=== PATIENT | female | born 1945 | race Caucasian/White ===

== ENCOUNTER 2016-10-02 23:28 | Observation (INO) ==
[2016-10-03] MEDS ORDERED: 0.9 % Sodium Chloride 1,000 ML IVC STA (00:13)
[2016-10-03] MEDS ORDERED: *HR* Morphine 2 MG/ML SYRINGE IVP ONE (00:15)
--- NOTE | 2016-10-03 00:18 | Emergency Department Note ---
Disposition Clinical Impression: SIRS (systemic inflammatory response syndrome), Lactic acidosis Disposition: Admitted As Inpatient Condition: Good Time of Disposition: 05:30 SOB HPI - General Chief Complaint: ED Shortness of Breath/Dyspnea Stated Complaint: "Left sided pain/currently being treated for pneu" Time Seen by Provider: 10/02/16 23:57 Source: patient, family Limitations: no limitations Nursing Notes Reviewed: Yes Vital Signs Reviewed: Yes - History of Present Illness 71-year-old female medical history of lung cancer with right lobectomy in 2014 presents to the ED with chest pain on her right after she coughs. This has been ongoing only the past 24 hours. She was recently diagnosed clinically for pneumonia by her primary care physician on Friday. She describes a nonproductive cough, with an initial temperature 101.8 on Friday. She has been afebrile since. She is currently taking a Zpak as well as duoneb treatments at home. She reports an increase work of breathing but does not feel short of breath. Also reports some dysuria. Denies any recent travel. Denies any chest pain, lightheadedness, or headache. History of DVT 2 years ago after a surgery. Was treated appropriately with anticoagulants. - Related Data Home Medications Medication Instructions Recorded Confirmed Calcium Carbonate 600 mg PO BID 03/17/15 10/03/16 Cholecalciferol (Vitamin D3) 2,000 unit PO DAILY 03/17/15 10/03/16 [Vitamin D3] Garlic [Garlic Oil] 1,000 mg PO DAILY 03/17/15 10/03/16 [place]-3/Dha/Epa/Fish Oil [Fish Oil 1,000 mg PO DAILY 03/17/15 10/03/16 Dr 500 mg Softgel] Oxycodone HCl/Acetaminophen 1 each PO Q8H PRN 03/17/15 10/03/16 [Percocet 5-325 mg Tablet] Calcium Polycarbophil [Fibercon] 625 mg PO DAILY 08/12/15 10/03/16 Albuterol Neb [Proventil Neb] 2.5 mg IH Q6H 10/03/16 10/03/16 Aspirin 81 mg PO DAILY 10/03/16 10/03/16 Fluticasone Propionate Nasal 2 spray NS DAILY 10/03/16 10/03/16 [Flonase] Levofloxacin [Levofloxacin] 500 mg PO DAILY 10/03/16 10/03/16 PredniSONE [Prednisone] 40 mg PO TAPER 10/03/16 10/03/16 Tizanidine HCl 4 mg PO DAILY PRN 10/03/16 10/03/16 Previous Rx's Medication Instructions Recorded Pantoprazole Sodium [Protonix] 40 mg PO DAILY #90 granpkt. 12/05/15 Allergies Allergy/AdvReac Type Severity Reaction Status Date / Time paclitaxel Allergy Severe Anaphylaxis Verified 02/19/16 11:27 Penicillins Allergy Severe Hives Verified 02/19/16 11:27 codeine AdvReac Mild Nausea Verified 02/19/16 11:27 All systems ED: reviewed and negative except as stated. Constitutional: Denies: fever, chills Cardiovascular: Reports: chest pain, dyspnea on exertion. Denies: palpitations , syncope Respiratory: Reports: cough, dyspnea. Denies: wheezes, hemoptysis Gastrointestinal: Denies: abdominal pain, nausea, vomiting Genitourinary: Reports: dysuria. Denies: urgency Integumentary: Denies: rash Past Medical History - Past Medical History Attestation: Yes The following information was validated with the patient. Source: patient Medical history: Reports: arthritis, cancer, GERD Surgical history: Reports: cholecystectomy Psychiatric history: Reports: no psych history - Social History Smoking Status: Current every day smoker Alcohol use: Reports: none Drug use: Reports: none Physical Exam - General Limitations: no limitations General appearance: alert, in no apparent distress - Head Head exam: atraumatic, normocephalic, normal inspection - Eye Eye exam: Present: normal appearance, PERRL, EOMI - ENT ENT exam: normal exam, normal oropharynx, mucous membranes moist - Neck Neck exam: Present: normal inspection, full ROM, trachea midline - Chest Chest inspection: Present: normal inspection, symmetric chest wall rise, tenderness (right chest) - Respiratory Respiratory exam: Present: normal lung sounds bilaterally, respiratory distress (increased work of breathing) - Expanded Respiratory Exam Location: rales: Right - Cardiovascular Cardiovascular exam: Present: regular rate, normal rhythm, normal heart sounds - Abdominal Exam Abdominal exam: Present: soft, Non-Tender, normal bowel sounds. Absent: tenderness, distention, guarding, rebound, rigidity - Extremities Exam Extremities exam: Present: normal inspection, full ROM, normal capillary refill. Absent: tenderness, pedal edema, calf tenderness - Neurological Exam Neurological exam: Present: alert, oriented X3 - Psychiatric Psychiatric exam: Present: normal affect, normal mood - Skin Skin exam: Present: warm, dry, intact, normal color Course Course Narrative: Patient evaluated during [facility], some results may be on paper chart. Patient clinically diagnosed with pneumonia on Friday. Since last night she has developed sharp right chest pain worse with coughing. This occurred after a coughing spell. Pain immediately followed. Not concerning for ACS in regard to chest discomfort. She is tachycardic 103 bpm and hypoxic 94% on 2L. She is not normally on oxygen suppliementation. She reports a history of a blood clot with treatment 2 years ago following the surgery. At this time will get a chest x-ray, EKG, septic workup. If the chest x-ray does not show a pneumonia in the right lobes will consider CTA as long as GFR is appropriate. Repeat Lactate 2.76. She has fluids running. History of diabetes but not currently on any medications. No Urine is not consistent with infection, negative for nitrites and leuk esterase. Labs reviewed and discussed with patient. Currently in DOWNTIME. Lactate elevated at 2.5. 2 L normal saline ordered for fluid resuscitation. CXR shows a stable right lung mass and lingular infiltrate. EKG is sinus tachycardia without signs of ischemic changes. Concern for possible PE with her history. With a unconvincing pneumonia on CXR suspicion is high for PE. Wells Criteria for PE is 4.5 which is moderate risk. Will proceed with CTA for R/O PE. Patient is in agreement with plan. Disposition pending CTA as it may reveal pneumonia vs. PE. CTA is negative for PE. Stable lumpectomy changes and postradiation fibrosis. No signs of pneumonia. Will recheck a lactate and troponin as she continues to have pain from the cough. Likely is due to musculoskeletal etiology due to onset from coughing episode and sharp pain only with coughs. Patient ambulated through the department without difficulty, remained 96% on RA. Patient in agreement with plan. - Reevaluation(s) Reevaluation #1: 3rd Lactate after total of 3L normal saline continues to rise, now up to 3.2. Her initial lactate was with 1st liter and repeat lactate was during 2nd liter. A 4th liter of normal saline ordered. Patient remains uncomfortable with each cough, however, when she is not coughing she is very comfortable. Up to 8 mg of morphine ordered for pain and cough. CTA does not reveal an infectious process or pulmonary embolism. Urine is negative for infection. Concern for other etiology. Lungs remain clear on the left and some coarse sounds on the right, likely from the lobectomy. Abdomen remains soft and nontender. Pain continues to be reproducible with cough and palpation to the right chest wall. O2 saturation 94-95% on room air. No obvious signs of infection such as cellulitis. Plan is for admission with lactic acidosis and SIRS. Time: 07:16 - Consultations Consultation #1: Spoke with michelle Skinner to admit for lactic acidosis and SIRS. No further orders at this time. Time: 07:39 Vital Signs Temperature 98.6 F 10/02/16 23:32 Pulse Rate 104 10/02/16 23:32 Respiratory Rate 18 10/02/16 23:32 Blood Pressure 117/72 10/02/16 23:32 O2 Sat by Pulse Oximetry 93 L 10/02/16 23:32 Temperature 98.2 F 10/03/16 15:26 Pulse Rate 89 10/03/16 15:26 Respiratory Rate 18 10/03/16 16:09 Blood Pressure 133/69 10/03/16 15:26 O2 Sat by Pulse Oximetry 96 10/03/16 16:09 Oxygen Delivery Oxygen Delivery Room Air Shortness of Breath/Dyspnea - Medical Records Medical records reviewed: Yes I reviewed the patient's medical records. - Lab Data Lab results reviewed: Yes I reviewed the patient's lab results. Result diagrams: 10/03/16 00:00 10/03/16 00:00 Lab Results 10/03/16 10/03/16 10/03/16 Range/Units 00:00 00:00 00:00 WBC 6.7 (4.3-11.1) K/mcL RBC 3.84 (3.82-4.97) M/mcL Hgb 12.7 (11.5-15.4) g/dL Hct 38.6 (35.3-44.9) % MCV 100.5 H (83.0-100.0) fL MCH 33.1 (28.0-33.3) pg MCHC 32.9 (31.6-35.5) g/dL RDW 14.6 H (11.5-14.5) % Plt Count 218 (140-400) K/mcL MPV 8.9 L (9.4-12.4) fL Immature Gran % 0.5 (0-4) % Seg Neutrophils % 91.9 % Lymphocytes % 2.9 % Monocytes % 4.4 % Eosinophils % 0.0 % Basophils % 0.3 % Neutrophils # 6.2 (1.6-8.9) K/mcL Lymphocytes # 0.2 L (0.6-4.6) K/mcL Monocytes # 0.3 (0.0-1.3) K/mcL Eosinophils # 0.0 (0.0-0.6) K/mcL Basophils # 0.0 (0.0-0.2) K/mcL Platelet Estimate Normal (Normal) PT 11.3 (9.4-12.1) Seconds INR 1.0 APTT 27.1 (26.0-36.0) Seconds Sodium 137 (136-145) mEq/L Potassium 3.8 (3.5-4.5) mEq/L Chloride 104 (98-109) mEq/L Carbon Dioxide 23 (19-29) mEq/L BUN 16 (7-20) mg/dL Creatinine 0.81 (0.57-1.11) mg/dL Est GFR ( Amer) > 60 (> 60) Est GFR (Non-Af Amer) > 60 (> 60) BUN/Creatinine Ratio 20 (6-26) Glucose 117 H (70-99) mg/dL Calculated Osmolality 286 (280-300) Lactic Acid (0.5-2.2) mmol/L Calcium 9.0 (8.6-10.8) mg/dL Phosphorus 2.0 L (2.3-4.7) mg/dL Magnesium 1.7 (1.6-2.6) mg/dL Total Bilirubin 0.2 (0.2-1.2) mg/dL Direct Bilirubin 0.1 (0.0-0.5) mg/dL Indirect Bilirubin 0.1 (0.0-1.2) mg/dL AST 15 (5-34) Units/L ALT 9 (0-55) Units/L Alkaline Phosphatase 77 (38-126) Units/L Troponin I (0-0.03) ng/mL Serum Total Protein 6.5 (6.0-8.3) g/dL Albumin 3.2 L (3.5-5.0) g/dL Globulin 3.3 (2.4-3.5) g/dL Albumin/Globulin Ratio 1.0 L (1.1-2.2) Urine Color (Yellow) Urine Clarity (Clear) Urine pH (5.0-8.0) pH Units Ur Specific [place] (1.010-1.025) Urine Protein (Neg-Trace) mg/dL Urine Glucose (UA) (Normal) mg/dL Urine Ketones (Negative) mg/dL Urine Blood (Negative) Urine Nitrite (Negative) Urine Bilirubin (Negative) Urine Urobilinogen (Normal) mg/dL Ur Leukocyte Esterase (Negative) Ur Culture Indicated? (NO) 10/03/16 10/03/16 10/03/16 Range/Units 00:00 01:30 01:45 WBC (4.3-11.1) K/mcL RBC (3.82-4.97) M/mcL Hgb (11.5-15.4) g/dL Hct (35.3-44.9) % MCV (83.0-100.0) fL MCH (28.0-33.3) pg MCHC (31.6-35.5) g/dL RDW (11.5-14.5) % Plt Count (140-400) K/mcL MPV (9.4-12.4) fL Immature Gran % (0-4) % Seg Neutrophils % % Lymphocytes % % Monocytes % % Eosinophils % % Basophils % % Neutrophils # (1.6-8.9) K/mcL Lymphocytes # (0.6-4.6) K/mcL Monocytes # (0.0-1.3) K/mcL Eosinophils # (0.0-0.6) K/mcL Basophils # (0.0-0.2) K/mcL Platelet Estimate (Normal) PT (9.4-12.1) Seconds INR APTT (26.0-36.0) Seconds Sodium (136-145) mEq/L Potassium (3.5-4.5) mEq/L Chloride (98-109) mEq/L Carbon Dioxide (19-29) mEq/L BUN (7-20) mg/dL Creatinine (0.57-1.11) mg/dL Est GFR ( Amer) (> 60) Est GFR (Non-Af Amer) (> 60) BUN/Creatinine Ratio (6-26) Glucose (70-99) mg/dL Calculated Osmolality (280-300) Lactic Acid 2.5 H 2.8 H (0.5-2.2) mmol/L Calcium (8.6-10.8) mg/dL Phosphorus (2.3-4.7) mg/dL Magnesium (1.6-2.6) mg/dL Total Bilirubin (0.2-1.2) mg/dL Direct Bilirubin (0.0-0.5) mg/dL Indirect Bilirubin (0.0-1.2) mg/dL AST (5-34) Units/L ALT (0-55) Units/L Alkaline Phosphatase (38-126) Units/L Troponin I (0-0.03) ng/mL Serum Total Protein (6.0-8.3) g/dL Albumin (3.5-5.0) g/dL Globulin (2.4-3.5) g/dL Albumin/Globulin Ratio (1.1-2.2) Urine Color Yellow (Yellow) Urine Clarity Clear (Clear) Urine pH 6.0 (5.0-8.0) pH Units Ur Specific [place] 1.006 L (1.010-1.025) Urine Protein Negative (Neg-Trace) mg/dL Urine Glucose (UA) Normal (Normal) mg/dL Urine Ketones Negative (Negative) mg/dL Urine Blood Negative (Negative) Urine Nitrite Negative (Negative) Urine Bilirubin Negative (Negative) Urine Urobilinogen Normal (Normal) mg/dL Ur Leukocyte Esterase Negative (Negative) Ur Culture Indicated? NO (NO) 10/03/16 10/03/16 Range/Units 04:36 04:36 WBC (4.3-11.1) K/mcL RBC (3.82-4.97) M/mcL Hgb (11.5-15.4) g/dL Hct (35.3-44.9) % MCV (83.0-100.0) fL MCH (28.0-33.3) pg MCHC (31.6-35.5) g/dL RDW (11.5-14.5) % Plt Count (140-400) K/mcL MPV (9.4-12.4) fL Immature Gran % (0-4) % Seg Neutrophils % % Lymphocytes % % Monocytes % % Eosinophils % % Basophils % % Neutrophils # (1.6-8.9) K/mcL Lymphocytes # (0.6-4.6) K/mcL Monocytes # (0.0-1.3) K/mcL Eosinophils # (0.0-0.6) K/mcL Basophils # (0.0-0.2) K/mcL Platelet Estimate (Normal) PT (9.4-12.1) Seconds INR APTT (26.0-36.0) Seconds Sodium (136-145) mEq/L Potassium (3.5-4.5) mEq/L Chloride (98-109) mEq/L Carbon Dioxide (19-29) mEq/L BUN (7-20) mg/dL Creatinine (0.57-1.11) mg/dL Est GFR ( Amer) (> 60) Est GFR (Non-Af Amer) (> 60) BUN/Creatinine Ratio (6-26) Glucose (70-99) mg/dL Calculated Osmolality (280-300) Lactic Acid 3.2 H (0.5-2.2) mmol/L Calcium (8.6-10.8) mg/dL Phosphorus (2.3-4.7) mg/dL Magnesium (1.6-2.6) mg/dL Total Bilirubin (0.2-1.2) mg/dL Direct Bilirubin (0.0-0.5) mg/dL Indirect Bilirubin (0.0-1.2) mg/dL AST (5-34) Units/L ALT (0-55) Units/L Alkaline Phosphatase (38-126) Units/L Troponin I 0.01 (0-0.03) ng/mL Serum Total Protein (6.0-8.3) g/dL Albumin (3.5-5.0) g/dL Globulin (2.4-3.5) g/dL Albumin/Globulin Ratio (1.1-2.2) Urine Color (Yellow) Urine Clarity (Clear) Urine pH (5.0-8.0) pH Units Ur Specific [place] (1.010-1.025) Urine Protein (Neg-Trace) mg/dL Urine Glucose (UA) (Normal) mg/dL Urine Ketones (Negative) mg/dL Urine Blood (Negative) Urine Nitrite (Negative) Urine Bilirubin (Negative) Urine Urobilinogen (Normal) mg/dL Ur Leukocyte Esterase (Negative) Ur Culture Indicated? (NO) - Radiology Data Radiology results reviewed: Yes I reviewed the patient's radiology results. Chest X-Ray 10/03/16 00:14 IMPRESSION: 1. Right lung post treatment changes appear stable with no acute consolidation. 2. Subtle progressive lingular and lower lobe findings which may represent bronchitis/bronchiolitis. D/ / 10/03/2016 07:11:17 Jagjit Pereira MD / ros Interpreting Provider: Jagjit Pereira MD - EKG Data EKG attestation: Yes I reviewed and interpreted this EKG. EKG results narrative: EKG performed 2348, sinus tachycardia 107 bpm, normal axis, no ST elevations or depression, no T wave inversions. Intervals are within normal limits. No acute ischemic changes. Attestation Statement - Attestation Attestation: I examined this patient and my medical decision-making was reviewed with the Resident Physician. I agree with the documented findings, disposition and treatment plan as described except to the extent set forth below. Very uncomfortable with coughing, comfortable at rest. Tachycardia improved with fluid administration but lactate did not. No obvious source of infection. Remainder of ED work up unremarkable. Admit for continued hydration and monitoring.
[2016-10-03 00:21] LABS: Basophils % 0.3 %; Hematocrit 38.6 % (35.3-44.9); Hemoglobin 12.7 g/dL (11.5-15.4); Immature Granulocytes % 0.5 % (0-4); Lymphocytes # 0.2 K/mcL (0.6-4.6); Lymphocytes % 2.9 %; Mean Corpuscular HGB Conc 32.9 g/dL (31.6-35.5); Mean Corpuscular Hemoglobin 33.1 pg (28.0-33.3); Mean Corpuscular Volume 100.5 fL (83.0-100.0); Mean Platelet Volume 8.9 fL (9.4-12.4); Monocytes # 0.3 K/mcL (0.0-1.3); Monocytes % 4.4 %; Neutrophils # 6.2 K/mcL (1.6-8.9); Platelet Count 218 K/mcL (140-400); Red Blood Count 3.84 M/mcL (3.82-4.97); Red Cell Distribution Width 14.6 % (11.5-14.5); Segmented Neutrophils % 91.9 %
[2016-10-03 00:26] LABS: Prothrombin Time 11.3 Seconds (9.4-12.1)
[2016-10-03 00:29] LABS: Activated Partial Thrombo Time 27.1 Seconds (26.0-36.0)
[2016-10-03 00:32] LABS: Alanine Aminotransferase 9 Units/L (0-55); Albumin 3.2 g/dL (3.5-5.0); Alkaline Phosphatase 77 Units/L (38-126); Aspartate Amino Transferase 15 Units/L (5-34); BUN/Creatinine Ratio 20 (6-26); Bilirubin,Direct 0.1 mg/dL (0.0-0.5); Bilirubin,Indirect 0.1 mg/dL (0.0-1.2); Bilirubin,Total 0.2 mg/dL (0.2-1.2); Blood Urea Nitrogen 16 mg/dL (7-20); Carbon Dioxide 23 mEq/L (19-29); Chloride 104 mEq/L (98-109); Globulin 3.3 g/dL (2.4-3.5); Glucose 117 mg/dL (70-99); Magnesium 1.7 mg/dL (1.6-2.6); Osmolality,Calculated 286 (280-300); Potassium 3.8 mEq/L (3.5-4.5); Sodium 137 mEq/L (136-145); Total Protein 6.5 g/dL (6.0-8.3); eGFR For African Americans > 60 (> 60); eGFR For Non-African Americans > 60 (> 60)
[2016-10-03 00:39] LABS: Platelet Estimate Normal (Normal)
[2016-10-03] MEDS ORDERED: 0.9 % Sodium Chloride 1,000 ML IVC ONE ×2 (00:56→07:15)
[2016-10-03] MEDS ORDERED: 0.9 % Sodium Chloride 1,000 ML ONE ×3 (01:31→06:59)
[2016-10-03] MEDS ORDERED: *HR* Morphine 2 MG/ML SYRINGE ONE (04:05)
[2016-10-03] MEDS ORDERED: *HR* Morphine 2 MG/ML SYRINGE IV ONE (07:14)
[2016-10-03 08:07] LABS: Bilirubin,Urine Negative (Negative); Blood,Urine Negative (Negative); Clarity,Urine Clear (Clear); Color,Urine Yellow (Yellow); Glucose,Urine (UA) Normal (Normal); Ketones,Urine Negative (Negative); Specific Gravity,Urine 1.006 (1.010-1.025)
[2016-10-03 08:08] LABS: Leukocyte Esterase,Urine Negative (Negative); Nitrite,Urine Negative (Negative); Protein,Urine Negative (Neg-Trace); Urobilinogen,Urine Normal (Normal)
[2016-10-03] MEDS ORDERED: *HR* Morphine 2 MG/ML SYRINGE IVP PRN (11:24)
[2016-10-03] MEDS ORDERED: Naloxone 0.4 MG/ML INJ IVP PRN (11:24)
[2016-10-03] MEDS ORDERED: Ibuprofen 400 MG TABLET PO PRN (11:24)
[2016-10-03] MEDS ORDERED: levoFLOXacin 500 MG TABLET PO SCH (11:30)
[2016-10-03] MEDS ORDERED: tiZANidine 4 MG TABLET PO PRN (11:30)
--- NOTE | 2016-10-03 12:16 | Internal Med History&Physical ---
Date of Encounter: 10/03/16 Time of Encounter: 12:07 Assessment and Plan (1) Sepsis Current visit: Yes Status: Acute Meets criteria for sepsis with suspected bronchitis, tachycardia with HR 90s-110 , tachypnea with RR up to 22. She also reports a fever to 102 on Friday. WBC normal at 6.7. Patient has been taking PO Levaquin since Friday. Blood cultures drawn Lactic acid drawn and increasing, 2.5 to 2.8 to 3.2 despite 3L of fluids given Continue IV fluids with 0.9NS at 100mL/hr IV antibiotics Levaquin and Ceftriaxone ordered Qualifiers: Sepsis type: sepsis due to unspecified organism Qualified Code(s): A41.9 - Sepsis, unspecified organism (2) Lactic acidosis Current visit: Yes Status: Acute Patient with increasing lactic acid despite administration of IV fluids. Patient presents with cough since this weekend, pain in right side associated with coughing and deep inspiration. Patient reports fever of 102 on Friday, but afebrile today. WBC normal at 6.7, She is tachycardic with HR 104-110, and tachypnic with RR of 22 at times, meeting SIRS criteria. CTA and CXR consistent with chronic bronchilitis/chronic bronchitis. Patient was satting 92 -95% on Room air or 2L NC Blood cultures drawn Antibiotics ordered with IV Levaquin and Ceftriaxone ABG ordered Additional Lactic acid ordered (3) Tobacco abuse Current visit: No Status: Acute Patient continues to smoke 1 pack per day despite lung cancer 2 years ago. Discussed smoking cessation, patient not interested at this time. Nicotine patch ordered. (4) Pain aggravated by coughing and deep breathing Current visit: Yes Status: Acute Patient with right sided pain with coughing and deep inspiration. CXR consistent with bronchitis, bronchiolitis, no osseous abnormality. CTA negative for PE and consistent with chroning bronchiolitis. Patient tender on palpation to right lateral chest wall. Pain likely pleuritic or musculoskeletal due to coughing. Dextromethorphan and guafenisin ordered PRN pain medication ordered for right sided pain. Narcan ordered PRN for respiratory depression. (5) DVT prophylaxis Current visit: No Status: Acute Ambulate with assistance anti-embolic stockings Lovenox 40mg SQ daily Internal Medicine - H&P: HPI Chief complaint: Shortness of breath, pain with cough Admitted From: Emergency Dept Plans for Post Hospital Care: Home History of present illness: Ms. Bautista is a 71 year old female with COPD,history of lung cancer status post right upper lobe lumpectomy 2 years ago and chemo/radiation now in remission, history of DVT, and acid reflux, who presented to the emergency department today with complaints of shortness of breath, and right-sided pain with coughing. She reports her cough started over the weekend and she saw her primary care provider on Friday who started her on Levaquin and a prednisone taper for suspected pneumonia. She reports she had a fever of 102 on Friday she also endorses poor appetite, chills and fatigue. Cough is not very productive, she feels short of breath when she has a coughing spell. Pain in her right side is severe, occurs primarily with coughing and subsides after a coughing fit is over. She denies any nausea, vomiting, abdominal pain, diarrhea. She denies any chest pain, palpitations, lightheadedness, dizziness. Evaluation in the emergency department included chest x-ray which showed subtle lingular and left lower lobe findings which may be consistent with bronchitis or bronchiolitis. She was tachycardic to 104-110. Troponin was negative at 0.01. CTA was obtained due to patient's pain with cough, tachycardia, and history of DVT. CTA was negative for pulmonary embolism, showed stable right lung post lumpectomy and postradiation fibrosis, stable basilar peribronchial opacities consistent with chronic bronchiolitis. Also showed a medial right lobe 6 mm subpleural nodular density which is slightly increased in prominence since the prior exam which could represent fibrosis however disease recurrence cannot be excluded and should be followed up. Lactic acid was elevated at 2.5, patient was given fluids and lactic acid redrawn on redraw it was increased to 2.8 additional fluids were given and redraw again was increased to 3.2. White count was normal at 6.7. UA was not concerning for infection. On exam, patient is alert and oriented, in no acute distress. Heart is regular rate and rhythm she is mildly tachypneic with respiratory rate of 22. Lungs were clear to auscultation bilaterally. Patient had tenderness to lateral right chest wall on palpation. Past Med Surg Social Fam HX - Past Medical History Medical history: arthritis, cancer, GERD Psychiatric history: no psych history - Past Surgical History Surgical History: cholecystectomy - Social History Smoking Status: Current every day smoker Alcohol use: none Drug use: none - Family History Daughter Living Status: Still Living Hx Family Cardiac Disorders: No Hx Family Respiratory Disorders: No Mother Hx Family Cardiac Disorders: Yes (not sure what type) Hx Family Respiratory Disorders: No Hx Family Cancer: No Hx Family GI Disorders: No Hx Family Genitourinary Disorders: No Hx Family Endocrine Disorder: Yes (DM) Hx Family Musculoskeletal Disorders: No Hx Family Neuromuscular Disorders: No Hx Family Neurologic Disorders: No Hx Family HEENT Disorders: No Hx Family Autoimmune Disorders: No Hx Family Reproductive Disorders: No Hx Family Psychosocial Disorders: No Hx Family Medical Disorders: No Father Living Status: Hx Family Cardiac Disorders: No Hx Family Respiratory Disorders: Yes (black lung) Hx Family Cancer: Yes (cancer) Hx Family GI Disorders: No Hx Family Genitourinary Disorders: No Hx Family Endocrine Disorder: No Hx Family Musculoskeletal Disorders: No Hx Family Neuromuscular Disorders: No Hx Family Neurologic Disorders: No Hx Family HEENT Disorders: No Hx Family Autoimmune Disorders: No Hx Family Reproductive Disorders: No Hx Family Psychosocial Disorders: No Hx Family Medical Disorders: No Internal Medicine - H&P: Meds Calcium Carbonate 600 mg PO BID 03/17/15 [History] Cholecalciferol (Vitamin D3) [Vitamin D3] 2,000 unit PO DAILY 03/17/15 [History] Garlic [Garlic Oil] 1,000 mg PO DAILY 03/17/15 [History] [place]-3/Dha/Epa/Fish Oil [Fish Oil Dr 500 mg Softgel] 1,000 mg PO DAILY [History] Oxycodone HCl/Acetaminophen [Percocet 5-325 mg Tablet] 1 each PO Q8H PRN [History] Calcium Polycarbophil [Fibercon] 625 mg PO DAILY 08/12/15 [History] Pantoprazole Sodium [Protonix] 40 mg PO DAILY #90 granpkt. 12/05/15 [Rx] Albuterol Neb [Proventil Neb] 2.5 mg IH Q6H 10/03/16 [History] Aspirin 81 mg PO DAILY 10/03/16 [History] Fluticasone Propionate Nasal [Flonase] 2 spray NS DAILY 10/03/16 [History] Levofloxacin [Levofloxacin] 500 mg PO DAILY 10/03/16 [History] PredniSONE [Prednisone] 40 mg PO TAPER 10/03/16 [History] Tizanidine HCl 4 mg PO DAILY PRN 10/03/16 [History] Allergies paclitaxel Allergy (Severe, Verified 02/19/16 11:27) Anaphylaxis 09/21/14 Penicillins Allergy (Severe, Verified 02/19/16 11:27) Hives codeine Adverse Reaction (Mild, Verified 02/19/16 11:27) Nausea Pt states she doesn't know if she got sick because she took codeine on an empy stomach, pt requesting codeine be left as an allergy All Systems PM: A 10-system review of systems was performed and is negative for pertinent findings except as documented above in the HPI. - Constitutional Constitutional: chills, fatigue, fever(s), no night sweats - EENT Eyes: no change in vision, no discharge, no pain, no photophobia Ears: no ear discharge, no ear pain, no tinnitus Nose, mouth and throat: no dysphagia, no nasal discharge, no neck pain, no sore throat - Cardiovascular Cardiovascular ROS IM: no chest pain, no diaphoresis, no dyspnea, no lightheadedness, no palpitations, no syncope - Respiratory Respiratory: cough, dyspnea, pain on inspiration, pain with cough - Gastrointestinal Gastrointestinal: no abdominal pain, no diarrhea, no hematemesis, no hematochezia, no melena, no nausea, no vomiting - Genitourinary Genitourinary: no change in urinary stream, no dysuria, no flank pain, no hematuria - Musculoskeletal Musculoskeletal ROS IM: no numbness, no tingling - Integumentary Integumentary IM: no rash, no unusual bruising - Neurological Neurological ROS: no confusion, no convulsions, no focal weakness, no numbness, no tingling, no tremor(s) - Hematologic/Lymphatic Hematologic/Lymphatic: no easy bruising - Constitutional Vitals: Temp Pulse Resp BP Pulse Ox 97.7 F 100 16 122/72 93 L 10/03/16 09:02 10/03/16 09:02 10/03/16 09:02 10/03/16 09:02 10/03/16 09:02 General appearance: Present: A&O X 3, pleasant, no acute distress - Head Head exam: Present: atraumatic, normocephalic - Eye Eye exam: Present: PERRL, conjuntiva pink, sclera anicteric Pupils: Present: PERRL - Neck Neck exam general surgery: Present: supple, trachea midline. Absent: lymphadenopathy - Respiratory Respiratory exam: Present: chest wall tenderness (right lateral), CTAB. Absent : accessory muscle use, rales, rhonchi, wheezes - Cardiovascular Cardiovascular exam: Present: RRR, +S1, +S2. Absent: diastolic murmur, gallop, rubs, systolic murmur - GI/Abdominal GI/Abdominal exam: Present: normal bowel sounds, soft, no peritoneal signs. Absent: distended, tenderness - Extremities Exam Extremities exam: Present: warm, radial pulses palpable and symetrical. Absent : calf tenderness, cyanotic, pedal edema - Neurological Exam Neurological exam: Present: CN II-XII intact, oriented X3, no focal deficits. Absent: facial droop, speech deficit - Skin Skin exam: Present: dry, intact Internal Med - H&P Results - Labs CBC & Chem 7: 10/03/16 00:00 10/03/16 00:00 Labs: Cardiac Enzymes 10/03/16 Range/Units Unknown Troponin I 0.00 (0-0.03) ng/mL All Lab Results (24 Hours) 10/03/16 10/03/16 10/03/16 Range/Units 00:00 00:00 00:00 WBC 6.7 (4.3-11.1) K/mcL RBC 3.84 (3.82-4.97) M/mcL Hgb 12.7 (11.5-15.4) g/dL Hct 38.6 (35.3-44.9) % MCV 100.5 H (83.0-100.0) fL MCH 33.1 (28.0-33.3) pg MCHC 32.9 (31.6-35.5) g/dL RDW 14.6 H (11.5-14.5) % Plt Count 218 (140-400) K/mcL MPV 8.9 L (9.4-12.4) fL Immature Gran % 0.5 (0-4) % Seg Neutrophils % 91.9 % Lymphocytes % 2.9 % Monocytes % 4.4 % Eosinophils % 0.0 % Basophils % 0.3 % Neutrophils # 6.2 (1.6-8.9) K/mcL Lymphocytes # 0.2 L (0.6-4.6) K/mcL Monocytes # 0.3 (0.0-1.3) K/mcL Eosinophils # 0.0 (0.0-0.6) K/mcL Basophils # 0.0 (0.0-0.2) K/mcL Platelet Estimate Normal (Normal) PT 11.3 (9.4-12.1) Seconds INR 1.0 APTT 27.1 (26.0-36.0) Seconds Sodium 137 (136-145) mEq/L Potassium 3.8 (3.5-4.5) mEq/L Chloride 104 (98-109) mEq/L Carbon Dioxide 23 (19-29) mEq/L BUN 16 (7-20) mg/dL Creatinine 0.81 (0.57-1.11) mg/dL Est GFR ( Amer) > 60 (> 60) Est GFR (Non-Af Amer) > 60 (> 60) BUN/Creatinine Ratio 20 (6-26) Glucose 117 H (70-99) mg/dL Calculated Osmolality 286 (280-300) Lactic Acid (0.5-2.2) mmol/L Calcium 9.0 (8.6-10.8) mg/dL Phosphorus 2.0 L (2.3-4.7) mg/dL Magnesium 1.7 (1.6-2.6) mg/dL Total Bilirubin 0.2 (0.2-1.2) mg/dL Direct Bilirubin 0.1 (0.0-0.5) mg/dL Indirect Bilirubin 0.1 (0.0-1.2) mg/dL AST 15 (5-34) Units/L ALT 9 (0-55) Units/L Alkaline Phosphatase 77 (38-126) Units/L Troponin I (0-0.03) ng/mL Serum Total Protein 6.5 (6.0-8.3) g/dL Albumin 3.2 L (3.5-5.0) g/dL Globulin 3.3 (2.4-3.5) g/dL Albumin/Globulin Ratio 1.0 L (1.1-2.2) Urine Color (Yellow) Urine Clarity (Clear) Urine pH (5.0-8.0) pH Units Ur Specific [place] (1.010-1.025) Urine Protein (Neg-Trace) mg/dL Urine Glucose (UA) (Normal) mg/dL Urine Ketones (Negative) mg/dL Urine Blood (Negative) Urine Nitrite (Negative) Urine Bilirubin (Negative) Urine Urobilinogen (Normal) mg/dL Ur Leukocyte Esterase (Negative) Ur Culture Indicated? (NO) 10/03/16 10/03/16 10/03/16 Range/Units 00:00 01:30 01:45 WBC (4.3-11.1) K/mcL RBC (3.82-4.97) M/mcL Hgb (11.5-15.4) g/dL Hct (35.3-44.9) % MCV (83.0-100.0) fL MCH (28.0-33.3) pg MCHC (31.6-35.5) g/dL RDW (11.5-14.5) % Plt Count (140-400) K/mcL MPV (9.4-12.4) fL Immature Gran % (0-4) % Seg Neutrophils % % Lymphocytes % % Monocytes % % Eosinophils % % Basophils % % Neutrophils # (1.6-8.9) K/mcL Lymphocytes # (0.6-4.6) K/mcL Monocytes # (0.0-1.3) K/mcL Eosinophils # (0.0-0.6) K/mcL Basophils # (0.0-0.2) K/mcL Platelet Estimate (Normal) PT (9.4-12.1) Seconds INR APTT (26.0-36.0) Seconds Sodium (136-145) mEq/L Potassium (3.5-4.5) mEq/L Chloride (98-109) mEq/L Carbon Dioxide (19-29) mEq/L BUN (7-20) mg/dL Creatinine (0.57-1.11) mg/dL Est GFR ( Amer) (> 60) Est GFR (Non-Af Amer) (> 60) BUN/Creatinine Ratio (6-26) Glucose (70-99) mg/dL Calculated Osmolality (280-300) Lactic Acid 2.5 H 2.8 H (0.5-2.2) mmol/L Calcium (8.6-10.8) mg/dL Phosphorus (2.3-4.7) mg/dL Magnesium (1.6-2.6) mg/dL Total Bilirubin (0.2-1.2) mg/dL Direct Bilirubin (0.0-0.5) mg/dL Indirect Bilirubin (0.0-1.2) mg/dL AST (5-34) Units/L ALT (0-55) Units/L Alkaline Phosphatase (38-126) Units/L Troponin I (0-0.03) ng/mL Serum Total Protein (6.0-8.3) g/dL Albumin (3.5-5.0) g/dL Globulin (2.4-3.5) g/dL Albumin/Globulin Ratio (1.1-2.2) Urine Color Yellow (Yellow) Urine Clarity Clear (Clear) Urine pH 6.0 (5.0-8.0) pH Units Ur Specific [place] 1.006 L (1.010-1.025) Urine Protein Negative (Neg-Trace) mg/dL Urine Glucose (UA) Normal (Normal) mg/dL Urine Ketones Negative (Negative) mg/dL Urine Blood Negative (Negative) Urine Nitrite Negative (Negative) Urine Bilirubin Negative (Negative) Urine Urobilinogen Normal (Normal) mg/dL Ur Leukocyte Esterase Negative (Negative) Ur Culture Indicated? NO (NO) 10/03/16 10/03/16 10/03/16 Range/Units 04:36 04:36 Unknown WBC (4.3-11.1) K/mcL RBC (3.82-4.97) M/mcL Hgb (11.5-15.4) g/dL Hct (35.3-44.9) % MCV (83.0-100.0) fL MCH (28.0-33.3) pg MCHC (31.6-35.5) g/dL RDW (11.5-14.5) % Plt Count (140-400) K/mcL MPV (9.4-12.4) fL Immature Gran % (0-4) % Seg Neutrophils % % Lymphocytes % % Monocytes % % Eosinophils % % Basophils % % Neutrophils # (1.6-8.9) K/mcL Lymphocytes # (0.6-4.6) K/mcL Monocytes # (0.0-1.3) K/mcL Eosinophils # (0.0-0.6) K/mcL Basophils # (0.0-0.2) K/mcL Platelet Estimate (Normal) PT (9.4-12.1) Seconds INR APTT (26.0-36.0) Seconds Sodium (136-145) mEq/L Potassium (3.5-4.5) mEq/L Chloride (98-109) mEq/L Carbon Dioxide (19-29) mEq/L BUN (7-20) mg/dL Creatinine (0.57-1.11) mg/dL Est GFR ( Amer) (> 60) Est GFR (Non-Af Amer) (> 60) BUN/Creatinine Ratio (6-26) Glucose (70-99) mg/dL Calculated Osmolality (280-300) Lactic Acid 3.2 H (0.5-2.2) mmol/L Calcium (8.6-10.8) mg/dL Phosphorus (2.3-4.7) mg/dL Magnesium (1.6-2.6) mg/dL Total Bilirubin (0.2-1.2) mg/dL Direct Bilirubin (0.0-0.5) mg/dL Indirect Bilirubin (0.0-1.2) mg/dL AST (5-34) Units/L ALT (0-55) Units/L Alkaline Phosphatase (38-126) Units/L Troponin I 0.01 0.00 (0-0.03) ng/mL Serum Total Protein (6.0-8.3) g/dL Albumin (3.5-5.0) g/dL Globulin (2.4-3.5) g/dL Albumin/Globulin Ratio (1.1-2.2) Urine Color (Yellow) Urine Clarity (Clear) Urine pH (5.0-8.0) pH Units Ur Specific [place] (1.010-1.025) Urine Protein (Neg-Trace) mg/dL Urine Glucose (UA) (Normal) mg/dL Urine Ketones (Negative) mg/dL Urine Blood (Negative) Urine Nitrite (Negative) Urine Bilirubin (Negative) Urine Urobilinogen (Normal) mg/dL Ur Leukocyte Esterase (Negative) Ur Culture Indicated? (NO)
[2016-10-03] MEDS: 0.9 % Sodium Chloride 1,000 ML IVC SCH (12:30)
[2016-10-03] MEDS: predniSONE 10 MG TABLET PO SCH (13:22)
[2016-10-03] MEDS: Nicotine 14 MG PATCH.TD24 TD SCH (13:23)
[2016-10-03] MEDS: Levofloxacin 750 MG/150 ML 750 MG/150 ML BAG IVPB SCH (13:23)
[2016-10-03] MEDS: Dextromethorphan Polistrx(12h) 30 MG/5 ML UDC PO PRN (13:23)
[2016-10-03] MEDS: *HR* HYDROcodone/Acet 5/325 mg TABLET PO PRN ×2 (14:50→21:06)
[2016-10-03 15:24] LABS: ABG Base Excess 1.7 mEq/L (-2.0 to 3.0); ABG HCO3 25.8 mEQ/L (21-27); ABG Oxygen Saturation 94 % (95-98); ABG PCO2 38 mmHg (35-45); ABG PH 7.44 pH Units (7.32-7.45); ABG PO2 68 mmHg (85-104)
[2016-10-03 15:25] LABS: Blood Gas FiO2 28 %; Blood Gas Liter Flow 2 L/MIN
[2016-10-03] MEDS: Ipratropium/Albuterol Neb 3 ML IH SCH (16:09)
[2016-10-04] MEDS: Ipratropium/Albuterol Neb 3 ML IH SCH ×5 (00:02→23:53)
[2016-10-04] MEDS: 0.9 % Sodium Chloride 1,000 ML IVC SCH (00:36)
[2016-10-04] MEDS: Dextromethorphan Polistrx(12h) 30 MG/5 ML UDC PO PRN ×2 (02:53→22:03)
[2016-10-04 04:54] LABS: Hematocrit 33.6 % (35.3-44.9); Immature Granulocytes % 0.4 % (0-4); Lymphocytes # 0.4 K/mcL (0.6-4.6); Lymphocytes % 13.7 %; Mean Corpuscular HGB Conc 31.8 g/dL (31.6-35.5); Mean Corpuscular Volume 103.7 fL (83.0-100.0); Mean Platelet Volume 9.3 fL (9.4-12.4); Monocytes # 0.3 K/mcL (0.0-1.3); Monocytes % 9.2 %; Neutrophils # 2.2 K/mcL (1.6-8.9); Platelet Count 171 K/mcL (140-400); Red Blood Count 3.24 M/mcL (3.82-4.97); Red Cell Distribution Width 14.5 % (11.5-14.5); Segmented Neutrophils % 76.7 %
[2016-10-04 04:55] LABS: Hemoglobin 10.7 g/dL (11.5-15.4)
[2016-10-04 05:06] LABS: BUN/Creatinine Ratio 13 (6-26); Blood Urea Nitrogen 8 mg/dL (7-20); Carbon Dioxide 22 mEq/L (19-29); Chloride 111 mEq/L (98-109); Glucose 121 mg/dL (70-99); Osmolality,Calculated 288 (280-300); Potassium 3.7 mEq/L (3.5-4.5); Sodium 139 mEq/L (136-145); eGFR For African Americans > 60 (> 60); eGFR For Non-African Americans > 60 (> 60)
[2016-10-04 05:08] LABS: Calcium 7.5 mg/dL (8.6-10.8)
[2016-10-04] MEDS: *HR* HYDROcodone/Acet 5/325 mg TABLET PO PRN (05:50)
[2016-10-04] MEDS: Cholecalciferol (D-3) 1,000 UNIT TABLET PO SCH (08:28)
[2016-10-04] MEDS: Aspirin 81 MG TAB.CHEW PO SCH (08:29)
[2016-10-04] MEDS: Levofloxacin 750 MG/150 ML 750 MG/150 ML BAG IVPB SCH (08:29)
[2016-10-04] MEDS: predniSONE 10 MG TABLET PO SCH (08:29)
[2016-10-04] MEDS: Fluticasone Propionate Nasal 50 MCG/SPRAY BOTTLE NS SCH (08:31)
[2016-10-04] MEDS: OMEGA FISH OIL PO SCH (08:32)
[2016-10-04] MEDS: Nicotine 14 MG PATCH.TD24 TD SCH (08:32)
--- NOTE | 2016-10-04 13:52 | Internal Med Progress Note ---
Date of Encounter: 10/04/16 Time of Encounter: 10:50 - Assessment and plan (1) Pancytopenia Current Visit: Yes Status: Acute Assessment and plan: Possibly dilutional from IVF Patient is tolerating orally and lactic acidosis has resolved D/C IVF Rpt CBC a.m (2) Chest pain Current Visit: Yes Status: Acute Assessment and plan: Pleuritic Possibly musculoskeletal cause as chest pain is reproducible Continue current pain management Qualifiers: Chest pain type: chest pain on breathing Qualified Code(s): R07.1 - Chest pain on breathing (3) Lactic acidosis Current Visit: Yes Status: Resolved Assessment and plan: Resolved with IVF hydration (4) Sepsis Current Visit: Yes Status: Acute Assessment and plan: Preliminary blood and urine cultures negative No leukocytosis but leukopenia this a.m, possibly dilutional Continue current antibiotics Follow cultures Qualifiers: Sepsis type: sepsis due to unspecified organism Qualified Code(s): A41.9 - Sepsis, unspecified organism (5) COPD exacerbation Current Visit: No Status: Acute Assessment and plan: Possibly from acute on chronic bronchiolitis Continue prednisone po , continue duonebs (6) Tobacco abuse Current Visit: Yes Status: Chronic Assessment and plan: Smoking cessation counselling done NRT (7) Lung cancer Current Visit: Yes Status: Chronic Assessment and plan: In remission per patient Educated with family n CT scan findings Follow up wit PCP and Oncologist for repeat imaging as out-patient Smoking cessation encouraged Qualifiers: Laterality: right Lung location: upper lobe of lung Qualified Code(s): C34.11 - Malignant neoplasm of upper lobe, right bronchus or lung - Subjective Interval history: Initial encounter Patient seen at bedside with family She is a 71 Y/O F with PMH of Lung CA s/p RUL resection/Chemo/Radiotherapy 2 years ago on remission, Tobacco abuse, GERD She is admitted for management of suspected sepsis with pulmonary source based on patient's clinical symptoms of cough-unproductive, pleuritic chest pain She had been started on oral levaquin and prednisone by PCP with no improvement She was febrile at home and tachycardic on admission Work up on admission significant for lactic acidosis, Influenza Ag was negative , Blood and Urine culture preliminary negative. CTA was negative for pulmonary embolism, showed stable right lung post lumpectomy and postradiation fibrosis, stable basilar peribronchial opacities consistent with chronic bronchiolitis. Also showed a medial right lobe 6 mm subpleural nodular density which is slightly increased in prominence since the prior exam which could represent fibrosis however disease recurrence cannot be excluded and should be followed up. Lactic acid was elevated at 2.5 Patient is seen at bedside, continued to complain of pain, worse on coughing and movement - Constitutional Vitals: Temp Pulse Resp BP Pulse Ox 97.8 F 95 16 114/70 93 L 10/04/16 10:24 10/04/16 10:24 10/04/16 10:45 10/04/16 10:24 10/04/16 10:45 General appearance: Present: A&O X 3, pleasant, no acute distress - Head Head exam: Present: atraumatic, normocephalic - Eye Eye exam: Present: PERRL, conjuntiva pink, sclera anicteric Pupils: Present: PERRL - Neck Neck exam general surgery: Present: supple, trachea midline. Absent: lymphadenopathy - Respiratory Respiratory exam: Absent: wheezes Additional comments: Chest wall tenderness, worse on the right subcoastal region, no visible or palpable lesions Slightly diminished breath sounds on right, otherwise CTAB - Cardiovascular Cardiovascular exam: Present: RRR, +S1, +S2. Absent: diastolic murmur, gallop, rubs, systolic murmur - GI/Abdominal GI/Abdominal exam: Present: normal bowel sounds, soft, no peritoneal signs. Absent: distended, tenderness - Extremities Exam Extremities exam: Present: warm, radial pulses palpable and symetrical. Absent : calf tenderness, cyanotic, pedal edema - Neurological Exam Neurological exam: Present: CN II-XII intact, oriented X3, no focal deficits. Absent: pronater drift, facial droop, speech deficit - Skin Skin exam: Present: dry, intact Internal Medicine: Result - Labs CBC & Chem 7: 10/04/16 03:39 10/04/16 03:39 Labs: Short CBC 10/04/16 Range/Units 03:39 WBC 2.8 L D (4.3-11.1) K/mcL Hgb 10.7 L D (11.5-15.4) g/dL Hct 33.6 L (35.3-44.9) % Plt Count 171 (140-400) K/mcL Neutrophils # 2.2 (1.6-8.9) K/mcL BMP 10/04/16 03:39 Sodium 139 Potassium 3.7 Chloride 111 H Carbon Dioxide 22 BUN 8 Creatinine 0.64 Glucose 121 H Calcium 7.5 L D - ABG Interpretation ABG results: ABG ABG pH 7.44 pH Units (7.32-7.45) 10/03/16 15:00 ABG pCO2 38 mmHg (35-45) 10/03/16 15:00 ABG pO2 68 mmHg (85-104) L 10/03/16 15:00 ABG O2 Saturation 94 % (95-98) L 10/03/16 15:00 PT/INR, D-dimer PT 11.3 Seconds (9.4-12.1) 10/03/16 00:00 Consult Discharge Plan - Plan Referrals: Jemal Rodriguez DO [Primary Care Provider] - 10/10/16 10:30 am
--- NOTE | 2016-10-04 16:29 | Electrocardiograph Report ---
[facility] Test Date: 2016-10-02 Pat Name: Alex Bautista Department: 105 Room: 3B22 Gender: F [employer] Operator: : [id number] Requested By: Janes Glass Order Number: [id number] Reading MD: Saul Gray MD Measurements Intervals [place] Rate: 107 P: 65 AL: 165 QRS: 0 QRSD: 79 T: 79 QT: 311 QTc: 374 Interpretive Statements SINUS TACHYCARDIA NONSPECIFIC T-WAVE ABNORMALITY ABNORMAL RHYTHM ECG INTERPRETATION BASED ON A DEFAULT AGE OF 40 YEARS Electronically Signed On 10-04-2016 16:28:09 EST by Saul Gray MD
[2016-10-05 04:30] LABS: Basophils % 0.3 %; Hematocrit 34.9 % (35.3-44.9); Hemoglobin 11.6 g/dL (11.5-15.4); Immature Granulocytes % 0.5 % (0-4); Lymphocytes # 0.7 K/mcL (0.6-4.6); Lymphocytes % 19.2 %; Mean Corpuscular HGB Conc 33.2 g/dL (31.6-35.5); Mean Corpuscular Hemoglobin 33.6 pg (28.0-33.3); Mean Corpuscular Volume 101.2 fL (83.0-100.0); Mean Platelet Volume 9.5 fL (9.4-12.4); Monocytes # 0.3 K/mcL (0.0-1.3); Neutrophils # 2.6 K/mcL (1.6-8.9); Platelet Count 183 K/mcL (140-400); Red Blood Count 3.45 M/mcL (3.82-4.97); Red Cell Distribution Width 14.5 % (11.5-14.5)
[2016-10-05] MEDS: Ipratropium/Albuterol Neb 3 ML IH SCH ×3 (05:26→15:52)
[2016-10-05] MEDS: Levofloxacin 750 MG/150 ML 750 MG/150 ML BAG IVPB SCH (08:15)
[2016-10-05] MEDS: Fluticasone Propionate Nasal 50 MCG/SPRAY BOTTLE NS SCH (08:17)
[2016-10-05] MEDS: Dextromethorphan Polistrx(12h) 30 MG/5 ML UDC PO PRN (08:17)
[2016-10-05] MEDS: Nicotine 14 MG PATCH.TD24 TD SCH (08:17)
[2016-10-05] MEDS: Aspirin 81 MG TAB.CHEW PO SCH (08:18)
[2016-10-05] MEDS: Cholecalciferol (D-3) 1,000 UNIT TABLET PO SCH (08:18)
[2016-10-05] MEDS: predniSONE 10 MG TABLET PO SCH (08:20)
[2016-10-05] MEDS: OMEGA FISH OIL PO SCH (08:20)
[2016-10-05 15:30] VITALS: BP 131/78
--- NOTE | 2016-10-05 16:38 | Discharge Summary ---
Date of Encounter: 10/05/16 Time of Encounter: 16:35 - Discharge Diagnosis (1) Pancytopenia Priority: Secondary Status: Chronic (2) Chest pain Priority: Primary Status: Acute Qualifiers: Chest pain type: chest pain on breathing Qualified Code(s): R07.1 - Chest pain on breathing (3) Lactic acidosis Priority: Primary Status: Resolved (4) Sepsis Priority: Primary Status: Acute Qualifiers: Sepsis type: sepsis due to unspecified organism Qualified Code(s): A41.9 - Sepsis, unspecified organism (5) COPD exacerbation Priority: Secondary Status: Acute (6) Tobacco abuse Priority: Secondary Status: Chronic (7) Lung cancer Priority: Secondary Status: Chronic Qualifiers: Laterality: right Lung location: upper lobe of lung Qualified Code(s): C34.11 - Malignant neoplasm of upper lobe, right bronchus or lung - Discharge Medications Home Medications: Calcium Carbonate 600 mg PO BID 03/17/15 [History] Cholecalciferol (Vitamin D3) [Vitamin D3] 2,000 unit PO DAILY 03/17/15 [History] Garlic [Garlic Oil] 1,000 mg PO DAILY 03/17/15 [History] [place]-3/Dha/Epa/Fish Oil [Fish Oil Dr 500 mg Softgel] 1,000 mg PO DAILY [History] Oxycodone HCl/Acetaminophen [Percocet 5-325 mg Tablet] 1 each PO Q8H PRN [History] Calcium Polycarbophil [Fibercon] 625 mg PO DAILY 08/12/15 [History] Pantoprazole Sodium [Protonix] 40 mg PO DAILY #90 granpkt. 12/05/15 [Rx] Albuterol Neb [Proventil Neb] 2.5 mg IH Q6H 10/03/16 [History] Aspirin 81 mg PO DAILY 10/03/16 [History] Fluticasone Propionate Nasal [Flonase] 2 spray NS DAILY 10/03/16 [History] Levofloxacin [Levofloxacin] 500 mg PO DAILY 10/03/16 [History] PredniSONE [Prednisone] 40 mg PO TAPER 10/03/16 [History] Tizanidine HCl 4 mg PO DAILY PRN 10/03/16 [History] GuaiFENesin ER [Mucinex] 600 mg PO BID #12 tbbp.12hr 10/05/16 [Rx] Allergies/Adverse Reactions: Allergies paclitaxel Allergy (Severe, Verified 02/19/16 11:27) Anaphylaxis 09/21/14 Penicillins Allergy (Severe, Verified 02/19/16 11:27) Hives codeine Adverse Reaction (Mild, Verified 02/19/16 11:27) Nausea Pt states she doesn't know if she got sick because she took codeine on an empy stomach, pt requesting codeine be left as an allergy Date of admission: 10/03/16 08:00 Primary care physician: Tish Delong Consults: 10/03/16 12:38 Consult to Sanitation Tank Washer [CONS] Routine Reason for SW Consult: may need HH 10/05/16 12:03 Consult to Occupational Therapy [CONS] Routine Comment: Evaluate, develop and implement POC Consult to Physical Therapy [CONS] Routine Comment: Evaluate, develop and implement POC Discharging clinician: Obi Duarte Anticipated date of discharge: 10/05/16 - Patient Status Disposition: Home Health Service Condition: Good Functional capacity at discharge: independent ambulation Overall status at discharge: patient is progressing back to baseline - Discharge Instructions Follow Up With: Jemal Rodriguez DO [Primary Care Provider] - 10/10/16 10:30 am - Diet and Activity Activity: resume usual activities as tolerated Diet: regular diet Interval History: See below Hospital course: 71 Y/O F with PMH of Lung CA s/p RUL resection/Chemo/Radiotherapy 2 years ago on remission, Tobacco abuse, GERD She was admitted for management of suspected sepsis with pulmonary source based on patient's clinical symptoms of cough-unproductive, pleuritic chest pain She had been started on oral levaquin and prednisone by PCP with no improvement She was febrile at home and tachycardic on admission Work up on admission significant for lactic acidosis, Influenza Ag was negative , Blood and Urine culture preliminary negative. CTA was negative for pulmonary embolism, showed stable right lung post lumpectomy and postradiation fibrosis, stable basilar peribronchial opacities consistent with chronic bronchiolitis. Also showed a medial right lobe 6 mm subpleural nodular density which is slightly increased in prominence since the prior exam which could represent fibrosis however disease recurrence cannot be excluded and should be followed up. Lactic acid was elevated at 2.5 She was started on IVF hydration and IV Ceftriaxone and Levofloxacin, as well as Solumedrol and nebs She is seen at bedside today , denies new complains, feels better, chest pain has improved significantly Lactic acidosis improved with IVF hydration Blood, Urine cultures were negative, no growth Influenza test was negative Patient's spouse and daughter had informed SW that they believe she may benefit from physical therapy at home, patient refuses to wait for PT/OT evaluation in- house She is discharged to continue prior home doses of levofloxacin 500mg po daily for 4 more days She is encouraged to continue prednisone taper and resume other home meds patient continues to smoke, despite history of lung CA 3 minutes spent on counselling for smoking cessation Patient declined NRT and wishes to self quit She has a a medial right lobe 6 mm subpleural nodular density which is slightly increased in prominence since prior radiology exam and is advised to follow up with Oncology for repeat imaging Plan of care discussed, verbalized understanding Time spent discussing smoking cessation with patient: 3 to 10 minutes - Time Spent with Patient Total time spent providing and/or coordinating discharge services: Less than 30 minutes - Constitutional Vitals: Temp Pulse Resp BP Pulse Ox 98.1 F 71 18 131/78 97 10/05/16 15:27 10/05/16 15:27 10/05/16 15:55 10/05/16 15:27 10/05/16 15:55 General appearance: Present: A&O X 3, pleasant, no acute distress - Head Head exam: Present: atraumatic, normocephalic - Eye Eye exam: Present: PERRL, conjuntiva pink, sclera anicteric Pupils: Present: PERRL - Neck Neck exam general surgery: Present: supple, trachea midline. Absent: lymphadenopathy - Respiratory Respiratory exam: Present: CTAB Additional comments: Mild chest wall tenderness - Cardiovascular Cardiovascular exam: Present: RRR, +S1, +S2. Absent: diastolic murmur, gallop, rubs, systolic murmur - GI/Abdominal GI/Abdominal exam: Present: normal bowel sounds, soft, no peritoneal signs. Absent: distended, tenderness - Extremities Exam Extremities exam: Present: warm, radial pulses palpable and symetrical. Absent : calf tenderness, cyanotic, pedal edema - Neurological Exam Neurological exam: Present: CN II-XII intact, oriented X3, no focal deficits. Absent: pronater drift, facial droop, speech deficit - Skin Skin exam: Present: dry, intact
--- NOTE | 2016-10-05 16:55 | Physician Discharge Referral ---
Home Health/Hosp Referral Info Transfer to: Home Health Provider in Charge Post Discharge: PCP - Diagnosis (1) Pancytopenia Priority: Secondary Status: Chronic (2) Chest pain Priority: Primary Status: Acute (3) Lactic acidosis Priority: Primary Status: Resolved (4) Sepsis Priority: Primary Status: Acute (5) COPD exacerbation Priority: Secondary Status: Acute (6) Tobacco abuse Priority: Secondary Status: Chronic (7) Lung cancer Priority: Secondary Status: Chronic - Respiratory Orders Smoking Cessation: Smoking cessation has been advised. For more information, call the [place] Tobacco Quit Line at 3-373-XKDO-NOW. - Diet/Nutrition Diet/Nutrition Orders: Regular - Activity Activity Orders: Up ad kavita - Services Needed Following services are medically necessary services: Home Health Aide, Physical Therapy, Occupational Therapy - Transfer Medications Prescriptions: GuaiFENesin ER [Mucinex] 600 mg PO BID #12 tbbp.12hr Home Medications: Calcium Carbonate 600 mg PO BID 03/17/15 [History] Cholecalciferol (Vitamin D3) [Vitamin D3] 2,000 unit PO DAILY 03/17/15 [History] Garlic [Garlic Oil] 1,000 mg PO DAILY 03/17/15 [History] [place]-3/Dha/Epa/Fish Oil [Fish Oil Dr 500 mg Softgel] 1,000 mg PO DAILY [History] Oxycodone HCl/Acetaminophen [Percocet 5-325 mg Tablet] 1 each PO Q8H PRN [History] Calcium Polycarbophil [Fibercon] 625 mg PO DAILY 08/12/15 [History] Pantoprazole Sodium [Protonix] 40 mg PO DAILY #90 eyadpkt 12/05/15 [Rx] Albuterol Neb [Proventil Neb] 2.5 mg IH Q6H 10/03/16 [History] Aspirin 81 mg PO DAILY 10/03/16 [History] Fluticasone Propionate Nasal [Flonase] 2 spray NS DAILY 10/03/16 [History] Levofloxacin [Levofloxacin] 500 mg PO DAILY 10/03/16 [History] PredniSONE [Prednisone] 40 mg PO TAPER 10/03/16 [History] Tizanidine HCl 4 mg PO DAILY PRN 10/03/16 [History] GuaiFENesin ER [Mucinex] 600 mg PO BID #12 tbbp.12hr 10/05/16 [Rx] Allergies/Adverse Reactions: Allergies paclitaxel Allergy (Severe, Verified 02/19/16 11:27) Anaphylaxis 09/21/14 Penicillins Allergy (Severe, Verified 02/19/16 11:27) Hives codeine Adverse Reaction (Mild, Verified 02/19/16 11:27) Nausea Pt states she doesn't know if she got sick because she took codeine on an empy stomach, pt requesting codeine be left as an allergy Certification: Further, I certify that my clinical findings support that this patient is homebound (i.e. absences from home require considerable and taxing effort and are for medical reasons or congregation services or infrequently or short duration when for other reasons) because: Homebound Reason: Leaving home requires considerable and taxing effort due to condition Attestation: My signature below is to certify that this patient is under my care and that I, or nurse practitioner, or a physician's certified surgical assistant working with me, has a face-to -face encounter with this patient.
== END 2016-10-05 18:00 | disposition home health service (06) ==
LOC: EMEROO 23:28 → 3BNU 23:28 → SUATTDRO 10-03 08:00 → 3BNU 10-03 08:41
PROVIDERS: ADMIT Family Medicine; ATTEND Internal Medicine

== ENCOUNTER 2017-03-28 15:15 | Inpatient (IN) ==
[2017-03-28] MEDS ORDERED: *HR* Morphine 2 MG/ML SYRINGE IVP PRN (16:42)
[2017-03-28] MEDS ORDERED: Clindamycin 600 MG/50 ML 600 MG/50 ML IV.SOLN IVPB STA ×2 (16:42→17:46)
[2017-03-28] MEDS ORDERED: Ondansetron 4 MG/2 ML VIAL IVP PRN (16:42)
[2017-03-28] MEDS ORDERED: *HR* HYDROcodone/Acet 5/325 mg TABLET PO PRN (16:42)
[2017-03-28] MEDS ORDERED: Naloxone 0.4 MG/ML INJ IVP PRN (16:42)
[2017-03-28] MEDS ORDERED: Ringers Solution, Lactated 1,000 ML IVC SCH (16:45)
[2017-03-28] MEDS ORDERED: Albuterol 2.5 MG/3 ML NEBULIZER IH PRN ×2 (16:51→19:25)
--- NOTE | 2017-03-28 16:56 | ENT - History & Physical ---
Date of Encounter: 03/28/17 Time of Encounter: 13:00 Assessment and Plan (1) Neck abscess Current Visit: Yes Status: Acute Patient will go to the OR for I&D of L neck abscess. Admitted from clinic today. The assessment and plan as outlined above was discussed with the patient and/or family members who expressed understanding and agreement. All questions were answered. History of Present Illness Chief complaint: L neck swelling HPI: Ms. Bautista is a 72 year old female who presented to the ENT clinic as a walk- in on 03/28/17, 2 days after L neck suture removal after having had a L neck LN biopsy about 1 week ago. She developed increasing L neck swelling and pain since 2 days ago and had some swelling that day. She was given post-op abx which she took and finished. Sig L neck pain and pain on swallowing. No fevers. CT scan was done from the clinic which showed L neck abscess. She was admitted w/ plan to go to the OR for I&D. Past Med Surg Social Fam HX - Past Medical History Medical history: arthritis, cancer, COPD, diabetes, GERD, osteoporosis, other ( lung cancer) Psychiatric history: no psych history - Past Surgical History Surgical History: cataract, cholecystectomy, other (R lobectomy for cancer) - Social History Smoking Status: Current every day smoker Packs per day: 1 pack per day Smokeless Tobacco Status: No Alcohol use: none Drug use: none - Family History Mother Hx Family Cardiac Disorders: Yes (not sure what type) Hx Family Respiratory Disorders: No Hx Family Cancer: No Hx Family GI Disorders: No Hx Family Endocrine Disorder: Yes (DM) Hx Family Neuromuscular Disorders: No Hx Family Neurologic Disorders: No Hx Family HEENT Disorders: No Hx Family Autoimmune Disorders: No Father Living Status: Hx Family Cardiac Disorders: No Hx Family Respiratory Disorders: Yes (black lung) Hx Family Cancer: Yes (cancer) Hx Family GI Disorders: No Hx Family Endocrine Disorder: No Hx Family Neuromuscular Disorders: No Hx Family Neurologic Disorders: No Hx Family HEENT Disorders: No Hx Family Autoimmune Disorders: No Daughter Living Status: Still Living Hx Family Cardiac Disorders: No Hx Family Respiratory Disorders: No Medications and Allergies Cholecalciferol (Vitamin D3) [Vitamin D3] 2,000 unit PO DAILY 03/17/15 [History] Garlic [Garlic Oil] 1,000 mg PO DAILY 03/17/15 [History] [place]-3/Dha/Epa/Fish Oil [Fish Oil Dr 500 mg Softgel] 1,000 mg PO DAILY [History] Oxycodone HCl/Acetaminophen [Percocet 5-325 mg Tablet] 1 each PO Q8H PRN [History] Calcium Polycarbophil [Fibercon] 625 mg PO DAILY 08/12/15 [History] Albuterol Neb [Proventil Neb] 2.5 mg IH Q6H PRN 10/03/16 [History] Aspirin 81 mg PO DAILY 10/03/16 [History] Fluticasone Propionate Nasal [Flonase] 2 spray NS DAILY PRN 10/03/16 [History] Pantoprazole Sodium [Protonix] 40 mg PO DAILY #90 granpkt. 10/23/16 [Rx] Azithromycin [Azithromycin 6-Tab Pack] 250 mg PO PER PKG DI #6 tab 03/19/17 [Rx] Budesonide/Formoterol 160/4.5 [Symbicort 160/4.5] 2 puff IH BIDR 03/19/17 [ History] traZODone [TraZODone] 50 mg PO HS 03/19/17 [History] 3 Allergy/AdvReac Type Severity Reaction Status Date / Time paclitaxel Allergy Severe Anaphylaxis Verified 02/19/16 11:27 Penicillins Allergy Severe Hives Verified 03/19/17 14:00 codeine AdvReac Mild Nausea Verified 02/19/16 11:27 ENT - ROS - Constitutional Constitutional ROS: as per HPI, no fever(s) - EENT Nose, mouth and throat: neck pain, sore throat - Cardiovascular Cardiovascular ROS IM: no chest pain - Respiratory dyspnea on exertion (with going up and down stairs) ENT Exam Initial Vital Signs Temp Pulse Resp BP Pulse Ox 98.0 F 101 15 147/82 95 03/28/17 15:53 03/28/17 15:53 03/28/17 15:53 03/28/17 15:53 03/28/17 15:53 - General physical appearance moderate distress, moderate pain - Eyes PERRL, normal ocular movement - ENT normal pinna, normal nares, normal mucosa, CN 2-12 grossly intact. negative: deviated nasal septum, dry mucosa - Neck trachea midline, other (L neck swelling and marked tenderness, mild erythema; scope exam normal). negative: no lymphadectomy, deviated trachea - Respiratory normal expansion Results - Labs All other labs normal. - Imaging Additional studies: CT neck w/ L neck abscess - VTE Documentation of Mechanical Device: Intermittent pneumatic compression device
--- NOTE | 2017-03-28 17:04 | Anesthesia Evaluation PreOp ---
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: Other (fibromyalgia) Other Medical History: GERD Anesthesia History: No Prior Anesthetic Complications, Past Anesthesia (RUL resection, bilateral breast biopsy, cholecystectomy, R CTR, R finger amputation , left deep cervical lymph node resection (03-19-17)) Alcohol Use: none Drug use: none Medications and Allergies Cholecalciferol (Vitamin D3) [Vitamin D3] 2,000 unit PO DAILY 03/17/15 [History] Garlic [Garlic Oil] 1,000 mg PO DAILY 03/17/15 [History] [place]-3/Dha/Epa/Fish Oil [Fish Oil Dr 500 mg Softgel] 1,000 mg PO DAILY [History] Oxycodone HCl/Acetaminophen [Percocet 5-325 mg Tablet] 1 each PO Q8H PRN [History] Calcium Polycarbophil [Fibercon] 625 mg PO DAILY 08/12/15 [History] Albuterol Neb [Proventil Neb] 2.5 mg IH Q6H PRN 10/03/16 [History] Aspirin 81 mg PO DAILY 10/03/16 [History] Fluticasone Propionate Nasal [Flonase] 2 spray NS DAILY PRN 10/03/16 [History] Pantoprazole Sodium [Protonix] 40 mg PO DAILY #90 granpkt. 10/23/16 [Rx] Azithromycin [Azithromycin 6-Tab Pack] 250 mg PO PER PKG DI #6 tab 03/19/17 [Rx] Budesonide/Formoterol 160/4.5 [Symbicort 160/4.5] 2 puff IH BIDR 03/19/17 [ History] traZODone [TraZODone] 50 mg PO HS 03/19/17 [History] 3 Allergy/AdvReac Type Severity Reaction Status Date / Time paclitaxel Allergy Severe Anaphylaxis Verified 02/19/16 11:27 Penicillins Allergy Severe Hives Verified 03/19/17 14:00 codeine AdvReac Mild Nausea Verified 02/19/16 11:27 - Meds/Allergy Pre-op Review Medications Reviewed: Yes Allergies Reviewed: Yes Beta Blockers on Current Med List: No Anesthesia Results - Labs 03/28/17 17:16 03/28/17 17:16 Laboratory Tests 10/03/16 03/18/17 03/18/17 15:00 10:10 10:10 WBC 4.1 L Hgb 14.5 Hct 47.3 H Plt Count 270 ABG pH 7.44 ABG pCO2 38 ABG pO2 68 L ABG HCO3 25.8 ABG Total CO2 27.0 H Sodium 140 Potassium 3.9 Chloride 105 Carbon Dioxide 29 BUN 9 Creatinine 0.85 Est GFR ( Amer) > 60 Est GFR (Non-Af Amer) > 60 BUN/Creatinine Ratio 11 - Imaging EKG: report reviewed, image reviewed (SINUS TACHYCARDIA NONSPECIFIC T-WAVE ABNORMALITY ABNORMAL RHYTHM ECG INTERPRETATION BASED ON A DEFAULT AGE OF 40 YEARS) Anesthesia Exam Last Vital Signs Temp 98.0 F 03/28/17 15:53 Pulse 101 03/28/17 15:53 Resp 15 03/28/17 15:53 BP 147/82 03/28/17 15:53 Pulse Ox 95 03/28/17 15:53 Weight: 52 kg - HEENT Pupil (Motor): Pupils equal, EOMI Mallampati: II Teeth: Edentulous Denture Type: Upper: Complete, Lower: Complete Oral Opening: Greater than 3 - EPIC BEACON ANALYST LOC: Oriented EPIC BEACON ANALYST Motor: Normal RUE, Normal LUE, Normal RLE, Normal LLE, Normal Face - Cardiac Rhythm: Regular Murmur: None - Pulmonary Breath Sounds: bilateral Clear Respiratory Effort: Symmetrical Anesthesia Assess/Plan ASA Score: 3 Modified [place] Scale for Level of Consciousness: Cooperative, oriented, and tranquil Anesthetic Plan: General Monitoring Plan: Standard Monitors Recovery Plan: PACU
[2017-03-28] MEDS ORDERED: *HR* FentaNYL (PF) 100 MCG/2 ML VIAL ONE (17:13)
[2017-03-28] MEDS ORDERED: *HR* Propofol 200 MG/20 ML VIAL IVP ONE (17:13)
[2017-03-28] MEDS ORDERED: Lidocaine -MPF 2% 2 ML VIAL ONE (17:13)
[2017-03-28] MEDS ORDERED: Clindamycin 600 MG/50 ML 600 MG/50 ML IV.SOLN IVPB ONE (17:17)
[2017-03-28 17:23] LABS: Basophils # 0.1 K/mcL (0.0-0.2); Basophils % 0.7 %; Eosinophils % 0.3 %; Hematocrit 41.5 % (35.3-44.9); Hemoglobin 13.3 g/dL (11.5-15.4); Immature Granulocytes % 0.3 % (0-4); Lymphocytes # 0.8 K/mcL (0.6-4.6); Lymphocytes % 10.4 %; Monocytes # 0.6 K/mcL (0.0-1.3); Monocytes % 8.3 %; Neutrophils # 5.9 K/mcL (1.6-8.9); Platelet Count 239 K/mcL (140-400); Red Blood Count 4.15 M/mcL (3.82-4.97); Red Cell Distribution Width 13.8 % (11.5-14.5)
[2017-03-28] MEDS ORDERED: Ondansetron 4 MG/2 ML VIAL ONE (17:29)
[2017-03-28] MEDS ORDERED: Dexamethasone 4 MG/ML VIAL ONE (17:29)
[2017-03-28 17:39] LABS: BUN/Creatinine Ratio 12 (6-26); Blood Urea Nitrogen 9 mg/dL (7-20); Calcium 9.4 mg/dL (8.6-10.8); Carbon Dioxide 26 mEq/L (19-29); Chloride 104 mEq/L (98-109); Glucose 95 mg/dL (70-99); Osmolality,Calculated 280 (280-300); Potassium 3.8 mEq/L (3.5-4.5); Sodium 136 mEq/L (136-145); eGFR For African Americans > 60 (> 60); eGFR For Non-African Americans > 60 (> 60)
[2017-03-28] MEDS ORDERED: Lidocaine/EPI 1:200k 1% PF 10 ML VIAL ONE (17:53)
[2017-03-28] MEDS ORDERED: *HR* HYDROmorphone (PF) 1 MG/ML SYRINGE IVP PRN (18:12)
[2017-03-28] MEDS ORDERED: Ondansetron 4 MG/2 ML VIAL IVP ONE (18:12)
[2017-03-28] MEDS ORDERED: *HR* Labetalol 20 MG/4 ML SYRINGE IVP PRN (18:12)
[2017-03-28] MEDS ORDERED: *HR* Promethazine 25 MG/ML VIAL IVP PRN (18:12)
--- NOTE | 2017-03-28 18:39 | ENT - Procedure Note ---
Date of procedure: 03/28/17 Pre-op diagnosis: Left neck abscess Post-op diagnosis: same Procedure: Incision and Drainage of Left Neck Abscess On 03/28/17 patient Alex Bautista was taken to the operating room and placed on the operating table in supine position. She was sedated and intubated. Her head was turned to the right exposing the left neck and the site marking. The prior incision was cleaned and injected with 1% lidocaine with 1:200,000 epinephrine. She was then sterilely prepped and draped. A timeout was performed to confirm the correct patient, site and procedure. In incised through the planned incision and noted immediate pus 1cm deep to the skin. Cultures were obtained. I widened the opening to the abscess with blunt dissection and evacuated purulent discharge. I broke up the loculations with blunt dissection. I then irrigated the wound with copious sterile saline. I then placed a 1/4 inch tory drain and secured this to the skin with a 3-0 black nylon suture. I placed 3 other interrupted black nylon sutures to approximate the incision which had widened. I placed a 3-0 nylon stay suture and secured this superior to the incision. A fluffed gauze dressing with circumferential wrap was placed around her neck. She was then de-draped. This concluded the procedure. I performed the entire case myself. Implants: [place] drain Anesthesia: local Surgeon: Janes Wade Estimated blood loss (cc): 2 Condition: stable
--- NOTE | 2017-03-28 18:56 | Anesthesia Evaluation Post Op ---
Date of Encounter: 03/28/17 Time of Encounter: 18:56 - Vital Signs Vital Signs: Last Vital Signs Temp 97.8 F 03/28/17 18:30 Pulse 93 03/28/17 18:49 Resp 17 03/28/17 18:49 BP 142/76 03/28/17 18:49 Pulse Ox 93 03/28/17 18:49 - Lungs Lungs: Clear Ascult./Percussion - Airway Airway: Non-obstructed - Cardiovascular Regular Rate - Mental Status Mental Status: Alert & Oriented, Answers Appropriately - Pain Pain Scale: 4 - Nausea Vomiting Nausea Vomiting: Not Present - Hydration Hydration: Ice chips - Discharge PostOp Status: Transfer Patient to floor
[2017-03-28] MEDS: Budesonide/Formoterol 160/4.5 MDI IH SCH (20:12)
[2017-03-28] MEDS: *HR* HYDROcodone/Acet 5/325 mg TABLET PO PRN (20:20)
[2017-03-28] MEDS ORDERED: Budesonide/Formoterol 160/4.5 MDI IH SCH (22:00)
[2017-03-29] MEDS ORDERED: Clindamycin 600 MG/50 ML 600 MG/50 ML IV.SOLN IVPB SCH
[2017-03-29] MEDS: Clindamycin 600 MG/50 ML 600 MG/50 ML IV.SOLN IVPB SCH ×3 (00:26→16:20)
[2017-03-29] MEDS: Ringers Solution, Lactated 1,000 ML IVC SCH ×2 (03:51→20:49)
[2017-03-29] MEDS: *HR* Enoxaparin 40 MG/0.4 ML SYRINGE SQ SCH (05:12)
[2017-03-29] MEDS ORDERED: *HR* Enoxaparin 40 MG/0.4 ML SYRINGE SQ SCH (06:00)
[2017-03-29] MEDS: Budesonide/Formoterol 160/4.5 MDI IH SCH ×2 (07:39→19:42)
--- NOTE | 2017-03-29 08:21 | ENT - Progress Note ---
Date of Encounter: 03/29/17 Time of Encounter: 08:18 - Assessment and Plan (1) Neck abscess Current Visit: Yes Status: Acute POD#1 s/p I&D of L neck abscess. Healing and swelling going as expected. IV Clinda going. C/S pending. 1. Increase ambulation 2. IS at bedside, 6x/hr 3. PO for pain control 4. Advance diet 5. Will see tomorrow and change out dressing, assess for possible tory D/C Subjective Patient reports: still having pain (L neck pain 01/18, advancing diet and ambulating minimally) Objective Initial Vital Signs Temp Pulse Resp BP Pulse Ox 98.0 F 101 15 147/82 95 03/28/17 15:53 03/28/17 15:53 03/28/17 15:53 03/28/17 15:53 03/28/17 15:53 - General physical appearance moderate distress - Neck other (dressing removed, partially soaked with serosanguinous drainage, neck swelling has decreased mildly compared to yesterday; stay sutures in place above incision, tory in place; dressing replaced) - Labs 03/28/17 17:16 03/28/17 17:16 Diabetes panel 03/28/17 Range/Units 17:16 Sodium 136 (136-145) mEq/L Potassium 3.8 (3.5-4.5) mEq/L Chloride 104 (98-109) mEq/L Carbon Dioxide 26 (19-29) mEq/L BUN 9 (7-20) mg/dL Creatinine 0.77 (0.57-1.11) mg/dL Glucose 95 (70-99) mg/dL Calcium 9.4 (8.6-10.8) mg/dL Calcium panel 03/28/17 Range/Units 17:16 Calcium 9.4 (8.6-10.8) mg/dL Pituitary panel 03/28/17 Range/Units 17:16 Sodium 136 (136-145) mEq/L Potassium 3.8 (3.5-4.5) mEq/L Chloride 104 (98-109) mEq/L Carbon Dioxide 26 (19-29) mEq/L BUN 9 (7-20) mg/dL Creatinine 0.77 (0.57-1.11) mg/dL Glucose 95 (70-99) mg/dL Calcium 9.4 (8.6-10.8) mg/dL Adrenal panel 03/28/17 Range/Units 17:16 Sodium 136 (136-145) mEq/L Potassium 3.8 (3.5-4.5) mEq/L Chloride 104 (98-109) mEq/L Carbon Dioxide 26 (19-29) mEq/L BUN 9 (7-20) mg/dL Creatinine 0.77 (0.57-1.11) mg/dL Glucose 95 (70-99) mg/dL Calcium 9.4 (8.6-10.8) mg/dL - VTE Documentation of Mechanical Device: Intermittent pneumatic compression device Consult Discharge Plan - Plan Referrals: Janes Wade MD [Partnered Physician] -
[2017-03-29] MEDS: *HR* HYDROcodone/Acet 5/325 mg TABLET PO PRN ×2 (08:22→13:05)
[2017-03-29] MEDS: Ondansetron 4 MG/2 ML VIAL IVP PRN ×2 (08:23→17:39)
[2017-03-29] MEDS ORDERED: Cholecalciferol (D-3) 1,000 UNIT TABLET PO SCH (09:00)
[2017-03-29] MEDS: Cholecalciferol (D-3) 1,000 UNIT TABLET PO SCH (10:02)
[2017-03-30] MEDS: Clindamycin 600 MG/50 ML 600 MG/50 ML IV.SOLN IVPB SCH ×4 (00:12→23:44)
[2017-03-30] MEDS: *HR* Enoxaparin 40 MG/0.4 ML SYRINGE SQ SCH (06:23)
[2017-03-30] MEDS: *HR* HYDROcodone/Acet 5/325 mg TABLET PO PRN ×2 (08:01→23:44)
[2017-03-30] MEDS: Cholecalciferol (D-3) 1,000 UNIT TABLET PO SCH (09:33)
--- NOTE | 2017-03-30 09:57 | ENT - Progress Note ---
Date of Encounter: 03/30/17 Time of Encounter: 09:55 - Assessment and Plan (1) Neck abscess Current Visit: Yes Status: Acute POD#2 s/p I&D of L neck abscess. Healing and swelling going as expected. IV Clinda going. C/S showing likely Strep species thus far. 1. Increase ambulation 2. IS at bedside, 6x/hr 3. PO for pain control 4. Advance diet 5. Will see tomorrow and change out dressing, assess for possible tory D/C Subjective Patient reports: other (Some ambulation but minimal yesterday. Minimal PO intake due to nausea. Pain controlled on orals.) Objective Initial Vital Signs Temp Pulse Resp BP Pulse Ox 98.0 F 101 15 147/82 95 03/28/17 15:53 03/28/17 15:53 03/28/17 15:53 03/28/17 15:53 03/28/17 15:53 - General physical appearance moderate distress - Neck other (tenderness along the SCM up to the mastoid, skin edema/swelling decreased around the incision, especially on the superior aspect, tory in place, mild purulent drainage on the pressure dressing) - Labs 03/28/17 17:16 03/28/17 17:16 - VTE Documentation of Mechanical Device: Intermittent pneumatic compression device Consult Discharge Plan - Plan Referrals: Janes Wade MD [Partnered Physician] -
[2017-03-30] MEDS: Budesonide/Formoterol 160/4.5 MDI IH SCH ×2 (10:52→22:05)
[2017-03-30] MEDS: Ringers Solution, Lactated 1,000 ML IVC SCH (14:41)
[2017-03-31] MEDS: *HR* Enoxaparin 40 MG/0.4 ML SYRINGE SQ SCH (05:34)
--- NOTE | 2017-03-31 07:55 | ENT - Progress Note ---
Date of Encounter: 03/31/17 Time of Encounter: 07:51 - Assessment and Plan (1) Neck abscess Current Visit: Yes Status: Acute POD#3 s/p I&D of L neck abscess. Her speciation came back as resistant to Clinda. She was switched to Levaquin this AM and the risks/benefits of this medication were discussed in detail with the patient and her family. Specific mention was made to tendon rupture. The lack of sensitivity to the Clinda would explain the persistent edema and tenderness and discharge from the drain. 1. Stop Clinda, Zofran 2. Levaquin 500mg PO daily 3. Continue ambulation, PO intake, PO pain control Will check later today to see about progress Subjective Patient reports: other (Increased ambulation yesterday, increased PO, pain controlled on PO meds; thinks the L neck is more swollen and tender though) Objective Initial Vital Signs Temp Pulse Resp BP Pulse Ox 98.0 F 101 15 147/82 95 03/28/17 15:53 03/28/17 15:53 03/28/17 15:53 03/28/17 15:53 03/28/17 15:53 - ENT Other (L superior SCM more tender/edematous; purulent discharge from the incision, mild soaking of the gauze pressure wrap, stable edema/erythema/ tenderness) - Labs 03/28/17 17:16 03/28/17 17:16 - VTE Documentation of Mechanical Device: Intermittent pneumatic compression device Consult Discharge Plan - Plan Referrals: Janes Wade MD [Partnered Physician] -
[2017-03-31] MEDS: Budesonide/Formoterol 160/4.5 MDI IH SCH ×2 (08:06→22:26)
[2017-03-31] MEDS: Cholecalciferol (D-3) 1,000 UNIT TABLET PO SCH (08:12)
[2017-03-31] MEDS: levoFLOXacin 500 MG TABLET PO SCH ×2 (08:12→16:35)
[2017-03-31] MEDS: Ringers Solution, Lactated 1,000 ML IVC SCH ×2 (08:15→20:33)
[2017-03-31] MEDS: *HR* HYDROcodone/Acet 5/325 mg TABLET PO PRN (22:22)
[2017-04-01] MEDS: *HR* Enoxaparin 40 MG/0.4 ML SYRINGE SQ SCH (05:54)
[2017-04-01] MEDS: Budesonide/Formoterol 160/4.5 MDI IH SCH ×2 (07:26→20:36)
--- NOTE | 2017-04-01 07:34 | ENT - Progress Note ---
Date of Encounter: 04/01/17 Time of Encounter: 07:31 - Assessment and Plan (1) Neck abscess Current Visit: Yes Status: Acute POD#3 s/p I&D of L neck abscess. She has only had one dose of the Levaquin and appears to be worsening clinically - increasing signs of cellulitis along the superior L SCM. 1. Hospitalist consult for abx coverage - may need to broaden 2. Will continue Levaquin for now, keep tory Subjective Patient reports: other (Patient reports increased trouble laying on the left neck, trouble with pain) Objective Initial Vital Signs Temp Pulse Resp BP Pulse Ox 98.0 F 101 15 147/82 95 03/28/17 15:53 03/28/17 15:53 03/28/17 15:53 03/28/17 15:53 03/28/17 15:53 - Neck other (increased edema, tenderness and erythema of the L superior neck along the SCM extending to the mastoid; surgical site stable) - Labs 03/28/17 17:16 03/28/17 17:16 - VTE Documentation of Mechanical Device: Intermittent pneumatic compression device Consult Discharge Plan - Plan Referrals: Janes Wade MD [Partnered Physician] -
[2017-04-01] MEDS: Cholecalciferol (D-3) 1,000 UNIT TABLET PO SCH (08:37)
[2017-04-01] MEDS: levoFLOXacin 500 MG TABLET PO SCH (08:37)
--- NOTE | 2017-04-01 10:04 | Event Note ---
Date of Encounter: 04/01/17 Time of Encounter: 09:30 Patient seen and examined at bedside. Patient complains of rash along her back since Friday. Minimal itching. Back examined, diffuse erythematous maculopapular rash visualized along trunk. Talked with family at bedside. Will start diphenhydramine when necessary and Decadron 3 doses to help with swelling.
[2017-04-01] MEDS: Dexamethasone 4 MG/ML VIAL IVP SCH ×2 (10:35→17:30)
--- NOTE | 2017-04-01 13:31 | Infectious Disease Consult ---
Date of Encounter: 04/01/17 Time of Encounter: 13:29 Assessment and Plan (1) Neck abscess Status: Acute Assessment and plan: Likely secondary to recent surgical procedure. Location: Left lateral neck. Causative organism Strep intermedius. CT scan of the neck showed 2.5cm abscess within the left neck. Status post left neck I & D 03/28/[address] Cox. Operative note reviewed. Originally treated post-op with IV Clindamycin and transitioned to oral Levaquin Friday. The patient reports worsening of her symptoms. Repeat CT scan of the neck to rule out re-organization of the abscess. Check CBC, BMP. Discontinue Levaquin. Start Rocephin 2 grams IV daily. Start Clindamycin 600mg IBV Q8H. Start probiotic. Duration of treatment depends on the clinical picture. Monitor renal function and for drug toxicity and dose-adjust antibiotics. (2) Status post dissection of cervical lymph nodes Status: Acute Assessment and plan: Status post lymph node biopsy 03/19/[address] Wooten. Pathology report reviewed. 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 Follows with [facility]. (4) History of lung cancer Status: Acute Assessment and plan: Diagnosed in 2014. Status post right upper lobectomy with chemo and radiation. Infectious Disease HPI - Data of Consult Patient: new to practice Consult date: 04/01/17 Requesting Physician: Janes Wade MD Primary Care Provider: Tish Delong - Consult Narrative Reason for consult: Left neck abscess History of present illness: Ms. Bautista is a 72 year old female with a past medical history of lung cancer diagnosed in 2014 status post right upper lobectomy with chemoradiation, COPD, diabetes, and osteoporosis. The patient was admitted to the hospital March 28 for left neck abscess. We are consulted April 01 for antibiotic recommendations regarding a left neck abscess. The patient is a 72-year-old female with past medical history as stated above. The patient underwent a lymph node biopsy about a week prior to arrival. She had the sutures removed last Friday and states that the next morning she woke up and noticed some left neck pain and swelling. She states the pain and swelling progressed into Friday and she was seen by Dr. Cox with ENT. She had a CT of the neck completed that showed a 2.5 cm abscess within the left neck surgical wound bed. She subsequently was readmitted to the hospital for further evaluation and treatment. On March 28, she was taken to the operating room and underwent an I&D of the left neck abscess. Intraoperative cultures were obtained and grew out strep intermedius. The patient has remained afebrile and hemodynamically stable. Her laboratory studies revealed a normal white blood cell count on admission. No additional last been checked since then. Postoperatively, the patient was started on IV clindamycin. Once sensitivities were back on the culture, she was transitioned to oral Levaquin. She's had increasing pain and swelling and induration around the left neck surgical site. We've been asked to evaluate and make further recommendations. During my exam today, the patient states that overall she feels okay. She denies any fevers or chills or rigors. Her lipid complaint is pain and swelling and induration from the left neck surgical site. She denies any chest pain or shortness of breath. She reports a chronic productive cough. She denies any nausea, vomiting, diarrhea, constipation. She denies any appetite changes. She denies any abdominal pain. She denies pain anywhere back or extremities. She denies the oral thrush or any skin lesions. CC: Janes Wade MD Past Med Surg Social Fam HX - Past Medical History Attestation: Yes The following information was validated with the patient. Source: patient, old records reviewed, nursing notes reviewed Medical history: arthritis, cancer (lung cancer status post left upper lobectomy ), COPD, diabetes, GERD, osteoporosis, other Psychiatric history: no psych history - Past Surgical History Surgical History: cataract, cholecystectomy, other (R lobectomy for cancer) - Social History Smoking Status: Current every day smoker Packs per day: 1 pack per day Smokeless Tobacco Status: No Alcohol use: none Drug use: none Occupational status: retired Current living situation: Home - Independent Activity Level: Independent ambulation Recent Out of Country Travel Within the Last 8 Weeks: No Exposure or Possible Exposure to Illness During Travel: No - Family History Mother Hx Family Cardiac Disorders: Yes (not sure what type) Hx Family Respiratory Disorders: No Hx Family Cancer: No Hx Family GI Disorders: No Hx Family Endocrine Disorder: Yes (DM) Hx Family Neuromuscular Disorders: No Hx Family Neurologic Disorders: No Hx Family HEENT Disorders: No Hx Family Autoimmune Disorders: No Father Living Status: Hx Family Cardiac Disorders: No Hx Family Respiratory Disorders: Yes (black lung) Hx Family Cancer: Yes (cancer) Hx Family GI Disorders: No Hx Family Endocrine Disorder: No Hx Family Neuromuscular Disorders: No Hx Family Neurologic Disorders: No Hx Family HEENT Disorders: No Hx Family Autoimmune Disorders: No Daughter Living Status: Still Living Hx Family Cardiac Disorders: No Hx Family Respiratory Disorders: No Infectious Disease-CN:Meds Cholecalciferol (Vitamin D3) [Vitamin D3] 2,000 unit PO DAILY 03/17/15 [History] Garlic [Garlic Oil] 1,000 mg PO DAILY 03/17/15 [History] [place]-3/Dha/Epa/Fish Oil [Fish Oil Dr 500 mg Softgel] 1,000 mg PO DAILY [History] Oxycodone HCl/Acetaminophen [Percocet 5-325 mg Tablet] 1 tab PO Q8H PRN [History] Calcium Polycarbophil [Fibercon] 625 mg PO DAILY 08/12/15 [History] Albuterol Neb [Proventil Neb] 2.5 mg IH Q6H PRN 10/03/16 [History] Aspirin 81 mg PO DAILY 10/03/16 [History] Fluticasone Propionate Nasal [Flonase] 100 mcg NS DAILY PRN 10/03/16 [History] Pantoprazole Sodium [Protonix] 40 mg PO DAILY #90 granpkt. 10/23/16 [Rx] Budesonide/Formoterol 160/4.5 [Symbicort 160/4.5] 2 puff IH BIDR 03/19/17 [ History] traZODone [TraZODone] 50 mg PO HS 03/19/17 [History] 3 Allergy/AdvReac Type Severity Reaction Status Date / Time paclitaxel Allergy Severe Anaphylaxis Verified 02/19/16 11:27 Penicillins Allergy Severe Hives Verified 03/19/17 14:00 codeine AdvReac Mild Nausea Verified 02/19/16 11:27 All systems: reviewed and no additional remarkable complaints except as stated Exam - Constitutional Vitals: Temp Pulse Resp BP Pulse Ox 98.1 F 89 16 160/86 100 04/01/17 10:45 04/01/17 10:45 04/01/17 10:45 04/01/17 10:45 04/01/17 10:45 General appearance: average body habitus, cooperative, no acute distress - Head Head exam: Present: atraumatic, normal inspection, normocephalic - Eye Eye exam: Present: EOMI, normal appearance, PERRL Pupils: Present: normal accommodation - ENT ENT exam: Present: mucous membranes moist - Neck Neck exam: Present: tenderness (Left posterolateral neck) Additional comments: Surgical incision noted to the left lateral neck. Induration and tenderness noted to the posterolateral aspect. Drain intact with small amount of serous drainage noted on the dressing. No warmth or erythema noted. ROM of the neck limited. - Respiratory Respiratory exam: Present: CTAB. Absent: rales, respiratory distress, rhonchi, wheezes - Cardiovascular Cardiovascular exam: Present: RRR, +S1, +S2 - GI/Abdominal GI/Abdominal exam: Present: normal bowel sounds, soft. Absent: distended, tenderness - Extremities Exam Extremities exam: Present: normal inspection. Absent: joint swelling, pedal edema, tenderness - Neurological Exam Neurological exam: Present: alert, oriented X3, no focal deficits - Psychiatric Psychiatric exam: Present: normal affect, normal mood - Skin Skin exam: Present: dry, intact, normal color, warm Infectious Disease CN: Results - Labs CBC & Chem 7: 03/28/17 17:16 03/28/17 17:16 Cultures: Cultures 03/28/17 18:12 Anaerobic Culture - Preliminary Neck At this time, no anaerobic growth is present. The culture will be finalized after 5 days of incubation. 03/28/17 18:12 Wound Culture - Final Neck Streptococcus intermedius - VTE Documentation of Mechanical Device: Intermittent pneumatic compression device Consult Discharge Plan - Plan Referrals: Janes Wade MD [Partnered Physician] - - Attending Attestation I examined this patient and my medical decision-making was reviewed with the Resident Physician. I agree with the documented findings, disposition and treatment plan as described except to the extent set forth below. This is an addendum to original report dictated by Steff Robles CNP.. Please refer to Felipe garcia for full detail. Patient is a 72-year-old woman who has extensive past medical history who had a history of cancer that was treated appropriately with right upper lobe lobectomy. Patient was admitted recently with pneumonia and incidentally they found a mass in the treatment plan another mass in the left neck lymph node. Patient had a biopsy done of the lymph nodes and it revealed no active malignancy. Postop patient was having a lot of pain and induration and swelling. Patient came in was evaluated and was noted to have an abscess of the left neck. Patient had a drain placed and patient was started initially on clindamycin. Cultures grew Streptococcus intermedius that was resistant to clindamycin. Patient was switched to Levaquin we were consulted to evaluate the patient and make further recommendations. Patient continues to have pain and swelling. At this point Im concerned that the abscess has reorganized or it has extended. I recommend repeating imaging. We will get a CT scan of the neck with contrast. In the meantime we will switch antibiotics to Rocephin and clindamycin combination. Patient supposedly has penicillin allergies but thats which was 5 years old. We will monitor patient closely while she is on Rocephin. Repeat blood cultures 2 for any signs of sepsis. Based on CT results well make further recommendations. Monitor labs and for drug toxicity.
[2017-04-01] MEDS: Clindamycin 600 MG/50 ML 600 MG/50 ML IV.SOLN IVPB SCH ×2 (15:27→23:45)
[2017-04-01 15:46] LABS: Basophils % 0.7 %; Eosinophils % 0.2 %; Hematocrit 39.5 % (35.3-44.9); Hemoglobin 12.7 g/dL (11.5-15.4); Immature Granulocytes % 0.4 % (0-4); Lymphocytes # 0.3 K/mcL (0.6-4.6); Lymphocytes % 6.1 %; Mean Corpuscular HGB Conc 32.2 g/dL (31.6-35.5); Mean Corpuscular Hemoglobin 32.4 pg (28.0-33.3); Mean Corpuscular Volume 100.8 fL (83.0-100.0); Mean Platelet Volume 9.3 fL (9.4-12.4); Monocytes # 0.1 K/mcL (0.0-1.3); Monocytes % 1.6 %; Neutrophils # 4.1 K/mcL (1.6-8.9); Platelet Count 258 K/mcL (140-400); Red Blood Count 3.92 M/mcL (3.82-4.97); Red Cell Distribution Width 14.1 % (11.5-14.5)
[2017-04-01 15:48] LABS: BUN/Creatinine Ratio 10 (6-26); Blood Urea Nitrogen 8 mg/dL (7-20); Calcium 9.7 mg/dL (8.6-10.8); Carbon Dioxide 27 mEq/L (19-29); Chloride 102 mEq/L (98-109); Glucose 115 mg/dL (70-99); Osmolality,Calculated 279 (280-300); Potassium 4.1 mEq/L (3.5-4.5); Sodium 135 mEq/L (136-145); eGFR For African Americans > 60 (> 60); eGFR For Non-African Americans > 60 (> 60)
[2017-04-01] MEDS: Lactobacillus 1 EACH CAP.SPRINK PO SCH (20:21)
[2017-04-02] MEDS: *HR* HYDROcodone/Acet 5/325 mg TABLET PO PRN (00:48)
[2017-04-02] MEDS: Dexamethasone 4 MG/ML VIAL IVP SCH (00:55)
[2017-04-02] MEDS: *HR* Enoxaparin 40 MG/0.4 ML SYRINGE SQ SCH (06:05)
[2017-04-02] MEDS: Lactobacillus 1 EACH CAP.SPRINK PO SCH ×2 (07:43→21:31)
[2017-04-02] MEDS: Cholecalciferol (D-3) 1,000 UNIT TABLET PO SCH (07:43)
[2017-04-02] MEDS: Clindamycin 600 MG/50 ML 600 MG/50 ML IV.SOLN IVPB SCH ×3 (07:52→23:52)
[2017-04-02] MEDS: Budesonide/Formoterol 160/4.5 MDI IH SCH ×2 (09:49→20:19)
--- NOTE | 2017-04-02 09:49 | ENT - Progress Note ---
Date of Encounter: 04/02/17 Time of Encounter: 09:46 - Assessment and Plan (1) Neck abscess Current Visit: Yes Status: Acute POD#4 s/o L neck abscess I&D. She had what looked to be possible abscess in the L SCM on CT neck yesterday. We gave her the night to see if she'd get better on the broad spectrum abx and steroids. She is better but the SCM is still markedly tender and edematous. I think this is likely an abscess and advocated for going to the OR for I&D of the L SCM abscess. Prior site is drained well. Patient agreed after discussing the risks/benefits/alternatives. 1. NPO, restart IVF 2. OR today for I&D of L SCM (presumed) abscess - anticipate from [id number] or after 1600. Subjective Patient reports: other (Patient feels better but still has some L neck discomfort) Objective Initial Vital Signs Temp Pulse Resp BP Pulse Ox 98.0 F 101 15 147/82 95 03/28/17 15:53 03/28/17 15:53 03/28/17 15:53 03/28/17 15:53 03/28/17 15:53 - Neck other (L neck edema and erythema is down and there is less tenderness; superior SCM is dust box tender and edematous, mild erythema) - Labs 04/01/17 14:51 04/01/17 14:51 Diabetes panel 04/01/17 Range/Units 14:51 Sodium 135 L (136-145) mEq/L Potassium 4.1 (3.5-4.5) mEq/L Chloride 102 (98-109) mEq/L Carbon Dioxide 27 (19-29) mEq/L BUN 8 (7-20) mg/dL Creatinine 0.81 (0.57-1.11) mg/dL Glucose 115 H (70-99) mg/dL Calcium 9.7 (8.6-10.8) mg/dL Calcium panel 04/01/17 Range/Units 14:51 Calcium 9.7 (8.6-10.8) mg/dL Pituitary panel 04/01/17 Range/Units 14:51 Sodium 135 L (136-145) mEq/L Potassium 4.1 (3.5-4.5) mEq/L Chloride 102 (98-109) mEq/L Carbon Dioxide 27 (19-29) mEq/L BUN 8 (7-20) mg/dL Creatinine 0.81 (0.57-1.11) mg/dL Glucose 115 H (70-99) mg/dL Calcium 9.7 (8.6-10.8) mg/dL Adrenal panel 04/01/17 Range/Units 14:51 Sodium 135 L (136-145) mEq/L Potassium 4.1 (3.5-4.5) mEq/L Chloride 102 (98-109) mEq/L Carbon Dioxide 27 (19-29) mEq/L BUN 8 (7-20) mg/dL Creatinine 0.81 (0.57-1.11) mg/dL Glucose 115 H (70-99) mg/dL Calcium 9.7 (8.6-10.8) mg/dL - VTE Documentation of Mechanical Device: Intermittent pneumatic compression device Consult Discharge Plan - Plan Instructions: Chronic Obstructive Pulmonary Disease (DC) Referrals: Janes Wade MD [Partnered Physician] -
[2017-04-02] MEDS ORDERED: Scopolamine Patch 1.5 MG PATCH.TD72 ONE (11:37)
--- NOTE | 2017-04-02 11:37 | Infectious Disease Progress No ---
Date of Encounter: 04/02/17 Time of Encounter: 11:35 - Assessment and Plan (1) Neck abscess Current Visit: Yes Status: Acute Likely secondary to recent surgical procedure. Location: Left lateral neck. Causative organism Strep intermedius. CT scan of the neck showed 2.5cm abscess within the left neck. Status post left neck I & D 03/28/[address] Cox. Operative note reviewed. Originally treated post-op with IV Clindamycin and transitioned to oral Levaquin Friday. The patient reported worsening of her symptoms. Repeat CT scan of the neck is a possible small abscess in the left sternocleidomastoid muscle. She was scheduled to go back to the operating room later today. Continue Rocephin 2 grams IV daily. Continue Clindamycin 600mg IBV Q8H. Continue probiotic. Duration of treatment depends on the clinical picture. Monitor renal function and for drug toxicity and dose-adjust antibiotics. (2) Status post dissection of cervical lymph nodes Current Visit: Yes Status: Acute Status post lymph node biopsy 03/19/[address] Wooten. Pathology report reviewed. 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 Follows with [facility]. (4) History of lung cancer Current Visit: Yes Status: Acute Diagnosed in 2014. Status post right upper lobectomy with chemo and radiation. - Subjective Interval history: Seen and examined. No acute events noted overnight. Repeat CT scan results noted. Patient states that overall she feels okay. She reports that her neck is less swollen, but it remains very tender and indurated. She denies any increased drainage. She denies any fevers or chills or rigors. She denies any chest pain, shortness of breath, or cough. She denies any nausea, vomiting, diarrhea, or constipation. She denies any abdominal pain and states her appetite is okay. She denies any urinary complaints. She denies any oral thrush or new skin lesions. Infect Dis PN-Objective Data - Labs CBC & Chem 7: 04/01/17 14:51 04/01/17 14:51 Labs: Laboratory Results - last 24 hr 04/01/17 04/01/17 04/02/17 14:51 14:51 05:49 WBC 4.5 RBC 3.92 Hgb 12.7 Hct 39.5 MCV 100.8 H MCH 32.4 MCHC 32.2 RDW 14.1 Plt Count 258 MPV 9.3 L Immature Gran % 0.4 Seg Neutrophils % 91.0 Lymphocytes % 6.1 Monocytes % 1.6 Eosinophils % 0.2 Basophils % 0.7 Neutrophils # 4.1 Lymphocytes # 0.3 L Monocytes # 0.1 Eosinophils # 0.0 Basophils # 0.0 Sodium 135 L Potassium 4.1 Chloride 102 Carbon Dioxide 27 BUN 8 Creatinine 0.81 Est GFR ( Amer) > 60 Est GFR (Non-Af Amer) > 60 BUN/Creatinine Ratio 10 Glucose 115 H POC Glucose 104 H Calculated Osmolality 279 L Calcium 9.7 04/02/17 11:09 WBC RBC Hgb Hct MCV MCH MCHC RDW Plt Count MPV Immature Gran % Seg Neutrophils % Lymphocytes % Monocytes % Eosinophils % Basophils % Neutrophils # Lymphocytes # Monocytes # Eosinophils # Basophils # Sodium Potassium Chloride Carbon Dioxide BUN Creatinine Est GFR ( Amer) Est GFR (Non-Af Amer) BUN/Creatinine Ratio Glucose POC Glucose 113 H Calculated Osmolality Calcium Cultures: Cultures 03/28/17 18:12 Anaerobic Culture - Preliminary Neck At this time, no anaerobic growth is present. The culture will be finalized after 5 days of incubation. 03/28/17 18:12 Wound Culture - Final Neck Streptococcus intermedius - Impressions Impressions Soft Tissue Neck CT 04/01/17 14:15 IMPRESSION: Status post incision and drainage of left neck soft tissue abscess. Surgical drain is present. Residual low-attenuation collection seen in the sternocleidomastoid muscle measures 1 x 0.9 cm. D/ / 04/01/2017 15:08:05 Pantera Cash MD / [email or web address] Interpreting Provider: Pantera Cash MD Exam - Constitutional Vitals: Temp Pulse Resp BP Pulse Ox 97.8 F 86 15 125/75 95 04/02/17 11:13 04/02/17 11:13 04/02/17 11:13 04/02/17 11:13 04/02/17 11:13 General appearance: average body habitus, cooperative, no acute distress - Head Head exam: Present: atraumatic, normal inspection, normocephalic - Eye Eye exam: Present: EOMI, normal appearance, PERRL Pupils: Present: normal accommodation - ENT ENT exam: Present: mucous membranes moist - Neck Neck exam: Present: tenderness (left Lateral neck). Absent: full ROM Additional comments: Surgical site to the left lateral neck noted with sutures intact. Drain in place with small amounts of serous drainage on the dressing. Site remains markedly tender with induration noted to the posterior lateral aspect of the neck. Range of motion limited. - Respiratory Respiratory exam: Present: CTAB. Absent: rales, respiratory distress, rhonchi, wheezes - Cardiovascular Cardiovascular exam: Present: RRR, +S1, +S2 - GI/Abdominal GI/Abdominal exam: Present: normal bowel sounds, soft. Absent: distended, tenderness - Extremities Exam Extremities exam: Present: normal inspection. Absent: joint swelling, pedal edema, tenderness - Neurological Exam Neurological exam: Present: alert, oriented X3, no focal deficits - Psychiatric Psychiatric exam: Present: normal affect, normal mood - Skin Skin exam: Present: dry, intact, normal color, warm - VTE Documentation of Mechanical Device: Intermittent pneumatic compression device Consult Discharge Plan - Plan Instructions: Chronic Obstructive Pulmonary Disease (DC) Referrals: Janes Wade MD [Partnered Physician] -
--- NOTE | 2017-04-02 11:41 | Anesthesia Evaluation PreOp ---
Date of Encounter: 04/02/17 Time of Encounter: 11:38 - Past History Planned Operation: I&D Left neck Cardiac History: Hyperlipidemia, Other (DVT one year ago after her lung surgery) Pulmonary History: Smoker, COPD GIN CLERK History: Other (fibromyalgia) Other Medical History: GERD Anesthesia History: Past Anesthesia (RUL resection, sarah breast biopsy, cholecystectomy, R CTR, R finger amputation, left deep cervical LN resection, L neck I&D), Problems (nausea after her last surgery) Alcohol Use: none Drug use: none Medications and Allergies Cholecalciferol (Vitamin D3) [Vitamin D3] 2,000 unit PO DAILY 03/17/15 [History] Garlic [Garlic Oil] 1,000 mg PO DAILY 03/17/15 [History] [place]-3/Dha/Epa/Fish Oil [Fish Oil Dr 500 mg Softgel] 1,000 mg PO DAILY [History] Oxycodone HCl/Acetaminophen [Percocet 5-325 mg Tablet] 1 tab PO Q8H PRN [History] Calcium Polycarbophil [Fibercon] 625 mg PO DAILY 08/12/15 [History] Albuterol Neb [Proventil Neb] 2.5 mg IH Q6H PRN 10/03/16 [History] Aspirin 81 mg PO DAILY 10/03/16 [History] Fluticasone Propionate Nasal [Flonase] 100 mcg NS DAILY PRN 10/03/16 [History] Pantoprazole Sodium [Protonix] 40 mg PO DAILY #90 granpkt. 10/23/16 [Rx] Budesonide/Formoterol 160/4.5 [Symbicort 160/4.5] 2 puff IH BIDR 03/19/17 [ History] traZODone [TraZODone] 50 mg PO HS 03/19/17 [History] 3 Allergy/AdvReac Type Severity Reaction Status Date / Time paclitaxel Allergy Severe Anaphylaxis Verified 02/19/16 11:27 Penicillins Allergy Severe Hives Verified 03/19/17 14:00 codeine AdvReac Mild Nausea Verified 02/19/16 11:27 - Meds/Allergy Pre-op Review Medications Reviewed: Yes Allergies Reviewed: Yes Beta Blockers on Current Med List: No Anesthesia Results - Labs 04/01/17 14:51 04/01/17 14:51 - Imaging EKG: report reviewed, image reviewed (SINUS TACHYCARDIA NONSPECIFIC T-WAVE ABNORMALITY ABNORMAL RHYTHM ECG) Anesthesia Exam Last Vital Signs Temp 97.8 F 04/02/17 11:13 Pulse 86 04/02/17 11:13 Resp 15 04/02/17 11:13 BP 125/75 04/02/17 11:13 Pulse Ox 95 04/02/17 11:13 Weight: 53 kg NPO (# of Hours): >> 8 hrs - HEENT Pupil (Motor): Pupils equal, EOMI Mallampati: II Teeth: Edentulous Denture Type: Upper: Complete, Lower: Complete - GIN CLERK LOC: Oriented GIN CLERK Motor: Normal RUE, Normal LUE, Normal RLE, Normal LLE, Normal Face - Cardiac Rhythm: Regular Murmur: None - Pulmonary Breath Sounds: bilateral Clear Respiratory Effort: Symmetrical Anesthesia Assess/Plan ASA Score: 3 Modified Herman Scale for Level of Consciousness: Cooperative, oriented, and tranquil Anesthetic Plan: General Monitoring Plan: Standard Monitors Recovery Plan: PACU
[2017-04-02] MEDS ORDERED: Lidocaine/EPI 1:200k 1% PF 10 ML VIAL ONE (11:59)
[2017-04-02] MEDS ORDERED: Ondansetron 4 MG/2 ML VIAL IVP ONE (12:06)
[2017-04-02] MEDS ORDERED: *HR* Labetalol 20 MG/4 ML SYRINGE IVP PRN (12:06)
[2017-04-02] MEDS ORDERED: EPHEDrine 50 MG/ML VIAL ONE (12:47)
[2017-04-02] MEDS ORDERED: Lidocaine -MPF 4% 5 ML AMPUL ONE (13:11)
[2017-04-02] MEDS ORDERED: *HR* FentaNYL (PF) 100 MCG/2 ML VIAL ONE (13:11)
[2017-04-02] MEDS ORDERED: *HR* Propofol 200 MG/20 ML VIAL IVP ONE (13:11)
[2017-04-02] MEDS ORDERED: Lidocaine -MPF 2% 2 ML VIAL ONE (13:11)
[2017-04-02] MEDS ORDERED: *HR* Succinylcholine 200 MG/10 ML VIAL IVP ONE (13:11)
[2017-04-02] MEDS ORDERED: *HR* Rocuronium Bromide 50 MG/5 ML VIAL ONE (13:11)
[2017-04-02] MEDS: *HR* HYDROmorphone (PF) 1 MG/ML SYRINGE IVP PRN ×2 (13:15→13:20)
[2017-04-02] MEDS ORDERED: *HR* HYDROmorphone (PF) 1 MG/ML SYRINGE ONE (13:17)
--- NOTE | 2017-04-02 14:04 | Anesthesia Evaluation Post Op ---
Date of Encounter: 04/02/17 Time of Encounter: 13:59 - Vital Signs Vital Signs: vss - Lungs Lungs: Clear Ascult./Percussion - Airway Airway: Non-obstructed - Cardiovascular Baseline Rhythm - Mental Status Mental Status: Asleep with brisk response to light stimulation - Pain Pain Scale used: Dian (Faces) - Nausea Vomiting Nausea Vomiting: Not Present - Hydration Hydration: Ice chips - Discharge PostOp Status: Transfer Patient to floor
[2017-04-02] MEDS: *HR* Morphine 2 MG/ML SYRINGE IVP PRN (14:59)
--- NOTE | 2017-04-02 15:44 | ENT - Procedure Note ---
Date of procedure: 04/02/17 Pre-op diagnosis: Left neck (SCM) abscess Post-op diagnosis: same Procedure: Incision and Drainage of Left Neck Abscess On 03/28/17 patient Alex Bautista was taken to the operating room and placed on the operating table in supine position. She was sedated and intubated. Her head was turned to the right exposing the left neck and the site marking. The prior incision was cleaned and injected with 1% lidocaine with 1:200,000 epinephrine. She was then sterilely prepped and draped. A timeout was performed to confirm the correct patient, site and procedure. I opened the old incision posteriorly and widened the opening to expose the sternocleidomastoid muscle. The previous abscess cavity looked to be closing and healing well. I dissected bluntly into the sternocleidomastoid and found some necrotic tissue. I then dissected superiorly in the SCM and found a small pocket of pus. I placed a rubber catheter into the SCM pocket and irrigated this with copious amounts of sterile saline. I then placed a 1/4 inch tory drain and secured this to the skin with a 3-0 black nylon suture. I placed 3 other interrupted black nylon sutures to approximate the incision which had widened. I placed a 3-0 nylon stay suture and secured this superior to the incision. A fluffed gauze dressing with circumferential wrap was placed around her neck. She was then de-draped. This concluded the procedure. I performed the entire procedure myself. Implants: [place] Anesthesia: local Surgeon: Janes Wade Estimated blood loss (cc): 5 Condition: stable
[2017-04-02] MEDS ORDERED: Ondansetron 4 MG/2 ML VIAL IVP PRN (17:51)
[2017-04-02] MEDS: Ringers Solution, Lactated 1,000 ML IVC SCH ×2 (21:29→21:31)
[2017-04-03] MEDS: *HR* HYDROcodone/Acet 5/325 mg TABLET PO PRN (02:18)
[2017-04-03] MEDS: *HR* Enoxaparin 40 MG/0.4 ML SYRINGE SQ SCH (05:54)
--- NOTE | 2017-04-03 07:48 | ENT - Progress Note ---
Date of Encounter: 04/03/17 Time of Encounter: 07:44 - Assessment and Plan (1) Neck abscess Current Visit: Yes Status: Acute POD#1 and 5 s/p L SCM/neck abscess I&D. Her L SCM is more swollen and edematous than it was yesterday. I think this is due to the dissection I needed to do into the SCM. I discussed giving her steroids again but at a lower dose. I discussed the risks/benefits of this and the patient agreed to it. 1. Decadron 6mg Q6h 2. Continue IV Abx per ID recs 3. Advance PO and ambulation once again Subjective Patient reports: other (still w/ L neck pain, no sig change from yesterday before OR, advancing po) Objective Initial Vital Signs Temp Pulse Resp BP Pulse Ox 98.0 F 101 15 147/82 95 03/28/17 15:53 03/28/17 15:53 03/28/17 15:53 03/28/17 15:53 03/28/17 15:53 - Neck other (L SCM swelling and edema increased compared to yesterday, tory in place w/ serosanguinous drainage) - Labs 04/01/17 14:51 04/01/17 14:51 - VTE Documentation of Mechanical Device: Intermittent pneumatic compression device Consult Discharge Plan - Plan Instructions: Chronic Obstructive Pulmonary Disease (DC) Referrals: Janes Wade MD [Partnered Physician] -
[2017-04-03] MEDS: Budesonide/Formoterol 160/4.5 MDI IH SCH ×2 (08:02→20:25)
[2017-04-03] MEDS: Clindamycin 600 MG/50 ML 600 MG/50 ML IV.SOLN IVPB SCH ×2 (09:01→14:58)
[2017-04-03] MEDS: Cholecalciferol (D-3) 1,000 UNIT TABLET PO SCH (09:01)
[2017-04-03] MEDS: Lactobacillus 1 EACH CAP.SPRINK PO SCH ×2 (09:02→20:07)
[2017-04-03] MEDS: Dexamethasone 4 MG/ML VIAL IVP SCH ×3 (09:02→20:04)
--- NOTE | 2017-04-03 11:47 | Infectious Disease Progress No ---
Date of Encounter: 04/03/17 Time of Encounter: 11:45 - Assessment and Plan (1) Neck abscess Current Visit: Yes Status: Acute Likely secondary to recent surgical procedure. Location: Left lateral neck. Causative organism Strep intermedius. CT scan of the neck showed 2.5cm abscess within the left neck. Status post left neck I & D 03/28/[address] Cox. Operative note reviewed. Repeat CT scan of the neck is a possible small abscess in the left sternocleidomastoid muscle. Status post repeat I & D 04/02/[address] Wade. Operative note reviewed. Necrosis and another abscess noted. Continue Rocephin 2 grams IV daily. Continue Clindamycin 600mg IBV Q8H. Continue probiotic. Duration of treatment depends on the clinical picture. Monitor renal function and for drug toxicity and dose-adjust antibiotics. (2) Status post dissection of cervical lymph nodes Current Visit: Yes Status: Acute Status post lymph node biopsy 03/19/[address] Wooten. Pathology report reviewed. 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 Follows with [facility]. (4) History of lung cancer Current Visit: Yes Status: Acute Diagnosed in 2015. Status post right upper lobectomy with chemo and radiation. - Subjective Interval history: Patient seen and examined. No acute events noted overnight. Status post repeat I & D yesterday. Operative note reviewed. Patient states that overall she feels okay. She reports that her neck is less swollen, but it is still hard, but less painful. She denies any fevers or chills or rigors. She denies any chest pain, shortness of breath, or cough. She denies any nausea, vomiting, diarrhea, or constipation. She denies any abdominal pain and states her appetite is okay. She denies any urinary complaints. She denies any oral thrush or new skin lesions. Infect Dis PN-Objective Data - Labs CBC & Chem 7: 04/01/17 14:51 04/01/17 14:51 Cultures: Cultures 03/28/17 18:12 Anaerobic Culture - Final Neck No anaerobes were recovered. 03/28/17 18:12 Wound Culture - Final Neck Streptococcus intermedius Exam - Constitutional Vitals: Temp Pulse Resp BP Pulse Ox 98.2 F 78 18 135/71 95 04/03/17 07:15 04/03/17 07:15 04/03/17 08:02 04/03/17 07:15 04/03/17 08:02 General appearance: average body habitus, cooperative, no acute distress - Head Head exam: Present: atraumatic, normal inspection, normocephalic - Eye Eye exam: Present: EOMI, normal appearance, PERRL Pupils: Present: normal accommodation - ENT ENT exam: Present: mucous membranes moist - Neck Additional comments: Surgical site noted to the left neck with drain in place. Small amount of serosanguinous drainage noted on the dressing. Induration persists, but is improved. Site is less tender with palpation. No warmth or erythema noted. - Respiratory Respiratory exam: Present: CTAB. Absent: rales, respiratory distress, rhonchi, wheezes - Cardiovascular Cardiovascular exam: Present: RRR, +S1, +S2 - GI/Abdominal GI/Abdominal exam: Present: normal bowel sounds, soft. Absent: distended, tenderness - Extremities Exam Extremities exam: Present: normal inspection. Absent: joint swelling, pedal edema, tenderness - Neurological Exam Neurological exam: Present: alert, oriented X3, no focal deficits - Psychiatric Psychiatric exam: Present: normal affect, normal mood - Skin Skin exam: Present: dry, intact, normal color, warm - VTE Documentation of Mechanical Device: Intermittent pneumatic compression device Consult Discharge Plan - Plan Instructions: Chronic Obstructive Pulmonary Disease (DC) Referrals: Janes Wade MD [Partnered Physician] -
[2017-04-03] MEDS: Ringers Solution, Lactated 1,000 ML IVC SCH (14:59)
[2017-04-04] MEDS: Dexamethasone 4 MG/ML VIAL IVP SCH ×4 (00:49→20:08)
[2017-04-04] MEDS: Clindamycin 600 MG/50 ML 600 MG/50 ML IV.SOLN IVPB SCH ×2 (00:52→08:49)
[2017-04-04] MEDS: *HR* Enoxaparin 40 MG/0.4 ML SYRINGE SQ SCH (05:36)
[2017-04-04] MEDS: Budesonide/Formoterol 160/4.5 MDI IH SCH ×2 (08:28→20:16)
[2017-04-04] MEDS: Lactobacillus 1 EACH CAP.SPRINK PO SCH ×2 (08:50→20:07)
[2017-04-04] MEDS: Cholecalciferol (D-3) 1,000 UNIT TABLET PO SCH (08:50)
--- NOTE | 2017-04-04 10:28 | Infectious Disease Progress No ---
Date of Encounter: 04/04/17 Time of Encounter: 10:25 - Assessment and Plan (1) Neck abscess Current Visit: Yes Status: Acute Likely secondary to recent surgical procedure. Location: Left lateral neck. Causative organism Strep intermedius. CT scan of the neck showed 2.5cm abscess within the left neck. Status post left neck I & D 03/28/[address] Cox. Operative note reviewed. Repeat CT scan of the neck is a possible small abscess in the left sternocleidomastoid muscle. Status post repeat I & D 04/02/[address] Wade. Operative note reviewed. Necrosis and another abscess noted. The patient continues to have tenderness and induration of the surgical area. UTS ordered by the ENT team. Discussed with Dr. Nunez. Continue Rocephin 2 grams IV daily. Discontinue clindamycin Continue probiotic. Duration of treatment depends on the clinical picture, but likely 1-2 weeks of IV antibiotics followed by orals. Consult VAT for EPIV placement. Get weekly CBC, BUN/Cr, ESR, and CRP every Friday for the duration of treatment. Weekly EPIV care per protocol. Follow up with ID 04/17/17 at 0930. (2) Status post dissection of cervical lymph nodes Current Visit: Yes Status: Acute Status post lymph node biopsy 03/19/[address] Wooten. Pathology report reviewed. 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 Follows with [facility]. (4) History of lung cancer Current Visit: Yes Status: Acute Diagnosed in 2014. Status post right upper lobectomy with chemo and radiation. (5) Oral thrush Current Visit: Yes Status: Acute Start Nystatin Magic Mouthwash 5ml PO TID. - Subjective Interval history: Patient seen and examined. No acute events noted overnight. Status post repeat I & D 04/02/17. Patient states that overall she feels okay. She reports that her neck is still hard and painful. She states ENT is scheduling an UTS for later today to evaluate. She denies any fevers or chills or rigors. She denies any chest pain, shortness of breath, or cough. She denies any nausea, vomiting, diarrhea, or constipation. She denies any abdominal pain and states her appetite is okay. She denies any urinary complaints. She complains of mouth soreness. She denies any new skin lesions. Infect Dis PN-Objective Data - Labs CBC & Chem 7: 04/01/17 14:51 04/01/17 14:51 Cultures: Cultures 03/28/17 18:12 Anaerobic Culture - Final Neck No anaerobes were recovered. 03/28/17 18:12 Wound Culture - Final Neck Streptococcus intermedius Exam - Constitutional Vitals: Temp Pulse Resp BP Pulse Ox 97.6 F 85 15 128/68 97 04/04/17 10:16 04/04/17 10:16 04/04/17 10:16 04/04/17 10:16 04/04/17 10:16 General appearance: average body habitus, cooperative, no acute distress - Head Head exam: Present: atraumatic, normal inspection, normocephalic - Eye Eye exam: Present: EOMI, normal appearance, PERRL Pupils: Present: normal accommodation - ENT ENT exam: Present: mucous membranes moist - Neck Additional comments: Surgical site to the left lateral neck with sutures intact and drain noted. No drainage noted on the dressing. Site is not warm or erythematous. Induration noted to the left SCM muscle. ROM intact. Tenderness noted with palpation of the surgical area. - Respiratory Respiratory exam: Present: CTAB. Absent: rales, respiratory distress, rhonchi, wheezes - Cardiovascular Cardiovascular exam: Present: RRR, +S1, +S2 - GI/Abdominal GI/Abdominal exam: Present: normal bowel sounds, soft. Absent: distended, tenderness - Extremities Exam Extremities exam: Present: normal inspection. Absent: joint swelling, pedal edema, tenderness - Neurological Exam Neurological exam: Present: alert, oriented X3, no focal deficits - Psychiatric Psychiatric exam: Present: normal affect, normal mood - Skin Skin exam: Present: dry, intact, normal color, warm - VTE Documentation of Mechanical Device: Intermittent pneumatic compression device Consult Discharge Plan - Plan Instructions: Chronic Obstructive Pulmonary Disease (DC) Referrals: Janes Wade MD [Partnered Physician] - Steff Robles CNP [Advanced Practice Nurse] - 04/17/17 9:30 am Prescriptions: cefTRIAXone [Rocephin] 2,000 mg IVPB DAILY #14 vial
[2017-04-04] MEDS: Magic Mouthwash 10 ML UD Cup PO SCH ×2 (12:23→15:54)
--- NOTE | 2017-04-04 12:51 | ENT - Progress Note ---
Date of Encounter: 04/04/17 Time of Encounter: 12:49 - Assessment and Plan (1) Neck abscess Current Visit: Yes Status: Acute POD# 2 and 6 left neck abscess drainage. [place] in place Pt appears to be improving overall Rocephin and Clinda IV currently, appreciate ID recs Case discussed with ID Plan for PICC today and anticipate discharge with Rocephin IV Ultrasound of neck today ordered Will assess tomorrow and pull [place] if improvement noted with subsequent discharge Subjective Narrative: Pt is doing better overall. Still with left neck tenderness, no erythema. No airway complaints. Objective Initial Vital Signs Temp Pulse Resp BP Pulse Ox 98.0 F 101 15 147/82 95 03/28/17 15:53 03/28/17 15:53 03/28/17 15:53 03/28/17 15:53 03/28/17 15:53 - General physical appearance well developed, no distress - ENT normal pinna, normal nares, normal mucosa, Other - Neck other (Left neck tenderness and induration consistent with recent abscess and surgical procedures. No erythema or skin involvement. Kel[place] drain in place without obvious purulent drainage.) - Labs 04/01/17 14:51 04/01/17 14:51 - VTE Documentation of Mechanical Device: Intermittent pneumatic compression device Consult Discharge Plan - Plan Instructions: Chronic Obstructive Pulmonary Disease (DC) Referrals: Janes Wade MD [Partnered Physician] -
--- NOTE | 2017-04-04 15:54 | Discharge Summary ---
Date of Encounter: 04/05/17 Time of Encounter: 12:35 - Discharge Diagnosis (1) Neck abscess Priority: Primary Status: Acute - Discharge Medications Prescriptions: cefTRIAXone [Rocephin] 2,000 mg IVPB DAILY #14 vial Home Medications: Cholecalciferol (Vitamin D3) [Vitamin D3] 2,000 unit PO DAILY 03/17/15 [History] Garlic [Garlic Oil] 1,000 mg PO DAILY 03/17/15 [History] [place]-3/Dha/Epa/Fish Oil [Fish Oil Dr 500 mg Softgel] 1,000 mg PO DAILY [History] Oxycodone HCl/Acetaminophen [Percocet 5-325 mg Tablet] 1 tab PO Q8H PRN [History] Calcium Polycarbophil [Fibercon] 625 mg PO DAILY 08/12/15 [History] Albuterol Neb [Proventil Neb] 2.5 mg IH Q6H PRN 10/03/16 [History] Aspirin 81 mg PO DAILY 10/03/16 [History] Fluticasone Propionate Nasal [Flonase] 100 mcg NS DAILY PRN 10/03/16 [History] Pantoprazole Sodium [Protonix] 40 mg PO DAILY #90 granpkt. 10/23/16 [Rx] Budesonide/Formoterol 160/4.5 [Symbicort 160/4.5] 2 puff IH BIDR 03/19/17 [ History] traZODone [TraZODone] 50 mg PO HS 03/19/17 [History] cefTRIAXone [Rocephin] 2,000 mg IVPB DAILY #14 vial 04/04/17 [Rx] Nystatin Suspension 100,000 units PO QID 04/05/17 [History] Nystatin [Nystatin Suspension] 100,000 units PO QID #120 ml 04/05/17 [Rx] Allergies/Adverse Reactions: 3 Allergy/AdvReac Type Severity Reaction Status Date / Time paclitaxel Allergy Severe Anaphylaxis Verified 02/19/16 11:27 Penicillins Allergy Severe Hives Verified 03/19/17 14:00 codeine AdvReac Mild Nausea Verified 02/19/16 11:27 Procedures and tests throughout hospitalization: Ultrasound shows improvement of neck fluid collection. - Impressions ITS Impressions Soft Tissue Neck CT 04/01/17 14:15 IMPRESSION: Status post incision and drainage of left neck soft tissue abscess. Surgical drain is present. Residual low-attenuation collection seen in the sternocleidomastoid muscle measures 1 x 0.9 cm. D/ / 04/01/2017 15:08:05 Pantera Cash MD / [email or web address] Interpreting Provider: Pantera Cash MD Date of admission: 03/28/17 16:42 Primary care physician: Tish Delong Consults: 04/01/17 08:36 Consult to Infectious Diseases [CONS] Routine Consulting Provider: Infectious Disease [place] Reason for Consult: Consult requested by Dr. Cox for neck abscess Time Notified: 08:36 Call Completed: Yes 04/04/17 13:20 Consult to Invasive Line Access Team [CONS] Routine Reason for Consult: EPIV placement Line Type: EPIV PICC line indications: watermelon inspector Med/Antibiotic Time Notified: 13:20 Call Completed: Yes Anticipated date of discharge: 04/05/17 - Patient Status Disposition: Home Health Service Condition: Good Functional capacity at discharge: independent ambulation Overall status at discharge: patient is progressing back to baseline - Discharge Instructions Instructions: Chronic Obstructive Pulmonary Disease (DC) Follow Up With: Janes Wade MD [Partnered Physician] - Pati Wooten DO [Non-Partnered Physician] - (Please call ENT to schedule appt next week for wound check. ) Steff Robles CNP [Advanced Practice Nurse] - 04/17/17 9:30 am (Please call infectious disease clinic to confirm your follow up appointment.) - Diet and Activity Activity: ambulate only with your walker Diet: advance to your usual diet - Hospital Course Hospital course: Ms. Bautista is a 72 year old female admitted to the ENT service. She had a left neck lymph node excision with subsequent infection and abscess formation. She underwent 2 incision and drainage procedures and is POD#3 and 6 for those procedures. Her cultures grew strept intermedius resistant to Clindamycin and was switched to IV rocephin with the aid of infectious disease recommendations. She has since improved. Her left neck tory drain was removed without difficulty. She is being discharged to home with continued IV rocephin via PICC line 2 g daily. She will follow up with ID as planned for decision of duration of treatment. She will follow up with Dr Wooten ENT next week for wound check. Time spent discussing smoking cessation with patient: 3 to 10 minutes - Time Spent with Patient Total time spent providing and/or coordinating discharge services: Greater than 30 minutes ENT Exam Initial Vital Signs Temp Pulse Resp BP Pulse Ox 98.0 F 101 15 147/82 95 03/28/17 15:53 03/28/17 15:53 03/28/17 15:53 03/28/17 15:53 03/28/17 15:53 - General physical appearance well developed, well nourished, no distress - Eyes PERRL - ENT Other (Left neck tory removed, no purulence noted. Clinical improvement of left neck abscess with improved tenderness and induration. No fluctuance noted or skin erythema.) - Neck no bruits, trachea midline (see ENT exam for neck abscess details) - Respiratory normal expansion, normal respiratory effort - Abdomen Abdomen: soft, non tender - Integumentary no rash, no growths - Neurologic CN 2-12 grossly intact, normal coordination - Musculoskeletal normal gait - Psychiatric oriented to time, oriented to person, oriented to place - VTE Documentation of Mechanical Device: Intermittent pneumatic compression device
[2017-04-04] MEDS: *HR* Morphine 2 MG/ML SYRINGE IVP PRN (17:53)
[2017-04-05] MEDS: Dexamethasone 4 MG/ML VIAL IVP SCH ×3 (01:51→13:08)
[2017-04-05] MEDS: *HR* Enoxaparin 40 MG/0.4 ML SYRINGE SQ SCH (05:29)
[2017-04-05] MEDS: Budesonide/Formoterol 160/4.5 MDI IH SCH (08:07)
[2017-04-05] MEDS: Cholecalciferol (D-3) 1,000 UNIT TABLET PO SCH (08:46)
[2017-04-05] MEDS: Magic Mouthwash 10 ML UD Cup PO SCH ×2 (08:47→13:08)
[2017-04-05] MEDS: Lactobacillus 1 EACH CAP.SPRINK PO SCH (08:47)
[2017-04-05 11:15] VITALS: BP 146/75
--- NOTE | 2017-04-05 12:56 | Physician Discharge Referral ---
Home Health/Hosp Referral Info Attending Provider: Janes Nunez Provider in Charge Post Discharge: Other (Infectious disease clinic, Christine Robles) - Diagnosis (1) Neck abscess Priority: Primary Status: Acute - Respiratory Orders Smoking Cessation: Smoking cessation has been advised. For more information, call the [place] Tobacco Quit Line at 7-715-HWCV-NOW. - Transfer Medications Prescriptions: cefTRIAXone [Rocephin] 2,000 mg IVPB DAILY #14 vial Nystatin [Nystatin Suspension] 100,000 units PO QID #120 ml Home Medications: Cholecalciferol (Vitamin D3) [Vitamin D3] 2,000 unit PO DAILY 03/17/15 [History] Garlic [Garlic Oil] 1,000 mg PO DAILY 03/17/15 [History] [place]-3/Dha/Epa/Fish Oil [Fish Oil Dr 500 mg Softgel] 1,000 mg PO DAILY [History] Oxycodone HCl/Acetaminophen [Percocet 5-325 mg Tablet] 1 tab PO Q8H PRN [History] Calcium Polycarbophil [Fibercon] 625 mg PO DAILY 08/12/15 [History] Albuterol Neb [Proventil Neb] 2.5 mg IH Q6H PRN 10/03/16 [History] Aspirin 81 mg PO DAILY 10/03/16 [History] Fluticasone Propionate Nasal [Flonase] 100 mcg NS DAILY PRN 10/03/16 [History] Pantoprazole Sodium [Protonix] 40 mg PO DAILY #90 granpkt. 10/23/16 [Rx] Budesonide/Formoterol 160/4.5 [Symbicort 160/4.5] 2 puff IH BIDR 03/19/17 [ History] traZODone [TraZODone] 50 mg PO HS 03/19/17 [History] cefTRIAXone [Rocephin] 2,000 mg IVPB DAILY #14 vial 04/04/17 [Rx] Nystatin Suspension 100,000 units PO QID 04/05/17 [History] Nystatin [Nystatin Suspension] 100,000 units PO QID #120 ml 04/05/17 [Rx] Allergies/Adverse Reactions: 3 Allergy/AdvReac Type Severity Reaction Status Date / Time paclitaxel Allergy Severe Anaphylaxis Verified 02/19/16 11:27 Penicillins Allergy Severe Hives Verified 03/19/17 14:00 codeine AdvReac Mild Nausea Verified 02/19/16 11:27 Certification: Further, I certify that my clinical findings support that this patient is homebound (i.e. absences from home require considerable and taxing effort and are for medical reasons or mandaeism services or infrequently or short duration when for other reasons) because: of medical condition, left neck abscess requiring skilled nursing IV abx Homebound Reason: Post-surgery restriction and or conditions limit ability to leave home Attestation: My signature below is to certify that this patient is under my care and that I, or nurse practitioner, or a physician's gallery assistant working with me, has a face-to -face encounter with this patient.
--- NOTE | 2017-04-05 13:02 | ENT - Progress Note ---
Date of Encounter: 04/05/17 Time of Encounter: 12:59 - Assessment and Plan (1) Neck abscess Current Visit: Yes Status: Acute POD# 3 and 7 left neck abscess drainage. [place] drain removed today Clinically improving neck abscess with less pain or induration. No flutuance, skin erythema, or purulent drainage from drain site Discharge to home today Homehealth to help with IV rocephin 2g IV daily via PICC per ID recs Follow up with Dr Wooten next week for wound check Follow up with ID as planned for abx recs Nystatin swish and spit for oral shahzad Subjective Patient reports: no new complaints (improved neck pain and fullneess, no drainge ) Objective Initial Vital Signs Temp Pulse Resp BP Pulse Ox 98.0 F 101 15 147/82 95 03/28/17 15:53 03/28/17 15:53 03/28/17 15:53 03/28/17 15:53 03/28/17 15:53 - General physical appearance well developed, no distress - ENT normal pinna, normal nares - Neck other (left neck abscess with improved pain and induration. No fluctuance or skin erythema. [place] removed today, no purulent drainage noted.) - Labs 04/01/17 14:51 04/01/17 14:51 - VTE Documentation of Mechanical Device: Intermittent pneumatic compression device Consult Discharge Plan - Plan Instructions: Chronic Obstructive Pulmonary Disease (DC) Referrals: Janes Wade MD [Partnered Physician] - Steff Robles CNP [Advanced Practice Nurse] - 04/17/17 9:30 am (Please call infectious disease clinic to confirm your follow up appointment.) Pati Wooten DO [Non-Partnered Physician] - (Please call ENT to schedule appt next week for wound check. ) Prescriptions: cefTRIAXone [Rocephin] 2,000 mg IVPB DAILY #14 vial Nystatin [Nystatin Suspension] 100,000 units PO QID #120 ml
== END 2017-04-05 16:00 | disposition home health service (06) | DRG 603 ==
LOC: 3ANU
PROVIDERS: ADMIT Otolaryngology; ATTEND Otolaryngology

== ENCOUNTER 2019-02-26 11:00 | Inpatient (IN) ==
[2019-02-26] MEDS ORDERED: Isovue-370 500 ML BOTTLE IVP ONE (11:10)
--- NOTE | 2019-02-26 11:12 | Emergency Department Note ---
Disposition Clinical Impression: Blood clot of neck vein Leukocytosis Qualifiers: Leukocytosis type: other Qualified Code(s): D72.828 - Other elevated white blood cell count Disposition: Admitted As Inpatient Time of Disposition: 19:49 General Adult HPI - General Chief complaint: ED General Medical Stated complaint: "[facility]" Time Seen by Provider: 02/26/19 11:05 Source: patient Limitations: no limitations - History of Present Illness Pain Scale: 5 - Related Data Home Medications Medication Instructions Recorded Confirmed Cholecalciferol (Vitamin D3) 2,000 unit PO DAILY 03/17/15 02/26/19 [Vitamin D3] Allison-3/Dha/Epa/Fish Oil [Fish Oil 1,000 mg PO DAILY 03/17/15 02/26/19 500 mg Softgel] Calcium Polycarbophil [Fibercon] 625 mg PO DAILY 08/12/15 02/26/19 Albuterol Neb [Proventil Neb] 2.5 mg IH Q6H PRN 10/03/16 02/26/19 Fluticasone Propionate Nasal 2 puff NS DAILY PRN 10/03/16 02/26/19 [Flonase] Budesonide/Formoterol 160/4.5 2 puff IH BIDR 03/19/17 02/26/19 [Symbicort 160/4.5] Albuterol Sulfate [Proair Hfa] 2 puff IH Q4H 12/02/17 02/26/19 Ipratropium/Albuterol Neb [Duoneb] 3 ml IH Q6HR 12/02/17 02/26/19 Oxycodone HCl/Acetaminophen 1 - 2 tab PO Q4-6H PRN 12/28/18 02/26/19 [Percocet 5-325 mg Tablet] Tizanidine HCl [Zanaflex] 4 mg PO HS 12/28/18 02/26/19 Previous Rx's Medication Instructions Recorded Pantoprazole Sodium [Protonix] 40 mg PO DAILY #90 granpkt. 10/23/16 Benzonatate [Tessalon] 100 mg PO TID PRN #60 capsule 12/05/17 Dexamethasone [Decadron] 4 mg PO BID PRN #45 tab 02/16/19 Folic Acid 1 mg PO DAILY #30 tablet 02/16/19 Lidocaine/Prilocaine [Emla] 1 appl TP AD #30 gm 02/16/19 Ondansetron HCl 8 mg PO Q8H PRN #45 tablet 02/16/19 Prochlorperazine Maleate 10 mg PO Q6HR PRN #90 tablet 02/16/19 [Compazine] Allergies Allergy/AdvReac Type Severity Reaction Status Date / Time paclitaxel Allergy Severe Anaphylaxis Verified 01/20/19 10:15 Penicillins Allergy Severe Hives Verified 01/20/19 10:15 Past Medical History - Past Medical History Medical history: Reports: arthritis, cancer, COPD, diabetes, fibromyalgia, GERD, hyperlipidemia, osteoporosis Surgical history: Reports: breast surgery, cancer surgery, cataract, cholecystectomy, orthopedic, other, other Psychiatric history: Reports: no psych history NUT DEHYDRATOR 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: Reports: no NUT DEHYDRATOR 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 - Social History Smoking Status: Current every day smoker Smokeless Tobacco Status: No Alcohol use: Reports: none Drug use: Reports: none Physical Exam - General Limitations: no limitations General appearance: alert, in no apparent distress Course Vital Signs Temperature 97.7 F 02/26/19 11:02 Pulse Rate 93 02/26/19 11:02 Respiratory Rate 20 02/26/19 11:02 Blood Pressure 151/88 02/26/19 11:02 O2 Sat by Pulse Oximetry 97 02/26/19 11:02 Temperature 97.7 F 02/26/19 11:02 Pulse Rate 68 02/26/19 15:52 Respiratory Rate 14 02/26/19 15:52 Blood Pressure 153/75 02/26/19 15:52 O2 Sat by Pulse Oximetry 96 02/26/19 15:52 Oxygen Delivery Oxygen Delivery Room Air Medical Decision Making - Lab Data Result diagrams: 02/26/19 11:20 02/26/19 11:20 Lab Results 02/26/19 02/26/19 02/26/19 Range/Units 11:20 11:20 11:20 WBC 42.9 H* D (4.3-11.1) K/mcL RBC 4.46 (3.82-4.97) M/mcL Hgb 14.7 (11.5-15.4) g/dL Hct 45.1 H (35.3-44.9) % MCV 101.1 H (83.0-100.0) fL MCH 33.0 (28.0-33.3) pg MCHC 32.6 (31.6-35.5) g/dL RDW 14.0 (11.5-14.5) % Plt Count 182 (140-400) K/mcL MPV 9.4 (9.4-12.4) fL Seg Neutrophils % 88.0 % Band Neutrophils % 6.0 H (0-4) % Lymphocytes % 4.0 % Monocytes % 2.0 % Neutrophils # 40.3 H (1.6-8.9) K/mcL Lymphocytes # 1.7 (0.6-4.6) K/mcL Monocytes # 0.9 (0.0-1.3) K/mcL Platelet Estimate Normal (Normal) PT 11.1 (9.4-12.1) Seconds INR 1.0 Heparin Anti-Xa, Unfract (0.30-0.70) IU/mL Sodium 138 (136-145) mEq/L Potassium 4.3 (3.5-5.1) mEq/L Chloride 98 (98-107) mEq/L Carbon Dioxide 28 (23-29) mEq/L BUN 22 (8-23) mg/dL Creatinine 0.89 (0.60-1.20) mg/dL Est GFR ( Amer) > 60 (> 60) Est GFR (Non-Af Amer) > 60 (> 60) BUN/Creatinine Ratio 25 (6-26) Glucose 85 (70-105) mg/dL Calculated Osmolality 289 (280-300) Lactic Acid (0.5-2.2) mmol/L Calcium 9.3 (8.6-10.3) mg/dL Total Bilirubin 0.5 (0.3-1.0) mg/dL AST 12 L (13-39) Units/L ALT 13 (7-52) Units/L Alkaline Phosphatase 123 H (34-104) Units/L Serum Total Protein 6.6 (6.4-8.9) g/dL Albumin 3.6 (3.5-5.7) g/dL Globulin 3.0 (2.4-3.5) g/dL Albumin/Globulin Ratio 1.2 (1.1-2.2) Urine Color (Yellow) Urine Clarity (Clear) Urine pH (5.0-8.0) pH Units Ur Specific [place] (1.010-1.025) Urine Protein (Neg-Trace) mg/dL Urine Glucose (UA) (Normal) mg/dL Urine Ketones (Negative) mg/dL Urine Blood (Negative) Urine Nitrite (Negative) Urine Bilirubin (Negative) Urine Urobilinogen (Normal) mg/dL Ur Leukocyte Esterase (Negative) Urine Microscopic RBC (0-3) per hpf Urine Microscopic WBC (0-3) per hpf Ur Squamous Epith Cells (None-Few) per lpf Urine Bacteria (None-Few) per hpf Hyaline Casts (None-Few) per lpf Ur Culture Indicated? (NO) 02/26/19 02/26/19 02/26/19 Range/Units 13:14 13:20 14:35 WBC (4.3-11.1) K/mcL RBC (3.82-4.97) M/mcL Hgb (11.5-15.4) g/dL Hct (35.3-44.9) % MCV (83.0-100.0) fL MCH (28.0-33.3) pg MCHC (31.6-35.5) g/dL RDW (11.5-14.5) % Plt Count (140-400) K/mcL MPV (9.4-12.4) fL Seg Neutrophils % % Band Neutrophils % (0-4) % Lymphocytes % % Monocytes % % Neutrophils # (1.6-8.9) K/mcL Lymphocytes # (0.6-4.6) K/mcL Monocytes # (0.0-1.3) K/mcL Platelet Estimate (Normal) PT (9.4-12.1) Seconds INR Heparin Anti-Xa, Unfract 0.04 L (0.30-0.70) IU/mL Sodium (136-145) mEq/L Potassium (3.5-5.1) mEq/L Chloride (98-107) mEq/L Carbon Dioxide (23-29) mEq/L BUN (8-23) mg/dL Creatinine (0.60-1.20) mg/dL Est GFR ( Amer) (> 60) Est GFR (Non-Af Amer) (> 60) BUN/Creatinine Ratio (6-26) Glucose (70-105) mg/dL Calculated Osmolality (280-300) Lactic Acid 1.1 (0.5-2.2) mmol/L Calcium (8.6-10.3) mg/dL Total Bilirubin (0.3-1.0) mg/dL AST (13-39) Units/L ALT (7-52) Units/L Alkaline Phosphatase (34-104) Units/L Serum Total Protein (6.4-8.9) g/dL Albumin (3.5-5.7) g/dL Globulin (2.4-3.5) g/dL Albumin/Globulin Ratio (1.1-2.2) Urine Color Yellow (Yellow) Urine Clarity Clear (Clear) Urine pH 6.0 (5.0-8.0) pH Units Ur Specific [place] 1.024 (1.010-1.025) Urine Protein Negative (Neg-Trace) mg/dL Urine Glucose (UA) Normal (Normal) mg/dL Urine Ketones Negative (Negative) mg/dL Urine Blood Moderate H (Negative) Urine Nitrite Negative (Negative) Urine Bilirubin Negative (Negative) Urine Urobilinogen Normal (Normal) mg/dL Ur Leukocyte Esterase Negative (Negative) Urine Microscopic RBC 15-30 H (0-3) per hpf Urine Microscopic WBC 3-5 H (0-3) per hpf Ur Squamous Epith Cells Many H (None-Few) per lpf Urine Bacteria None Seen (None-Few) per hpf Hyaline Casts None Seen (None-Few) per lpf Ur Culture Indicated? NO (NO) Critical Care Time Critical Care Time: Yes Total Critical Care Time: 30 Attestation: The high probability of a clinically significant, sudden or life threatening det erioration of the [] system(s) required my full and direct attention, intervention and personal management. The aggregate critical care time was [] minutes. This time is in addition to time spent performing reported procedures but includes the following: [] Data Review and interpretation [] Patient assessment and monitoring of vital signs [] Documentation [] Medication orders and management Attestation Statement - Attestation Attestation: I reviewed the residents documentation and agree with the residents assessment and plan of care. I have personally had face to face time with the patient. (Brief History, Brief Exam, and MDM) I personally supervised and was present for the mosqueda/critical portions of the following procedures completed by the resident: (add procedures performed here). [id number] time provided Patient has oral thrush on exam. She has concerned her left upper extremity swelling after Mediport placement. Concern for SVC syndrome. CT chest ordered.
[2019-02-26] MEDS ORDERED: Nystatin SUSP 5 ML UD.LIQ PO ONE (11:16)
[2019-02-26] MEDS ORDERED: Morphine Sulfate 2 MG/ML SYRINGE IVP ONE (11:16)
--- NOTE | 2019-02-26 11:22 | Emergency Department Note ---
Disposition Clinical Impression: Blood clot of neck vein Leukocytosis Qualifiers: Leukocytosis type: other Qualified Code(s): D72.828 - Other elevated white blood cell count Disposition: Admitted As Inpatient Referrals: Jemal Rodriguez DO [Primary Care Provider] - Forms: ED Satisfaction Letter, Work/School Release Time of Disposition: 14:50 General Adult HPI - General Chief complaint: ED General Medical Stated complaint: "[facility]" Time Seen by Provider: 02/26/19 11:05 Source: patient Limitations: no limitations Nursing Notes Reviewed: Yes Vital Signs Reviewed: Yes - History of Present Illness HPI Narrative: 73-year-old female presents emergency department with concern for those sorenes s, left arm swelling, blurry vision, sore throat. Patient has history of stage IV lung cancer as well as stomach cancer. Reports that she is receiving chemotherapy and had a port placed recently. Patient states that she has had issues with oral thrush in the past. She called the [facility] center who told her to come to the emergency department. Patient reports that this soreness as the last couple days with difficulty eating due to the discomfort. States that this morning, she noticed that her left arm as well as facial swollen. Reports some blurred vision last night. Denies any fevers, chills, chest pain, numbness and tingling, slurred speech. Pain Scale: 5 - Related Data Home Medications Medication Instructions Recorded Confirmed Cholecalciferol (Vitamin D3) 2,000 unit PO DAILY 03/17/15 02/26/19 [Vitamin D3] [place]pin-3/Dha/Epa/Fish Oil [Fish Oil 1,000 mg PO DAILY 03/17/15 02/26/19 Dr 500 mg Softgel] Calcium Polycarbophil [Fibercon] 625 mg PO DAILY 08/12/15 02/26/19 Albuterol Neb [Proventil Neb] 2.5 mg IH Q6H PRN 10/03/16 02/26/19 Fluticasone Propionate Nasal 2 puff NS DAILY PRN 10/03/16 02/26/19 [Flonase] Budesonide/Formoterol 160/4.5 2 puff IH BIDR 03/19/17 02/26/19 [Symbicort 160/4.5] Albuterol Sulfate [Proair Hfa] 2 puff IH Q4H 12/02/17 02/26/19 Ipratropium/Albuterol Neb [Duoneb] 3 ml IH Q6HR 12/02/17 02/26/19 Oxycodone HCl/Acetaminophen 1 - 2 tab PO Q4-6H PRN 12/28/18 02/26/19 [Percocet 5-325 mg Tablet] Tizanidine HCl [Zanaflex] 4 mg PO HS 12/28/18 02/26/19 Previous Rx's Medication Instructions Recorded Pantoprazole Sodium [Protonix] 40 mg PO DAILY #90 granpkt. 10/23/16 Benzonatate [Tessalon] 100 mg PO TID PRN #60 capsule 12/05/17 Dexamethasone [Decadron] 4 mg PO BID PRN #45 tab 02/16/19 Doxycycline 100 mg PO BID #14 capsule 02/16/19 Folic Acid 1 mg PO DAILY #30 tablet 02/16/19 Lidocaine/Prilocaine [Emla] 1 appl TP AD #30 gm 02/16/19 Ondansetron HCl 8 mg PO Q8H PRN #45 tablet 02/16/19 Prochlorperazine Maleate 10 mg PO Q6HR PRN #90 tablet 02/16/19 [Compazine] Morphine Sulfate Immed Rel 15 mg PO Q4HR PRN 2 Days #8 tab 02/21/19 [Morphine Sulfate] Allergies Allergy/AdvReac Type Severity Reaction Status Date / Time paclitaxel Allergy Severe Anaphylaxis Verified 01/20/19 10:15 Penicillins Allergy Severe Hives Verified 01/20/19 10:15 All systems ED: reviewed and negative except as stated. Review of Systems: As Per HPI Constitutional: Denies: fever, chills Eyes: Reports: vision change ENT ED: Reports: throat pain. Denies: dental pain Cardiovascular: Denies: chest pain, dyspnea on exertion Respiratory: Denies: cough, dyspnea Gastrointestinal: Denies: abdominal pain, nausea, vomiting Genitourinary: Denies: dysuria Musculoskeletal: Reports: neck pain Integumentary: Denies: rash Neurological: Denies: weakness, numbness, paresthesias, abnormal gait Allergic/Immunologic: Reports: facial swelling Past Medical History - Past Medical History Attestation: Yes The following information was validated with the patient. Medical history: Reports: arthritis, cancer, COPD, diabetes, fibromyalgia, GERD, hyperlipidemia, osteoporosis Surgical history: Reports: breast surgery, cancer surgery, cataract, cholecystectomy, orthopedic, other, other Psychiatric history: Reports: no psych history PHYSICS PROFESSOR history: Reports: no PHYSICS PROFESSOR history - Social History Smoking Status: Current every day smoker Smokeless Tobacco Status: No Alcohol use: Reports: none Drug use: Reports: none Physical Exam - General Limitations: no limitations General appearance: alert, in no apparent distress - Head Head exam: normocephalic - Eye Eye exam: Present: EOMI - ENT ENT exam: mucous membranes moist, other (Oral thrush) - Neck Neck exam: Present: trachea midline - Chest Chest inspection: Present: symmetric chest wall rise - Respiratory Respiratory exam: Present: normal lung sounds bilaterally. Absent: respiratory distress, accessory muscle use - Cardiovascular Cardiovascular exam: Present: regular rate, normal rhythm, normal heart sounds - Abdominal Exam Abdominal exam: Present: soft, Non-Tender. Absent: distention, guarding, rebound, rigidity Course Vital Signs Temperature 97.7 F 02/26/19 11:02 Pulse Rate 93 02/26/19 11:02 Respiratory Rate 20 02/26/19 11:02 Blood Pressure 151/88 02/26/19 11:02 O2 Sat by Pulse Oximetry 97 02/26/19 11:02 Temperature 97.7 F 02/26/19 11:02 Pulse Rate 74 02/26/19 12:22 Respiratory Rate 16 02/26/19 12:22 Blood Pressure 138/82 02/26/19 12:22 O2 Sat by Pulse Oximetry 96 02/26/19 12:22 Oxygen Delivery Oxygen Delivery Room Air Medical Decision Making - [facility] Narrative Medical decision making narrative: 73-year-old female presents emergency department with concern for left arm swelling for shortness, blurred vision. NIH is currently 0. We will obtain CT scan of the head without contrast. Also, we will obtain chest CT to rule out superior vena cava syndrome. Patient elevated white blood cell count in the 40,000 range. We did obtain blood cultures from her port as well as peripheral site. Spoke with hematology and oncology will follow the patient on the floor, but did not recommend any antibiotics at this time. Patient did have evidence of new left internal jugular vein thrombosis on CT scan of the neck. Hematology and oncology stated to start heparin on patient. Patient given nystatin oral for oral thrush. Patient admitted to hospitalist. Stable at that time. Chest CT 02/26/19 11:10 IMPRESSION: No acute findings. No findings to explain the patient's left upper extremity swelling. Stable appearance to right lung with prior right upper lobectomy and consolidation with bronchiectasis medially to the residual right lung. There is also a persistent cavitary focus laterally to the right lung apex along with small loculated pleural effusion to the right lung apex. Of note, some of these findings demonstrated some hypermetabolic activity on prior PET-CT 01/06/2019 and reference to the prior PET-CT can be made for additional information. Atherosclerosis to include coronary artery disease. Paraseptal emphysema. D/ / 02/26/2019 14:15:55 Janes Mejia MD / melissa Interpreting Provider: Janes Mejia MD Head CT 02/26/19 11:13 IMPRESSION: No acute intracranial abnormality. Mild chronic small vessel white matter ischemic changes. D/ / Anthony Jauregui MD / Anthony Jauregui MD Interpreting Provider: Anthony Jauregui MD Soft Tissue Neck CT 02/26/19 11:13 IMPRESSION: 1. Asymmetrically decreased enhancement involving the left internal jugular vein compared to the right. Findings may be related to thrombus. Suggest confirmation with ultrasound. 2. Otherwise, no acute abnormality identified of the soft tissue structures of the neck. D/ / Jomar Rodriguez MD / Jomar Rodriguez MD Interpreting Provider: Jomar Rodriguez MD - Lab Data Result diagrams: 02/26/19 11:20 02/26/19 11:20 Lab Results 02/26/19 02/26/19 02/26/19 Range/Units 11:20 11:20 11:20 WBC 42.9 H* D (4.3-11.1) K/mcL RBC 4.46 (3.82-4.97) M/mcL Hgb 14.7 (11.5-15.4) g/dL Hct 45.1 H (35.3-44.9) % MCV 101.1 H (83.0-100.0) fL MCH 33.0 (28.0-33.3) pg MCHC 32.6 (31.6-35.5) g/dL RDW 14.0 (11.5-14.5) % Plt Count 182 (140-400) K/mcL MPV 9.4 (9.4-12.4) fL Seg Neutrophils % 88.0 % Band Neutrophils % 6.0 H (0-4) % Lymphocytes % 4.0 % Monocytes % 2.0 % Neutrophils # 40.3 H (1.6-8.9) K/mcL Lymphocytes # 1.7 (0.6-4.6) K/mcL Monocytes # 0.9 (0.0-1.3) K/mcL Platelet Estimate Normal (Normal) PT 11.1 (9.4-12.1) Seconds INR 1.0 Heparin Anti-Xa, Unfract (0.30-0.70) IU/mL Sodium 138 (136-145) mEq/L Potassium 4.3 (3.5-5.1) mEq/L Chloride 98 (98-107) mEq/L Carbon Dioxide 28 (23-29) mEq/L BUN 22 (8-23) mg/dL Creatinine 0.89 (0.60-1.20) mg/dL Est GFR ( Amer) > 60 (> 60) Est GFR (Non-Af Amer) > 60 (> 60) BUN/Creatinine Ratio 25 (6-26) Glucose 85 (70-105) mg/dL Calculated Osmolality 289 (280-300) Lactic Acid (0.5-2.2) mmol/L Calcium 9.3 (8.6-10.3) mg/dL Total Bilirubin 0.5 (0.3-1.0) mg/dL AST 12 L (13-39) Units/L ALT 13 (7-52) Units/L Alkaline Phosphatase 123 H (34-104) Units/L Serum Total Protein 6.6 (6.4-8.9) g/dL Albumin 3.6 (3.5-5.7) g/dL Globulin 3.0 (2.4-3.5) g/dL Albumin/Globulin Ratio 1.2 (1.1-2.2) Urine Color (Yellow) Urine Clarity (Clear) Urine pH (5.0-8.0) pH Units Ur Specific [place] (1.010-1.025) Urine Protein (Neg-Trace) mg/dL Urine Glucose (UA) (Normal) mg/dL Urine Ketones (Negative) mg/dL Urine Blood (Negative) Urine Nitrite (Negative) Urine Bilirubin (Negative) Urine Urobilinogen (Normal) mg/dL Ur Leukocyte Esterase (Negative) Urine Microscopic RBC (0-3) per hpf Urine Microscopic WBC (0-3) per hpf Ur Squamous Epith Cells (None-Few) per lpf Urine Bacteria (None-Few) per hpf Hyaline Casts (None-Few) per lpf Ur Culture Indicated? (NO) 02/26/19 02/26/19 02/26/19 Range/Units 13:14 13:20 14:35 WBC (4.3-11.1) K/mcL RBC (3.82-4.97) M/mcL Hgb (11.5-15.4) g/dL Hct (35.3-44.9) % MCV (83.0-100.0) fL MCH (28.0-33.3) pg MCHC (31.6-35.5) g/dL RDW (11.5-14.5) % Plt Count (140-400) K/mcL MPV (9.4-12.4) fL Seg Neutrophils % % Band Neutrophils % (0-4) % Lymphocytes % % Monocytes % % Neutrophils # (1.6-8.9) K/mcL Lymphocytes # (0.6-4.6) K/mcL Monocytes # (0.0-1.3) K/mcL Platelet Estimate (Normal) PT (9.4-12.1) Seconds INR Heparin Anti-Xa, Unfract 0.04 L (0.30-0.70) IU/mL Sodium (136-145) mEq/L Potassium (3.5-5.1) mEq/L Chloride (98-107) mEq/L Carbon Dioxide (23-29) mEq/L BUN (8-23) mg/dL Creatinine (0.60-1.20) mg/dL Est GFR ( Amer) (> 60) Est GFR (Non-Af Amer) (> 60) BUN/Creatinine Ratio (6-26) Glucose (70-105) mg/dL Calculated Osmolality (280-300) Lactic Acid 1.1 (0.5-2.2) mmol/L Calcium (8.6-10.3) mg/dL Total Bilirubin (0.3-1.0) mg/dL AST (13-39) Units/L ALT (7-52) Units/L Alkaline Phosphatase (34-104) Units/L Serum Total Protein (6.4-8.9) g/dL Albumin (3.5-5.7) g/dL Globulin (2.4-3.5) g/dL Albumin/Globulin Ratio (1.1-2.2) Urine Color Yellow (Yellow) Urine Clarity Clear (Clear) Urine pH 6.0 (5.0-8.0) pH Units Ur Specific [place] 1.024 (1.010-1.025) Urine Protein Negative (Neg-Trace) mg/dL Urine Glucose (UA) Normal (Normal) mg/dL Urine Ketones Negative (Negative) mg/dL Urine Blood Moderate H (Negative) Urine Nitrite Negative (Negative) Urine Bilirubin Negative (Negative) Urine Urobilinogen Normal (Normal) mg/dL Ur Leukocyte Esterase Negative (Negative) Urine Microscopic RBC 15-30 H (0-3) per hpf Urine Microscopic WBC 3-5 H (0-3) per hpf Ur Squamous Epith Cells Many H (None-Few) per lpf Urine Bacteria None Seen (None-Few) per hpf Hyaline Casts None Seen (None-Few) per lpf Ur Culture Indicated? NO (NO)
[2019-02-26] MEDS ORDERED: *HR* HYDROmorphone (PF) 1 MG/ML SYRINGE IVP ONE (11:29)
[2019-02-26 12:18] LABS: Hematocrit 45.1 % (35.3-44.9); Hemoglobin 14.7 g/dL (11.5-15.4); Mean Corpuscular HGB Conc 32.6 g/dL (31.6-35.5); Mean Corpuscular Volume 101.1 fL (83.0-100.0); Mean Platelet Volume 9.4 fL (9.4-12.4); Platelet Count 182 K/mcL (140-400); Red Blood Count 4.46 M/mcL (3.82-4.97)
[2019-02-26 12:20] LABS: Prothrombin Time 11.1 Seconds (9.4-12.1)
[2019-02-26 12:45] LABS: Alanine Aminotransferase 13 Units/L (7-52); Albumin 3.6 g/dL (3.5-5.7); Albumin/Globulin Ratio 1.2 (1.1-2.2); Alkaline Phosphatase 123 Units/L (34-104); Aspartate Amino Transferase 12 Units/L (13-39); BUN/Creatinine Ratio 25 (6-26); Bilirubin,Total 0.5 mg/dL (0.3-1.0); Blood Urea Nitrogen 22 mg/dL (8-23); Calcium 9.3 mg/dL (8.6-10.3); Carbon Dioxide 28 mEq/L (23-29); Chloride 98 mEq/L (98-107); Glucose 85 mg/dL (70-105); Osmolality,Calculated 289 (280-300); Potassium 4.3 mEq/L (3.5-5.1); Sodium 138 mEq/L (136-145); Total Protein 6.6 g/dL (6.4-8.9); eGFR For African Americans > 60 (> 60); eGFR For Non-African Americans > 60 (> 60)
[2019-02-26 12:52] LABS: White Blood Count 42.9 K/mcL (4.3-11.1)
[2019-02-26 13:16] LABS: Lymphocytes # 1.7 K/mcL (0.6-4.6); Monocytes # 0.9 K/mcL (0.0-1.3); Neutrophils # 40.3 K/mcL (1.6-8.9); Platelet Estimate Normal (Normal)
[2019-02-26 13:22] LABS: Bilirubin,Urine Negative (Negative); Blood,Urine Moderate (Negative); Clarity,Urine Clear (Clear); Color,Urine Yellow (Yellow); Glucose,Urine (UA) Normal (Normal); Ketones,Urine Negative (Negative); Leukocyte Esterase,Urine Negative (Negative); Nitrite,Urine Negative (Negative); Protein,Urine Negative (Neg-Trace); Specific Gravity,Urine 1.024 (1.010-1.025); Urobilinogen,Urine Normal (Normal)
[2019-02-26 13:25] LABS: Bacteria,Urine None Seen per hpf (None-Few); Hyaline Casts,Urine None Seen per lpf (None-Few); RBC,Urine 15-30 per hpf (0-3); Squamous Epithelial Cell,Urine Many per lpf (None-Few)
[2019-02-26] MEDS ORDERED: *HR* Heparin 5,000 UNIT/ML VIAL IVP PRN (14:27)
[2019-02-26] MEDS ORDERED: *HR* Heparin 5,000 UNIT/ML VIAL IVP ONE (14:27)
[2019-02-26] MEDS: Heparin 25,000 UNIT/250 ML D5W 25,000 UNIT/250 ML IV.SOLN IVC SCH (14:54)
[2019-02-26] MEDS ORDERED: Naloxone 0.4 MG/ML INJ IVP PRN (15:13)
--- NOTE | 2019-02-26 15:28 | Internal Med History&Physical ---
Date of Encounter: 02/26/19 Time of Encounter: 15:00 Internal Medicine - H&P: HPI Chief complaint: Left arm/facial swelling, odynophagia Admitted From: Home History of present illness: Ms. Bautista is a 73 year old female with history of stage IV lung cancer and stomach cancer s/p lobectomy and now on chemotherapy (last dose 02/23 followed by Neupogen), COPD, who presented to the ED with 1 week history of L UE swelling. Of note, she had Port-a-cath inserted on 02/17 after which she started noticing her symptoms. It is associated with facial swelling for the last 2-3 days as well. States that she has had previous DVT in LEs but it occurred after lobectomy hence AC was not continued indefinitely. Patient also endorses 2 day history of mouth pain and odynophagia. Otherwise, denies any chest pain, cough, sputum production, hemoptysis, without, PND, or leg swelling. No GI/ symptoms. Denies any focal weakness/numbness, slurring of speech, facial droop, or unsteady gait. In the ED, she was afebrile and hemodynamically stable. Labwork showed leukocytosis of 43, but otherwise unremarkable with normal lactic acid. Urinalysis was negative for leukocyte esterase or nitrite. CT chest did not show any acute pathology. CT neck however did demonstrate asymmetric finding IJVs with decreased enhancement involving L IJ compared to the right ?thrombus. CT head was negative for acute intracranial abnormality. Patient was started on nystatin, heparin drip, and admitted for further management. Past Med Surg Social Fam HX - Past Medical History Medical history: arthritis, cancer, COPD, fibromyalgia, GERD, hyperlipidemia, osteoporosis Additional medical history: peptic ulcer disease - fibromyalgia - pleurisy. lung, stomach cancer Psychiatric history: no psych history - Past Surgical History Surgical History: breast surgery, cancer surgery, cataract, cholecystectomy, orthopedic, other, other Additional surgical history: lung resection,colonoscopy - breast biopsy - left neck lymph node - right CTR - little finger amputation, removal of right adrenal gland - Social History Smoking Status: Current every day smoker Smokeless Tobacco Status: No Alcohol use: none Drug use: none - Family History Mother Hx Family Cardiac Disorders: Yes (not sure what type) Hx Family Respiratory Disorders: No Hx Family Cancer: No Hx Family GI Disorders: No Hx Family Endocrine Disorder: Yes (DM) Hx Family Neuromuscular Disorders: No Hx Family Neurologic Disorders: No Hx Family HEENT Disorders: No Hx Family Autoimmune Disorders: No Father Living Status: Hx Family Cardiac Disorders: No Hx Family Respiratory Disorders: Yes (black lung) Hx Family Cancer: Yes (cancer) Hx Family GI Disorders: No Hx Family Endocrine Disorder: No Hx Family Neuromuscular Disorders: No Hx Family Neurologic Disorders: No Hx Family HEENT Disorders: No Hx Family Autoimmune Disorders: No Daughter Living Status: Still Living Hx Family Cardiac Disorders: No Hx Family Respiratory Disorders: No Internal Medicine - H&P: Meds Cholecalciferol (Vitamin D3) [Vitamin D3] 2,000 unit PO DAILY 03/17/15 [History] [place]-3/Dha/Epa/Fish Oil [Fish Oil Dr 500 mg Softgel] 1,000 mg PO DAILY 03/17/15 [History] Calcium Polycarbophil [Fibercon] 625 mg PO DAILY 08/12/15 [History] Albuterol Neb [Proventil Neb] 2.5 mg IH Q6H PRN 10/03/16 [History] Fluticasone Propionate Nasal [Flonase] 2 puff NS DAILY PRN 10/03/16 [History] Pantoprazole Sodium [Protonix] 40 mg PO DAILY #90 eyadpkt. 10/23/16 [Rx] Budesonide/Formoterol 160/4.5 [Symbicort 160/4.5] 2 puff IH BIDR 03/19/17 [History] Albuterol Sulfate [Proair Hfa] 2 puff IH Q4H 12/02/17 [History] Ipratropium/Albuterol Neb [Duoneb] 3 ml IH Q6HR 12/02/17 [History] Benzonatate [Tessalon] 100 mg PO TID PRN #60 capsule 12/05/17 [Rx] Oxycodone HCl/Acetaminophen [Percocet 5-325 mg Tablet] 1 - 2 tab PO Q4-6H PRN 12/28/18 [History] Tizanidine HCl [Zanaflex] 4 mg PO HS 12/28/18 [History] Dexamethasone [Decadron] 4 mg PO BID PRN #45 tab 02/16/19 [Rx] Doxycycline 100 mg PO BID #14 capsule 02/16/19 [Rx] Folic Acid 1 mg PO DAILY #30 tablet 02/16/19 [Rx] Lidocaine/Prilocaine [Emla] 1 appl TP AD #30 gm 02/16/19 [Rx] Ondansetron HCl 8 mg PO Q8H PRN #45 tablet 02/16/19 [Rx] Prochlorperazine Maleate [Compazine] 10 mg PO Q6HR PRN #90 tablet 02/16/19 [Rx] Morphine Sulfate Immed Rel [Morphine Sulfate] 15 mg PO Q4HR PRN 2 Days #8 tab 02/21/19 [Rx] Allergy/AdvReac Type Severity Reaction Status Date / Time paclitaxel Allergy Severe Anaphylaxis Verified 01/20/19 10:15 Penicillins Allergy Severe Hives Verified 01/20/19 10:15 All Systems PM: A 10-system review of systems was performed and is negative for pertinent findings except as documented above in the HPI. - Constitutional Vitals: Temp Pulse Resp BP Pulse Ox 97.7 F 74 16 138/82 96 02/26/19 11:02 02/26/19 12:22 02/26/19 12:22 02/26/19 12:22 02/26/19 12:22 Exam: General: Alert and oriented, not in acute distress. HEENT:EOMI, pupils equal, round and reactive. Unable to appreciate any fullness in her left neck. No bruit. White plaques in oral mucosa noted Chest: L port site appears unremarkable. Cardiovascular:Normal S1 & S2, No JVD. Pulse regular. Lungs: clear to auscultation, no wheezes/rales Abdomen:Soft, non-tender, no rigidity. Extremities:L UE swelling upto mid-humerus. Neurological:Normal cognition and motor skills. Non-focal Skin:Normal color, no rash, no lesions. Pulses:Carotid and radial pulses normal +2. Rest of the physical exam is non contributory Internal Med - H&P Results - Labs CBC & Chem 7: 02/26/19 11:20 02/26/19 11:20 Labs: Short CBC 02/26/19 Range/Units 11:20 WBC 42.9 H* D (4.3-11.1) K/mcL Hgb 14.7 (11.5-15.4) g/dL Hct 45.1 H (35.3-44.9) % Plt Count 182 (140-400) K/mcL Neutrophils # 40.3 H (1.6-8.9) K/mcL BMP 02/26/19 11:20 Sodium 138 Potassium 4.3 Chloride 98 Carbon Dioxide 28 BUN 22 Creatinine 0.89 Glucose 85 Calcium 9.3 Liver Function 02/26/19 Range/Units 11:20 Total Bilirubin 0.5 (0.3-1.0) mg/dL AST 12 L (13-39) Units/L ALT 13 (7-52) Units/L Alkaline Phosphatase 123 H (34-104) Units/L Albumin 3.6 (3.5-5.7) g/dL Urine 02/26/19 Range/Units 13:14 Urine Color Yellow (Yellow) Urine Clarity Clear (Clear) Urine pH 6.0 (5.0-8.0) pH Units Ur Specific [place] 1.024 (1.010-1.025) Urine Protein Negative (Neg-Trace) mg/dL Urine Glucose (UA) Normal (Normal) mg/dL - Impressions ITS Impressions Chest CT 02/26/19 11:10 IMPRESSION: No acute findings. No findings to explain the patient's left upper extremity swelling. Stable appearance to right lung with prior right upper lobectomy and consolidation with bronchiectasis medially to the residual right lung. There is also a persistent cavitary focus laterally to the right lung apex along with small loculated pleural effusion to the right lung apex. Of note, some of these findings demonstrated some hypermetabolic activity on prior PET-CT 01/06/2019 and reference to the prior PET-CT can be made for additional information. Atherosclerosis to include coronary artery disease. Paraseptal emphysema. D/ / 02/26/2019 14:15:55 Janes Mejia MD / melissa Interpreting Provider: Janes Mejia MD Head CT 02/26/19 11:13 IMPRESSION: No acute intracranial abnormality. Mild chronic small vessel white matter ischemic changes. D/ / Anthony Jauregui MD / Anthony Jauregui MD Interpreting Provider: Anthony Jauregui MD Soft Tissue Neck CT 02/26/19 11:13 IMPRESSION: 1. Asymmetrically decreased enhancement involving the left internal jugular vein compared to the right. Findings may be related to thrombus. Suggest confirmation with ultrasound. 2. Otherwise, no acute abnormality identified of the soft tissue structures of the neck. D/ / Jomar Rodriguez MD / Jomar Rodriguez MD Interpreting Provider: Jomar Rodriguez MD - Assessment and Plan (1) Blood clot of neck vein Current Visit: Yes Status: Acute Assessment and plan: presented with progressive L UE and facial swelling since the placement of port on 02/17 CT showed suspected finding of L IJ thrombus. Will verify with US started on hep gtt, continue (2) Candidiasis Current Visit: Yes Status: Acute Assessment and plan: fndings of oral thrush on exam, following chemotherapy on 02/23 pt also complains of odynophagia ?esophageal candidiasis although leukocytosis is likely to represent the effect of Neupogen, unable to rule out severe infection and will add fluconazole 400mg QD in addition to nysta tin solution if no improvement is noted, will consult GI for direct visualization (3) Leukocytosis Current Visit: Yes Status: Acute Assessment and plan: likely reactive to neupogen and dexamethasone she received following chemotherapy but can potentially be contributed by esophageal candidiasis as well adding fluconazole as above Qualifiers: Leukocytosis type: other Qualified Code(s): D72.828 - Other elevated white blood cell count (4) COPD (chronic obstructive pulmonary disease) Current Visit: Yes Status: Chronic Assessment and plan: not in exacerbation, resume home inhalers once reconciled Qualifiers: COPD type: emphysema Emphysema type: unspecified Qualified Code(s): J43.9 - Emphysema, unspecified (5) History of lung cancer Current Visit: No Status: Chronic Assessment and plan: s/p lobectomy, on chemotherapy with last dose on 02/23 oncology consulted in the ED (6) DVT prophylaxis Current Visit: Yes Status: Acute Assessment and plan: on hep gtt - Time Spent With Patient Total time spent is greater than 50% in coordination of care (as documented) at patient's floor/unit and/or counseling patient: Greater than 35 minutes
[2019-02-26] MEDS ORDERED: Fluticasone Propionate Nasal 50 MCG/SPRAY BOTTLE NS PRN (16:05)
[2019-02-26] MEDS ORDERED: Albuterol 2.5 MG/3 ML NEBULIZER IH PRN (16:05)
[2019-02-26] MEDS ORDERED: Magic Mouthwash 10 ML UD Cup PO SCH (16:30)
--- NOTE | 2019-02-26 18:06 | Oncology Inp Consult Note ---
<John Sandoval - Last Filed: 02/26/19 18:08> Date of Encounter: 02/26/19 - Data of Consult Requesting Physician: Naeem Mcneil MD Primary Care Provider: Jemal Rodriguez DO Medications and Allergies Cholecalciferol (Vitamin D3) [Vitamin D3] 2,000 unit PO DAILY 03/17/15 [History] [place]-3/Dha/Epa/Fish Oil [Fish Oil Dr 500 mg Softgel] 1,000 mg PO DAILY 03/17/15 [History] Calcium Polycarbophil [Fibercon] 625 mg PO DAILY 08/12/15 [History] Albuterol Neb [Proventil Neb] 2.5 mg IH Q6H PRN 10/03/16 [History] Fluticasone Propionate Nasal [Flonase] 2 puff NS DAILY PRN 10/03/16 [History] Pantoprazole Sodium [Protonix] 40 mg PO DAILY #90 granpkt. 10/23/16 [Rx] Budesonide/Formoterol 160/4.5 [Symbicort 160/4.5] 2 puff IH BIDR 03/19/17 [History] Albuterol Sulfate [Proair Hfa] 2 puff IH Q4H 12/02/17 [History] Ipratropium/Albuterol Neb [Duoneb] 3 ml IH Q6HR 12/02/17 [History] Benzonatate [Tessalon] 100 mg PO TID PRN #60 capsule 12/05/17 [Rx] Oxycodone HCl/Acetaminophen [Percocet 5-325 mg Tablet] 1 - 2 tab PO Q4-6H PRN 12/28/18 [History] Tizanidine HCl [Zanaflex] 4 mg PO HS 12/28/18 [History] Dexamethasone [Decadron] 4 mg PO BID PRN #45 tab 02/16/19 [Rx] Folic Acid 1 mg PO DAILY #30 tablet 02/16/19 [Rx] Lidocaine/Prilocaine [Emla] 1 appl TP AD #30 gm 02/16/19 [Rx] Ondansetron HCl 8 mg PO Q8H PRN #45 tablet 02/16/19 [Rx] Prochlorperazine Maleate [Compazine] 10 mg PO Q6HR PRN #90 tablet 02/16/19 [Rx] Allergy/AdvReac Type Severity Reaction Status Date / Time paclitaxel Allergy Severe Anaphylaxis Verified 01/20/19 10:15 Penicillins Allergy Severe Hives Verified 01/20/19 10:15 Consult Discharge Plan - Plan Referrals: Jemal Rodriguez DO [Primary Care Provider] - Inpatient Charges Provider: Dr. Baudilio Sandoval Consult - Inpatient: [id number] - Attending Attestation I examined this patient and my medical decision-making was reviewed with the Advanced Practice Nurse. I agree with the documented findings, disposition and treatment plan as described except to the extent set forth below. Patient w/ metastatic adenocarcinoma of the lung now p/w left sided facial swelling and swelling above her PAC. CT Neck shows concern for a DVT in her LIJV, duplex US is pending. She has been started on a Heparin gtt, and Vascular surgery has been consulted. They may need to remove the PAC due to the location of her thrombus. Appreciate assistance. <Portia Boo - Last Filed: 02/27/19 19:16> Date of Encounter: 02/26/19 Time of Encounter: 17:40 Assessment and Plan (1) Lung cancer Status: Chronic Assessment and plan: Metastatic Non-small cell lung cancer; adenocarcinoma presented with left neck and facial swelling above port site, concerning for thrombus. Currently on Heparin drip. Vascular surgery consulted. Recommendations appreciated. Qualifiers: Laterality: right Lung location: upper lobe of lung Qualified Code(s): C34.11 - Malignant neoplasm of upper lobe, right bronchus or lung - Data of Consult Patient: known to practice within the last 3 years Consult date: 02/26/19 Requesting Physician: Naeem Mcniel MD Primary Care Provider: Jemal Rodriguez DO - Consult Narrative Reason for consult: lung cancer History of present illness: Ms. Bautista, a 73 yo female with known metastatic NSCLC, presented to the ED for facial/neck edema above port site. She is awake, resting in bed with family at bedside. They note that she received had a port placed for chemotherapy due to need for multiple IV and blood draws. She c/o pain, edema, and erythema to her left chest, neck, and face. She received chemotherapy on 02/23/19 at the [facility]. Diagnosis: Metastatic NSCLC (adenocarcinoma) Primary oncologist: Dr. Fong Treatment: Carboplatin Day 1 Alimta Day 1 Keytruda Day 1 Neulasta Day 2 C1 02/23/19 Past Med Surg Social Fam HX - Past Medical History Medical history: arthritis, cancer, COPD, fibromyalgia, GERD, hyperlipidemia, osteoporosis Additional medical history: peptic ulcer disease - fibromyalgia - pleurisy. lung, stomach cancer Psychiatric history: no psych history - Past Surgical History Surgical History: breast surgery, cancer surgery, cataract, cholecystectomy, orthopedic, other, other Additional surgical history: lung resection,colonoscopy - breast biopsy - left neck lymph node - right CTR - little finger amputation, removal of right adrenal gland - Social History Smoking Status: Current every day smoker Smokeless Tobacco Status: No Alcohol use: none Drug use: none - Family History Mother Hx Family Cardiac Disorders: Yes (not sure what type) Hx Family Respiratory Disorders: No Hx Family Cancer: No Hx Family GI Disorders: No Hx Family Endocrine Disorder: Yes (DM) Hx Family Neuromuscular Disorders: No Hx Family Neurologic Disorders: No Hx Family HEENT Disorders: No Hx Family Autoimmune Disorders: No Father Living Status: Hx Family Cardiac Disorders: No Hx Family Respiratory Disorders: Yes (black lung) Hx Family Cancer: Yes (cancer) Hx Family GI Disorders: No Hx Family Endocrine Disorder: No Hx Family Neuromuscular Disorders: No Hx Family Neurologic Disorders: No Hx Family HEENT Disorders: No Hx Family Autoimmune Disorders: No Daughter Living Status: Still Living Hx Family Cardiac Disorders: No Hx Family Respiratory Disorders: No Constitutional: Present: fatigue. Absent: chills, fever(s) Cardiovascular: Present: edema. Absent: chest pain Respiratory: Absent: dyspnea Oncology - Exam - Constitutional General appearance: cooperative, no acute distress - Neck Neck exam: Present: tenderness Additional comments: left neck/facial edema - Respiratory Respiratory exam: Present: decreased breath sounds - Cardiovascular Cardiovascular exam: Present: RRR - Neurological Exam Neurological exam: Present: alert, oriented X3 - Psychiatric Psychiatric exam: Present: normal affect, normal mood - Skin Skin exam: Present: erythema Additional comments: erythema to left chest and neck Oncology Inpatient Results Labs: Laboratory Results - last 24 hr 02/26/19 02/27/19 02/27/19 22:40 04:00 06:15 WBC 26.6 H RBC 4.01 Hgb 13.2 D Hct 41.0 MCV 102.2 H MCH 32.9 MCHC 32.2 RDW 13.9 Plt Count 145 MPV 9.3 L Seg Neutrophils % 90.0 Band Neutrophils % 4.0 Lymphocytes % 6.0 Neutrophils # 25.0 H Lymphocytes # 1.6 Reactive Lymphocytes Present A Platelet Estimate Normal Heparin Anti-Xa, Unfract 0.79 H Sodium 135 L Potassium 4.2 Chloride 98 Carbon Dioxide 28 BUN 19 Creatinine 0.86 Est GFR ( Amer) > 60 Est GFR (Non-Af Amer) > 60 BUN/Creatinine Ratio 22 Glucose 100 Calculated Osmolality 282 Calcium 8.8 Magnesium 2.2 02/27/19 02/27/19 06:15 14:15 WBC RBC Hgb Hct MCV MCH MCHC RDW Plt Count MPV Seg Neutrophils % Band Neutrophils % Lymphocytes % Neutrophils # Lymphocytes # Reactive Lymphocytes Platelet Estimate Heparin Anti-Xa, Unfract 0.21 L 0.69 Sodium Potassium Chloride Carbon Dioxide BUN Creatinine Est GFR ( Amer) Est GFR (Non-Af Amer) BUN/Creatinine Ratio Glucose Calculated Osmolality Calcium Magnesium
[2019-02-26] MEDS: Fluconazole 100 MG TABLET PO SCH (18:22)
[2019-02-26] MEDS: Nystatin SUSP 5 ML UD.LIQ PO SCH ×2 (18:23→22:31)
[2019-02-26] MEDS: *HR* OxyCODONE/APAP 5/325 TABLET PO PRN (18:49)
[2019-02-26] MEDS ORDERED: Magic Mouthwash 10 ML UD Cup PO PRN (18:51)
[2019-02-26] MEDS: Ipratropium/Albuterol Neb 3 ML IH SCH (22:05)
[2019-02-26] MEDS: Budesonide/Formoterol 160/4.5 1 PUFF INH IH SCH (22:06)
[2019-02-26] MEDS: tiZANidine 4 MG TABLET PO SCH (22:32)
[2019-02-27] MEDS: Ipratropium/Albuterol Neb 3 ML IH SCH ×4 (03:33→22:18)
[2019-02-27] MEDS: *HR* OxyCODONE/APAP 5/325 TABLET PO PRN ×2 (06:44→17:35)
[2019-02-27 06:46] LABS: Hemoglobin 13.2 g/dL (11.5-15.4)
[2019-02-27 06:48] LABS: Mean Corpuscular HGB Conc 32.2 g/dL (31.6-35.5); Mean Corpuscular Hemoglobin 32.9 pg (28.0-33.3); Mean Corpuscular Volume 102.2 fL (83.0-100.0); Mean Platelet Volume 9.3 fL (9.4-12.4); Platelet Count 145 K/mcL (140-400); Red Blood Count 4.01 M/mcL (3.82-4.97); Red Cell Distribution Width 13.9 % (11.5-14.5); White Blood Count 26.6 K/mcL (4.3-11.1)
[2019-02-27 07:09] LABS: Lymphocytes # 1.6 K/mcL (0.6-4.6); Platelet Estimate Normal (Normal); Reactive Lymphocytes Present (Not Present)
[2019-02-27 07:16] LABS: BUN/Creatinine Ratio 22 (6-26); Blood Urea Nitrogen 19 mg/dL (8-23); Calcium 8.8 mg/dL (8.6-10.3); Carbon Dioxide 28 mEq/L (23-29); Chloride 98 mEq/L (98-107); Glucose 100 mg/dL (70-105); Magnesium 2.2 mg/dL (1.6-2.6); Potassium 4.2 mEq/L (3.5-5.1); eGFR For African Americans > 60 (> 60); eGFR For Non-African Americans > 60 (> 60)
[2019-02-27] MEDS: *HR* Heparin 5,000 UNIT/ML VIAL IVP PRN (07:35)
[2019-02-27] MEDS: Ondansetron 4 MG/2 ML VIAL IVP PRN ×2 (07:39→17:27)
[2019-02-27 07:47] LABS: Osmolality,Calculated 282 (280-300); Sodium 135 mEq/L (136-145)
[2019-02-27] MEDS: Fluconazole 100 MG TABLET PO SCH (09:02)
[2019-02-27] MEDS: Nystatin SUSP 5 ML UD.LIQ PO SCH ×4 (09:02→19:57)
[2019-02-27] MEDS: Folic Acid 1 MG TABLET PO SCH (09:03)
[2019-02-27] MEDS: *HR* Promethazine 25 MG/ML VIAL IVP PRN (09:34)
[2019-02-27] MEDS: Budesonide/Formoterol 160/4.5 1 PUFF INH IH SCH ×2 (10:59→22:18)
--- NOTE | 2019-02-27 13:04 | Internal Med Progress Note ---
Hospitalist Progress Note - Encounter Date of Encounter: 02/27/19 Time of Encounter: 11:00 - Subjective Interval History: Reports significant improvement in her facial swelling although left upper limb continues to remain quite swollen. Odynophagia also improving. No chest pain, cough, fever/chills overnight - Exam Vitals: Temp Pulse Resp BP Pulse Ox 98.5 F 79 12 116/67 93 02/27/19 12:00 02/27/19 12:00 02/27/19 12:00 02/27/19 12:00 02/27/19 12:00 Exam: General: Alert and oriented, not in acute distress. HEENT:Unable to appreciate any fullness in her left neck. No bruit. White plaques in oral mucosa appear less prominent Chest: L port site appears unremarkable. Cardiovascular:Normal S1 & S2, No JVD. Pulse regular. Lungs: clear to auscultation, no wheezes/rales Abdomen:Soft, non-tender, no rigidity. Extremities: diffuse L UE swelling upto mid-humerus which is largely unchanged but less tense - Assessment and Plan (1) Blood clot of neck vein Current Visit: Yes Status: Acute Assessment and Plan: presented with progressive L UE and facial swelling since the placement of port on 02/17 CT showed suspected finding of L IJ thrombus. US pending will also obtain doppler study of L UE to rule out concurrent DVT continue hep gtt discussed with vascular surgery over the phone yesterday, will likely need port removed prior to d/c on Friday (2) Candidiasis Current Visit: Yes Status: Acute Assessment and Plan: findings of oral thrush on exam, following chemotherapy on 02/23 pt also complains of odynophagia ?esophageal candidiasis started on fluconazole and nystatin, continue if no improvement is noted, will consult GI for direct visualization (3) Leukocytosis Current Visit: Yes Status: Acute Assessment and Plan: likely reactive to neupogen and dexamethasone she received following chemotherapy improving while on tx for candidiasis continue to monitor (4) COPD (chronic obstructive pulmonary disease) Current Visit: Yes Status: Chronic Assessment and Plan: not in exacerbation, resume home inhalers (5) History of lung cancer Current Visit: No Status: Chronic Assessment and Plan: s/p lobectomy, on chemotherapy with last dose on 02/23 oncology following (6) DVT prophylaxis Current Visit: Yes Status: Acute Assessment and Plan: on hep gtt - Time Spent with Patient Total time spent is greater than 50% in coordination of care (as documented) at patient's floor/unit and/or counseling patient: 25 - 35 minutes Plan of Care Discussed with: patient (discussed with the family member at bedside) Internal Medicine: Result - Labs CBC & Chem 7: 02/27/19 04:00 02/27/19 06:15 Labs: Short CBC 02/26/19 02/27/19 Range/Units 11:20 04:00 WBC 26.6 H (4.3-11.1) K/mcL Hgb 13.2 D (11.5-15.4) g/dL Hct 41.0 (35.3-44.9) % Plt Count 145 (140-400) K/mcL Neutrophils # 40.3 H 25.0 H (1.6-8.9) K/mcL BMP 02/27/19 06:15 Sodium 135 L Potassium 4.2 Chloride 98 Carbon Dioxide 28 BUN 19 Creatinine 0.86 Glucose 100 Calcium 8.8 Urine 02/26/19 Range/Units 13:14 Urine Color Yellow (Yellow) Urine Clarity Clear (Clear) Urine pH 6.0 (5.0-8.0) pH Units Ur Specific [place] 1.024 (1.010-1.025) Urine Protein Negative (Neg-Trace) mg/dL Urine Glucose (UA) Normal (Normal) mg/dL - ABG Interpretation ABG results: PT/INR, D-dimer PT 11.1 Seconds (9.4-12.1) 02/26/19 11:20 - Impressions Impressions Chest CT 02/26/19 11:10 IMPRESSION: No acute findings. No findings to explain the patient's left upper extremity swelling. Stable appearance to right lung with prior right upper lobectomy and consolidation with bronchiectasis medially to the residual right lung. There is also a persistent cavitary focus laterally to the right lung apex along with small loculated pleural effusion to the right lung apex. Of note, some of these findings demonstrated some hypermetabolic activity on prior PET-CT 01/06/2019 and reference to the prior PET-CT can be made for additional information. Atherosclerosis to include coronary artery disease. Paraseptal emphysema. D/ / 02/26/2019 14:15:55 Janes Mejia MD / melissa Interpreting Provider: Janes Mejia MD Head CT 02/26/19 11:13 IMPRESSION: No acute intracranial abnormality. Mild chronic small vessel white matter ischemic changes. D/ / Anthony Jauregui MD / Anthony Jauregui MD Interpreting Provider: Anthony Jauregui MD Soft Tissue Neck CT 02/26/19 11:13 IMPRESSION: 1. Asymmetrically decreased enhancement involving the left internal jugular vein compared to the right. Findings may be related to thrombus. Suggest confirmation with ultrasound. 2. Otherwise, no acute abnormality identified of the soft tissue structures of the neck. D/ / Jomar Rodriguez MD / Jomar Rodriguez MD Interpreting Provider: Jomar Rodriguez MD Consult Discharge Plan - Plan Referrals: Jemal Rodriguez DO [Primary Care Provider] - (3) Leukocytosis Qualifiers: Leukocytosis type: other Qualified Code(s): D72.828 - Other elevated white blood cell count (4) COPD (chronic obstructive pulmonary disease) Qualifiers: COPD type: emphysema Emphysema type: unspecified Qualified Code(s): J43.9 - Emphysema, unspecified
[2019-02-27] MEDS: Heparin 25,000 UNIT/250 ML D5W 25,000 UNIT/250 ML IV.SOLN IVC SCH (16:03)
[2019-02-27] MEDS: tiZANidine 4 MG TABLET PO SCH (19:57)
[2019-02-27] MEDS ORDERED: Lactulose Oral Soln 20 GM/30 ML UDC PO ONE (23:50)
[2019-02-28] MEDS ORDERED: Sennosides/Docusate Sodium TABLET PO ONE (00:02)
[2019-02-28] MEDS: Heparin 25,000 UNIT/250 ML D5W 25,000 UNIT/250 ML IV.SOLN IVC SCH (03:55)
[2019-02-28] MEDS: Ipratropium/Albuterol Neb 3 ML IH SCH ×4 (04:39→21:51)
[2019-02-28] MEDS: Folic Acid 1 MG TABLET PO SCH (08:50)
[2019-02-28] MEDS: Nystatin SUSP 5 ML UD.LIQ PO SCH ×4 (08:51→19:49)
[2019-02-28] MEDS: Fluconazole 100 MG TABLET PO SCH (08:51)
[2019-02-28] MEDS: Ondansetron 4 MG/2 ML VIAL IVP PRN (08:54)
[2019-02-28] MEDS: Budesonide/Formoterol 160/4.5 1 PUFF INH IH SCH ×2 (10:47→21:51)
--- NOTE | 2019-02-28 11:05 | Internal Med Progress Note ---
Hospitalist Progress Note - Encounter Date of Encounter: 02/28/19 Time of Encounter: 08:00 - Subjective Interval History: No acute events overnight. Continues to report improvement in her facial as well as left upper extremity swelling. Denies any chest pain, shortness of breath, palpitation, or worsening leg swelling. No significant odontophagia but reports nausea - Exam Vitals: Temp Pulse Resp BP Pulse Ox 98.8 F 105 12 116/65 91 02/28/19 06:48 02/28/19 06:48 02/28/19 06:48 02/28/19 06:48 02/28/19 06:48 Exam: General: Alert and oriented, not in acute distress. HEENT:Unable to appreciate any fullness in her left neck. No bruit. White plaques in oral mucosa appear less prominent Chest: L port site appears unremarkable. Cardiovascular:Normal S1 & S2, No JVD. Pulse regular. Lungs: clear to auscultation, no wheezes/rales Abdomen:Soft, non-tender, no rigidity. Extremities: diffuse L UE swelling upto mid-humerus which is largely unchanged but less tense - Assessment and Plan (1) Blood clot of neck vein Current Visit: Yes Status: Acute Assessment and Plan: presented with progressive L UE and facial swelling since the placement of port on 02/17 CT showed suspected finding of L IJ thrombus. US confirmed the presence of L IJ DVT as well as acute thrombosis on left subclavian, axillary, and one of 2 brachial veins discussed with vascular surgery, would continue hep gtt and plan for port removal tomorrow. Placed consultation continue hep gtt (2) Candidiasis Current Visit: Yes Status: Acute Assessment and Plan: findings of oral thrush on exam, following chemotherapy on 02/23 pt also complains of odynophagia ?esophageal candidiasis started on fluconazole and nystatin, continue (D3) if no improvement is noted, will consult GI for direct visualization (3) Leukocytosis Current Visit: Yes Status: Acute Assessment and Plan: likely reactive to neupogen and dexamethasone she received following chemotherapy improving while on tx for candidiasis continue to monitor (4) COPD (chronic obstructive pulmonary disease) Current Visit: Yes Status: Chronic Assessment and Plan: not in exacerbation, resume home inhalers (5) History of lung cancer Current Visit: No Status: Chronic Assessment and Plan: s/p lobectomy, on chemotherapy with last dose on 02/23 oncology following - Time Spent with Patient Total time spent is greater than 50% in coordination of care (as documented) at patient's floor/unit and/or counseling patient: 25 - 35 minutes Plan of Care Discussed with: patient (Discussed with vascular surgery) Internal Medicine: Result - Labs CBC & Chem 7: 02/27/19 04:00 02/27/19 06:15 - ABG Interpretation ABG results: PT/INR, D-dimer PT 11.1 Seconds (9.4-12.1) 02/26/19 11:20 Consult Discharge Plan - Plan Referrals: Jemal Rodriguez DO [Primary Care Provider] - (3) Leukocytosis Qualifiers: Leukocytosis type: other Qualified Code(s): D72.828 - Other elevated white blood cell count (4) COPD (chronic obstructive pulmonary disease) Qualifiers: COPD type: emphysema Emphysema type: unspecified Qualified Code(s): J43.9 - Emphysema, unspecified
--- NOTE | 2019-02-28 11:28 | Vascular/Endovasc Consult Note ---
Date of Encounter: 02/28/19 Time of Encounter: 11:26 Assessment and Plan (1) Blood clot of neck vein Current Visit: Yes Status: Acute At this time I had a discussion with the patient and her family members concerning the status of this thrombosed. Standard therapy would be anticoagulation, first with heparin followed with oral anticoagulation, and removal of the Port-A-Cath. While this would be standard therapy, consideration for maintaining Port-A-Cath if it is felt that the need for the Port-A-Cath outweighs the risk of continued thrombus formation, could be considered. Discussion with the patient and family about the pros and cons of maintaining this was begun at this time, but will be continued through the individual that we will be potentially removing the Port-A-Cath. I am unclear whether this will be Vascular Surgery or Interventional Radiology. We will maintain nothing by mouth status after midnight, and I will inform Dr. Yousif concerning this status. He will make arrangements tomorrow morning for this patient's continued care from this perspective. - History of Present Illness Consult date: 02/28/19 History of present illness: Ms. Bautista is a 73 year old female who presented with swelling associated with the left neck region. She has a history of stage IV lung carcinoma. She recently, about 10 days ago, at the placement of a Port-A-Cath in the left internal jugular position. This is located on the left anterior chest wall. Patient had a CT done of the chest and of the head and neck, and there was implication of possible thrombus in the IJ. Subsequently, ultrasound was performed and confirmed thrombosis in the internal jugular and subclavian veins. This did not extend into the superior vena cava as best could be determined. Patient is being seen at this point in time for consideration concerning whether or not to maintain the Port-A-Cath. Past Med Surg Social Fam HX - Past Medical History Medical history: arthritis, cancer, COPD, fibromyalgia, GERD, hyperlipidemia, osteoporosis Additional medical history: peptic ulcer disease - fibromyalgia - pleurisy. lung, stomach cancer Psychiatric history: no psych history - Past Surgical History Surgical History: breast surgery, cancer surgery, cataract, cholecystectomy, orthopedic, other, other Additional surgical history: lung resection,colonoscopy - breast biopsy - left neck lymph node - right CTR - little finger amputation, removal of right adrenal gland - Social History Smoking Status: Current every day smoker Smokeless Tobacco Status: No Alcohol use: none Drug use: none - Family History Mother Hx Family Cardiac Disorders: Yes (not sure what type) Hx Family Respiratory Disorders: No Hx Family Cancer: No Hx Family GI Disorders: No Hx Family Endocrine Disorder: Yes (DM) Hx Family Neuromuscular Disorders: No Hx Family Neurologic Disorders: No Hx Family HEENT Disorders: No Hx Family Autoimmune Disorders: No Father Living Status: Hx Family Cardiac Disorders: No Hx Family Respiratory Disorders: Yes (black lung) Hx Family Cancer: Yes (cancer) Hx Family GI Disorders: No Hx Family Endocrine Disorder: No Hx Family Neuromuscular Disorders: No Hx Family Neurologic Disorders: No Hx Family HEENT Disorders: No Hx Family Autoimmune Disorders: No Daughter Living Status: Still Living Hx Family Cardiac Disorders: No Hx Family Respiratory Disorders: No Medications and Allergies Cholecalciferol (Vitamin D3) [Vitamin D3] 2,000 unit PO DAILY 03/17/15 [History] [place]-3/Dha/Epa/Fish Oil [Fish Oil Dr 500 mg Softgel] 1,000 mg PO DAILY 03/17/15 [History] Calcium Polycarbophil [Fibercon] 625 mg PO DAILY 08/12/15 [History] Albuterol Neb [Proventil Neb] 2.5 mg IH Q6H PRN 10/03/16 [History] Fluticasone Propionate Nasal [Flonase] 2 puff NS DAILY PRN 10/03/16 [History] Pantoprazole Sodium [Protonix] 40 mg PO DAILY #90 granpkt. 10/23/16 [Rx] Budesonide/Formoterol 160/4.5 [Symbicort 160/4.5] 2 puff IH BIDR 03/19/17 [History] Albuterol Sulfate [Proair Hfa] 2 puff IH Q4H 12/02/17 [History] Ipratropium/Albuterol Neb [Duoneb] 3 ml IH Q6HR 12/02/17 [History] Benzonatate [Tessalon] 100 mg PO TID PRN #60 capsule 12/05/17 [Rx] Oxycodone HCl/Acetaminophen [Percocet 5-325 mg Tablet] 1 - 2 tab PO Q4-6H PRN 12/28/18 [History] Tizanidine HCl [Zanaflex] 4 mg PO HS 12/28/18 [History] Dexamethasone [Decadron] 4 mg PO BID PRN #45 tab 02/16/19 [Rx] Folic Acid 1 mg PO DAILY #30 tablet 02/16/19 [Rx] Lidocaine/Prilocaine [Emla] 1 appl TP AD #30 gm 02/16/19 [Rx] Ondansetron HCl 8 mg PO Q8H PRN #45 tablet 02/16/19 [Rx] Prochlorperazine Maleate [Compazine] 10 mg PO Q6HR PRN #90 tablet 02/16/19 [Rx] Allergy/AdvReac Type Severity Reaction Status Date / Time paclitaxel Allergy Severe Anaphylaxis Verified 01/20/19 10:15 Penicillins Allergy Severe Hives Verified 01/20/19 10:15 All Systems Review: The review of systems is reviewed on the chart at this time. The patient does have nausea at present, was just given antinausea medication, and does feel improved. She has mild shortness of breath. She feels some fullness in her left neck, but states that it is improved over yesterday. Otherwise she has no new acute complaints. The remainder of the review of systems a 10 points is considered as noncontributory to the presenting complaint. Exam Vital Signs, Last 4 Hours Resp Pulse Ox 02/28/19 10:47 16 95 Exam: 73-year-old female and generalized chronic distress. She is awake, alert, coherent, and cooperative. At bedside or 2 family members also. HEENT examination is grossly unremarkable. Neck is supple, minimal edema on the left is noted. Carotids are palpable and no bruits are auscultated, trachea is midline. Heart is regular rate and rhythm Lungs are clear but diminished Chest wall shows the presence of the Port-A-Cath on the left. It is accessed at the present time and is flowing well. There is no erythema or induration noted. There is no evidence of infection. Abdomen is soft without obvious masses Breasts genitalia examinations are deferred to her primary caregiver Extremities are present and intact 4. In the upper extremities. Radial pulses are palpable and there is no significant edema noted bilaterally. Lower extremities are grossly unremarkable. Neurologic exam shows no gross motor dysfunction. Consult Discharge Plan - Plan Referrals: Jemal Rodriguez DO [Primary Care Provider] -
[2019-02-28] MEDS: *HR* OxyCODONE/APAP 5/325 TABLET PO PRN (15:57)
[2019-02-28 16:10] LABS: BUN/Creatinine Ratio 19 (6-26); Blood Urea Nitrogen 18 mg/dL (8-23); Calcium 8.7 mg/dL (8.6-10.3); Carbon Dioxide 28 mEq/L (23-29); Chloride 98 mEq/L (98-107); Glucose 124 mg/dL (70-105); Osmolality,Calculated 281 (280-300); Potassium 3.7 mEq/L (3.5-5.1); Sodium 134 mEq/L (136-145); eGFR For African Americans > 60 (> 60); eGFR For Non-African Americans 58 (> 60)
[2019-02-28 16:25] LABS: Basophils % 0.3 %; Immature Granulocytes % 0.3 % (0-4); Mean Corpuscular Hemoglobin 32.8 pg (28.0-33.3); Segmented Neutrophils % 85.9 %
[2019-02-28 16:27] LABS: Eosinophils # 0.1 K/mcL (0.0-0.6); Eosinophils % 1.2 %; Hematocrit 36.4 % (35.3-44.9); Hemoglobin 11.7 g/dL (11.5-15.4); Lymphocytes # 0.6 K/mcL (0.6-4.6); Lymphocytes % 10.6 %; Mean Corpuscular HGB Conc 32.1 g/dL (31.6-35.5); Mean Platelet Volume 9.5 fL (9.4-12.4); Monocytes # 0.1 K/mcL (0.0-1.3); Monocytes % 1.7 %; Platelet Count 104 K/mcL (140-400); Red Blood Count 3.57 M/mcL (3.82-4.97); Red Cell Distribution Width 14.1 % (11.5-14.5)
[2019-02-28 16:51] LABS: Neutrophils # 5.2 K/mcL (1.6-8.9)
[2019-02-28 16:53] LABS: Platelet Estimate Decreased (Normal)
[2019-02-28] MEDS: tiZANidine 4 MG TABLET PO SCH (19:49)
[2019-03-01] MEDS: *HR* Promethazine 25 MG/ML VIAL IVP PRN (00:14)
[2019-03-01] MEDS: Ipratropium/Albuterol Neb 3 ML IH SCH ×4 (04:17→21:54)
[2019-03-01 06:29] LABS: Basophils % 0.3 %; Hemoglobin 10.9 g/dL (11.5-15.4); Segmented Neutrophils % 78.5 %
[2019-03-01 06:30] LABS: Eosinophils # 0.1 K/mcL (0.0-0.6); Eosinophils % 2.5 %; Hematocrit 33.8 % (35.3-44.9); Immature Granulocytes % 0.6 % (0-4); Immature Platelets 1.8 % (1.1-6.1); Lymphocytes # 0.5 K/mcL (0.6-4.6); Mean Corpuscular HGB Conc 32.2 g/dL (31.6-35.5); Mean Corpuscular Hemoglobin 32.2 pg (28.0-33.3); Mean Corpuscular Volume 99.7 fL (83.0-100.0); Mean Platelet Volume 9.4 fL (9.4-12.4); Monocytes # 0.1 K/mcL (0.0-1.3); Monocytes % 3.1 %; Neutrophils # 2.5 K/mcL (1.6-8.9); Red Blood Count 3.39 M/mcL (3.82-4.97); Red Cell Distribution Width 13.8 % (11.5-14.5); White Blood Count 3.2 K/mcL (4.3-11.1)
[2019-03-01 06:34] LABS: Prothrombin Time 11.8 Seconds (9.4-12.1)
[2019-03-01 06:36] LABS: Platelet Count 76 K/mcL (140-400)
[2019-03-01 06:46] LABS: BUN/Creatinine Ratio 20 (6-26); Blood Urea Nitrogen 17 mg/dL (8-23); Calcium 8.5 mg/dL (8.6-10.3); Carbon Dioxide 27 mEq/L (23-29); Chloride 99 mEq/L (98-107); Glucose 102 mg/dL (70-105); Osmolality,Calculated 282 (280-300); Potassium 4.2 mEq/L (3.5-5.1); Sodium 135 mEq/L (136-145); eGFR For African Americans > 60 (> 60); eGFR For Non-African Americans > 60 (> 60)
--- NOTE | 2019-03-01 06:52 | Event Note ---
Date of Encounter: 02/28/19 Time of Encounter: 23:08 Alerted by patient's nurse RICKI Minor that patient was on heparin gtt. for thrombus in the jugular. UE venous duplex shows acute thrombus seen in left jugular. It demonstrates an incompressible vein. Flow was absent and did not augment. There is an acute thrombus seen in the left subclavian it demonstrates an incompressible vein. Flow is absent and did not augment. Xa therapeutic but her platelets are 104. Platelets are previously 145. Platelet recheck this morning is now 76. Concern for possible HIT from heparin gtt. Benefits versus risks must be determined this morning by day team in order to address falling platelets.
[2019-03-01 06:57] LABS: Platelet Estimate Decreased (Normal)
[2019-03-01] MEDS: Budesonide/Formoterol 160/4.5 1 PUFF INH IH SCH ×2 (09:57→21:54)
[2019-03-01] MEDS ORDERED: 0.9 % Sodium Chloride 500 ML ONE (11:11)
[2019-03-01] MEDS ORDERED: *HR* Midazolam HCl 2 MG/2 ML VIAL IVP ONE (11:20)
[2019-03-01] MEDS ORDERED: *HR* FentaNYL (PF) 100 MCG/2 ML VIAL IVP ONE (11:20)
[2019-03-01] MEDS ORDERED: *HR* Midazolam HCl 2 MG/2 ML VIAL ONE (11:24)
[2019-03-01] MEDS ORDERED: *HR* FentaNYL (PF) 100 MCG/2 ML VIAL ONE (11:24)
--- NOTE | 2019-03-01 11:41 | Pre-Sedation Evaluation ---
Pre-sedation evaluation - Pre-sedation checklist Date of procedure: 03/01/19 Procedure: port removal Recent Vitals: Last Vital Signs Temp 98.8 F 03/01/19 07:48 Pulse 100 03/01/19 11:34 Resp 19 03/01/19 11:34 BP 108/68 03/01/19 11:34 Pulse Ox 100 03/01/19 11:34 H&P (including ROS) documented in medical record: Yes Previous reaction to sedatives/anesthetics: No Dietary Status: NPO after Midnight Dentition: poor dentition ASA Classification *see protocol: CLASS II-Mild systemic disease Plan of Care: Pt appropriate candidate for procedure/moderate/conscious sedation, Risks/benefits of procedure/sedation discussed w/ patient/family, If not NPO; Risk of intake outweiged by necessity to perform procedure
--- NOTE | 2019-03-01 11:42 | IR Procedure Note ---
Date of procedure: 03/01/19 Consent Obtained: Verbal consent, Written consent Timeout: Correct patient and procedure verified, Correct site verified, Time out performed, Skin prep completed Local anesthetic: Lidocaine 1% Was there an insurance assistant present: No Estimated blood loss (cc): 1 Complications: None; Tolerated procedure well Procedure Performed: port removal Specimen: none
[2019-03-01] MEDS: Nystatin SUSP 5 ML UD.LIQ PO SCH ×4 (12:21→21:40)
[2019-03-01] MEDS: Fluconazole 100 MG TABLET PO SCH ×2 (12:22→13:28)
[2019-03-01] MEDS: Folic Acid 1 MG TABLET PO SCH ×2 (12:22→13:28)
--- NOTE | 2019-03-01 12:23 | Internal Med Progress Note ---
Hospitalist Progress Note - Encounter Date of Encounter: 03/01/19 Time of Encounter: 09:30 - Subjective Interval History: No acute events overnight, continues to tolerate hep gtt well despite ongoing thrombocytopenia. LUE swelling is also improving. No chest pain, hemoptysis, melena, hematochezia, or bright red blood per rectum. - Exam Vitals: Temp Pulse Resp BP Pulse Ox 98.5 F 102 18 107/64 94 03/01/19 12:08 03/01/19 12:08 03/01/19 12:08 03/01/19 12:08 03/01/19 12:08 Exam: General: Alert and oriented, not in acute distress. HEENT:Unable to appreciate any fullness in her left neck. No bruit. White plaques in oral mucosa appear less prominent Chest: L port site appears unremarkable. Cardiovascular:Normal S1 & S2, No JVD. Pulse regular. Lungs: clear to auscultation, no wheezes/rales Abdomen:Soft, non-tender, no rigidity. Extremities: diffuse L UE swelling upto mid-humerus which is largely unchanged but less tense - Assessment and Plan (1) Blood clot of neck vein Current Visit: Yes Status: Acute Assessment and Plan: presented with progressive L UE and facial swelling since the placement of port on 02/17 CT showed suspected finding of L IJ thrombus. US confirmed the presence of L IJ DVT as well as acute thrombosis on left subclavian, axillary, and one of 2 brachial veins discussed with vascular surgery and oncology today. Although pt is developing thrombocytopenia, her overall pattern of progressive pancytopenia is consistent with recent chemotherapy that she received would continue hep gtt unless there is an evidence of bleeding. will check FOBT to ensure. Will finney check Xarelto port removal today (2) Candidiasis Current Visit: Yes Status: Acute Assessment and Plan: findings of oral thrush on exam, following chemotherapy on 02/23 pt also complains of odynophagia ?esophageal candidiasis started on fluconazole and nystatin, continue (D4) if no improvement is noted, will consult GI for direct visualization (3) Pancytopenia Current Visit: Yes Status: Acute Assessment and Plan: discussed with heme/onc in detail, although pt was indeed on hep gtt for the last 4 days, we both agreed that the most likely explanation of pancytopenia is the recent administration of chemotherapy on 02/23 continue hep gtt as above (4) COPD (chronic obstructive pulmonary disease) Current Visit: Yes Status: Chronic Assessment and Plan: not in exacerbation, resume home inhalers (5) History of lung cancer Current Visit: No Status: Chronic Assessment and Plan: s/p lobectomy, on chemotherapy with last dose on 02/23 oncology following - Time Spent with Patient Total time spent is greater than 50% in coordination of care (as documented) at patient's floor/unit and/or counseling patient: Greater than 35 minutes (discussed with vascular surgery and oncology in great detail) Plan of Care Discussed with: case management Internal Medicine: Result - Labs CBC & Chem 7: 03/01/19 05:42 03/01/19 05:42 Labs: Short CBC 02/28/19 03/01/19 Range/Units 15:53 05:42 WBC 6.0 D 3.2 L (4.3-11.1) K/mcL Hgb 11.7 D 10.9 L (11.5-15.4) g/dL Hct 36.4 33.8 L (35.3-44.9) % Plt Count 104 L 76 L (140-400) K/mcL Neutrophils # 5.2 2.5 (1.6-8.9) K/mcL BMP 02/28/19 03/01/19 15:31 05:42 Sodium 134 L 135 L Potassium 3.7 4.2 Chloride 98 99 Carbon Dioxide 28 27 BUN 18 17 Creatinine 0.94 0.83 Glucose 124 H 102 Calcium 8.7 8.5 L - ABG Interpretation ABG results: PT/INR, D-dimer PT 11.8 Seconds (9.4-12.1) 03/01/19 05:42 Consult Discharge Plan - Plan Referrals: Jemal Rodriguez DO [Primary Care Provider] - Prescriptions: Rivaroxaban [Xarelto] 20 mg PO DAILY #30 tablet (4) COPD (chronic obstructive pulmonary disease) Qualifiers: COPD type: emphysema Emphysema type: unspecified Qualified Code(s): J43.9 - Emphysema, unspecified
[2019-03-01] MEDS: Heparin 25,000 UNIT/250 ML D5W 25,000 UNIT/250 ML IV.SOLN IVC SCH (13:25)
--- NOTE | 2019-03-01 16:11 | Oncology Inp Progress Note ---
Date of Encounter: 03/01/19 Time of Encounter: 16:09 Oncology: Subj Interval history: A: 1. LIJV DVT 2. Stage IV Adenocarcinoma of the lung, recently received chemotherapy on 02/23/19 3. Pancytopenia likely treatment related 4. Oral thrush P: -The patient is s/p PAC removal today -She is currently on heparin gtt and will likely be transitioned to Xarelto for therapeutic anticoagulation -WBC, H/H, and Plts continue to decline 2/2 treatment; she recently received chemotherapy on 02/23/19 -Would recommend monitoring cell counts closely -If platelets decline to < 50, would need to decide on whether to hold therapeutic anticoagulation or not. Her plts are adequate at this time at 76. -Her cell count ray should occur approximately 7-10 days following her first cycle of chemotherapy and then increase appropriately -Please increase fluconazole to 400 mg PO daily, schedule magic mouthwash 5-10 ml q4h. Nystatin 5 ml PO QID. -We will continue to follow along with you. Subjective: The patient is seen and examined this afternoon. Today, she endorses fatigue and some mild difficulty swallowing, but otherwise denies any fevers, chills, chest pain, or SOB. PE: Vitals T 98.4 F, HR 96, RR 14, SaO2 96% on RA, BP 109/70 Gen: AAO x 3, in NAD HEENT: NC/AT, PERRLA, EOMI, thrush present on posterior aspect of tongue/ oropharynx. CV: RRR, no MRGs LUNGS: CTAB, no w/r/r ABD: Soft, NT, ND, +BS Ext: No c/c/e Neuro: no focal deficits Imaging: B/l UE Duplex US 02/27/19 Impressions: Upper extremity abnormal deep exam: left Jugular, subclavian, axillary, and one of 2 brachial veins demonstrate acute thrombosis. Right upper extremity: normal contralateral exam. Oncology: Obj Data - Labs CBC & Chem 7: 03/01/19 05:42 03/01/19 05:42 Consult Discharge Plan - Plan Referrals: Jemal Rodriguez DO [Primary Care Provider] - Inpatient Charges Provider: Dr. Baudilio Sandoval Follow up - Inpatient: [id number]
[2019-03-01] MEDS: Magic Mouthwash 10 ML UD Cup PO SCH ×2 (19:23→21:41)
[2019-03-01] MEDS: tiZANidine 4 MG TABLET PO SCH (21:42)
[2019-03-01] MEDS: *HR* Heparin 5,000 UNIT/ML VIAL IVP PRN (21:59)
[2019-03-02] MEDS: Magic Mouthwash 10 ML UD Cup PO SCH ×5 (00:48→16:39)
[2019-03-02] MEDS: Ipratropium/Albuterol Neb 3 ML IH SCH ×3 (04:06→15:43)
[2019-03-02 06:01] LABS: Basophils % 0.3 %; Eosinophils % 5.2 %; Hemoglobin 10.1 g/dL (11.5-15.4)
[2019-03-02 06:02] LABS: Eosinophils # 0.2 K/mcL (0.0-0.6); Immature Granulocytes % 1.6 % (0-4); Immature Platelets 1.8 % (1.1-6.1); Lymphocytes # 0.4 K/mcL (0.6-4.6); Lymphocytes % 12.1 %; Mean Corpuscular HGB Conc 32.6 g/dL (31.6-35.5); Mean Corpuscular Hemoglobin 32.5 pg (28.0-33.3); Mean Corpuscular Volume 99.7 fL (83.0-100.0); Mean Platelet Volume 9.6 fL (9.4-12.4); Monocytes # 0.2 K/mcL (0.0-1.3); Monocytes % 5.2 %; Neutrophils # 2.3 K/mcL (1.6-8.9); Red Blood Count 3.11 M/mcL (3.82-4.97); Red Cell Distribution Width 13.7 % (11.5-14.5); Segmented Neutrophils % 75.6 %; White Blood Count 3.1 K/mcL (4.3-11.1)
[2019-03-02 06:06] LABS: Platelet Count 59 K/mcL (140-400)
[2019-03-02 06:16] LABS: BUN/Creatinine Ratio 16 (6-26); Blood Urea Nitrogen 12 mg/dL (8-23); Calcium 8.8 mg/dL (8.6-10.3); Carbon Dioxide 28 mEq/L (23-29); Chloride 100 mEq/L (98-107); Glucose 114 mg/dL (70-105); Osmolality,Calculated 281 (280-300); Potassium 4.1 mEq/L (3.5-5.1); Sodium 135 mEq/L (136-145); eGFR For African Americans > 60 (> 60); eGFR For Non-African Americans > 60 (> 60)
[2019-03-02 06:32] LABS: Platelet Estimate Marked Decrease (Normal)
[2019-03-02 07:49] VITALS: BP 101/66
[2019-03-02] MEDS ORDERED: Fluconazole 100 MG TABLET PO SCH (09:00)
--- NOTE | 2019-03-02 10:09 | Discharge Summary ---
- NOTES TO OUTPATIENT PROVIDER Notes to Outpatient Provider: Follow-up with oncology as outpatient. If hoarseness persists, consider ENT evaluation Orders not resulted at time of discharge: Pending orders 02/26/19 13:20 Culture,Blood [BC] Stat Culture,Blood [BC] Stat 03/01/19 12:26 Occult Blood,Stool [BF] Routine 03/02/19 12:30 Heparin anti-factor XA UFH [COAG] Timed Date of Encounter: 03/02/19 Time of Encounter: 07:45 - Discharge Diagnosis (1) Blood clot of neck vein Priority: Primary Status: Acute (2) Candidiasis Priority: Secondary Status: Acute (3) Pancytopenia Priority: Secondary Status: Acute (4) COPD (chronic obstructive pulmonary disease) Priority: Secondary Status: Chronic Qualifiers: COPD type: emphysema Emphysema type: unspecified Qualified Code(s): J43.9 - Emphysema, unspecified (5) History of lung cancer Priority: Secondary Status: Chronic (6) Hoarseness of voice Priority: Secondary Status: Acute Hospital course: Ms. Bautista is a 73 year old female with history of stage IV lung cancer and stomach cancer s/p lobectomy and now on chemotherapy (last dose 02/23 followed by Neupogen), COPD, who was admited for DVT of L IJV, subclavain, axillary, and brachial veins, as well as possible esophageal candidiasis. Clinically improved with 5 days of IV Hep gtt. Had port-a-cath removed on 03/01 uneventfully and she will be continued on Xarelto 20mg daily per hematology recommendation as her Plt remains above 50 and pancytopenia is likely due to the effect of chemotherapy. She was also treated with fluconazole and nystatin for oropharyngeal and possible esophageal candidiasis which she will continue as outpatient. FOllow up with Oncology as outpatient. Of note, she developed hoarseness during her stay which may have been due to persistent N/V initially. Would expect to subside eventually but if hoarseness persist, she was advised to follow up with ENT. Discharge discussed with: patient, family, social work, case management, c consultant - Time Spent with Patient Total time spent providing and/or coordinating discharge services:33 mins - Discharge Medications Prescriptions: New Rivaroxaban [Xarelto] 20 mg PO DAILY #30 tablet Fluconazole [Diflucan] 200 mg PO DAILY #11 tablet Nystatin [Nystatin Suspension] 500,000 units PO QID 3 Days #120 ml Continued [place]-3/Dha/Epa/Fish Oil [Fish Oil Dr 500 mg Softgel] 1,000 mg PO DAILY Cholecalciferol (Vitamin D3) [Vitamin D3] 2,000 unit PO DAILY Calcium Polycarbophil [Fibercon] 625 mg PO DAILY Albuterol Neb [Proventil Neb] 2.5 mg IH Q6H PRN PRN Reason: Shortness Of Breath Fluticasone Propionate Nasal [Flonase] 2 puff NS DAILY PRN PRN Reason: Nasal Congestion Pantoprazole Sodium [Protonix] 40 mg PO DAILY #90 granpkt.dr Budesonide/Formoterol 160/4.5 [Symbicort 160/4.5] 2 puff IH BIDR Albuterol Sulfate [Proair Hfa] 2 puff IH Q4H Ipratropium/Albuterol Neb [Duoneb] 3 ml IH Q6HR Benzonatate [Tessalon] 100 mg PO TID PRN #60 capsule PRN Reason: Cough Tizanidine HCl [Zanaflex] 4 mg PO HS Oxycodone HCl/Acetaminophen [Percocet 5-325 mg Tablet] 1 - 2 tab PO Q4-6H PRN PRN Reason: Pain Prochlorperazine Maleate [Compazine] 10 mg PO Q6HR PRN #90 tablet PRN Reason: Nausea Dexamethasone [Decadron] 4 mg PO BID PRN #45 tab PRN Reason: as directed Folic Acid 1 mg PO DAILY #30 tablet Ondansetron HCl 8 mg PO Q8H PRN #45 tablet PRN Reason: Nausea Lidocaine/Prilocaine [Emla] 1 appl TP AD #30 gm Home Medications: Cholecalciferol (Vitamin D3) [Vitamin D3] 2,000 unit PO DAILY 03/17/15 [History] [place]-3/Dha/Epa/Fish Oil [Fish Oil Dr 500 mg Softgel] 1,000 mg PO DAILY 03/17/15 [History] Calcium Polycarbophil [Fibercon] 625 mg PO DAILY 08/12/15 [History] Albuterol Neb [Proventil Neb] 2.5 mg IH Q6H PRN 10/03/16 [History] Fluticasone Propionate Nasal [Flonase] 2 puff NS DAILY PRN 10/03/16 [History] Pantoprazole Sodium [Protonix] 40 mg PO DAILY #90 10/23/16 [Rx] Budesonide/Formoterol 160/4.5 [Symbicort 160/4.5] 2 puff IH BIDR 03/19/17 [History] Albuterol Sulfate [Proair Hfa] 2 puff IH Q4H 12/02/17 [History] Ipratropium/Albuterol Neb [Duoneb] 3 ml IH Q6HR 12/02/17 [History] Benzonatate [Tessalon] 100 mg PO TID PRN #60 capsule 12/05/17 [Rx] Oxycodone HCl/Acetaminophen [Percocet 5-325 mg Tablet] 1 - 2 tab PO Q4-6H PRN 12/28/18 [History] Tizanidine HCl [Zanaflex] 4 mg PO HS 12/28/18 [History] Dexamethasone [Decadron] 4 mg PO BID PRN #45 tab 02/16/19 [Rx] Folic Acid 1 mg PO DAILY #30 tablet 02/16/19 [Rx] Lidocaine/Prilocaine [Emla] 1 appl TP AD #30 gm 02/16/19 [Rx] Ondansetron HCl 8 mg PO Q8H PRN #45 tablet 02/16/19 [Rx] Prochlorperazine Maleate [Compazine] 10 mg PO Q6HR PRN #90 tablet 02/16/19 [Rx] Rivaroxaban [Xarelto] 20 mg PO DAILY #30 tablet 03/01/19 [Rx] Fluconazole [Diflucan] 200 mg PO DAILY #11 tablet 03/02/19 [Rx] Nystatin [Nystatin Suspension] 500,000 units PO QID 3 Days #120 ml 03/02/19 [Rx] Allergies/Adverse Reactions: Allergy/AdvReac Type Severity Reaction Status Date / Time paclitaxel Allergy Severe Anaphylaxis Verified 01/20/19 10:15 Penicillins Allergy Severe Hives Verified 01/20/19 10:15 Date of admission: 03/01/19 12:25 Primary care physician: Jemal Rodriguez DO Consults: 02/26/19 14:20 Consult to Oncology Hematology [CONS] Stat Consulting Provider: Oncology [facility] So Reason for Consult: IJ thrombus Time Notified: 14:20 Call Completed: Yes 02/27/19 19:13 Consult to Vascular Surgery [CONS] Routine Consulting Provider: Vascular Surgery So Reason for Consult: DVT of L IJV, L subclavian, L axillary, and L brachial vein. Recent L port-a-cath insertion. On hep gtt. Call Completed: Yes - Constitutional Vitals: Temp Pulse Resp BP Pulse Ox 98.3 F 85 16 101/66 96 03/02/19 07:47 03/02/19 07:47 03/02/19 07:47 03/02/19 07:47 03/02/19 07:47 Exam: General: Alert and oriented, not in acute distress. HEENT:Unable to appreciate any fullness in her left neck. No bruit. Minimal wh ite plaques in oral mucosa Chest: L port site appears unremarkable. Cardiovascular:Normal S1 & S2, No JVD. Pulse regular. Lungs: clear to auscultation, no wheezes/rales Abdomen:Soft, non-tender, no rigidity. Extremities: diffuse L UE swelling upto mid-humerus which is largely unchanged but less tense - Patient Status Disposition: Home, Self-Care Condition: Fair Overall status at discharge: patient is progressing back to baseline - Discharge Instructions Instructions: Chronic Obstructive Pulmonary Disease (DC) Follow Up With: Jemal Rodriguez DO [Primary Care Provider] - Waldo Sutton MD [Partnered Physician] - - Diet and Activity Activity: resume usual activities as tolerated Diet: advance to your usual diet
[2019-03-02] MEDS: Fluconazole 100 MG TABLET PO SCH (10:21)
[2019-03-02] MEDS: Nystatin SUSP 5 ML UD.LIQ PO SCH ×3 (10:21→16:38)
[2019-03-02] MEDS: Folic Acid 1 MG TABLET PO SCH (10:21)
[2019-03-02] MEDS: Budesonide/Formoterol 160/4.5 1 PUFF INH IH SCH (11:01)
[2019-03-02] MEDS ORDERED: Heparin 25,000 UNIT/250 ML D5W 25,000 UNIT/250 ML IV.SOLN IVC SCH (12:15)
--- NOTE | 2019-03-02 16:36 | Oncology Inp Progress Note ---
<John Sandoval - Last Filed: 03/02/19 16:41> Date of Encounter: 03/02/19 Oncology: Obj Data - Labs CBC & Chem 7: 03/02/19 05:44 03/02/19 05:44 Consult Discharge Plan - Plan Instructions: Nystatin (By mouth), Fluconazole (By mouth), Lung Cancer (DC), Chronic Obstructive Pulmonary Disease (DC) Additional Instructions: Please Call the [facility] to make an appointment with Dr. FONG on March 05 for a follow up regarding CBC and platelet count. Please call primary care doctor to make a follow up appointment within 1 week. Referrals: Waldo Sutton MD [Partnered Physician] - Jemal Rodriguez DO [Primary Care Provider] - Prescriptions: Fluconazole [Diflucan] 200 mg PO DAILY #11 tablet Nystatin [Nystatin Suspension] 500,000 units PO QID 3 Days #120 ml Inpatient Charges Provider: Dr. Baudilio Sandoval Follow up - Inpatient: [id number] - Attending Attestation I examined this patient and my medical decision-making was reviewed with the Advanced Practice Nurse. I agree with the documented findings, disposition and treatment plan as described except to the extent set forth below. -Patient's platelets 59 today. -Her heparin gtt has been d/c'ed, and she has now been transitioned to Xarelto 20 mg PO daily for therapeutic anticoagulation -She is very close to her Ray following her first cycle of chemotherapy (02/23/19), and as such, we expect her cell counts to begin to increase soon. -As a result, due to her admission for an extensive, acute thrombosis in the LIJV, subclavian, and axillary veins we feel that her clotting risk is greater than her bleeding risk at this time -I have instructed her and her family to call us immediately if she were to experience any unusual bleeding or bruising events in the next two days following discharge. -We will arrange for close up with Dr. Fong as an outpatient on 03/05/19 for a lab check and monitoring <Migue Yin Jr - Last Filed: 03/02/19 17:40> Date of Encounter: 03/02/19 Time of Encounter: 16:35 (1) Pancytopenia Current Visit: No Status: Chronic Assessment and plan: The patient is doing very well clinically today. Several family members at her bedside. Today, patient is pancytopenic with a platelet count of 59,000. Patient has reached her ray as her chemotherapy with 7 days ago. We expect pancytopenia in this situation. She has extensive clot left part of her neck. The benefits outweigh the risks and continuing the patient on Xarelto 20 mg daily is a must due to clot burden. The plan is discharge later today. I spoke to the nurse on [address], and she will phone the cancer center to have an appointment in [address] Toño Sutton at [facility] with a repeat CBC to make sure her pancytopenia is improving, and her platelets are appropriate for her anticoagulation as an outpatient Dr Sandoval assessed patient with me today (2) Pancytopenia Current Visit: Yes Status: Acute (3) Blood clot of neck vein Current Visit: Yes Status: Acute Assessment and plan: as per above Oncology: Subj Interval history: The patient resting in bed with several family members at bedside. No current chest pain, shortness of breath, cough, no fever or chills. - Constitutional General appearance: cooperative, no acute distress - Head Head exam: Present: normal inspection, normocephalic - Eye Pupils: Present: PERRL - ENT ENT exam: Present: mucous membranes moist - Neck Neck exam: Present: full ROM - Respiratory Respiratory exam: Present: CTAB - Cardiovascular Cardiovascular exam: Present: RRR - GI/Abdominal GI/Abdominal exam: Present: normal bowel sounds, soft - Extremities Exam Extremities exam: Present: full ROM, normal inspection - Neurological Exam Neurological exam: Present: alert, oriented X3, no focal deficits - Psychiatric Psychiatric exam: Present: normal affect, normal mood - Skin Skin exam: Present: dry, intact, warm Oncology: Obj Data - Labs CBC & Chem 7: 03/02/19 05:44 03/02/19 05:44
[2019-03-02] MEDS ORDERED: *HR* Rivaroxaban 10 MG TABLET PO ONE (17:00)
== END 2019-03-02 18:39 | disposition home or self-care (01) | DRG 299 ==
LOC: 2NENU 11:00 → EMEROOARM 11:00 → SUATTDRO 15:41 → 2NENU 16:32
PROVIDERS: ADMIT Student in an Organized Health Care Education/Training Program; ATTEND Internal Medicine

== ENCOUNTER 2019-04-17 21:31 | Inpatient (IN) ==
[2019-04-17] MEDS ORDERED: 0.9 % Sodium Chloride 1,000 ML IVC ONE (21:50)
[2019-04-17] MEDS ORDERED: Isovue-370 500 ML BOTTLE IVP ONE (21:58)
[2019-04-17] MEDS ORDERED: Ibuprofen 600 MG TABLET PO ONE (22:00)
[2019-04-17] MEDS ORDERED: Cefepime HCl 1,000 MG in Water for inj. (sterile) 10 ML IVP STA (22:01)
[2019-04-17 22:32] LABS: Basophils % 0.2 %; Eosinophils % 0.1 %; Hematocrit 30.9 % (35.3-44.9); Hemoglobin 9.6 g/dL (11.5-15.4); Immature Granulocytes % 1.1 % (0-4); Lymphocytes # 0.6 K/mcL (0.6-4.6); Lymphocytes % 7.5 %; Mean Corpuscular HGB Conc 31.1 g/dL (31.6-35.5); Mean Corpuscular Hemoglobin 31.7 pg (28.0-33.3); Mean Platelet Volume 9.4 fL (9.4-12.4); Monocytes # 0.7 K/mcL (0.0-1.3); Monocytes % 8.5 %; Neutrophils # 6.9 K/mcL (1.6-8.9); Platelet Count 150 K/mcL (140-400); Red Blood Count 3.03 M/mcL (3.82-4.97); Red Cell Distribution Width 16.2 % (11.5-14.5); Segmented Neutrophils % 82.6 %; White Blood Count 8.4 K/mcL (4.3-11.1)
[2019-04-17 22:33] LABS: Bilirubin,Urine Negative (Negative); Blood,Urine Large (Negative); Clarity,Urine Cloudy (Clear); Color,Urine Yellow (Yellow); Glucose,Urine (UA) Normal (Normal); Ketones,Urine Negative (Negative); Leukocyte Esterase,Urine Small (Negative); Nitrite,Urine Negative (Negative); Protein,Urine 30 mg/dL (Neg-Trace); Specific Gravity,Urine 1.025 (1.010-1.025); Urobilinogen,Urine Normal (Normal)
[2019-04-17 22:35] LABS: Bacteria,Urine Moderate per hpf (None-Few); Hyaline Casts,Urine Few per lpf (None-Few); Squamous Epithelial Cell,Urine Many per lpf (None-Few); WBC,Urine 30-50 per hpf (0-3)
[2019-04-17 22:39] LABS: Alanine Aminotransferase 7 Units/L (7-52); Albumin 3.6 g/dL (3.5-5.7); Albumin/Globulin Ratio 1.1 (1.1-2.2); Alkaline Phosphatase 87 Units/L (34-104); Aspartate Amino Transferase 9 Units/L (13-39); BUN/Creatinine Ratio 13 (6-26); Bilirubin,Direct 0.1 mg/dL (0.0-0.2); Bilirubin,Indirect 0.3 mg/dL (0.0-1.2); Bilirubin,Total 0.4 mg/dL (0.3-1.0); Blood Urea Nitrogen 8 mg/dL (8-23); Calcium 8.5 mg/dL (8.6-10.3); Carbon Dioxide 20 mEq/L (23-29); Chloride 101 mEq/L (98-107); Globulin 3.2 g/dL (2.4-3.5); Glucose 104 mg/dL (70-105); Magnesium 1.7 mg/dL (1.6-2.6); Osmolality,Calculated 273 (280-300); Phosphorous 2.3 mg/dL (2.7-4.5); Potassium 3.5 mEq/L (3.5-5.1); Sodium 132 mEq/L (136-145); Total Protein 6.8 g/dL (6.4-8.9); Troponin I 0.03 ng/mL (< 0.04); eGFR For African Americans > 60 (> 60); eGFR For Non-African Americans > 60 (> 60)
--- NOTE | 2019-04-17 22:41 | Emergency Department Note ---
Disposition Clinical Impression: Right middle lobe pneumonia Qualifiers: Pneumonia type: due to unspecified organism Qualified Code(s): J18.1 - Lobar pneumonia, unspecified organism Fever Qualifiers: Fever type: unspecified Qualified Code(s): R50.9 - Fever, unspecified Disposition: Admitted As Inpatient Condition: Fair Time of Disposition: 01:27 General Adult HPI - General Chief complaint: ED Fever Stated complaint: 103.6 temp/IV lung cancer Time Seen by Provider: 04/17/19 21:50 Source: patient - History of Present Illness Pain Scale: 2 - Related Data Home Medications Medication Instructions Recorded Confirmed Cholecalciferol (Vitamin D3) 2,000 unit PO DAILY 03/17/15 04/17/19 [Vitamin D3] [place]-3/Dha/Epa/Fish Oil [Fish Oil 1,000 mg PO DAILY 03/17/15 04/17/19 500 mg Softgel] Calcium Polycarbophil [Fibercon] 625 mg PO DAILY 08/12/15 04/17/19 Albuterol Neb [Proventil Neb] 2.5 mg IH Q6H PRN 10/03/16 04/17/19 Fluticasone Propionate Nasal 2 puff NS DAILY PRN 10/03/16 04/17/19 [Flonase] Budesonide/Formoterol 160/4.5 2 puff IH BIDR 03/19/17 04/17/19 [Symbicort 160/4.5] Albuterol Sulfate [Proair Hfa] 2 puff IH Q4H 12/02/17 04/17/19 Ipratropium/Albuterol Neb [Duoneb] 3 ml IH Q6HR 12/02/17 04/17/19 Oxycodone HCl/Acetaminophen 1 - 2 tab PO Q4-6H PRN 12/28/18 04/17/19 [Percocet 5-325 mg Tablet] Tizanidine HCl [Zanaflex] 4 mg PO HS 12/28/18 04/17/19 Benzonatate [Tessalon] 100 mg PO TID PRN 04/18/19 04/18/19 Dronabinol [Marinol] 2.5 mg PO HS 04/18/19 04/18/19 Previous Rx's Medication Instructions Recorded Pantoprazole Sodium [Protonix] 40 mg PO DAILY #90 10/23/16 Folic Acid 1 mg PO DAILY #30 tablet 02/16/19 Ondansetron HCl 8 mg PO Q8H PRN #45 tablet 02/16/19 Prochlorperazine Maleate 10 mg PO Q6HR PRN #90 tablet 02/16/19 [Compazine] dexAMETHasone [Decadron] 4 mg PO BID PRN #45 tab 02/16/19 Rivaroxaban [Xarelto] 20 mg PO DAILY #30 tablet 03/01/19 GuaiFENesin/Codeine [Robitussin 5 ml PO Q8H PRN 30 Days #400 liquid 04/02/19 w/Codeine] Allergies Allergy/AdvReac Type Severity Reaction Status Date / Time paclitaxel Allergy Severe Anaphylaxis Verified 04/17/19 21:43 Penicillins Allergy Severe Hives Verified 04/17/19 21:43 Past Medical History - Past Medical History Medical history: Reports: arthritis, cancer, COPD, fibromyalgia, GERD, hyperlipidemia, osteoporosis Surgical history: Reports: breast surgery, cancer surgery, cataract, cholecystectomy, orthopedic, other, other Psychiatric history: Reports: no psych history SHED BOSS history: Reports: no SHED BOSS history - Social History Smoking Status: Current every day smoker Smokeless Tobacco Status: No Alcohol use: Reports: none Drug use: Reports: none Physical Exam - General General appearance: alert, in no apparent distress Course Vital Signs Temperature 100.2 F H 04/17/19 21:43 Pulse Rate 114 04/17/19 21:43 Respiratory Rate 20 04/17/19 21:43 Blood Pressure 113/73 04/17/19 21:43 O2 Sat by Pulse Oximetry 93 04/17/19 21:43 Temperature 98.0 F 04/18/19 14:42 Pulse Rate 102 04/18/19 14:42 Respiratory Rate 16 04/18/19 16:19 Blood Pressure 98/60 04/18/19 14:42 O2 Sat by Pulse Oximetry 96 04/18/19 16:19 Oxygen Delivery Oxygen Delivery Room Air Medical Decision Making - Lab Data Result diagrams: 04/18/19 04:02 04/18/19 04:02 Lab Results 04/17/19 04/17/19 04/17/19 Range/Units 22:05 22:05 22:05 WBC 8.4 (4.3-11.1) K/mcL RBC 3.03 L (3.82-4.97) M/mcL Hgb 9.6 L (11.5-15.4) g/dL Hct 30.9 L (35.3-44.9) % MCV 102.0 H (83.0-100.0) fL MCH 31.7 (28.0-33.3) pg MCHC 31.1 L (31.6-35.5) g/dL RDW 16.2 H (11.5-14.5) % Plt Count 150 (140-400) K/mcL MPV 9.4 (9.4-12.4) fL Immature Gran % 1.1 (0-4) % Seg Neutrophils % 82.6 % Lymphocytes % 7.5 % Monocytes % 8.5 % Eosinophils % 0.1 % Basophils % 0.2 % Neutrophils # 6.9 (1.6-8.9) K/mcL Lymphocytes # 0.6 (0.6-4.6) K/mcL Monocytes # 0.7 (0.0-1.3) K/mcL Eosinophils # 0.0 (0.0-0.6) K/mcL Basophils # 0.0 (0.0-0.2) K/mcL PT 16.8 H (9.4-12.1) Seconds INR 1.5 APTT 37.8 H (26.0-36.0) Seconds Sodium 132 L (136-145) mEq/L Potassium 3.5 (3.5-5.1) mEq/L Chloride 101 (98-107) mEq/L Carbon Dioxide 20 L (23-29) mEq/L BUN 8 (8-23) mg/dL Creatinine 0.61 (0.60-1.20) mg/dL Est GFR ( Amer) > 60 (> 60) Est GFR (Non-Af Amer) > 60 (> 60) BUN/Creatinine Ratio 13 (6-26) Glucose 104 (70-105) mg/dL Calculated Osmolality 273 L (280-300) Lactic Acid (0.5-2.2) mmol/L Calcium 8.5 L (8.6-10.3) mg/dL Phosphorus 2.3 L (2.7-4.5) mg/dL Magnesium 1.7 (1.6-2.6) mg/dL Total Bilirubin 0.4 (0.3-1.0) mg/dL Direct Bilirubin 0.1 (0.0-0.2) mg/dL Indirect Bilirubin 0.3 (0.0-1.2) mg/dL AST 9 L (13-39) Units/L ALT 7 (7-52) Units/L Alkaline Phosphatase 87 (34-104) Units/L Troponin I 0.03 (< 0.04) ng/mL Serum Total Protein 6.8 (6.4-8.9) g/dL Albumin 3.6 (3.5-5.7) g/dL Globulin 3.2 (2.4-3.5) g/dL Albumin/Globulin Ratio 1.1 (1.1-2.2) Urine Color (Yellow) Urine Clarity (Clear) Urine pH (5.0-8.0) pH Units Ur Specific [place] (1.010-1.025) Urine Protein (Neg-Trace) mg/dL Urine Glucose (UA) (Normal) mg/dL Urine Ketones (Negative) mg/dL Urine Blood (Negative) Urine Nitrite (Negative) Urine Bilirubin (Negative) Urine Urobilinogen (Normal) mg/dL Ur Leukocyte Esterase (Negative) Urine Microscopic RBC (0-3) per hpf Urine Microscopic WBC (0-3) per hpf Ur Squamous Epith Cells (None-Few) per lpf Urine Bacteria (None-Few) per hpf Hyaline Casts (None-Few) per lpf Ur Culture Indicated? (NO) 04/17/19 04/17/19 Range/Units 22:05 22:25 WBC (4.3-11.1) K/mcL RBC (3.82-4.97) M/mcL Hgb (11.5-15.4) g/dL Hct (35.3-44.9) % MCV (83.0-100.0) fL MCH (28.0-33.3) pg MCHC (31.6-35.5) g/dL RDW (11.5-14.5) % Plt Count (140-400) K/mcL MPV (9.4-12.4) fL Immature Gran % (0-4) % Seg Neutrophils % % Lymphocytes % % Monocytes % % Eosinophils % % Basophils % % Neutrophils # (1.6-8.9) K/mcL Lymphocytes # (0.6-4.6) K/mcL Monocytes # (0.0-1.3) K/mcL Eosinophils # (0.0-0.6) K/mcL Basophils # (0.0-0.2) K/mcL PT (9.4-12.1) Seconds INR APTT (26.0-36.0) Seconds Sodium (136-145) mEq/L Potassium (3.5-5.1) mEq/L Chloride (98-107) mEq/L Carbon Dioxide (23-29) mEq/L BUN (8-23) mg/dL Creatinine (0.60-1.20) mg/dL Est GFR ( Amer) (> 60) Est GFR (Non-Af Amer) (> 60) BUN/Creatinine Ratio (6-26) Glucose (70-105) mg/dL Calculated Osmolality (280-300) Lactic Acid 0.8 (0.5-2.2) mmol/L Calcium (8.6-10.3) mg/dL Phosphorus (2.7-4.5) mg/dL Magnesium (1.6-2.6) mg/dL Total Bilirubin (0.3-1.0) mg/dL Direct Bilirubin (0.0-0.2) mg/dL Indirect Bilirubin (0.0-1.2) mg/dL AST (13-39) Units/L ALT (7-52) Units/L Alkaline Phosphatase (34-104) Units/L Troponin I (< 0.04) ng/mL Serum Total Protein (6.4-8.9) g/dL Albumin (3.5-5.7) g/dL Globulin (2.4-3.5) g/dL Albumin/Globulin Ratio (1.1-2.2) Urine Color Yellow (Yellow) Urine Clarity Cloudy A (Clear) Urine pH 7.0 (5.0-8.0) pH Units Ur Specific [place] 1.025 (1.010-1.025) Urine Protein 30 H (Neg-Trace) mg/dL Urine Glucose (UA) Normal (Normal) mg/dL Urine Ketones Negative (Negative) mg/dL Urine Blood Large H (Negative) Urine Nitrite Negative (Negative) Urine Bilirubin Negative (Negative) Urine Urobilinogen Normal (Normal) mg/dL Ur Leukocyte Esterase Small H (Negative) Urine Microscopic RBC 5-15 H (0-3) per hpf Urine Microscopic WBC 30-50 H (0-3) per hpf Ur Squamous Epith Cells Many H (None-Few) per lpf Urine Bacteria Moderate H (None-Few) per hpf Hyaline Casts Few (None-Few) per lpf Ur Culture Indicated? YES A (NO) Attestation Statement - Attestation Attestation: I examined this patient and my medical decision-making was reviewed with the Resident Physician. I agree with the documented findings, disposition and treatment plan as described except to the extent set forth below. Patient is 74-year-old female that presents to emergency with chief complaint of fever and generalized malaise. The patient reports she has history of cancer and has been progressively weaker and noticed that she has a temperature up to 103 today. Physical exam patient is awake alert in no acute distress Medical decision management patient will be evaluated from an infectious standpoint and started on IV antibiotics as well as be cultured and evaluated from a sepsis standpoint the plan will be to admit the patient to the hospital
--- NOTE | 2019-04-17 22:43 | Emergency Department Note ---
Disposition Clinical Impression: Right middle lobe pneumonia Qualifiers: Pneumonia type: due to unspecified organism Qualified Code(s): J18.1 - Lobar pneumonia, unspecified organism Fever Qualifiers: Fever type: unspecified Qualified Code(s): R50.9 - Fever, unspecified Disposition: Admitted As Inpatient Condition: Fair Time of Disposition: 01:27 Fever HPI - General Chief Complaint: ED Fever Stated Complaint: 103.6 temp/IV lung cancer Time Seen by Provider: 04/17/19 21:50 Source: patient Mode of arrival: ambulatory Limitations: no limitations Nursing Notes Reviewed: Yes Vital Signs Reviewed: Yes - History of Present Illness HPI Narrative: 74-year-old female presents to the emergency department with fever. MAXIMUM TEMPERATURE was 103. She does have history of stage IV lung cancer underwent chemotherapy approximately 2 weeks ago is currently on that regimen. Is not due for another week. Follows. [facility]. 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 Said that she has had worsening epigastric pain or last 2 days they have noticed cough congestion the believe she possibly has pneumonia she has been coughing up green mucus-like material. Says very thick as well. She has no chest pain no other complaints at this time. They have been controlling fevers with Tylenol. There is no nausea no vomiting no headaches - Related Data Home Medications Medication Instructions Recorded Confirmed Cholecalciferol (Vitamin D3) 2,000 unit PO DAILY 03/17/15 04/17/19 [Vitamin D3] [place]-3/Dha/Epa/Fish Oil [Fish Oil 1,000 mg PO DAILY 03/17/15 04/17/19 Dr 500 mg Softgel] Calcium Polycarbophil [Fibercon] 625 mg PO DAILY 08/12/15 04/17/19 Albuterol Neb [Proventil Neb] 2.5 mg IH Q6H PRN 10/03/16 04/17/19 Fluticasone Propionate Nasal 2 puff NS DAILY PRN 10/03/16 04/17/19 [Flonase] Budesonide/Formoterol 160/4.5 2 puff IH BIDR 03/19/17 04/17/19 [Symbicort 160/4.5] Albuterol Sulfate [Proair Hfa] 2 puff IH Q4H 12/02/17 04/17/19 Ipratropium/Albuterol Neb [Duoneb] 3 ml IH Q6HR 12/02/17 04/17/19 Oxycodone HCl/Acetaminophen 1 - 2 tab PO Q4-6H PRN 12/28/18 04/17/19 [Percocet 5-325 mg Tablet] Tizanidine HCl [Zanaflex] 4 mg PO HS 12/28/18 04/17/19 Previous Rx's Medication Instructions Recorded Pantoprazole Sodium [Protonix] 40 mg PO DAILY #90 10/23/16 Folic Acid 1 mg PO DAILY #30 tablet 02/16/19 Ondansetron HCl 8 mg PO Q8H PRN #45 tablet 02/16/19 Prochlorperazine Maleate 10 mg PO Q6HR PRN #90 tablet 02/16/19 [Compazine] dexAMETHasone [Decadron] 4 mg PO BID PRN #45 tab 02/16/19 Rivaroxaban [Xarelto] 20 mg PO DAILY #30 tablet 03/01/19 GuaiFENesin/Codeine [Robitussin 5 ml PO Q8H PRN 30 Days #400 liquid 04/02/19 w/Codeine] Allergies Allergy/AdvReac Type Severity Reaction Status Date / Time paclitaxel Allergy Severe Anaphylaxis Verified 04/17/19 21:43 Penicillins Allergy Severe Hives Verified 04/17/19 21:43 All systems ED: reviewed and negative except as stated. 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 - Social History Smoking Status: Current every day smoker Alcohol use: Reports: none Drug use: Reports: none Physical Exam - General Limitations: no limitations General appearance: alert, in no apparent distress - Head Head exam: atraumatic, normocephalic, normal inspection - Eye Eye exam: Present: normal appearance, PERRL, EOMI - ENT ENT exam: normal exam, normal oropharynx, mucous membranes moist - Neck Neck exam: Present: normal inspection, full ROM, trachea midline - Chest Chest inspection: Present: normal inspection, symmetric chest wall rise - Respiratory Respiratory exam: Present: normal lung sounds bilaterally, other (Rhonchi bilaterally). Absent: respiratory distress, wheezes - Cardiovascular Cardiovascular exam: Present: normal rhythm, tachycardia, normal heart sounds - Abdominal Exam Abdominal exam: Present: soft, Non-Tender, normal bowel sounds. Absent: tenderness, distention, guarding, rebound, rigidity - Extremities Exam Extremities exam: Present: normal inspection, full ROM. Absent: tenderness, pedal edema - Back Exam Back exam: Present: normal inspection, full ROM. Absent: tenderness, CVA tenderness (R), CVA tenderness (L) - Neurological Exam Neurological exam: Present: alert, oriented X3 - Skin Skin exam: Present: warm, dry, intact, normal color Course Course Narrative: We will do sepsis workup. Including CBC, BMP and lactate chest x-rays will CT abdomen and pelvis with IV contrast. We will give patient 1 L of IV fluids I will not your the full 30 mL/kg bolus as patient is not in septic shock or severe sepsis at this time. Also get chest x-ray. We will give her Motrin for her fever as well as start bank and cefepime she is allergic to penicillin and Zosyn. Patient will be most likely admitted to the hospital for further evaluation Vital Signs Temperature 100.2 F H 04/17/19 21:43 Pulse Rate 114 04/17/19 21:43 Respiratory Rate 20 04/17/19 21:43 Blood Pressure 113/73 04/17/19 21:43 O2 Sat by Pulse Oximetry 93 04/17/19 21:43 Temperature 100.8 F H 04/18/19 01:00 Pulse Rate 105 04/18/19 01:00 Respiratory Rate 20 04/18/19 01:00 Blood Pressure 124/78 04/18/19 01:00 O2 Sat by Pulse Oximetry 98 04/18/19 01:00 Oxygen Delivery Oxygen Delivery Room Air Fever - MDM Narrative Medical decision making narrative: 74-year-old female presented to the emergency department complaining of fever . She does have history of metastatic lung cancer. She is currently undergoing chemotherapy. Last treatment was 2 weeks ago. Patient did have a fever while here she was treated with Motrin. Also gave her Zofran for nausea control. She get IV fluids she did meet Sirs criteria because nonseptic shock did not receive her 30 [place] per kilogram bolus he did not want to fluid overload the patient. Patient also is given Zosyn and vancomycin. She also received got blood cultures on. CT of the chest just showed a right middle lobe pneumonia. No other acute findings in the abdomen. Patient will be admitted to the hospitalist service for further evaluation. Spoke with Dr. Briseno who agreed to admit the patient to their service. Patient admitted in stable condition Chest X-Ray 04/17/19 21:50 IMPRESSION: Posttreatment changes with no acute abnormality identified. D/ / Tera Barksdale MD / Tera Barksdale MD Interpreting Provider: Tera Barksdale MD Abdomen/Pelvis CT 04/17/19 21:58 IMPRESSION: 1. Worsened airspace consolidation the right middle lobe consistent with a right middle lobe pneumonia. 2. Gastric wall thickening corresponding to the clinical history of gastric malignancy. 3. No acute findings within the abdomen or pelvis. D/ / Jasper Garrett MD / Jasper Garrett MD Interpreting Provider: Jasper Garrett MD - Medical Records Medical records reviewed: Yes I reviewed the patient's medical records. - Lab Data Lab results reviewed: Yes I reviewed the patient's lab results. Result diagrams: 04/17/19 22:05 04/17/19 22:05 Lab Results 04/17/19 04/17/19 04/17/19 Range/Units 22:05 22:05 22:05 WBC 8.4 (4.3-11.1) K/mcL RBC 3.03 L (3.82-4.97) M/mcL Hgb 9.6 L (11.5-15.4) g/dL Hct 30.9 L (35.3-44.9) % MCV 102.0 H (83.0-100.0) fL MCH 31.7 (28.0-33.3) pg MCHC 31.1 L (31.6-35.5) g/dL RDW 16.2 H (11.5-14.5) % Plt Count 150 (140-400) K/mcL MPV 9.4 (9.4-12.4) fL Immature Gran % 1.1 (0-4) % Seg Neutrophils % 82.6 % Lymphocytes % 7.5 % Monocytes % 8.5 % Eosinophils % 0.1 % Basophils % 0.2 % Neutrophils # 6.9 (1.6-8.9) K/mcL Lymphocytes # 0.6 (0.6-4.6) K/mcL Monocytes # 0.7 (0.0-1.3) K/mcL Eosinophils # 0.0 (0.0-0.6) K/mcL Basophils # 0.0 (0.0-0.2) K/mcL PT 16.8 H (9.4-12.1) Seconds INR 1.5 APTT 37.8 H (26.0-36.0) Seconds Sodium 132 L (136-145) mEq/L Potassium 3.5 (3.5-5.1) mEq/L Chloride 101 (98-107) mEq/L Carbon Dioxide 20 L (23-29) mEq/L BUN 8 (8-23) mg/dL Creatinine 0.61 (0.60-1.20) mg/dL Est GFR ( Amer) > 60 (> 60) Est GFR (Non-Af Amer) > 60 (> 60) BUN/Creatinine Ratio 13 (6-26) Glucose 104 (70-105) mg/dL Calculated Osmolality 273 L (280-300) Lactic Acid (0.5-2.2) mmol/L Calcium 8.5 L (8.6-10.3) mg/dL Phosphorus 2.3 L (2.7-4.5) mg/dL Magnesium 1.7 (1.6-2.6) mg/dL Total Bilirubin 0.4 (0.3-1.0) mg/dL Direct Bilirubin 0.1 (0.0-0.2) mg/dL Indirect Bilirubin 0.3 (0.0-1.2) mg/dL AST 9 L (13-39) Units/L ALT 7 (7-52) Units/L Alkaline Phosphatase 87 (34-104) Units/L Troponin I 0.03 (< 0.04) ng/mL Serum Total Protein 6.8 (6.4-8.9) g/dL Albumin 3.6 (3.5-5.7) g/dL Globulin 3.2 (2.4-3.5) g/dL Albumin/Globulin Ratio 1.1 (1.1-2.2) Urine Color (Yellow) Urine Clarity (Clear) Urine pH (5.0-8.0) pH Units Ur Specific [place] (1.010-1.025) Urine Protein (Neg-Trace) mg/dL Urine Glucose (UA) (Normal) mg/dL Urine Ketones (Negative) mg/dL Urine Blood (Negative) Urine Nitrite (Negative) Urine Bilirubin (Negative) Urine Urobilinogen (Normal) mg/dL Ur Leukocyte Esterase (Negative) Urine Microscopic RBC (0-3) per hpf Urine Microscopic WBC (0-3) per hpf Ur Squamous Epith Cells (None-Few) per lpf Urine Bacteria (None-Few) per hpf Hyaline Casts (None-Few) per lpf Ur Culture Indicated? (NO) 04/17/19 04/17/19 Range/Units 22:05 22:25 WBC (4.3-11.1) K/mcL RBC (3.82-4.97) M/mcL Hgb (11.5-15.4) g/dL Hct (35.3-44.9) % MCV (83.0-100.0) fL MCH (28.0-33.3) pg MCHC (31.6-35.5) g/dL RDW (11.5-14.5) % Plt Count (140-400) K/mcL MPV (9.4-12.4) fL Immature Gran % (0-4) % Seg Neutrophils % % Lymphocytes % % Monocytes % % Eosinophils % % Basophils % % Neutrophils # (1.6-8.9) K/mcL Lymphocytes # (0.6-4.6) K/mcL Monocytes # (0.0-1.3) K/mcL Eosinophils # (0.0-0.6) K/mcL Basophils # (0.0-0.2) K/mcL PT (9.4-12.1) Seconds INR APTT (26.0-36.0) Seconds Sodium (136-145) mEq/L Potassium (3.5-5.1) mEq/L Chloride (98-107) mEq/L Carbon Dioxide (23-29) mEq/L BUN (8-23) mg/dL Creatinine (0.60-1.20) mg/dL Est GFR ( Amer) (> 60) Est GFR (Non-Af Amer) (> 60) BUN/Creatinine Ratio (6-26) Glucose (70-105) mg/dL Calculated Osmolality (280-300) Lactic Acid 0.8 (0.5-2.2) mmol/L Calcium (8.6-10.3) mg/dL Phosphorus (2.7-4.5) mg/dL Magnesium (1.6-2.6) mg/dL Total Bilirubin (0.3-1.0) mg/dL Direct Bilirubin (0.0-0.2) mg/dL Indirect Bilirubin (0.0-1.2) mg/dL AST (13-39) Units/L ALT (7-52) Units/L Alkaline Phosphatase (34-104) Units/L Troponin I (< 0.04) ng/mL Serum Total Protein (6.4-8.9) g/dL Albumin (3.5-5.7) g/dL Globulin (2.4-3.5) g/dL Albumin/Globulin Ratio (1.1-2.2) Urine Color Yellow (Yellow) Urine Clarity Cloudy A (Clear) Urine pH 7.0 (5.0-8.0) pH Units Ur Specific [place] 1.025 (1.010-1.025) Urine Protein 30 H (Neg-Trace) mg/dL Urine Glucose (UA) Normal (Normal) mg/dL Urine Ketones Negative (Negative) mg/dL Urine Blood Large H (Negative) Urine Nitrite Negative (Negative) Urine Bilirubin Negative (Negative) Urine Urobilinogen Normal (Normal) mg/dL Ur Leukocyte Esterase Small H (Negative) Urine Microscopic RBC 5-15 H (0-3) per hpf Urine Microscopic WBC 30-50 H (0-3) per hpf Ur Squamous Epith Cells Many H (None-Few) per lpf Urine Bacteria Moderate H (None-Few) per hpf Hyaline Casts Few (None-Few) per lpf Ur Culture Indicated? YES A (NO) - Radiology Data Radiology results reviewed: Yes I reviewed the patient's radiology results. - EKG Data EKG attestation: Yes I reviewed and interpreted this EKG. EKG results narrative: EKG done at 2156 review myself and the attending shows sinus rhythm tachycardia at a rate of 107, ME interval 146, QRS 78, QTC 414. His no acute ST changes no acute T-wave changes no signs of ischemia. No signs of hypertrophy, heart strain, heart block. No WPW/Brugada/HOCM. EKG is unchanged based on old EKG done 02/21/19
[2019-04-17 22:52] LABS: INR 1.5; Prothrombin Time 16.8 Seconds (9.4-12.1)
[2019-04-17 22:54] LABS: Activated Partial Thrombo Time 37.8 Seconds (26.0-36.0)
[2019-04-18] MEDS ORDERED: Ondansetron ODT 4 MG TAB.RAPDIS SL PRN (01:28)
[2019-04-18] MEDS ORDERED: Naloxone 0.4 MG/ML INJ IVP PRN (01:28)
[2019-04-18] MEDS ORDERED: Ringers Solution, Lactated 1,000 ML IVC SCH (01:30)
[2019-04-18] MEDS ORDERED: Vancomycin (wt based) 1,000 MG VIAL IVPB SCH (02:00)
--- NOTE | 2019-04-18 02:18 | Internal Med History&Physical ---
Date of Encounter: 04/18/19 Time of Encounter: 02:16 Internal Medicine - H&P: HPI Chief complaint: cough, fever Admitted From: Home History of present illness: Ms. Bautista is a 74 year old female with past medical history of stage IV metastatic adenocarcinoma lung status post right upper lobectomy and chemotherapy presented to the ED for cough, shortness of breath and fever. The patient stated the productive cough, shortness of breath been occuring for a few months. Patent reported worsening this past week with being yellow and no alleviating or exacerbating factor not associated with nausea or vomiting chest pain, both daughters stated the patient been having abdominal pain this past few days but the patient refused to complain about it. Patient has been mostly staying in bed not much of any oral intake. Patient reported that her daughter came in today and checked her temperature was 103 thus was brought to the ED. Personally reviewed patient's past medical, surgical, family and social history. Patient continues to smoke 1 pack per day, no drinking or drugs. No family history of lung cancer. CODE STATUS was discussed in depth with family at bedside. Patient proceeded with a DNR/DNI. Patient recently started chemo thera py with next one scheduled next April 27. Patient understands that she has 1-2 years prognosis, and been having worsening appetite. Patient was started on chemo with 3 drugs with one being stopped due to concern of lunch involvement. Past Med Surg Social Fam HX - Past Medical History Medical history: arthritis, cancer, COPD, fibromyalgia, GERD, hyperlipidemia, osteoporosis Additional medical history: peptic ulcer disease - fibromyalgia - pleurisy. lung, stomach cancer Psychiatric history: no psych history - Past Surgical History Surgical History: breast surgery, cancer surgery, cataract, cholecystectomy, orthopedic, other, other Additional surgical history: lung resection,colonoscopy - breast biopsy - left neck lymph node - right CTR - little finger amputation, removal of right adrenal gland - Social History Smoking Status: Current every day smoker Smokeless Tobacco Status: No Alcohol use: none Drug use: none - Family History Mother Hx Family Cardiac Disorders: Yes (not sure what type) Hx Family Respiratory Disorders: No Hx Family Cancer: No Hx Family GI Disorders: No Hx Family Endocrine Disorder: Yes (DM) Hx Family Neuromuscular Disorders: No Hx Family Neurologic Disorders: No Hx Family HEENT Disorders: No Hx Family Autoimmune Disorders: No Father Living Status: Hx Family Cardiac Disorders: No Hx Family Respiratory Disorders: Yes (black lung) Hx Family Cancer: Yes (cancer) Hx Family GI Disorders: No Hx Family Endocrine Disorder: No Hx Family Neuromuscular Disorders: No Hx Family Neurologic Disorders: No Hx Family HEENT Disorders: No Hx Family Autoimmune Disorders: No Daughter Living Status: Still Living Hx Family Cardiac Disorders: No Hx Family Respiratory Disorders: No Internal Medicine - H&P: Meds Cholecalciferol (Vitamin D3) [Vitamin D3] 2,000 unit PO DAILY 03/17/15 [History] [place]-3/Dha/Epa/Fish Oil [Fish Oil Dr 500 mg Softgel] 1,000 mg PO DAILY 03/17/15 [History] Calcium Polycarbophil [Fibercon] 625 mg PO DAILY 08/12/15 [History] Albuterol Neb [Proventil Neb] 2.5 mg IH Q6H PRN 10/03/16 [History] Fluticasone Propionate Nasal [Flonase] 2 puff NS DAILY PRN 10/03/16 [History] Pantoprazole Sodium [Protonix] 40 mg PO DAILY #90 10/23/16 [Rx] Budesonide/Formoterol 160/4.5 [Symbicort 160/4.5] 2 puff IH BIDR 03/19/17 [History] Albuterol Sulfate [Proair Hfa] 2 puff IH Q4H 12/02/17 [History] Ipratropium/Albuterol Neb [Duoneb] 3 ml IH Q6HR 12/02/17 [History] Oxycodone HCl/Acetaminophen [Percocet 5-325 mg Tablet] 1 - 2 tab PO Q4-6H PRN 12/28/18 [History] Tizanidine HCl [Zanaflex] 4 mg PO HS 12/28/18 [History] Folic Acid 1 mg PO DAILY #30 tablet 02/16/19 [Rx] Ondansetron HCl 8 mg PO Q8H PRN #45 tablet 02/16/19 [Rx] Prochlorperazine Maleate [Compazine] 10 mg PO Q6HR PRN #90 tablet 02/16/19 [Rx] dexAMETHasone [Decadron] 4 mg PO BID PRN #45 tab 02/16/19 [Rx] Rivaroxaban [Xarelto] 20 mg PO DAILY #30 tablet 03/01/19 [Rx] GuaiFENesin/Codeine [Robitussin w/Codeine] 5 ml PO Q8H PRN 30 Days #400 liquid 04/02/19 [Rx] Benzonatate [Tessalon] 100 mg PO TID PRN 04/18/19 [History] Dronabinol [Marinol] 2.5 mg PO HS 04/18/19 [History] Allergy/AdvReac Type Severity Reaction Status Date / Time paclitaxel Allergy Severe Anaphylaxis Verified 04/17/19 21:43 Penicillins Allergy Severe Hives Verified 04/17/19 21:43 All Systems PM: A 10-system review of systems was performed and is negative for pertinent findings except as documented above in the HPI. Review of systems: General: + weightloss, + fever Head: No headahce, No injury. Ears: No discharge, No earache Eyes: No drainage, No eye pain Mouth and Throat: No new ulcers, No pain Nose and Sinus: No new congestion, No pain, Respiratory: + cough, + sputum production, + dyspnea Cardiovascular: No chest pain, No palpitations. Gastrointestinal: No nausea, No vomiting. no abdominal pain. Genital Tract: No discharge, No pain Urinary Tract: No dysuria, No discharge. MSK: No new/worsening joint pain, No new/worsening muscle ache. Endocrine: No cold intolerance, No polyuria Psychological: No suicidal, No homocidal ideation. - Constitutional Vitals: Temp Pulse Resp BP Pulse Ox 98.2 F 100 16 99/62 94 04/18/19 01:50 04/18/19 01:50 04/18/19 01:50 04/18/19 01:50 04/18/19 01:50 Exam: General Appearance: Appearing as age, frail malnourished in mild acute distress. Head: Atraumatic normocephalic Skin: Normal texture, normal turgor, warm, dry. Eyes: Conjunctivae not pale with no erythema, drainage, or ulcers. Anicteric. Neck: No Lymphadenopathy in the anterior/posterior cervical chain. No thyromegaly, masses or ulcers. Trachea midline. Heart: tachycardic, grade 2 systolic murmur. Capillary refill 3 seconds Lungs: mild accessory muscle usage, lungs clear to auscultation with right side crackles. Extremities: No pitting edema, No clubbing, No cyanosis. right 4th finger amputation. Abdomen: Non-distended, normoactive bowel sounds. non-tender to palpation, no hepatomegally. No guarding. Neuro: AOx3 with no new sensory loss or focal deficits. MSK: Strength 5/5 Upper extremity equal bilaterally. Strength 5/5 Lower extremity equal bilaterally Internal Med - H&P Results - Labs CBC & Chem 7: 04/18/19 04:02 04/18/19 04:02 Labs: Short CBC 04/17/19 Range/Units 22:05 WBC 8.4 (4.3-11.1) K/mcL Hgb 9.6 L (11.5-15.4) g/dL Hct 30.9 L (35.3-44.9) % Plt Count 150 (140-400) K/mcL Neutrophils # 6.9 (1.6-8.9) K/mcL BMP 04/17/19 22:05 Sodium 132 L Potassium 3.5 Chloride 101 Carbon Dioxide 20 L BUN 8 Creatinine 0.61 Glucose 104 Calcium 8.5 L Cardiac Enzymes 04/17/19 Range/Units 22:05 Troponin I 0.03 (< 0.04) ng/mL Liver Function 04/17/19 Range/Units 22:05 Total Bilirubin 0.4 (0.3-1.0) mg/dL Direct Bilirubin 0.1 (0.0-0.2) mg/dL AST 9 L (13-39) Units/L ALT 7 (7-52) Units/L Alkaline Phosphatase 87 (34-104) Units/L Albumin 3.6 (3.5-5.7) g/dL Urine 04/17/19 Range/Units 22:25 Urine Color Yellow (Yellow) Urine Clarity Cloudy A (Clear) Urine pH 7.0 (5.0-8.0) pH Units Ur Specific [place] 1.025 (1.010-1.025) Urine Protein 30 H (Neg-Trace) mg/dL Urine Glucose (UA) Normal (Normal) mg/dL - Impressions ITS Impressions Chest X-Ray 04/17/19 21:50 IMPRESSION: Posttreatment changes with no acute abnormality identified. D/ / Tera Barksdale MD / Tera Barksdale MD Interpreting Provider: Tera Barksdale MD Abdomen/Pelvis CT 04/17/19 21:58 IMPRESSION: 1. Worsened airspace consolidation the right middle lobe consistent with a right middle lobe pneumonia. 2. Gastric wall thickening corresponding to the clinical history of gastric malignancy. 3. No acute findings within the abdomen or pelvis. D/ / Jasper Garrett MD / Jasper Garrett MD Interpreting Provider: Jasper Garrett MD - Summary of Assessment and Plan Summary of Assessment and Plan: 1.Sepsis secondary to Community acquired pneumonia: Patient immunocompromised. Plan-Procal, MRSA PCR, sputum culture, strep Ag, legionella Vancomycin and cefepime. Considered escalation to cefepime if MRSA swab negative. 2. Abdominal Pain Likely malignancy related CT abdomen showed gastric wall thickening otherwise no acute findings. Palliative care consulted. 3.Macrocytic anemia: patient serially malnourished with low oral intake despite megace at home. Panel ordered. IV PPI orderred. Consult nutrition. 4.Hypovolemic hyponatremia: IVF and recheck. 5.Hematuria: No urinary symptoms. likely related to xeralto . Orderred CPK Outpatient f/u. DVT prophylaxis: on systemic anticoagulation Dispo: likely > 2days. - Time Spent With Patient Total time spent is greater than 40 minutes 50% in coordination of care (as documented) at patient's floor/unit and/or counseling patient: Greater than 35 minutes - VTE Reasons for not Prescribing Prophylaxis: Not indicated-Anticoagulated or INR therapeutic
[2019-04-18] MEDS ORDERED: *HR* Rivaroxaban 10 MG TABLET PO SCH (03:23)
[2019-04-18] MEDS ORDERED: dexAMETHasone 4 MG TABLET PO PRN (03:35)
[2019-04-18] MEDS ORDERED: Benzonatate 100 MG CAPSULE PO PRN (03:35)
[2019-04-18] MEDS ORDERED: Albuterol 2.5 MG/3 ML NEBULIZER IH PRN (03:35)
[2019-04-18] MEDS ORDERED: Ondansetron ODT 4 MG TAB.RAPDIS PO PRN (03:35)
[2019-04-18] MEDS ORDERED: Fluticasone Propionate Nasal 50 MCG/SPRAY BOTTLE NS PRN (03:35)
[2019-04-18] MEDS ORDERED: *HR* OxyCODONE/APAP 5/325 TABLET PO PRN ×2 (03:35→10:40)
[2019-04-18] MEDS: Benzonatate 100 MG CAPSULE PO PRN ×2 (03:39→14:40)
[2019-04-18] MEDS: Ipratropium/Albuterol Neb 3 ML IH SCH ×4 (04:08→23:16)
[2019-04-18 04:16] LABS: Basophils % 0.1 %; Eosinophils % 0.1 %; Hematocrit 26.3 % (35.3-44.9); Hemoglobin 8.3 g/dL (11.5-15.4); Immature Granulocytes % 0.8 % (0-4); Immature Reticulocyte % 24.6 % (11.0-38.0); Lymphocytes # 0.8 K/mcL (0.6-4.6); Lymphocytes % 10.3 %; Mean Corpuscular HGB Conc 31.6 g/dL (31.6-35.5); Mean Corpuscular Hemoglobin 33.3 pg (28.0-33.3); Mean Corpuscular Volume 105.6 fL (83.0-100.0); Mean Platelet Volume 9.1 fL (9.4-12.4); Monocytes # 0.6 K/mcL (0.0-1.3); Monocytes % 8.1 %; Neutrophils # 6.2 K/mcL (1.6-8.9); Platelet Count 121 K/mcL (140-400); Red Blood Count 2.49 M/mcL (3.82-4.97); Red Cell Distribution Width 16.4 % (11.5-14.5); Retculocyte # 0.07 M/mcL (0.05-0.10); Reticulocyte % 2.9 % (1.6-2.8); Segmented Neutrophils % 80.6 %; White Blood Count 7.7 K/mcL (4.3-11.1)
[2019-04-18 04:24] LABS: VBG HCO3 22 mEq/L (21-27); VBG PCO2 34 mmHg (41-51); VBG PH 7.42 pH Units (7.32-7.42); VBG PO2 227 mmHg (25-50)
[2019-04-18 04:35] LABS: BUN/Creatinine Ratio 12 (6-26); Blood Urea Nitrogen 7 mg/dL (8-23); Calcium 7.5 mg/dL (8.6-10.3); Carbon Dioxide 19 mEq/L (23-29); Chloride 107 mEq/L (98-107); Glucose 166 mg/dL (70-105); Magnesium 1.6 mg/dL (1.6-2.6); Osmolality,Calculated 284 (280-300); Phosphorous 2.1 mg/dL (2.7-4.5); Potassium 3.1 mEq/L (3.5-5.1); Sodium 136 mEq/L (136-145); eGFR For African Americans > 60 (> 60); eGFR For Non-African Americans > 60 (> 60)
[2019-04-18 04:37] LABS: % Iron Saturation 7 % (15-50); Iron 14 mcg/dL (50-170); Transferrin 152 mg/dL (203-362)
[2019-04-18 04:56] LABS: Ferritin 235 ng/mL (10-120)
[2019-04-18 04:59] LABS: Folate > 22.3 ng/mL (3.0-16.0); Vitamin B12 > 1500 pg/mL (250-1100)
[2019-04-18] MEDS ORDERED: NON-FORMULARY MEDICATION 1 EACH EACH (Rivaroxaban [Xarelto] 20 MG) PO SCH (09:00)
[2019-04-18] MEDS: GuaiFENesin/Codeine Oral Soln 5 ML UDC PO PRN ×2 (09:22→17:20)
[2019-04-18] MEDS: Cefepime HCl 2,000 MG in Water for inj. (sterile) 20 ML IVP SCH ×2 (09:22→17:06)
[2019-04-18] MEDS: Budesonide/Formoterol 160/4.5 1 PUFF INH IH SCH ×2 (10:42→23:16)
[2019-04-18] MEDS: *HR* Rivaroxaban 10 MG TABLET PO SCH (11:09)
--- NOTE | 2019-04-18 11:28 | Internal Med Progress Note ---
<Stefani Ball - Last Filed: 04/18/19 11:34> Hospitalist Progress Note - Encounter Date of Encounter: 04/18/19 - Exam Vitals: Temp Pulse Resp BP Pulse Ox 97.8 F 88 16 105/61 95 04/18/19 09:58 04/18/19 09:58 04/18/19 10:42 04/18/19 09:58 04/18/19 10:42 - Time Spent with Patient Total time spent is greater than 50% in coordination of care (as documented) at patient's floor/unit and/or counseling patient: Internal Medicine: Result - Labs CBC & Chem 7: 04/18/19 04:02 04/18/19 04:02 Labs: Short CBC 04/17/19 04/18/19 Range/Units 22:05 04:02 WBC 8.4 7.7 (4.3-11.1) K/mcL Hgb 9.6 L 8.3 L (11.5-15.4) g/dL Hct 30.9 L 26.3 L (35.3-44.9) % Plt Count 150 121 L (140-400) K/mcL Neutrophils # 6.9 6.2 (1.6-8.9) K/mcL BMP 04/17/19 04/18/19 22:05 04:02 Sodium 132 L 136 Potassium 3.5 3.1 L Chloride 101 107 Carbon Dioxide 20 L 19 L BUN 8 7 L Creatinine 0.61 0.58 L Glucose 104 166 H Calcium 8.5 L 7.5 L Cardiac Enzymes 04/17/19 04/18/19 Range/Units 22:05 04:02 Troponin I 0.03 < 0.03 (< 0.04) ng/mL Liver Function 04/17/19 Range/Units 22:05 Total Bilirubin 0.4 (0.3-1.0) mg/dL Direct Bilirubin 0.1 (0.0-0.2) mg/dL AST 9 L (13-39) Units/L ALT 7 (7-52) Units/L Alkaline Phosphatase 87 (34-104) Units/L Albumin 3.6 (3.5-5.7) g/dL Urine 04/17/19 Range/Units 22:25 Urine Color Yellow (Yellow) Urine Clarity Cloudy A (Clear) Urine pH 7.0 (5.0-8.0) pH Units Ur Specific [place] 1.025 (1.010-1.025) Urine Protein 30 H (Neg-Trace) mg/dL Urine Glucose (UA) Normal (Normal) mg/dL - ABG Interpretation ABG results: PT/INR, D-dimer PT 16.8 Seconds (9.4-12.1) H 04/17/19 22:05 - Impressions Impressions Chest X-Ray 04/17/19 21:50 IMPRESSION: Posttreatment changes with no acute abnormality identified. D/ / Tera Barksdale MD / Tera Barksdale MD Interpreting Provider: Tera Barksdale MD Abdomen/Pelvis CT 04/17/19 21:58 IMPRESSION: 1. Worsened airspace consolidation of the right middle lobe consistent with a right middle lobe pneumonia. 2. Gastric wall thickening corresponding to the clinical history of gastric malignancy. 3. No acute findings within the abdomen or pelvis. D/ / 04/18/2019 07:12:45 Jasper Garrett MD / belen Interpreting Provider: Jasper Garrett MD Consult Discharge Plan - Plan Referrals: Jemal Rodriguez DO [Primary Care Provider] - - Attending Attestation I examined this patient and my medical decision-making was reviewed with the Resident Physician Dr Fernando. I agree with the documented findings, dispositi on and treatment plan as described except to the extent set forth below. Ms Bautista is being observed for sepsis and pna awake, very tired, poor sleep at baseline and didn't sleep last night. most info is obtained from daughter at bedside. pt denies any sob right now, stating cough is better but daughter shakes head no and states she coughedd all night. Pt denies hemoptysis or bleeding elsewhere. AC is for LUE and left cherrie clot per daughter. Very lengthy discussion with pt, daughter and w senior resident present re code status. gen- alert, awake,appears stated age, tired appearing cv- reg rate and rhythm, normal s1,s2 lungs- diminished right bs, no rhonchi or crackles, no wheezing, normal resp effort on room air abd- soft, nt, nd, no appreciable mass neuro- AAOx3 sepsis, resolved- suspect 2/2 pna, given immunocompromised state on chemo, tho ugh not neutropenic- cont broad iv abx cefepime + vanc, follow pending cxs, cont ivfs RML pna, org uk- attempt to ID organism, iv abx, nebs metastatic aednocarcinoma lung on chemo- palliative consult as d/w family acute on chronic anemia- will monitor on her AC, no overt bleeding, microscopic rbc in urine, will get her heme/onc on board as needed further dx and plan as noted by resident <Domenico Fernando - Last Filed: 04/18/19 14:08> Hospitalist Progress Note - Encounter Date of Encounter: 04/18/19 Time of Encounter: 11:28 - Subjective Interval History: No acute events overnight. Based on records review patient appears to have im proved clinically this morning. We did have discussion regarding CODE STATUS. She apparently had been DNR/CCA/DNI prior to arrival had switched to full code on admission. We discussed pros and cons this morning and I let her discuss it with her daughter and she decided to go back to DNR/CCA/DNI. She has no other acute complaints this morning and agrees with our plan of care regarding IV antibiotics and other supportive care. - Exam Vitals: Temp Pulse Resp BP Pulse Ox 97.8 F 88 16 105/61 95 04/18/19 09:58 04/18/19 09:58 04/18/19 10:42 04/18/19 09:58 04/18/19 10:42 Exam: General Appearance: Appearing as age, frail malnourished in no acute distress. Head: Atraumatic normocephalic Skin: Normal texture, normal turgor, warm, dry. Eyes: Conjunctivae not pale with no erythema, drainage, or ulcers. Anicteric. Heart: Regular rate and rhythm, I did not appreciate a murmur. Lungs: Shallow tachypnea, lungs clear to auscultation Extremities: No pitting edema, No clubbing, No cyanosis. Abdomen: Non-distended, normoactive bowel sounds. non-tender to palpation Neuro: AOx3 with no new sensory loss or focal deficits. - Assessment and Plan (1) Sepsis Current Visit: Yes Status: Resolved Assessment and Plan: Patient presented to the emergency department with the chief complaints of cough, shortness of breath, fever Evaluation demonstrated that she met SIRS criteria and right middle lobe p neumonia was identified on CT She was diagnosed with sepsis secondary to community-acquired pneumonia, complicated by immunocompromised state She was admitted and started on vancomycin and cefepime for gram-negative/gram-positive/atypical coverage She did not have any risk factors including recent hospitalization that would require double Pseudomonas coverage Overnight and as of this morning her clinical disposition is significantly improved and she is no longer meeting sepsis criteria Urine and blood cultures are pending and we will continue to monitor and tailor antibiotics as they result (2) Immunocompromised state due to drug therapy Current Visit: Yes Status: Acute Assessment and Plan: Patient is receiving chemotherapy for metastatic lung cancer She is not currently neutropenic however we are treating with broad-spectrum empiric antibiotics We are also testing for Legionella, strep pneumo, pro-calcitonin, and MRSA (3) Lung cancer, primary, with metastasis from lung to other site Current Visit: Yes Status: Chronic Assessment and Plan: Patient has history of lung cancer status post right upper lobe lobectomy She does follow outpatient with the [facility] and is currently receiv ing a chemotherapy regimen (4) DVT (deep venous thrombosis) Current Visit: No Status: Chronic Assessment and Plan: 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 She is on Xarelto for this which we have continued here We will continue to monitor for other hypercoagulable sequela (5) Hematuria Current Visit: Yes Status: Acute Assessment and Plan: Microscopic hematuria was identified on urinalysis at admission Patient is not complaining of any urinary symptoms This is likely secondary to Xarelto use Urinary cultures are collected and pending We will continue to monitor and intervene as necessary (6) Anemia Current Visit: Yes Status: Chronic Assessment and Plan: Patient presented with macrocytic anemia hemoglobin 9.6, review of records indicates this has been slowly declining for several months She has no overt signs of bleeding, iron profile was found to be low, B12 and folate significantly elevated She has multiple comorbidities that may be causing this anemia We will continue to monitor and will consult hematology if her anemia continues to worsen (7) Right middle lobe pneumonia Current Visit: Yes Status: Acute DVT Prophylaxis: Continuing home Xarelto - Time Spent with Patient Total time spent is greater than 50% in coordination of care (as documented) at patient's floor/unit and/or counseling patient: Internal Medicine: Result - Labs CBC & Chem 7: 04/18/19 04:02 04/18/19 04:02 Labs: Short CBC 04/17/19 04/18/19 Range/Units 22:05 04:02 WBC 8.4 7.7 (4.3-11.1) K/mcL Hgb 9.6 L 8.3 L (11.5-15.4) g/dL Hct 30.9 L 26.3 L (35.3-44.9) % Plt Count 150 121 L (140-400) K/mcL Neutrophils # 6.9 6.2 (1.6-8.9) K/mcL BMP 04/17/19 04/18/19 22:05 04:02 Sodium 132 L 136 Potassium 3.5 3.1 L Chloride 101 107 Carbon Dioxide 20 L 19 L BUN 8 7 L Creatinine 0.61 0.58 L Glucose 104 166 H Calcium 8.5 L 7.5 L Cardiac Enzymes 04/17/19 04/18/19 Range/Units 22:05 04:02 Troponin I 0.03 < 0.03 (< 0.04) ng/mL Liver Function 04/17/19 Range/Units 22:05 Total Bilirubin 0.4 (0.3-1.0) mg/dL Direct Bilirubin 0.1 (0.0-0.2) mg/dL AST 9 L (13-39) Units/L ALT 7 (7-52) Units/L Alkaline Phosphatase 87 (34-104) Units/L Albumin 3.6 (3.5-5.7) g/dL Urine 04/17/19 Range/Units 22:25 Urine Color Yellow (Yellow) Urine Clarity Cloudy A (Clear) Urine pH 7.0 (5.0-8.0) pH Units Ur Specific [place] 1.025 (1.010-1.025) Urine Protein 30 H (Neg-Trace) mg/dL Urine Glucose (UA) Normal (Normal) mg/dL - ABG Interpretation ABG results: PT/INR, D-dimer PT 16.8 Seconds (9.4-12.1) H 04/17/19 22:05 - Impressions Impressions Chest X-Ray 04/17/19 21:50 IMPRESSION: Posttreatment changes with no acute abnormality identified. D/ / Tera Barksdale MD / Tera Barksdale MD Interpreting Provider: Tera Barksdale MD Abdomen/Pelvis CT 04/17/19 21:58 IMPRESSION: 1. Worsened airspace consolidation of the right middle lobe consistent with a right middle lobe pneumonia. 2. Gastric wall thickening corresponding to the clinical history of gastric malignancy. 3. No acute findings within the abdomen or pelvis. D/ / 04/18/2019 07:12:45 Jasper Garrett MD / belen Interpreting Provider: Jasper Garrett MD - VTE Reasons for not Prescribing Prophylaxis: Not indicated-Anticoagulated or INR therapeutic _ <Domenico Fernando - Last Filed: 04/18/19 14:08> (1) Sepsis Qualifiers: Sepsis type: sepsis due to unspecified organism Sepsis acute organ dysfunction status: without acute organ dysfunction Qualified Code(s): A41.9 - Sepsis, unspecified organism (3) Lung cancer, primary, with metastasis from lung to other site Qualifiers: Laterality: right Qualified Code(s): C34.91 - Malignant neoplasm of unspecified part of right bronchus or lung (4) DVT (deep venous thrombosis) Qualifiers: DVT location: upper extremity Affected thrombotic vein of extremity: unspecified vein of extremity Chronicity: unspecified Laterality: left Qualified Code(s): I82.622 - Acute embolism and thrombosis of deep veins of left upper extremity (5) Hematuria Qualifiers: Hematuria type: asymptomatic microscopic Qualified Code(s): R31.21 - Asymptomatic microscopic hematuria (6) Anemia Qualifiers: Anemia type: unspecified type Qualified Code(s): D64.9 - Anemia, unspecified (7) Right middle lobe pneumonia Qualifiers: Pneumonia type: due to unspecified organism Qualified Code(s): J18.1 - Lobar pneumonia, unspecified organism
[2019-04-18] MEDS: tiZANidine 4 MG TABLET PO SCH (22:26)
[2019-04-19] MEDS: Cefepime HCl 2,000 MG in Water for inj. (sterile) 20 ML IVP SCH ×3 (00:39→16:25)
[2019-04-19] MEDS: Ipratropium/Albuterol Neb 3 ML IH SCH ×4 (03:54→22:19)
[2019-04-19] MEDS: Benzonatate 100 MG CAPSULE PO PRN ×2 (04:18→20:36)
[2019-04-19 05:10] LABS: Basophils % 0.3 %; Eosinophils % 0.5 %; Hematocrit 25.1 % (35.3-44.9); Hemoglobin 7.9 g/dL (11.5-15.4); Immature Granulocytes % 0.9 % (0-4); Lymphocytes # 0.8 K/mcL (0.6-4.6); Lymphocytes % 12.7 %; Mean Corpuscular HGB Conc 31.5 g/dL (31.6-35.5); Mean Corpuscular Hemoglobin 32.8 pg (28.0-33.3); Mean Corpuscular Volume 104.1 fL (83.0-100.0); Mean Platelet Volume 9.2 fL (9.4-12.4); Monocytes # 0.4 K/mcL (0.0-1.3); Monocytes % 6.8 %; Platelet Count 127 K/mcL (140-400); Red Blood Count 2.41 M/mcL (3.82-4.97); Red Cell Distribution Width 16.3 % (11.5-14.5); Segmented Neutrophils % 78.8 %; White Blood Count 6.4 K/mcL (4.3-11.1)
[2019-04-19 05:16] LABS: Magnesium 1.6 mg/dL (1.6-2.6); Phosphorous 2.5 mg/dL (2.7-4.5)
[2019-04-19 05:18] LABS: BUN/Creatinine Ratio 13 (6-26); Blood Urea Nitrogen 7 mg/dL (8-23); Calcium 7.7 mg/dL (8.6-10.3); Carbon Dioxide 22 mEq/L (23-29); Chloride 107 mEq/L (98-107); Glucose 116 mg/dL (70-105); Osmolality,Calculated 283 (280-300); Potassium 3.3 mEq/L (3.5-5.1); Sodium 137 mEq/L (136-145); eGFR For African Americans > 60 (> 60); eGFR For Non-African Americans > 60 (> 60)
[2019-04-19] MEDS ORDERED: Ringers Solution, Lactated 1,000 ML IVC SCH (07:45)
--- NOTE | 2019-04-19 08:19 | Internal Med Progress Note ---
<Blue Salazar - Last Filed: 04/19/19 15:26> Hospitalist Progress Note - Encounter Date of Encounter: 04/19/19 Time of Encounter: 08:19 - Subjective Interval History: No acute events overnight. Patient is in bed, comfortable, alert, with daughter at bedside. Reports some generalized fatigue and weakness. Appetite reduced, taran amee was asking if she could continue her PO Dronabinol [facility]. Denies cp, sob, fever, chills, n/v. - Exam Vitals: Temp Pulse Resp BP Pulse Ox 98.1 F 101 15 112/73 96 04/19/19 07:39 04/19/19 07:39 04/19/19 07:39 04/19/19 07:39 04/19/19 07:39 Exam: GA: A&Ox3, frail, no acute distress. Head: Atraumatic normocephalic Skin: Normal texture, normal turgor, warm, dry. Eyes: Conjunctivae WNL. Anicteric. Heart: RRR, S1/S2 WNL. No murmurs, rubs, gallops. Lungs: CTA bilaterally, pt coughs with deep inspiration, no rales or rhonchi. Extremities: No cyanosis, clubbing, edema. Abdomen: Non-distended, normoactive bowel sounds, non-tender to palpation, no guarding. Neuro: No sensory loss or focal deficits. CN grossly intact. - Assessment and Plan (1) Right middle lobe pneumonia Current Visit: Yes Status: Acute Assessment and Plan: Pt with right middle lobe PNA demonstrated by CT. Receiving chemotherapy for stage IV adenocarcinoma of lung s/p right upper lobectomy. No neutropenia, currently afebrile. No leukocytosis. Improving on current antibiotic regimen. She continues to improve and no longer meets sepsis criteria. - Continue IV vancomycin and cefepime. - Urine culture revealed group B strep, likely colinization. Continue current abx regimen for coverage. - Negative MRSA and legionella screen. - Blood cultures pending, will tailor abx when results obtained. (2) Anemia Current Visit: Yes Status: Chronic Assessment and Plan: Pt with a recent Hbg of 7.9, down from 9.6 at admission. MCV elevated w/o evidence of B12 deficiency. She endorses generalized weakness and fatigue. No neurologic signs or evidence of microcytic anemia. - Heme/Onc consulted for further evaluation/management. Recommends 1 unit of PRBC at this time. Likely etiology is secondary to stomach mets. - Pt typed and crossed, order for 1 U PRBC given. - We will continue to monitor with H&H daily. (3) Immunocompromised state due to drug therapy Current Visit: Yes Status: Acute Assessment and Plan: Patient is receiving chemotherapy with [facility] for metastatic lung cancer . She is not currently neutropenic. - MRSA and legionella screening negative. - Awaiting final blood culture report. 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 Appreciate there assistance. (4) Lung cancer, primary, with metastasis from lung to other site Current Visit: Yes Status: Chronic Assessment and Plan: S/P right upper lobectomy with metastasis. Pt is currently stable with moderate sputum production. Dyspnea resolved and at baseline. - Continue treatment of right PNA with IV antibiotics. - Hematology consulted for Hbg of 7.9, recs 1 unit of blood at this time. - Continue home Marinol for appetite/pain. (5) Sepsis Current Visit: Yes Status: Resolved Assessment and Plan: Patient met SIRS criteria upon admission secondary to right middle lobe PNA. Not currently neutropenic, however she is receiving chemotherapy for metastatic lung CA. - Continue IV abx's for associated right middle lobe PNA. - Awaiting blood culture results. (6) Hematuria Current Visit: Yes Status: Acute Assessment and Plan: Microscopic hematuria was identified on U/A at admission. Likely secondary to Xarelto use. Pt is asymptomatic at this time. - Urine culture revealed group B strep. Asymptomatic. - Continue broad spectrum IV abx for right PNA. - Continue to monitor at this time. (7) DVT (deep venous thrombosis) Current Visit: No Status: Chronic Assessment and Plan: Continue home Xarelto DVT Prophylaxis: Continuing home Xarelto - Time Spent with Patient Total time spent is greater than 50% in coordination of care (as documented) at patient's floor/unit and/or counseling patient: Plan of Care Discussed with: patient Internal Medicine: Result - Labs CBC & Chem 7: 04/19/19 04:39 04/19/19 04:39 Labs: Short CBC 04/19/19 Range/Units 04:39 WBC 6.4 (4.3-11.1) K/mcL Hgb 7.9 L (11.5-15.4) g/dL Hct 25.1 L (35.3-44.9) % Plt Count 127 L (140-400) K/mcL Neutrophils # 5.0 (1.6-8.9) K/mcL BMP 04/19/19 04:39 Sodium 137 Potassium 3.3 L Chloride 107 Carbon Dioxide 22 L BUN 7 L Creatinine 0.55 L Glucose 116 H Calcium 7.7 L - ABG Interpretation ABG results: PT/INR, D-dimer PT 16.8 Seconds (9.4-12.1) H 04/17/19 22:05 - Impressions Impressions Abdomen/Pelvis CT 04/17/19 21:58 IMPRESSION: 1. Worsened airspace consolidation of the right middle lobe consistent with a right middle lobe pneumonia. 2. Gastric wall thickening corresponding to the clinical history of gastric malignancy. 3. No acute findings within the abdomen or pelvis. D/ / 04/18/2019 07:12:45 Jasper Garrett MD / belen Interpreting Provider: Jasper Garrett MD - VTE Reasons for not Prescribing Prophylaxis: Not indicated-Anticoagulated or INR therapeutic Consult Discharge Plan - Plan Referrals: Jemal Rodriguez DO [Primary Care Provider] - <Stefani Ball - Last Filed: 04/19/19 16:46> Hospitalist Progress Note - Encounter Date of Encounter: 04/19/19 - Exam Vitals: Temp Pulse Resp BP Pulse Ox 98.4 F 89 16 114/62 98 04/19/19 16:13 04/19/19 16:13 04/19/19 16:13 04/19/19 16:13 04/19/19 16:13 - Time Spent with Patient Total time spent is greater than 50% in coordination of care (as documented) at patient's floor/unit and/or counseling patient: Internal Medicine: Result - Labs CBC & Chem 7: 04/19/19 04:39 04/19/19 04:39 Labs: Short CBC 04/19/19 Range/Units 04:39 WBC 6.4 (4.3-11.1) K/mcL Hgb 7.9 L (11.5-15.4) g/dL Hct 25.1 L (35.3-44.9) % Plt Count 127 L (140-400) K/mcL Neutrophils # 5.0 (1.6-8.9) K/mcL BMP 04/19/19 04:39 Sodium 137 Potassium 3.3 L Chloride 107 Carbon Dioxide 22 L BUN 7 L Creatinine 0.55 L Glucose 116 H Calcium 7.7 L - ABG Interpretation ABG results: PT/INR, D-dimer PT 16.8 Seconds (9.4-12.1) H 04/17/19 22:05 - Impressions Impressions Abdomen/Pelvis CT 04/17/19 21:58 IMPRESSION: 1. Worsened airspace consolidation of the right middle lobe consistent with a right middle lobe pneumonia. 2. Gastric wall thickening corresponding to the clinical history of gastric malignancy. 3. No acute findings within the abdomen or pelvis. D/ / 04/18/2019 07:12:45 Jasper Garrett MD / belen Interpreting Provider: Jasper Garrett MD - Attending Attestation I examined this patient and my medical decision-making was reviewed with the Resident Physician Dr Salazar. I agree with the documented findings, disposition and treatment plan as described except to the extent set forth below. Ms Bautista is being observed for sepsis and pna awake, improved energy, cont couhg, no sputum, deneis fevers, chills gen- alert, awake,appears stated age cv- reg rate and rhythm, normal s1,s2 lungs- ctabl normal resp effort on room air neuro- AAOx3 sepsis, resolved- suspect 2/2 pna, - cont broad iv abx cefepime + vanc, follow pending cxs, cont ivfs RML pna, org uk- attempt to ID organism, iv abx metastatic aednocarcinoma lung on chemo- palliative consult as d/w family acute on chronic anemia- d/w Dr Fong and will give 1 unit prbc today, slow do wntrend 2/2 gastric malignancy + chemo further dx and plan as noted by resident <Blue Salazar - Last Filed: 04/19/19 15:26> (1) Right middle lobe pneumonia Qualifiers: Pneumonia type: due to unspecified organism Qualified Code(s): J18.1 - Lobar pneumonia, unspecified organism (2) Anemia Qualifiers: Anemia type: unspecified type Qualified Code(s): D64.9 - Anemia, unspecified (4) Lung cancer, primary, with metastasis from lung to other site Qualifiers: Laterality: right Qualified Code(s): C34.91 - Malignant neoplasm of unspecified part of right bronchus or lung (5) Sepsis Qualifiers: Sepsis type: sepsis due to unspecified organism Sepsis acute organ dysfunction status: without acute organ dysfunction Qualified Code(s): A41.9 - Sepsis, unspecified organism (6) Hematuria Qualifiers: Hematuria type: asymptomatic microscopic Qualified Code(s): R31.21 - Asymptomatic microscopic hematuria (7) DVT (deep venous thrombosis) Qualifiers: DVT location: upper extremity Affected thrombotic vein of extremity: unspecified vein of extremity Chronicity: unspecified Laterality: left Qualified Code(s): I82.622 - Acute embolism and thrombosis of deep veins of left upper extremity
--- NOTE | 2019-04-19 10:40 | Electrocardiograph Report ---
[place] [address] Test Date: 2019-04-17 Pat Name: Alex Bautista Department: EXAM19 Room: 3A51 Gender: F Board Member: : 1945 Requested By: Damon Schwab Order Number: [id number] Reading MD: Segundo Barrera Measurements Intervals [place] Rate: 107 P: 81 OK: 146 QRS: 17 QRSD: 78 T: 71 QT: 310 QTc: 414 Interpretive Statements Sinus tachycardia Electronically Signed On 04-19-2019 10:38:38 EDT by Segundo Barrera
[2019-04-19] MEDS: Budesonide/Formoterol 160/4.5 1 PUFF INH IH SCH ×2 (10:59→22:19)
[2019-04-19] MEDS: *HR* Rivaroxaban 10 MG TABLET PO SCH (11:29)
--- NOTE | 2019-04-19 11:39 | Palliative - Consult Note ---
<Fanta Egan B - Last Filed: 04/19/19 13:51> Date of Encounter: 04/19/19 Time of Encounter: 11:00 - Assessment and Plan (1) Advanced care planning/counseling discussion Current Visit: Yes Status: Acute Assessment and plan: Had discussion with patient and patient's daughter regarding goals of care. Patient is aware of her current diagnosis of Stage IV lung cancer. She is currently receiving chemotherapy treatment from [facility] with plans for immunotherapy after. Patient has completed a HPOA while while at an appointment with [facility]. She has decided during this hospitalization to be DNR-CCA/CCI. Discussed with patient potential treatment options includi g working with oncology or consideration for hospice care. At this time recommended that patient talk with her oncology team to discuss current treatment options risks and benefits and to explore all of her options. Also discussed hospice care. Explained how at home hospice works, that it covers hospice medications, that it involves the cessation of all disease modifying treatments, which in this case would be chemotherapy/immunotherapy for the patient. Explained that this decision is not necessary to be made at this time, and that as patient reports that she is not ready for hospcie at this time, informed them that if they decide that they want to consider hospice after discharge , that the patient can contact their outpatient physicians or [place] [facility] directly to get referrals. (2) Decreased appetite Current Visit: Yes Status: Acute Assessment and plan: Recommend continuation of outpatient Dranabinol as per family report this medication has been helping patient with her appetite since she has been on chemotherapy. (3) Right middle lobe pneumonia Current Visit: Yes Status: Acute Qualifiers: Pneumonia type: due to unspecified organism Qualified Code(s): J18.1 - Lobar pneumonia, unspecified organism (4) Lung cancer, primary, with metastasis from lung to other site Current Visit: Yes Status: Chronic Qualifiers: Laterality: right Qualified Code(s): C34.91 - Malignant neoplasm of unspecified part of right bronchus or lung (5) Sepsis Current Visit: Yes Status: Resolved Qualifiers: Sepsis type: sepsis due to unspecified organism Sepsis acute organ dysfunction status: without acute organ dysfunction Qualified Code(s): A41.9 - Sepsis, unspecified organism Palliative-CN HPI - Data of Consult Patient: new to practice Consult date: 04/19/19 Requesting Physician: Stefani Ball Primary Care Provider: Jemal Rodriguez, DO - Consult Narrative Palliative Care/Comfort Measures: Palliative care Reason for consult: Goals of Care conversation History of present illness: Ms. Bautista is a 74 year old female with a past medical history of stage IV lung cancer with mets to lymph nodes and stomach, previously treated in 2015 with a lobectomy as well as chemotherapy, currently receiving chemotherapy with plans for immunotherapy in the future through [facility]. She has received 3 chemotherapy treatments at this time, with a forth scheduled for later this month. Patient is currently being treated for a pneumonia. Daughter reports that the patient lives at home with her and the patients and the patient's grandson. She reports that the patient always has someone present in the home caring for her. They report that at home the patient is able to walk around the house, but does get out of breath easily. She has recently been able to cook a simple meal at home. She also has decreased energy and decreased appetite since being on chemotherapy. They report that they choose to do chemotherapy in hopes that it would extend her life. They also report concerns that the patient is not receiving her dranabinol as it was helpful for the patient's appetite which has been reduced since being on chemotherapy. CC: Stefani Ball - Time Spent with Patient Time: Total time spent is greater than 50% in coordination of care (as documented) at patient's floor/unit and/or counseling patient: Time with patient: 45 minutes Past Med Surg Social Fam HX - Past Medical History Medical history: arthritis, cancer, COPD, fibromyalgia, GERD, osteoporosis Additional medical history: peptic ulcer disease - fibromyalgia - pleurisy. lung, stomach cancer Psychiatric history: no psych history - Past Surgical History Surgical History: breast surgery, cancer surgery, cataract, cholecystectomy, orthopedic, other, other Additional surgical history: lung resection,colonoscopy - breast biopsy - left neck lymph node - right CTR - little finger amputation, removal of right adrenal gland - Social History Smoking Status: Current every day smoker Packs per day: 1 Smokeless Tobacco Status: No Alcohol use: none Drug use: none - Family History Mother Hx Family Cardiac Disorders: Yes (not sure what type) Hx Family Respiratory Disorders: No Hx Family Cancer: No Hx Family GI Disorders: No Hx Family Endocrine Disorder: Yes (DM) Hx Family Neuromuscular Disorders: No Hx Family Neurologic Disorders: No Hx Family HEENT Disorders: No Hx Family Autoimmune Disorders: No Father Living Status: Hx Family Cardiac Disorders: No Hx Family Respiratory Disorders: Yes (black lung) Hx Family Cancer: Yes (cancer) Hx Family GI Disorders: No Hx Family Endocrine Disorder: No Hx Family Neuromuscular Disorders: No Hx Family Neurologic Disorders: No Hx Family HEENT Disorders: No Hx Family Autoimmune Disorders: No Daughter Living Status: Still Living Hx Family Cardiac Disorders: No Hx Family Respiratory Disorders: No Medications and Allergies Calcium Polycarbophil [Fibercon] 625 mg PO DAILY 08/12/15 [History] Albuterol Neb [Proventil Neb] 2.5 mg IH Q6H PRN 10/03/16 [History] Fluticasone Propionate Nasal [Flonase] 2 puff NS DAILY PRN 10/03/16 [History] Pantoprazole Sodium [Protonix] 40 mg PO DAILY #90 10/23/16 [Rx] Budesonide/Formoterol 160/4.5 [Symbicort 160/4.5] 2 puff IH BIDR 03/19/17 [History] Albuterol Sulfate [Proair Hfa] 2 puff IH Q4H 12/02/17 [History] Oxycodone HCl/Acetaminophen [Percocet 5-325 mg Tablet] 1 - 2 tab PO Q4-6H PRN 12/28/18 [History] Tizanidine HCl [Zanaflex] 4 mg PO HS PRN 12/28/18 [History] Folic Acid 1 mg PO DAILY #30 tablet 02/16/19 [Rx] Ondansetron HCl 8 mg PO Q8H PRN #45 tablet 02/16/19 [Rx] Prochlorperazine Maleate [Compazine] 10 mg PO Q6HR PRN #90 tablet 02/16/19 [Rx] dexAMETHasone [Decadron] 4 mg PO BID PRN #45 tab 02/16/19 [Rx] Rivaroxaban [Xarelto] 20 mg PO DAILY #30 tablet 03/01/19 [Rx] GuaiFENesin/Codeine [Robitussin w/Codeine] 5 ml PO Q8H PRN 30 Days #400 liquid 04/02/19 [Rx] Benzonatate [Tessalon] 100 mg PO TID PRN 04/18/19 [History] Dronabinol [Marinol] 2.5 mg PO HS 04/18/19 [History] Cholecalciferol (Vitamin D3) [Vitamin D3] 1,000 units PO DAILY 04/19/19 [History] [place]-3/Dha/Epa/Fish Oil [Fish Oil 1,000 mg Softgel] 1,000 mg PO DAILY 04/19/19 [History] Allergy/AdvReac Type Severity Reaction Status Date / Time paclitaxel Allergy Severe Anaphylaxis Verified 04/19/19 11:08 Penicillins Allergy Severe Hives Verified 04/19/19 11:08 - Constitutional Constitutional ROS PAL: decreased appetite - EENT Eyes: no change in vision Ears: no decreased hearing - Cardiovascular Cardiovascular ROS: dyspnea on exertion, no chest pain - Respiratory Respiratory: cough, dyspnea, dyspnea on exertion - Gastrointestinal Gastrointestinal: no diarrhea - Genitourinary Palliative ROS female: no dysuria - Musculoskeletal Musculoskeletal ROS IM: no muscle weakness - Neurological Neurological ROS: weakness, no abnormal movements Palliative Care-Exam - Constitutional Vitals: Temp Pulse Resp BP Pulse Ox 97.6 F 98 14 109/63 96 04/19/19 11:12 04/19/19 11:12 04/19/19 11:12 04/19/19 11:12 04/19/19 11:12 General appearance: Present: average body habitus, no acute distress - Head Head Exam: Present: atraumatic, normocephalic - ENT ENT exam: Present: mucous membranes moist - Neck Neck exam: Present: full ROM - Respiratory Respiratory exam: Present: CTAB. Absent: accessory muscle use - Cardiovascular Cardiovascular exam: Present: RRR, +S1, +S2. Absent: systolic murmur - GI/Abdominal Exam GI/Abdominal exam: Present: normal bowel sounds, soft. Absent: tenderness - Extremities Exam Extremities exam: Present: normal inspection - Neurological Exam Neurological exam: Present: alert, oriented X3 Internal Medicine - CN: Reslt - Labs CBC & Chem 7: 04/19/19 04:39 04/19/19 04:39 Labs: Short CBC 04/19/19 Range/Units 04:39 WBC 6.4 (4.3-11.1) K/mcL Hgb 7.9 L (11.5-15.4) g/dL Hct 25.1 L (35.3-44.9) % Plt Count 127 L (140-400) K/mcL Neutrophils # 5.0 (1.6-8.9) K/mcL BMP 04/19/19 04:39 Sodium 137 Potassium 3.3 L Chloride 107 Carbon Dioxide 22 L BUN 7 L Creatinine 0.55 L Glucose 116 H Calcium 7.7 L - ABG Interpretation ABG results: PT/INR, D-dimer PT 16.8 Seconds (9.4-12.1) H 04/17/19 22:05 - Impressions Impressions Abdomen/Pelvis CT 04/17/19 21:58 IMPRESSION: 1. Worsened airspace consolidation of the right middle lobe consistent with a right middle lobe pneumonia. 2. Gastric wall thickening corresponding to the clinical history of gastric malignancy. 3. No acute findings within the abdomen or pelvis. D/ / 04/18/2019 07:12:45 Jasper Garrett MD / belen Interpreting Provider: Jasper Garrett MD Consult Discharge Plan - Plan Referrals: Jemal Rodriguez DO [Primary Care Provider] - Palliative Quality Palliative Quality: Screen for Code Status: Yes, Screen for Goals of Care: Yes, Screen for Pain: Yes, If Pain Regimen Started, Initiate Bowel Regimen: NA, Screen for Nausea/Vomitting: NA Code Status: 04/18/19 01:28 Resuscitation Status: Active [RES] Routine Comment: Resuscitation Status: Full Code 04/18/19 10:18 DNR [Resuscitation Status: Active] [RES] Routine Comment: Resuscitation Status: [id number]-[id number] Palliative Scale - Palliative Performance Scale How ambulatory is this patient?: Reduced What is patient's level of activity and evidence of disease?: Unable normal job/work, Significant disease How much self-care assistance does patient require?: Full How much oral intake does the patient have?: Normal or reduced What is this patient's level of consciousness?: Full Palliative Performance Score: 70 % <Maru Mascorro - Last Filed: 04/19/19 15:15> Date of Encounter: 04/19/19 Palliative-CN HPI - Data of Consult Requesting Physician: Stefani Ball Primary Care Provider: Jemal Rodriguez DO - Consult Narrative History of present illness: Ms. Bautista is a 74 year old female CC: Stefani Ball - Time Spent with Patient Time: Total time spent is greater than 50% in coordination of care (as documented) at patient's floor/unit and/or counseling patient: Time with patient: 75 minutes Palliative Care-Exam - Constitutional Vitals: Temp Pulse Resp BP Pulse Ox 98.2 F 92 18 104/63 99 04/19/19 14:55 04/19/19 14:55 04/19/19 14:55 04/19/19 14:55 04/19/19 14:55 Internal Medicine - CN: Reslt - Labs CBC & Chem 7: 04/19/19 04:39 04/19/19 04:39 Labs: Short CBC 04/19/19 Range/Units 04:39 WBC 6.4 (4.3-11.1) K/mcL Hgb 7.9 L (11.5-15.4) g/dL Hct 25.1 L (35.3-44.9) % Plt Count 127 L (140-400) K/mcL Neutrophils # 5.0 (1.6-8.9) K/mcL BMP 04/19/19 04:39 Sodium 137 Potassium 3.3 L Chloride 107 Carbon Dioxide 22 L BUN 7 L Creatinine 0.55 L Glucose 116 H Calcium 7.7 L - ABG Interpretation ABG results: PT/INR, D-dimer PT 16.8 Seconds (9.4-12.1) H 04/17/19 22:05 - Impressions Impressions Abdomen/Pelvis CT 04/17/19 21:58 IMPRESSION: 1. Worsened airspace consolidation of the right middle lobe consistent with a right middle lobe pneumonia. 2. Gastric wall thickening corresponding to the clinical history of gastric malignancy. 3. No acute findings within the abdomen or pelvis. D/ / 04/18/2019 07:12:45 Jasper Garrett MD / belen Interpreting Provider: Jasper Garrett MD - Attending Attestation I examined this patient and my medical decision-making was reviewed with the Resident Physician Dr. Egan. I agree with the documented findings, disposition and treatment plan as described except to the extent set forth below. Ms. Bautista is a 74 year old female with recurrent stage IV lung cancer with mets to lymph nodes and stomach, previously treated in 2015 with a lobectomy as well as chemotherapy, currently receiving chemotherapy with plans for possible immunotherapy in the future through [facility]. She has received 3 chemotherapy treatments at this time, with a forth scheduled for later this mo nt. However she has been increasingly week, with loss of appetite and numerous hospital readmissions. Patient is currently being treated for a pneumonia. 40 minutes meeting with patient and pt's daughter at the bedside. Patient was AAOx3, in no acute distress, however was visibly SOB with minimum exercise. Discussed current medical condition, trajectory of illness, treatment options and overall poor prognosis. Daughter stated pt's functional status has worsened significantly since her last chemotherapy and she would like her to not continue. Patient stated she never taught about that option, but she would like to discuss with oncology before a final decision. Encouraged pt to explore all options and consider continuing treatment if offered. Also informed patient and daughter about hospice philosophy and services. Informative brochures were given per daughter's request so she can share with the rest of the family. Patient's code status remains DNRCCA and DNI. All questing were answered to satisfaction. Palliative care will follow up. Palliative Quality Code Status: 04/18/19 01:28 Resuscitation Status: Active [RES] Routine Comment: Resuscitation Status: Full Code 04/18/19 10:18 DNR [Resuscitation Status: Active] [RES] Routine Comment: Resuscitation Status: [id number]
--- NOTE | 2019-04-19 15:20 | Oncology Inp Consult Note ---
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 Transfuse 1 unit of PRBC, discussed with patient's attending physician and patient bedside. We will monitor the trend, defer endoscopy she does not have any gross melena or hematochezia. Right lung pneumonia, findings from imaging reviewed, on antibiotics, monitor fever trend, culture data. UA Sterptococci. 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 Patient was noted in PET imaging in January 2019 to have recurrent right upper lobe lung tumor, metastatic lymphadenopathy and uptake in the stomach simvastatin with metastatic disease. She had biopsy of the gastric mass which was consistent with metastatic adenocarcinoma. She started treatment with carboplatin and Alimta on Keytruda in February 2019, hospitalized since then with pulmonary embolism currently on anticoagulation. She had cough fever of 102 and was hospitalized due to fever yesterday. Patient has coughed out quite a bit of phlegm, she is currently on a monitor due to tachycardia, she is able to breathe better today. She does not have any abdominal or epigastric pain. She has not noticed any melena or hematochezia. His CBC showed a hemoglobin of 7.9. She does not have a good appetite. She denies any headache, has frequency of urination. She denies any leg pain or cramps. Review of systems otherwise negative. She had a CT imaging since hospitalization that shows gastric thickening, right lung infiltrative changes suggestive of pneumonia. Past Med Surg Social Fam HX - Past Medical History Medical history: arthritis, cancer, COPD, fibromyalgia, GERD, osteoporosis Additional medical history: peptic ulcer disease - fibromyalgia - pleurisy. lung, stomach cancer Psychiatric history: no psych history - Past Surgical History Surgical History: breast surgery, cancer surgery, cataract, cholecystectomy, orthopedic, other, other Additional surgical history: lung resection,colonoscopy - breast biopsy - left neck lymph node - right CTR - little finger amputation, removal of right adrenal gland - Social History Smoking Status: Current every day smoker Packs per day: 1 Smokeless Tobacco Status: No Alcohol use: none Drug use: none - Family History Mother Hx Family Cardiac Disorders: Yes (not sure what type) Hx Family Respiratory Disorders: No Hx Family Cancer: No Hx Family GI Disorders: No Hx Family Endocrine Disorder: Yes (DM) Hx Family Neuromuscular Disorders: No Hx Family Neurologic Disorders: No Hx Family HEENT Disorders: No Hx Family Autoimmune Disorders: No Father Living Status: Hx Family Cardiac Disorders: No Hx Family Respiratory Disorders: Yes (black lung) Hx Family Cancer: Yes (cancer) Hx Family GI Disorders: No Hx Family Endocrine Disorder: No Hx Family Neuromuscular Disorders: No Hx Family Neurologic Disorders: No Hx Family HEENT Disorders: No Hx Family Autoimmune Disorders: No Daughter Living Status: Still Living Hx Family Cardiac Disorders: No Hx Family Respiratory Disorders: No Medications and Allergies Calcium Polycarbophil [Fibercon] 625 mg PO DAILY 08/12/15 [History] Albuterol Neb [Proventil Neb] 2.5 mg IH Q6H PRN 10/03/16 [History] Fluticasone Propionate Nasal [Flonase] 2 puff NS DAILY PRN 10/03/16 [History] Pantoprazole Sodium [Protonix] 40 mg PO DAILY #90 blakekt 10/23/16 [Rx] Budesonide/Formoterol 160/4.5 [Symbicort 160/4.5] 2 puff IH BIDR 03/19/17 [History] Albuterol Sulfate [Proair Hfa] 2 puff IH Q4H 12/02/17 [History] Oxycodone HCl/Acetaminophen [Percocet 5-325 mg Tablet] 1 - 2 tab PO Q4-6H PRN 12/28/18 [History] Tizanidine HCl [Zanaflex] 4 mg PO HS PRN 12/28/18 [History] Folic Acid 1 mg PO DAILY #30 tablet 02/16/19 [Rx] Ondansetron HCl 8 mg PO Q8H PRN #45 tablet 02/16/19 [Rx] Prochlorperazine Maleate [Compazine] 10 mg PO Q6HR PRN #90 tablet 02/16/19 [Rx] dexAMETHasone [Decadron] 4 mg PO BID PRN #45 tab 02/16/19 [Rx] Rivaroxaban [Xarelto] 20 mg PO DAILY #30 tablet 03/01/19 [Rx] GuaiFENesin/Codeine [Robitussin w/Codeine] 5 ml PO Q8H PRN 30 Days #400 liquid 04/02/19 [Rx] Benzonatate [Tessalon] 100 mg PO TID PRN 04/18/19 [History] Dronabinol [Marinol] 2.5 mg PO HS 04/18/19 [History] Cholecalciferol (Vitamin D3) [Vitamin D3] 1,000 units PO DAILY 04/19/19 [History] [place]-3/Dha/Epa/Fish Oil [Fish Oil 1,000 mg Softgel] 1,000 mg PO DAILY 04/19/19 [History] Allergy/AdvReac Type Severity Reaction Status Date / Time paclitaxel Allergy Severe Anaphylaxis Verified 04/19/19 11:08 Penicillins Allergy Severe Hives Verified 04/19/19 11:08 Constitutional: Present: fatigue, fever(s), lethargy Additional comments: no dysphagia, no vertigo, ear nose or throat discharge Additional comments: denies chest pain or plapitations Additional comments: occ wheezing, cough Additional comments: denies abd pain radha or hematochezia Additional comments: denies bony aches Additional comments: no focal wkness Psychiatric: Present: anxiety Oncology - Exam - Constitutional General appearance: no acute distress, thin - Head Head exam: Present: atraumatic, normal inspection - Eye Eye exam: Present: sclera anicteric - ENT ENT exam: Present: mucous membranes moist - Neck Neck exam: Present: full ROM, normal inspection - Respiratory Respiratory exam: Present: CTAB Additional comments: occ rhonchi - Cardiovascular Cardiovascular exam: Present: +S1, +S2 - GI/Abdominal GI/Abdominal exam: Present: normal bowel sounds, soft - Extremities Exam Extremities exam: Present: full ROM Additional comments: no pedal edema - Neurological Exam Neurological exam: Present: alert, CN II-XII intact, oriented X3, no focal deficits - Psychiatric Psychiatric exam: Present: normal mood - Skin Skin exam: Present: dry, warm Oncology Inpatient Results Labs: as in HPI CT imaging per HPI Consult Discharge Plan - Plan Referrals: Jemal Rodriguez DO [Primary Care Provider] - Inpatient Charges Provider: Dr. Toño Sutton Consult - Inpatient: [id number]
[2019-04-19] MEDS ORDERED: 0.9 % Sodium Chloride 250 ML IVC SCH (15:30)
[2019-04-19] MEDS ORDERED: 0.9 % Sodium Chloride 250 ML ONE (17:40)
[2019-04-19] MEDS: GuaiFENesin/Codeine Oral Soln 5 ML UDC PO PRN (20:36)
[2019-04-19] MEDS: tiZANidine 4 MG TABLET PO SCH (20:36)
[2019-04-20] MEDS: Cefepime HCl 2,000 MG in Water for inj. (sterile) 20 ML IVP SCH ×2 (00:17→09:23)
[2019-04-20] MEDS: Ipratropium/Albuterol Neb 3 ML IH SCH ×4 (04:47→23:09)
[2019-04-20 05:55] LABS: White Blood Count 6.4 K/mcL (4.3-11.1)
[2019-04-20 05:56] LABS: Basophils % 0.5 %; Eosinophils # 0.1 K/mcL (0.0-0.6); Eosinophils % 1.1 %; Hematocrit 29.5 % (35.3-44.9); Immature Granulocytes % 1.1 % (0-4); Lymphocytes # 0.9 K/mcL (0.6-4.6); Lymphocytes % 13.7 %; Mean Corpuscular HGB Conc 32.2 g/dL (31.6-35.5); Mean Corpuscular Hemoglobin 32.9 pg (28.0-33.3); Mean Corpuscular Volume 102.1 fL (83.0-100.0); Mean Platelet Volume 9.3 fL (9.4-12.4); Monocytes # 0.4 K/mcL (0.0-1.3); Neutrophils # 4.9 K/mcL (1.6-8.9); Platelet Count 149 K/mcL (140-400); Red Blood Count 2.89 M/mcL (3.82-4.97); Red Cell Distribution Width 18.4 % (11.5-14.5); Segmented Neutrophils % 77.6 %
[2019-04-20 05:57] LABS: Hemoglobin 9.5 g/dL (11.5-15.4)
[2019-04-20 06:17] LABS: BUN/Creatinine Ratio 10 (6-26); Blood Urea Nitrogen 6 mg/dL (8-23); Calcium 8.4 mg/dL (8.6-10.3); Carbon Dioxide 24 mEq/L (23-29); Chloride 108 mEq/L (98-107); Glucose 102 mg/dL (70-105); Osmolality,Calculated 282 (280-300); Potassium 3.8 mEq/L (3.5-5.1); Sodium 137 mEq/L (136-145); eGFR For African Americans > 60 (> 60); eGFR For Non-African Americans > 60 (> 60)
--- NOTE | 2019-04-20 08:02 | Internal Med Progress Note ---
<Stefani Ball - Last Filed: 04/20/19 10:24> Hospitalist Progress Note - Encounter Date of Encounter: 04/20/19 - Exam Vitals: Temp Pulse Resp BP Pulse Ox 98.4 F 89 16 98/55 96 04/20/19 06:56 04/20/19 06:56 04/20/19 09:57 04/20/19 06:56 04/20/19 09:57 - Time Spent with Patient Total time spent is greater than 50% in coordination of care (as documented) at patient's floor/unit and/or counseling patient: Internal Medicine: Result - Labs CBC & Chem 7: 04/20/19 05:24 04/20/19 05:24 Labs: Short CBC 04/20/19 Range/Units 05:24 WBC 6.4 (4.3-11.1) K/mcL Hgb 9.5 L D (11.5-15.4) g/dL Hct 29.5 L (35.3-44.9) % Plt Count 149 (140-400) K/mcL Neutrophils # 4.9 (1.6-8.9) K/mcL BMP 04/20/19 05:24 Sodium 137 Potassium 3.8 Chloride 108 H Carbon Dioxide 24 BUN 6 L Creatinine 0.58 L Glucose 102 Calcium 8.4 L - ABG Interpretation ABG results: PT/INR, D-dimer PT 16.8 Seconds (9.4-12.1) H 04/17/19 22:05 Consult Discharge Plan - Plan Referrals: Jemal Rodriguez DO [Primary Care Provider] - - Attending Attestation I examined this patient and my medical decision-making was reviewed with the Resident Physician Dr Salazar. I agree with the documented findings, disposition and treatment plan as described except to the extent set forth below. Ms Bautista is being observed for sepsis and pna awake, improved energy further, cough stable, no sob on room air, ambulated to bathroom today gen- awake,appears stated age cv- reg rate and rhythm, normal s1,s2, no le edema lungs- ctabl normal resp effort on room air, no wheezing or rhonchi neuro- AAOx3 sepsis, resolved- suspect 2/2 pna, - no longer requires IVFs, BPs low normotensive without sxs at baseline now RML pna, org uk-no identifiable org, de escalate abx iv abx metastatic aednocarcinoma lung on chemo-fu with onc outpt acute on chronic anemia- appreciate heme/onc input, s/p 1 unit prbc with good effect further dx and plan as noted by resident dispo will be to home, she denies any eeds, pt eval pending, anticipate dc in next 24-48h <Blue Salazar - Last Filed: 04/20/19 15:24> Hospitalist Progress Note - Encounter Date of Encounter: 04/20/19 Time of Encounter: 08:02 - Subjective Interval History: Pt is in bed, awake, comfortable with daughter present. She states that her weakness and fatigue have improved since her recent blood transfusion. Still endorses mild-moderate productive cough that has improved since last night. Has some mild abdominal pain secondary to frequent coughing. Overall she is very pleasant and appears to be improving. - Exam Vitals: Temp Pulse Resp BP Pulse Ox 98.4 F 89 16 98/55 97 04/20/19 06:56 04/20/19 06:56 04/20/19 06:56 04/20/19 06:56 04/20/19 06:56 Exam: GA: A&Ox3, frail, no acute distress. Head: Atraumatic normocephalic Skin: Normal texture, normal turgor, warm, dry. Eyes: Conjunctivae WNL. Anicteric. Heart: RRR, S1/S2 WNL. No murmurs, rubs, gallops. Lungs: CTA bilaterally, pt coughs with deep inspiration, no rales or rhonchi. Extremities: No cyanosis, clubbing, edema. Abdomen: Non-distended, normoactive bowel sounds, non-tender to palpation, no guarding. Neuro: No sensory loss or focal deficits. CN grossly intact. - Assessment and Plan (1) Right middle lobe pneumonia Current Visit: Yes Status: Acute Assessment and Plan: Pt with right middle lobe PNA demonstrated by CT. Receiving chemotherapy for stage IV adenocarcinoma of lung s/p right upper lobectomy. No neutropenia, currently afebrile. No leukocytosis. Improving on current antibiotic regimen. She continues to improve and no longer meets sepsis criteria. Plan to de- escalate abx to doxycycline for MRSA coverage. - D/C IV vancomycin and cefepime. - De-escalate antibiotics to IV doxycycline 100 mg Q12H with goal to discharge of PO doxycycline in the coming days. (2) Anemia Current Visit: Yes Status: Chronic Assessment and Plan: Hbg up to 9.5 from 7.9 s/p 1 unit PRBC transfusion. - We will continue to monitor with H&H daily. - Low normotensive blood pressure. Continue to monitor. (3) Immunocompromised state due to drug therapy Current Visit: Yes Status: Acute Assessment and Plan: Patient is receiving chemotherapy with [facility] for metastatic lung cancer. - Awaiting final blood culture report. - MRSA screen positive. Negative legionella screen. - Per oncology recs - delay immunotherapy and continue in 1 week. (4) Lung cancer, primary, with metastasis from lung to other site Current Visit: Yes Status: Chronic Assessment and Plan: S/P right upper lobectomy with metastasis. Pt is currently stable with moderate sputum production. Dyspnea resolved and at baseline. - Likely continue immunotherapy, delayed by 1 week per oncology. - Hypotension-mild, asymptomatic, monitor s/p PRBC per oncology. - Continue treatment of right PNA with IV antibiotics. - Continue home Marinol for appetite/pain. (5) Hematuria Current Visit: Yes Status: Acute Assessment and Plan: Microscopic hematuria was identified on U/A at admission. Likely secondary to Xarelto use. Pt is asymptomatic at this time. - Urine culture revealed group B strep. Asymptomatic. - Continue to monitor at this time. (6) DVT (deep venous thrombosis) Current Visit: No Status: Chronic DVT Prophylaxis: Continue home Xarelto - Time Spent with Patient Total time spent is greater than 50% in coordination of care (as documented) at patient's floor/unit and/or counseling patient: Plan of Care Discussed with: patient Internal Medicine: Result - Labs CBC & Chem 7: 04/20/19 05:24 04/20/19 05:24 Labs: Short CBC 04/20/19 Range/Units 05:24 WBC 6.4 (4.3-11.1) K/mcL Hgb 9.5 L D (11.5-15.4) g/dL Hct 29.5 L (35.3-44.9) % Plt Count 149 (140-400) K/mcL Neutrophils # 4.9 (1.6-8.9) K/mcL BMP 04/20/19 05:24 Sodium 137 Potassium 3.8 Chloride 108 H Carbon Dioxide 24 BUN 6 L Creatinine 0.58 L Glucose 102 Calcium 8.4 L - ABG Interpretation ABG results: PT/INR, D-dimer PT 16.8 Seconds (9.4-12.1) H 04/17/19 22:05 - VTE Reasons for not Prescribing Prophylaxis: Not indicated-Anticoagulated or INR therapeutic __ <Blue Salazar - Last Filed: 04/20/19 15:24> (1) Right middle lobe pneumonia Qualifiers: Pneumonia type: due to unspecified organism Qualified Code(s): J18.1 - Lobar pneumonia, unspecified organism (2) Anemia Qualifiers: Anemia type: unspecified type Qualified Code(s): D64.9 - Anemia, unspecified (4) Lung cancer, primary, with metastasis from lung to other site Qualifiers: Laterality: right Qualified Code(s): C34.91 - Malignant neoplasm of unspecified part of right bronchus or lung (5) Hematuria Qualifiers: Hematuria type: asymptomatic microscopic Qualified Code(s): R31.21 - Asymptomatic microscopic hematuria (6) DVT (deep venous thrombosis) Qualifiers: DVT location: upper extremity Affected thrombotic vein of extremity: unspecified vein of extremity Chronicity: unspecified Laterality: left Qualified Code(s): I82.622 - Acute embolism and thrombosis of deep veins of left upper extremity
[2019-04-20] MEDS: *HR* Rivaroxaban 10 MG TABLET PO SCH (09:25)
[2019-04-20] MEDS: Budesonide/Formoterol 160/4.5 1 PUFF INH IH SCH ×2 (09:55→23:09)
--- NOTE | 2019-04-20 11:58 | Palliative Progress Note ---
<Fanta Egan B - Last Filed: 04/20/19 12:57> Date of Encounter: 04/20/19 Time of Encounter: 11:00 - Assessment and plan (1) Advanced care planning/counseling discussion Current Visit: Yes Status: Acute Assessment and plan: Discussed patients current DNR status and confirmed that patient is currently DNR-CCA/ DNI. Patient did not have a completed form in her chart, completed a DNR form and gave patient a copy of the form. Recommended that patient keep this form in an easily accessible location if needed. At this time patient plans to continue to follow up with oncology and continue immunotherapy treatment for her lung cancer. Patients was given hospice information yesterday for follow up if patient desires after discharge. (2) Decreased appetite Current Visit: Yes Status: Acute Assessment and plan: Continue dronabinol (3) Right middle lobe pneumonia Current Visit: Yes Status: Acute Qualifiers: Pneumonia type: due to unspecified organism Qualified Code(s): J18.1 - Lobar pneumonia, unspecified organism (4) Lung cancer, primary, with metastasis from lung to other site Current Visit: Yes Status: Chronic Qualifiers: Laterality: right Qualified Code(s): C34.91 - Malignant neoplasm of unspecified part of right bronchus or lung (5) Sepsis Current Visit: Yes Status: Resolved Qualifiers: Sepsis type: sepsis due to unspecified organism Sepsis acute organ dysfunction status: without acute organ dysfunction Qualified Code(s): A41.9 - Sepsis, unspecified organism - Time Spent With Patient Total time spent is greater than 50% in coordination of care (as documented) at patient's floor/unit and/or counseling patient: 25 - 35 minutes - Subjective Interval history: Went to see patient to continue discussion of goals of care. Patient's was at bedside. Patient reports that after talking to the oncologist yesterday that she will no longer be receiving chemotherapy. However she does think she will be starting immunotherapy. Discussed at length how the chemotherapy could have contributed to the patients recent low blood cell count. Patient also reports that she received a blood transfusion yesterday, and that they plan to discharge to home tomorrow. - Constitutional Vitals: Abnormal lab results RBC 2.89 M/mcL (3.82-4.97) L 04/20/19 05:24 Hgb 9.5 g/dL (11.5-15.4) L D 04/20/19 05:24 Hct 29.5 % (35.3-44.9) L 04/20/19 05:24 MCV 102.1 fL (83.0-100.0) H 04/20/19 05:24 MCHC 31.5 g/dL (31.6-35.5) L 04/19/19 04:39 RDW 18.4 % (11.5-14.5) H 04/20/19 05:24 Plt Count 127 K/mcL (140-400) L 04/19/19 04:39 MPV 9.3 fL (9.4-12.4) L 04/20/19 05:24 Percent Retic 2.9 % (1.6-2.8) H 04/18/19 04:02 Retic Hgb Equivalent 26.8 pg (28.61-36.33) L 04/18/19 04:02 PT 16.8 Seconds (9.4-12.1) H 04/17/19 22:05 APTT 37.8 Seconds (26.0-36.0) H 04/17/19 22:05 VBG pCO2 34 mmHg (41-51) L 04/18/19 04:14 VBG pO2 227 mmHg (25-50) H 04/18/19 04:14 Sodium 132 mEq/L (136-145) L 04/17/19 22:05 Potassium 3.3 mEq/L (3.5-5.1) L 04/19/19 04:39 Chloride 108 mEq/L (98-107) H 04/20/19 05:24 Carbon Dioxide 22 mEq/L (23-29) L 04/19/19 04:39 BUN 6 mg/dL (8-23) L 04/20/19 05:24 Creatinine 0.58 mg/dL (0.60-1.20) L 04/20/19 05:24 Glucose 116 mg/dL (70-105) H 04/19/19 04:39 Calculated Osmolality 273 (280-300) L 04/17/19 22:05 Calcium 8.4 mg/dL (8.6-10.3) L 04/20/19 05:24 Phosphorus 2.5 mg/dL (2.7-4.5) L 04/19/19 04:39 Iron 14 mcg/dL (50-170) L 04/18/19 04:02 % Saturation 7 % (15-50) L 04/18/19 04:02 Transferrin 152 mg/dL (203-362) L 04/18/19 04:02 Ferritin 235 ng/mL (10-120) H 04/18/19 04:02 AST 9 Units/L (13-39) L 04/17/19 22:05 Creatine Kinase 17 Units/L (30-223) L 04/18/19 04:02 Vitamin B12 > 1500 pg/mL (250-1100) H 04/18/19 04:02 Folate > 22.3 ng/mL (3.0-16.0) H 04/18/19 04:02 Urine Clarity Cloudy (Clear) A 04/17/19 22:25 Urine Protein 30 mg/dL (Neg-Trace) H 04/17/19 22:25 Urine Blood Large (Negative) H 04/17/19 22:25 Ur Leukocyte Esterase Small (Negative) H 04/17/19 22:25 Urine Microscopic RBC 5-15 per hpf (0-3) H 04/17/19 22:25 Urine Microscopic WBC 30-50 per hpf (0-3) H 04/17/19 22:25 Ur Squamous Epith Cells Many per lpf (None-Few) H 04/17/19 22:25 Urine Bacteria Moderate per hpf (None-Few) H 04/17/19 22:25 Ur Culture Indicated? YES (NO) A 04/17/19 22:25 Crossmatch See Detail 04/19/19 16:01 - Head Head exam: Present: atraumatic, normocephalic - Respiratory Respiratory exam: Present: CTAB. Absent: accessory muscle use, rhonchi, stridor, wheezes, tachypnea Additional comments: + cough - Cardiovascular Cardiovascular exam: Present: RRR, +S1, +S2 - GI/Abdominal GI/Abdominal exam: Present: normal bowel sounds, soft. Absent: tenderness - Extremities Exam Extremities exam: Absent: pedal edema - Neurological Exam Neurological exam: Present: alert, oriented X3 Palliative Quality Palliative Quality: Screen for Code Status: Yes, Screen for Goals of Care: Yes, Screen for Pain: Yes, If Pain Regimen Started, Initiate Bowel Regimen: NA, Screen for Nausea/Vomitting: NA Code Status: 04/18/19 01:28 Resuscitation Status: Active [RES] Routine Comment: Resuscitation Status: Full Code 04/18/19 10:18 DNR [Resuscitation Status: Active] [RES] Routine Comment: Resuscitation Status: [id number] - Labs CBC & Chem 7: 04/20/19 05:24 04/20/19 05:24 Labs: Laboratory Results - last 24 hr 04/19/19 04/19/19 04/20/19 16:01 16:58 05:24 WBC RBC Hgb Hct MCV MCH MCHC RDW Plt Count MPV Immature Gran % Seg Neutrophils % Lymphocytes % Monocytes % Eosinophils % Basophils % Neutrophils # Lymphocytes # Monocytes # Eosinophils # Basophils # Sodium Potassium Chloride Carbon Dioxide BUN Creatinine Est GFR ( Amer) Est GFR (Non-Af Amer) BUN/Creatinine Ratio Glucose Calculated Osmolality Calcium Lactate Dehydrogenase 198 Procalcitonin 0.07 Blood Type O POSITIVE Antibody Screen NEGATIVE Crossmatch See Detail 04/20/19 04/20/19 05:24 05:24 WBC 6.4 RBC 2.89 L Hgb 9.5 L D Hct 29.5 L MCV 102.1 H MCH 32.9 MCHC 32.2 RDW 18.4 H Plt Count 149 MPV 9.3 L Immature Gran % 1.1 Seg Neutrophils % 77.6 Lymphocytes % 13.7 Monocytes % 6.0 Eosinophils % 1.1 Basophils % 0.5 Neutrophils # 4.9 Lymphocytes # 0.9 Monocytes # 0.4 Eosinophils # 0.1 Basophils # 0.0 Sodium 137 Potassium 3.8 Chloride 108 H Carbon Dioxide 24 BUN 6 L Creatinine 0.58 L Est GFR ( Amer) > 60 Est GFR (Non-Af Amer) > 60 BUN/Creatinine Ratio 10 Glucose 102 Calculated Osmolality 282 Calcium 8.4 L Lactate Dehydrogenase Procalcitonin Blood Type Antibody Screen Crossmatch - ABG Interpretation ABG results: PT/INR, D-dimer PT 16.8 Seconds (9.4-12.1) H 04/17/19 22:05 Palliative Scale - Palliative Performance Scale How ambulatory is this patient?: Reduced What is patient's level of activity and evidence of disease?: Unable normal job/work, Significant disease How much self-care assistance does patient require?: Full How much oral intake does the patient have?: Normal or reduced What is this patient's level of consciousness?: Full Palliative Performance Score: 70 % Consult Discharge Plan - Plan Referrals: Jemal Rodriguez DO [Primary Care Provider] - <LudwinMaruuyen Knox - Last Filed: 04/20/19 14:08> Date of Encounter: 04/20/19 - Time Spent With Patient Total time spent is greater than 50% in coordination of care (as documented) at patient's floor/unit and/or counseling patient: - Constitutional Vitals: Abnormal lab results RBC 2.89 M/mcL (3.82-4.97) L 04/20/19 05:24 Hgb 9.5 g/dL (11.5-15.4) L D 04/20/19 05:24 Hct 29.5 % (35.3-44.9) L 04/20/19 05:24 MCV 102.1 fL (83.0-100.0) H 04/20/19 05:24 MCHC 31.5 g/dL (31.6-35.5) L 04/19/19 04:39 RDW 18.4 % (11.5-14.5) H 04/20/19 05:24 Plt Count 127 K/mcL (140-400) L 04/19/19 04:39 MPV 9.3 fL (9.4-12.4) L 04/20/19 05:24 Percent Retic 2.9 % (1.6-2.8) H 04/18/19 04:02 Retic Hgb Equivalent 26.8 pg (28.61-36.33) L 04/18/19 04:02 PT 16.8 Seconds (9.4-12.1) H 04/17/19 22:05 APTT 37.8 Seconds (26.0-36.0) H 04/17/19 22:05 VBG pCO2 34 mmHg (41-51) L 04/18/19 04:14 VBG pO2 227 mmHg (25-50) H 04/18/19 04:14 Sodium 132 mEq/L (136-145) L 04/17/19 22:05 Potassium 3.3 mEq/L (3.5-5.1) L 04/19/19 04:39 Chloride 108 mEq/L (98-107) H 04/20/19 05:24 Carbon Dioxide 22 mEq/L (23-29) L 04/19/19 04:39 BUN 6 mg/dL (8-23) L 04/20/19 05:24 Creatinine 0.58 mg/dL (0.60-1.20) L 04/20/19 05:24 Glucose 116 mg/dL (70-105) H 04/19/19 04:39 Calculated Osmolality 273 (280-300) L 04/17/19 22:05 Calcium 8.4 mg/dL (8.6-10.3) L 04/20/19 05:24 Phosphorus 2.5 mg/dL (2.7-4.5) L 04/19/19 04:39 Iron 14 mcg/dL (50-170) L 04/18/19 04:02 % Saturation 7 % (15-50) L 04/18/19 04:02 Transferrin 152 mg/dL (203-362) L 04/18/19 04:02 Ferritin 235 ng/mL (10-120) H 04/18/19 04:02 AST 9 Units/L (13-39) L 04/17/19 22:05 Creatine Kinase 17 Units/L (30-223) L 04/18/19 04:02 Vitamin B12 > 1500 pg/mL (250-1100) H 04/18/19 04:02 Folate > 22.3 ng/mL (3.0-16.0) H 04/18/19 04:02 Urine Clarity Cloudy (Clear) A 04/17/19 22:25 Urine Protein 30 mg/dL (Neg-Trace) H 04/17/19 22:25 Urine Blood Large (Negative) H 04/17/19 22:25 Ur Leukocyte Esterase Small (Negative) H 04/17/19 22:25 Urine Microscopic RBC 5-15 per hpf (0-3) H 04/17/19 22:25 Urine Microscopic WBC 30-50 per hpf (0-3) H 04/17/19 22:25 Ur Squamous Epith Cells Many per lpf (None-Few) H 04/17/19 22:25 Urine Bacteria Moderate per hpf (None-Few) H 04/17/19 22:25 Ur Culture Indicated? YES (NO) A 04/17/19 22:25 Crossmatch See Detail 04/19/19 16:01 - Attending Attestation I examined this patient and my medical decision-making was reviewed with the Resident Physician. I agree with the documented findings, disposition and treatment plan as described except to the extent set forth below. Met with pt and at the bedside. Reviewed current medical condition and updated on management per primary team and oncology. Discussed oncology recommendations of continuing immunotherapy. Patient's goal at present is to return home, and continue treatment for as long as she can stand it. Discussed code status, pt confirmed her DNRCCA status. DNR state form was filled, copies put in the chart and given to patient. I spent 20 minutes total time with patient, family member(s) and/or surrogate discussing advance care planning to include explanation/discussion of advanced directives. Please note this time was additional time spent with patient, family and/or surrogate not involving active management of patient's conditions or treatments. Total time spent with patient 40 minutes, greater than 50% in coordination of care (as documented) at patient's floor/unit and/or counseling patient Palliative Quality Code Status: 04/18/19 01:28 Resuscitation Status: Active [RES] Routine Comment: Resuscitation Status: Full Code 04/18/19 10:18 DNR [Resuscitation Status: Active] [RES] Routine Comment: Resuscitation Status: [id number] - Labs CBC & Chem 7: 04/20/19 05:24 04/20/19 05:24 Labs: Laboratory Results - last 24 hr 04/19/19 04/19/19 04/20/19 16:01 16:58 05:24 WBC RBC Hgb Hct MCV MCH MCHC RDW Plt Count MPV Immature Gran % Seg Neutrophils % Lymphocytes % Monocytes % Eosinophils % Basophils % Neutrophils # Lymphocytes # Monocytes # Eosinophils # Basophils # Sodium Potassium Chloride Carbon Dioxide BUN Creatinine Est GFR ( Amer) Est GFR (Non-Af Amer) BUN/Creatinine Ratio Glucose Calculated Osmolality Calcium Lactate Dehydrogenase 198 Procalcitonin 0.07 Vancomycin Trough Blood Type O POSITIVE Antibody Screen NEGATIVE Crossmatch See Detail 04/20/19 04/20/19 04/20/19 05:24 05:24 11:56 WBC 6.4 RBC 2.89 L Hgb 9.5 L D Hct 29.5 L MCV 102.1 H MCH 32.9 MCHC 32.2 RDW 18.4 H Plt Count 149 MPV 9.3 L Immature Gran % 1.1 Seg Neutrophils % 77.6 Lymphocytes % 13.7 Monocytes % 6.0 Eosinophils % 1.1 Basophils % 0.5 Neutrophils # 4.9 Lymphocytes # 0.9 Monocytes # 0.4 Eosinophils # 0.1 Basophils # 0.0 Sodium 137 Potassium 3.8 Chloride 108 H Carbon Dioxide 24 BUN 6 L Creatinine 0.58 L Est GFR ( Amer) > 60 Est GFR (Non-Af Amer) > 60 BUN/Creatinine Ratio 10 Glucose 102 Calculated Osmolality 282 Calcium 8.4 L Lactate Dehydrogenase Procalcitonin Vancomycin Trough 5 Blood Type Antibody Screen Crossmatch - ABG Interpretation ABG results: PT/INR, D-dimer PT 16.8 Seconds (9.4-12.1) H 04/17/19 22:05
--- NOTE | 2019-04-20 13:38 | Oncology Inp Progress Note ---
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 Hgb improved after PRBC. Monitor Hgb/Hct Likely continue immunotherapy, will delay by a wk Hypotension-mild, asymptomatic, monitor s/p PRBC Right lung pneumonia, findings from imaging reviewed, on antibiotics, monitor fever trend, culture data. UA Sterptococci. 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 Plan d.w pt and family bedside Qualifiers: Laterality: right Lung location: upper lobe of lung Qualified Code(s): C34.11 - Malignant neoplasm of upper lobe, right bronchus or lung Oncology: Subj Interval history: s/p PRBC, on IV abx for pneumonia, feels improved. Cough spell last night - Constitutional General appearance: no acute distress - Head Head exam: Present: atraumatic, normal inspection - Eye Eye exam: Present: sclera anicteric - Neck Neck exam: Present: full ROM - Respiratory Respiratory exam: Present: rhonchi - Extremities Exam Extremities exam: Present: normal inspection - Neurological Exam Neurological exam: Present: alert, CN II-XII intact, oriented X3, no focal deficits Oncology: Obj Data - Labs CBC & Chem 7: 04/20/19 05:24 04/20/19 05:24 Consult Discharge Plan - Plan Referrals: Jemal Rodriguez DO [Primary Care Provider] - Inpatient Charges Provider: Dr. Toño Sutton Follow up - Inpatient: [id number]
[2019-04-20] MEDS: Doxycycline 100 MG in 0.9 % Sodium Chloride Mini Bag 100 ML IVPB SCH (16:55)
[2019-04-20] MEDS: Benzonatate 100 MG CAPSULE PO PRN (20:41)
[2019-04-20] MEDS: tiZANidine 4 MG TABLET PO SCH (20:41)
[2019-04-20] MEDS ORDERED: Acyclovir 200 MG CAPSULE PO ONE (20:48)
[2019-04-20] MEDS: GuaiFENesin/Codeine Oral Soln 5 ML UDC PO PRN (21:42)
[2019-04-21] MEDS: Ipratropium/Albuterol Neb 3 ML IH SCH ×2 (04:38→11:00)
[2019-04-21 05:34] LABS: Basophils % 0.5 %; Eosinophils # 0.1 K/mcL (0.0-0.6); Eosinophils % 1.4 %; Hematocrit 29.1 % (35.3-44.9); Hemoglobin 9.4 g/dL (11.5-15.4); Immature Granulocytes % 1.4 % (0-4); Lymphocytes # 0.7 K/mcL (0.6-4.6); Lymphocytes % 12.4 %; Mean Corpuscular HGB Conc 32.3 g/dL (31.6-35.5); Mean Corpuscular Hemoglobin 32.3 pg (28.0-33.3); Mean Platelet Volume 8.8 fL (9.4-12.4); Monocytes # 0.4 K/mcL (0.0-1.3); Monocytes % 6.8 %; Neutrophils # 4.6 K/mcL (1.6-8.9); Platelet Count 157 K/mcL (140-400); Red Blood Count 2.91 M/mcL (3.82-4.97); Red Cell Distribution Width 17.5 % (11.5-14.5); Segmented Neutrophils % 77.5 %; White Blood Count 5.9 K/mcL (4.3-11.1)
[2019-04-21] MEDS: Doxycycline 100 MG in 0.9 % Sodium Chloride Mini Bag 100 ML IVPB SCH (05:37)
[2019-04-21 05:53] LABS: BUN/Creatinine Ratio 11 (6-26); Blood Urea Nitrogen 6 mg/dL (8-23); Calcium 8.6 mg/dL (8.6-10.3); Carbon Dioxide 25 mEq/L (23-29); Chloride 106 mEq/L (98-107); Glucose 100 mg/dL (70-105); Osmolality,Calculated 286 (280-300); Potassium 3.7 mEq/L (3.5-5.1); Sodium 139 mEq/L (136-145); eGFR For African Americans > 60 (> 60); eGFR For Non-African Americans > 60 (> 60)
--- NOTE | 2019-04-21 09:04 | Discharge Summary ---
<Flavio Tanner S - Last Filed: 04/21/19 10:43> Orders not resulted at time of discharge: Pending orders 04/17/19 22:16 Culture,Blood [BC] Stat 04/18/19 04:00 Culture,Sputum with Gram Stain [] AM 0400 Date of Encounter: 04/21/19 Hospital course: Ms. Bautista is a 74 year old female - Time Spent with Patient Total time spent providing and/or coordinating discharge services: - Discharge Medications Prescriptions: New Doxycycline 100 mg PO BID 7 Days #14 capsule Continued Calcium Polycarbophil [Fibercon] 625 mg PO DAILY Albuterol Neb [Proventil Neb] 2.5 mg IH Q6H PRN PRN Reason: Shortness Of Breath Fluticasone Propionate Nasal [Flonase] 2 puff NS DAILY PRN PRN Reason: Nasal Congestion Pantoprazole Sodium [Protonix] 40 mg PO DAILY #90 granpkt. Budesonide/Formoterol 160/4.5 [Symbicort 160/4.5] 2 puff IH BIDR Albuterol Sulfate [Proair Hfa] 2 puff IH Q4H Tizanidine HCl [Zanaflex] 4 mg PO HS PRN PRN Reason: Muscle Spasm Oxycodone HCl/Acetaminophen [Percocet 5-325 mg Tablet] 1 - 2 tab PO Q4-6H PRN PRN Reason: Pain Prochlorperazine Maleate [Compazine] 10 mg PO Q6HR PRN #90 tablet PRN Reason: Nausea dexAMETHasone [Decadron] 4 mg PO BID PRN #45 tab PRN Reason: as directed Folic Acid 1 mg PO DAILY #30 tablet Ondansetron HCl 8 mg PO Q8H PRN #45 tablet PRN Reason: Nausea Rivaroxaban [Xarelto] 20 mg PO DAILY #30 tablet GuaiFENesin/Codeine [ROBITUSSIN w/CODEINE] 5 ml PO Q8H PRN 30 Days #400 liquid PRN Reason: Cough Dronabinol [Marinol] 2.5 mg PO HS Benzonatate [Tessalon] 100 mg PO TID PRN PRN Reason: Cough Cholecalciferol (Vitamin D3) [Vitamin D3] 1,000 units PO DAILY [place]-3/Dha/Epa/Fish Oil [Fish Oil 1,000 mg Softgel] 1,000 mg PO DAILY Home Medications: Calcium Polycarbophil [Fibercon] 625 mg PO DAILY 08/12/15 [History] Albuterol Neb [Proventil Neb] 2.5 mg IH Q6H PRN 10/03/16 [History] Fluticasone Propionate Nasal [Flonase] 2 puff NS DAILY PRN 10/03/16 [History] Pantoprazole Sodium [Protonix] 40 mg PO DAILY #90 10/23/16 [Rx] Budesonide/Formoterol 160/4.5 [Symbicort 160/4.5] 2 puff IH BIDR 03/19/17 [History] Albuterol Sulfate [Proair Hfa] 2 puff IH Q4H 12/02/17 [History] Oxycodone HCl/Acetaminophen [Percocet 5-325 mg Tablet] 1 - 2 tab PO Q4-6H PRN 12/28/18 [History] Tizanidine HCl [Zanaflex] 4 mg PO HS PRN 12/28/18 [History] Folic Acid 1 mg PO DAILY #30 tablet 02/16/19 [Rx] Ondansetron HCl 8 mg PO Q8H PRN #45 tablet 02/16/19 [Rx] Prochlorperazine Maleate [Compazine] 10 mg PO Q6HR PRN #90 tablet 02/16/19 [Rx] dexAMETHasone [Decadron] 4 mg PO BID PRN #45 tab 02/16/19 [Rx] Rivaroxaban [Xarelto] 20 mg PO DAILY #30 tablet 03/01/19 [Rx] GuaiFENesin/Codeine [ROBITUSSIN w/CODEINE] 5 ml PO Q8H PRN 30 Days #400 liquid 04/02/19 [Rx] Benzonatate [Tessalon] 100 mg PO TID PRN 04/18/19 [History] Dronabinol [Marinol] 2.5 mg PO HS 04/18/19 [History] Cholecalciferol (Vitamin D3) [Vitamin D3] 1,000 units PO DAILY 04/19/19 [History] [place]-3/Dha/Epa/Fish Oil [Fish Oil 1,000 mg Softgel] 1,000 mg PO DAILY 04/19/19 [History] Doxycycline 100 mg PO BID 7 Days #14 capsule 04/21/19 [Rx] Allergies/Adverse Reactions: Allergy/AdvReac Type Severity Reaction Status Date / Time paclitaxel Allergy Severe Anaphylaxis Verified 04/19/19 11:08 Penicillins Allergy Severe Hives Verified 04/19/19 11:08 Date of admission: 04/18/19 01:04 Primary care physician: Jemal Rodriguez DO Consults: 04/18/19 01:29 Consult to Nurse Navigator [CONS] Routine Comment: 04/18/19 02:44 Consult to Nutrition [CONS] Routine Comment: Consulting Provider: NUTRITION Reason for Dietary Consult: MST Score 04/18/19 02:49 Consult to Nutrition [CONS] Routine Comment: Consulting Provider: NUTRITION Reason for Dietary Consult: Other Other:: Severe malnutrition. 04/18/19 06:54 Consult to Nutrition [CONS] Routine Comment: Consulting Provider: NUTRITION Reason for Dietary Consult: Other Other:: Severe malnutrition. 04/18/19 11:26 Consult to Palliative Care [CONS] Routine Comment: Consulting Provider: Palliative Care So Reason for Consult: Patient with lung Ca with mets, currently undergoing chemo, admitted with pna, requesting goals of care discussion Time Notified: 11:27 Call Completed: No 04/19/19 08:23 Consult to Oncology Hematology [CONS] Routine Consulting Provider: Jose E Kline Reason for Consult: Anemia with metastatic lung cancer Call Completed: Yes - Constitutional Vitals: Temp Pulse Resp BP Pulse Ox 98.1 F 99 16 111/62 99 04/21/19 07:04 04/21/19 07:04 04/21/19 07:04 04/21/19 07:04 04/21/19 07:04 - Patient Status Disposition: Home, Self-Care Condition: Fair Functional capacity at discharge: independent ambulation Overall status at discharge: patient is progressing back to baseline - Discharge Instructions Follow Up With: Jemal Rodriguez DO [Primary Care Provider] - (Web request. Office will call with date and time of appointment. Thank you) - Diet and Activity Activity: increase activity as tolerated Diet: advance to your usual diet <Domenico Fernando - Last Filed: 04/21/19 13:39> - NOTES TO OUTPATIENT PROVIDER Notes to Outpatient Provider: Patient was admitted and treated for community- acquired pneumonia in the setting of chemotherapy. She was treated with 3 days of broad-spectrum antibiotics, she will be discharged with 7 continued days of oral doxycycline. She should follow-up with her oncologist. Recommend repeat hemoglobin in 3-5 days Orders not resulted at time of discharge: Pending orders 04/17/19 22:16 Culture,Blood [] Stat 04/18/19 04:00 Culture,Sputum with Gram Stain [] AM 0400 Date of Encounter: 04/21/19 Time of Encounter: 09:04 - Discharge Diagnosis (1) Right middle lobe pneumonia Priority: Primary Status: Acute Assessment and Plan: Pt with right middle lobe PNA demonstrated by CT. Receiving chemotherapy for stage IV adenocarcinoma of lung s/p right upper lobectomy. No neutropenia, currently afebrile. No leukocytosis. Improving on current antibiotic regimen. She continues to improve and no longer meets sepsis criteria. Plan to de- escalate abx to doxycycline for MRSA coverage. Patient received 3 days prior spectrum IV antibiotics, discontinue on 7 further days oral doxycycline Qualifiers: Pneumonia type: due to unspecified organism Qualified Code(s): J18.1 - Lobar pneumonia, unspecified organism (2) Immunocompromised state due to drug therapy Priority: Secondary Status: Acute Assessment and Plan: Patient is receiving chemotherapy with [facility] for metastatic lung cancer. - Awaiting final blood culture report. - MRSA screen positive. Negative legionella screen. - Per oncology recs - delay immunotherapy and continue in 1 week. (3) Lung cancer, primary, with metastasis from lung to other site Priority: Secondary Status: Chronic Assessment and Plan: S/P right upper lobectomy with metastasis. Pt is currently stable with moderate sputum production. Dyspnea resolved and at baseline. - Likely continue immunotherapy, delayed by 1 week per oncology. - Hypotension-mild, asymptomatic, monitor s/p PRBC per oncology. - Continue treatment of right PNA with IV antibiotics. - Continue home Marinol for appetite/pain. Qualifiers: Laterality: right Qualified Code(s): C34.91 - Malignant neoplasm of unspecified part of right bronchus or lung (4) DVT (deep venous thrombosis) Priority: Secondary Status: Chronic Assessment and Plan: Continue home Xarelto Qualifiers: DVT location: upper extremity Affected thrombotic vein of extremity: unspecified vein of extremity Chronicity: unspecified Laterality: left Qualified Code(s): I82.622 - Acute embolism and thrombosis of deep veins of left upper extremity (5) Hematuria Priority: Secondary Status: Acute Assessment and Plan: Microscopic hematuria was identified on U/A at admission. Likely secondary to Xarelto use. Pt is asymptomatic at this time. - Urine culture revealed group B strep. Asymptomatic. - Continue to monitor at this time. Qualifiers: Hematuria type: asymptomatic microscopic Qualified Code(s): R31.21 - Asymptomatic microscopic hematuria (6) Anemia Priority: Secondary Status: Chronic Assessment and Plan: Hbg up to 9.5 from 7.9 s/p 1 unit PRBC transfusion. - We will continue to monitor with H&H daily. - Low normotensive blood pressure. Continue to monitor. Qualifiers: Anemia type: unspecified type Qualified Code(s): D64.9 - Anemia, unspecified Hospital course: Ms. Bautista is a 74 year old female with past medical history of stage IV metastatic adenocarcinoma lung status post right upper lobectomy and chemotherapy presented to the ED for cough, shortness of breath and fever. She was admitted and treated for sepsis secondary to community-acquired pneumonia in the setting of immunotherapy. Patient was also noted to have mild hematuria and anemia secondary to Xarelto use for DVT. She was started on broad-spectrum IV antibiotics and was given 1 unit of packed red blood cells. She does follow with [facility] and oncology did evaluate her in the hospital and recommended several more days monitoring hemoglobin for discharge. She was treated with several days of IV antibiotics and monitoring. Her hemoglobin did remain stable, her clinical condition and infection did improve. She was transitioned to oral doxycycline and discharged with 7 further days of oral antibiotics for 10 day course. She will follow up outpatient with her oncologist and primary care provider. She is recommended to have repeat hemoglobin in 3-5 days. Discharge discussed with: patient, family, nurse, therapeutic consultant - Time Spent with Patient Total time spent providing and/or coordinating discharge services: Date of admission: 04/18/19 01:04 Primary care physician: Jemal Rodriguez, Consults: 04/18/19 01:29 Consult to Nurse Navigator [CONS] Routine Comment: 04/18/19 02:44 Consult to Nutrition [CONS] Routine Comment: Consulting Provider: NUTRITION Reason for Dietary Consult: MST Score 04/18/19 02:49 Consult to Nutrition [CONS] Routine Comment: Consulting Provider: NUTRITION Reason for Dietary Consult: Other Other:: Severe malnutrition. 04/18/19 06:54 Consult to Nutrition [CONS] Routine Comment: Consulting Provider: NUTRITION Reason for Dietary Consult: Other Other:: Severe malnutrition. 04/18/19 11:26 Consult to Palliative Care [CONS] Routine Comment: Consulting Provider: Palliative Care So Reason for Consult: Patient with lung Ca with mets, currently undergoing chemo, admitted with pna, requesting goals of care discussion Time Notified: 11:27 Call Completed: No 04/19/19 08:23 Consult to Oncology Hematology [CONS] Routine Consulting Provider: Jose E Kline Reason for Consult: Anemia with metastatic lung cancer Call Completed: Yes Discharging clinician: Domenico Fernando Anticipated date of discharge: 04/21/19 - Constitutional Vitals: Temp Pulse Resp BP Pulse Ox 98.1 F 99 16 111/62 99 04/21/19 07:04 04/21/19 07:04 04/21/19 07:04 04/21/19 07:04 04/21/19 07:04 Exam: GA: A&Ox3, frail, no acute distress. Head: Atraumatic normocephalic Skin: Normal texture, normal turgor, warm, dry. Eyes: Conjunctivae WNL. Anicteric. Heart: RRR, S1/S2 WNL. No murmurs, rubs, gallops. Lungs: CTA bilaterally, pt coughs with deep inspiration, no rales or rhonchi. Extremities: No cyanosis, clubbing, edema. Abdomen: Non-distended, normoactive bowel sounds, non-tender to palpation, no guarding. Neuro: No sensory loss or focal deficits. CN grossly intact. - VTE Reasons for not Prescribing Prophylaxis: Not indicated-Anticoagulated or INR therapeutic <Kelechi Leon - Last Filed: 04/21/19 17:42> Orders not resulted at time of discharge: Pending orders 04/17/19 22:16 Culture,Blood [BC] Stat 04/18/19 04:00 Culture,Sputum with Gram Stain [RM] AM 0400 Date of Encounter: 04/21/19 - Discharge Diagnosis (1) Sepsis Status: Resolved Qualifiers: Sepsis type: sepsis due to unspecified organism Sepsis acute organ dysfunction status: without acute organ dysfunction Qualified Code(s): A41.9 - Sepsis, unspecified organism (2) Right middle lobe pneumonia Status: Acute Qualifiers: Pneumonia type: due to unspecified organism Qualified Code(s): J18.1 - Lobar pneumonia, unspecified organism (3) Anemia Status: Chronic Qualifiers: Anemia type: other cause Other causes of anemia: chronic disease, neoplastic Qualified Code(s): D63.0 - Anemia in neoplastic disease (4) Lung cancer, primary, with metastasis from lung to other site Status: Chronic Qualifiers: Laterality: right Qualified Code(s): C34.91 - Malignant neoplasm of unsp ecified part of right bronchus or lung (5) Tobacco abuse Priority: Secondary Status: Chronic Hospital course: Ms. Bautista is a 74 year old female - Time Spent with Patient Total time spent providing and/or coordinating discharge services: Date of admission: 04/18/19 01:04 Primary care physician: Jemal Rodriguez DO Consults: 04/18/19 01:29 Consult to Nurse Navigator [CONS] Routine Comment: 04/18/19 02:44 Consult to Nutrition [CONS] Routine Comment: Consulting Provider: NUTRITION Reason for Dietary Consult: MST Score 04/18/19 02:49 Consult to Nutrition [CONS] Routine Comment: Consulting Provider: NUTRITION Reason for Dietary Consult: Other Other:: Severe malnutrition. 04/18/19 06:54 Consult to Nutrition [CONS] Routine Comment: Consulting Provider: NUTRITION Reason for Dietary Consult: Other Other:: Severe malnutrition. 04/18/19 11:26 Consult to Palliative Care [CONS] Routine Comment: Consulting Provider: Palliative Care Fischer Reason for Consult: Patient with lung Ca with mets, currently undergoing chemo, admitted with pna, requesting goals of care discussion Time Notified: 11:27 Call Completed: No 04/19/19 08:23 Consult to Oncology Hematology [CONS] Routine Consulting Provider: Jose E Kline Reason for Consult: Anemia with metastatic lung cancer Call Completed: Yes - Constitutional Vitals: Temp Pulse Resp BP Pulse Ox 97.9 F 94 16 102/70 94 04/21/19 11:22 04/21/19 11:22 04/21/19 11:22 04/21/19 11:22 04/21/19 11:22 - Attending Attestation I examined this patient and my medical decision-making was reviewed with the Resident Physician on 04/21/19. I agree with the documented findings, d isposition and treatment plan as described except to the extent set forth below. Ms Bautista has been admitted for acute pneumonia. She has improved with abx and is now afebrile. She is ready for discharge home. Exam Alert. Comfortable Mucus membranes dry Neck supple. EOMI Heart not tachy Rhonchi bilaterally Plan D/C home today. D/c time 28min
[2019-04-21] MEDS: *HR* Rivaroxaban 10 MG TABLET PO SCH (10:35)
[2019-04-21] MEDS: Budesonide/Formoterol 160/4.5 1 PUFF INH IH SCH (10:36)
[2019-04-21 11:23] VITALS: BP 102/70
[2019-04-21] MEDS ORDERED: Aminoglycoside Consult 1 EACH MC ONE (13:27)
--- NOTE | 2019-04-21 17:05 | Oncology Inp Progress Note ---
Date of Encounter: 04/21/19 Time of Encounter: 12:00 (1) Lung cancer Status: Chronic Assessment and plan: Patient with stage IV, recurrent lung cancer, adenocarcinoma, PDL 1 positive on chemotherapy and pembrolizumab, anemia multifactorial secondary to chemotherapy, recent infection/pneumonia, on anticoagulation with metastatic lung malignancy in the stomach, occult GI bleeding not ruled out. Hgb improved after PRBC. Hemoglobin is steady. We will delay the next treatment due Friday by 2 weeks, reschedule it with follow-up appointment on Likely continue immunotherapy Hypotension resolved Right lung pneumonia, findings from imaging reviewed, on antibiotics, monitor fever trend, culture data. UA Sterptococci. 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 Plan d.w pt and daughter Qualifiers: Laterality: right Lung location: upper lobe of lung Qualified Code(s): C34.11 - Malignant neoplasm of upper lobe, right bronchus or lung Oncology: Subj Interval history: Patient has been feeling well, denies fever episodes blood pressure has improved. She continues to have some cough. - Constitutional General appearance: no acute distress, thin - Head Head exam: Present: atraumatic, normal inspection - ENT ENT exam: Present: mucous membranes moist - Respiratory Respiratory exam: Present: CTAB - Neurological Exam Neurological exam: Present: alert, CN II-XII intact, oriented X3, no focal deficits - Psychiatric Psychiatric exam: Present: normal affect - Skin Skin exam: Present: dry Oncology: Obj Data - Labs CBC & Chem 7: 04/21/19 05:21 04/21/19 05:21 Consult Discharge Plan - Plan Referrals: Jemal Rodriguez DO [Primary Care Provider] - (Web request. Office will call with date and time of appointment. Thank you) Prescriptions: Doxycycline 100 mg PO BID 7 Days #14 capsule Inpatient Charges Provider: Dr. Toño Sutton Follow up - Inpatient: [id number]
== END 2019-04-21 13:28 | disposition home or self-care (01) | DRG 871 ==
LOC: EMEROOARM 21:31 → 3ANU 21:31 → OBSVTOIN 04-18 01:04 → SUATTDRO 04-18 01:04 → 3ANU 04-18 01:33
PROVIDERS: ADMIT Family Medicine; ATTEND Internal Medicine

== ENCOUNTER 2019-09-04 14:16 | Observation (INO) ==
[2019-09-04] MEDS ORDERED: *HR* FentaNYL (PF) 100 MCG/2 ML VIAL IVP STA (14:59)
[2019-09-04 15:05] LABS: Basophils % 0.6 %; Eosinophils # 0.1 K/mcL (0.0-0.6); Eosinophils % 1.7 %; Hematocrit 34.6 % (35.3-44.9); Hemoglobin 11.6 g/dL (11.5-15.4); Immature Granulocytes % 0.4 % (0-4); Lymphocytes # 0.6 K/mcL (0.6-4.6); Lymphocytes % 13.2 %; Mean Corpuscular HGB Conc 33.5 g/dL (31.6-35.5); Mean Corpuscular Hemoglobin 32.4 pg (28.0-33.3); Mean Corpuscular Volume 96.6 fL (83.0-100.0); Mean Platelet Volume 8.6 fL (9.4-12.4); Monocytes # 0.4 K/mcL (0.0-1.3); Monocytes % 8.9 %; Neutrophils # 3.5 K/mcL (1.6-8.9); Platelet Count 315 K/mcL (140-400); Red Blood Count 3.58 M/mcL (3.82-4.97); Red Cell Distribution Width 13.4 % (11.5-14.5); Segmented Neutrophils % 75.2 %; White Blood Count 4.7 K/mcL (4.3-11.1)
[2019-09-04 15:11] LABS: INR 2.7; Prothrombin Time 30.5 Seconds (9.4-12.1)
[2019-09-04 15:20] LABS: BUN/Creatinine Ratio 10 (6-26); Blood Urea Nitrogen 7 mg/dL (8-23); Calcium 9.2 mg/dL (8.6-10.3); Carbon Dioxide 25 mEq/L (23-29); Chloride 104 mEq/L (98-107); Glucose 94 mg/dL (70-105); Osmolality,Calculated 284 (280-300); Potassium 3.5 mEq/L (3.5-5.1); Sodium 138 mEq/L (136-145); eGFR For African Americans > 60 (> 60); eGFR For Non-African Americans > 60 (> 60)
[2019-09-04 15:41] LABS: Bilirubin,Urine Negative (Negative); Blood,Urine Moderate (Negative); Clarity,Urine Clear (Clear); Color,Urine Yellow (Yellow); Glucose,Urine (UA) Normal (Normal); Ketones,Urine Negative (Negative); Leukocyte Esterase,Urine Small (Negative); Nitrite,Urine Negative (Negative); Protein,Urine Negative (Neg-Trace); Specific Gravity,Urine 1.019 (1.010-1.025); Urobilinogen,Urine Normal (Normal)
[2019-09-04 15:52] LABS: Bacteria,Urine None Seen per hpf (None-Few); Hyaline Casts,Urine None Seen per lpf (None-Few); Squamous Epithelial Cell,Urine Many per lpf (None-Few)
[2019-09-04] MEDS ORDERED: Naloxone 0.4 MG/ML INJ IVP PRN (17:39)
[2019-09-04] MEDS ORDERED: Acetaminophen 325 MG TABLET PO PRN (17:39)
[2019-09-04] MEDS ORDERED: 0.9 % Sodium Chloride 1,000 ML IVC SCH (17:45)
[2019-09-04] MEDS ORDERED: Ipratropium/Albuterol Neb 3 ML IH PRN (17:51)
[2019-09-04] MEDS: *HR* HYDROcodone/Acet 5/325 mg TABLET PO PRN (19:25)
[2019-09-04] MEDS: Ondansetron 4 MG/2 ML VIAL IVP PRN (22:47)
[2019-09-05] MEDS: *HR* HYDROcodone/Acet 5/325 mg TABLET PO PRN (01:42)
[2019-09-05 02:15] LABS: Basophils % 0.7 %; Eosinophils # 0.1 K/mcL (0.0-0.6); Hematocrit 31.3 % (35.3-44.9); Hemoglobin 10.7 g/dL (11.5-15.4); Immature Granulocytes % 0.4 % (0-4); Lymphocytes # 0.6 K/mcL (0.6-4.6); Lymphocytes % 10.5 %; Mean Corpuscular HGB Conc 34.2 g/dL (31.6-35.5); Mean Corpuscular Hemoglobin 33.2 pg (28.0-33.3); Mean Corpuscular Volume 97.2 fL (83.0-100.0); Mean Platelet Volume 8.8 fL (9.4-12.4); Monocytes # 0.4 K/mcL (0.0-1.3); Monocytes % 8.1 %; Neutrophils # 4.2 K/mcL (1.6-8.9); Platelet Count 311 K/mcL (140-400); Red Blood Count 3.22 M/mcL (3.82-4.97); Red Cell Distribution Width 13.3 % (11.5-14.5); Segmented Neutrophils % 78.3 %; White Blood Count 5.4 K/mcL (4.3-11.1)
[2019-09-05 02:16] LABS: INR 1.5; Prothrombin Time 17.3 Seconds (9.4-12.1)
[2019-09-05 02:36] LABS: BUN/Creatinine Ratio 11 (6-26); Blood Urea Nitrogen 7 mg/dL (8-23); Calcium 8.3 mg/dL (8.6-10.3); Carbon Dioxide 25 mEq/L (23-29); Chloride 104 mEq/L (98-107); Glucose 104 mg/dL (70-105); Magnesium 1.8 mg/dL (1.6-2.6); Osmolality,Calculated 282 (280-300); Potassium 3.4 mEq/L (3.5-5.1); Sodium 137 mEq/L (136-145); eGFR For African Americans > 60 (> 60); eGFR For Non-African Americans > 60 (> 60)
[2019-09-05] MEDS: Ondansetron 4 MG/2 ML VIAL IVP PRN (07:03)
[2019-09-05] MEDS ORDERED: Albuterol 2.5 MG/3 ML NEBULIZER IH ONE (07:16)
[2019-09-05] MEDS ORDERED: Acetaminophen IV 1,000 MG/100 ML INFUS..BTL ONE (07:38)
[2019-09-05] MEDS ORDERED: Famotidine 20 MG/2 ML VIAL ONE (07:38)
[2019-09-05] MEDS ORDERED: *HR* Propofol 200 MG/20 ML VIAL IVP ONE (07:42)
[2019-09-05] MEDS ORDERED: Lidocaine -MPF 2% 2 ML VIAL ONE (07:44)
[2019-09-05] MEDS ORDERED: *HR* Succinylcholine 200 MG/10 ML VIAL IVP ONE (07:44)
[2019-09-05] MEDS ORDERED: Lidocaine HCL 4 ML Topical Solution (Laryng-O-Jet Kit Sterile Pak) TP ONE (07:44)
[2019-09-05] MEDS ORDERED: Isovue-300 50ML VIAL ONE (07:56)
[2019-09-05] MEDS ORDERED: Dexamethasone 4 MG/ML VIAL ONE (08:21)
[2019-09-05] MEDS ORDERED: Ondansetron 4 MG/2 ML VIAL IVP ONE (08:54)
[2019-09-05] MEDS ORDERED: *HR* HYDROcodone/Acet 5/325 mg TABLET PO PRN (10:05)
[2019-09-05] MEDS ORDERED: GuaiFENesin/Codeine Oral Soln 5 ML UDC PO PRN (10:05)
[2019-09-05] MEDS ORDERED: Levalbuterol Neb 0.63 MG/3 ML IH PRN (10:05)
[2019-09-05] MEDS ORDERED: Acetaminophen 325 MG TABLET PO PRN (10:05)
[2019-09-05] MEDS ORDERED: Ondansetron 4 MG/2 ML VIAL IVP PRN (10:05)
[2019-09-05] MEDS ORDERED: dexAMETHasone 4 MG TABLET PO PRN (10:05)
[2019-09-05] MEDS ORDERED: Ipratropium/Albuterol Neb 3 ML IH PRN (10:05)
[2019-09-05] MEDS ORDERED: Fluticasone Propionate Nasal 50 MCG/SPRAY BOTTLE NS PRN (10:05)
[2019-09-05] MEDS ORDERED: tiZANidine 4 MG TABLET PO PRN (10:05)
[2019-09-05] MEDS ORDERED: Naloxone 0.4 MG/ML INJ IVP PRN (10:05)
[2019-09-05] MEDS ORDERED: Albuterol 2.5 MG/3 ML NEBULIZER IH PRN (10:05)
[2019-09-05] MEDS ORDERED: Budesonide/Formoterol 160/4.5 1 PUFF INH IH SCH (10:05)
[2019-09-05 12:14] VITALS: BP 102/64
[2019-09-06] MEDS ORDERED: Folic Acid 1 MG TABLET PO SCH (09:00)
[2019-09-06] MEDS ORDERED: FIBER GUMMIES PO SCH (09:00)
[2019-09-06] MEDS ORDERED: FISH OIL 1000MG PO SCH (09:00)
[2019-09-06] MEDS ORDERED: NON-FORMULARY MEDICATION 1 EACH EACH (Rivaroxaban [Xarelto] 20 MG) PO SCH (09:00)
[2019-09-06] MEDS ORDERED: Cholecalciferol (D-3) 1,000 UNIT (25MCG) TABLET PO SCH (09:00)
[2019-09-06] MEDS ORDERED: *HR* Rivaroxaban 10 MG TABLET PO SCH (09:00)
== END 2019-09-05 12:26 | disposition home or self-care (01) ==
LOC: EMEROOARM 14:16 → 3ANU 14:16 → SUATTDRO 18:09 → 3ANU 18:55
PROVIDERS: ADMIT Internal Medicine; ATTEND Internal Medicine

== ENCOUNTER 2019-09-06 21:00 | Observation (INO) ==
[2019-09-06] MEDS ORDERED: 0.9 % Sodium Chloride 1,000 ML IVC ONE (21:36)
[2019-09-06] MEDS ORDERED: *HR* Promethazine 25 MG/ML VIAL IVP ONE (21:37)
[2019-09-06] MEDS ORDERED: Ketorolac 15 MG/ML VIAL IVP ONE (21:37)
[2019-09-06] MEDS ORDERED: *HR* HYDROmorphone (PF) 1 MG/ML SYRINGE IVP ONE (21:37)
[2019-09-06 22:26] LABS: Basophils # 0.1 K/mcL (0.0-0.2); Basophils % 0.8 %; Eosinophils # 0.1 K/mcL (0.0-0.6); Eosinophils % 1.7 %; Hematocrit 34.1 % (35.3-44.9); Hemoglobin 11.4 g/dL (11.5-15.4); Immature Granulocytes % 0.5 % (0-4); Lymphocytes # 0.6 K/mcL (0.6-4.6); Lymphocytes % 9.5 %; Mean Corpuscular HGB Conc 33.4 g/dL (31.6-35.5); Mean Corpuscular Hemoglobin 32.9 pg (28.0-33.3); Mean Corpuscular Volume 98.3 fL (83.0-100.0); Mean Platelet Volume 8.8 fL (9.4-12.4); Monocytes # 0.6 K/mcL (0.0-1.3); Neutrophils # 5.1 K/mcL (1.6-8.9); Platelet Count 358 K/mcL (140-400); Red Blood Count 3.47 M/mcL (3.82-4.97); Red Cell Distribution Width 13.4 % (11.5-14.5); Segmented Neutrophils % 78.5 %; White Blood Count 6.5 K/mcL (4.3-11.1)
[2019-09-06 22:35] LABS: Bilirubin,Urine Negative (Negative); Blood,Urine Moderate (Negative); Color,Urine Red (Yellow); Glucose,Urine (UA) Normal (Normal); Ketones,Urine Negative (Negative); Leukocyte Esterase,Urine Moderate (Negative); Nitrite,Urine Negative (Negative); Protein,Urine 100 mg/dL (Neg-Trace); Specific Gravity,Urine 1.023 (1.010-1.025); Urobilinogen,Urine Normal (Normal)
[2019-09-06 22:36] LABS: Clarity,Urine Cloudy (Clear)
[2019-09-06 22:43] LABS: BUN/Creatinine Ratio 13 (6-26); Blood Urea Nitrogen 11 mg/dL (8-23); Calcium 8.9 mg/dL (8.6-10.3); Carbon Dioxide 27 mEq/L (23-29); Chloride 100 mEq/L (98-107); Glucose 95 mg/dL (70-105); Osmolality,Calculated 285 (280-300); Potassium 3.3 mEq/L (3.5-5.1); Sodium 138 mEq/L (136-145); eGFR For African Americans > 60 (> 60); eGFR For Non-African Americans > 60 (> 60)
[2019-09-06] MEDS ORDERED: levoFLOXacin 750 MG/150 ML 750 MG/150 ML BAG IVPB ONE (23:00)
[2019-09-06] MEDS ORDERED: Azithromycin 500 MG in 0.9 % Sodium Chloride 250 ML IVPB ONE (23:00)
[2019-09-06] MEDS ORDERED: cefTRIAXone 1,000 MG in Water for inj. (sterile) 10 ML IVP ONE (23:06)
[2019-09-07] MEDS ORDERED: Naloxone 0.4 MG/ML INJ IVP PRN (00:42)
[2019-09-07] MEDS ORDERED: Ondansetron 4 MG/2 ML VIAL IVP PRN (00:49)
[2019-09-07] MEDS ORDERED: Ketorolac 15 MG/ML VIAL IVP PRN (00:49)
[2019-09-07] MEDS ORDERED: Potassium Chloride 20 MEQ, Lidocaine 1% 2 ML in 0.9 % Sodium Chloride 250 ML IVPB ONE (01:35)
[2019-09-07 06:27] LABS: BUN/Creatinine Ratio 10 (6-26); Blood Urea Nitrogen 8 mg/dL (8-23); Carbon Dioxide 25 mEq/L (23-29); Chloride 107 mEq/L (98-107); Glucose 88 mg/dL (70-105); Osmolality,Calculated 292 (280-300); Potassium 3.3 mEq/L (3.5-5.1); Sodium 142 mEq/L (136-145); eGFR For African Americans > 60 (> 60); eGFR For Non-African Americans > 60 (> 60)
[2019-09-07 06:30] LABS: INR 1.3; Prothrombin Time 14.3 Seconds (9.4-12.1)
[2019-09-07] MEDS: 0.9 % Sodium Chloride 1,000 ML IVC SCH ×2 (07:44→20:02)
[2019-09-07 08:19] LABS: Hematocrit 32.9 % (35.3-44.9); Hemoglobin 10.4 g/dL (11.5-15.4); Mean Corpuscular HGB Conc 31.6 g/dL (31.6-35.5); Mean Corpuscular Hemoglobin 31.9 pg (28.0-33.3); Mean Corpuscular Volume 100.9 fL (83.0-100.0); Mean Platelet Volume 8.8 fL (9.4-12.4); Platelet Count 357 K/mcL (140-400); Red Blood Count 3.26 M/mcL (3.82-4.97); Red Cell Distribution Width 13.5 % (11.5-14.5)
[2019-09-07] MEDS: cefTRIAXone 2,000 MG in 0.9 % Sodium Chloride Mini Bag 100 ML IVPB SCH (10:21)
[2019-09-07] MEDS ORDERED: *HR* Heparin 5,000 UNIT/ML VIAL IVP PRN ×3 (11:35→20:37)
[2019-09-07] MEDS ORDERED: Potassium Chloride Elixir 20 MEQ/15 ML UDC PO ONE (11:36)
[2019-09-07] MEDS ORDERED: Heparin 25,000 UNIT/250 ML D5W 25,000 UNIT/250 ML IV.SOLN IVC SCH (11:45)
[2019-09-07] MEDS ORDERED: Albuterol 2.5 MG/3 ML NEBULIZER IH PRN (13:17)
[2019-09-07] MEDS: Budesonide/Formoterol 160/4.5 1 PUFF INH IH SCH (19:43)
[2019-09-07] MEDS: Heparin 25,000 UNIT/250 ML D5W 25,000 UNIT/250 ML IV.SOLN IVC SCH (22:18)
[2019-09-07] MEDS: *HR* Heparin 5,000 UNIT/ML VIAL IVP PRN (22:25)
[2019-09-08 06:12] LABS: Basophils # 0.1 K/mcL (0.0-0.2); Basophils % 1.8 %; Eosinophils # 0.2 K/mcL (0.0-0.6); Eosinophils % 5.9 %; Hematocrit 32.9 % (35.3-44.9); Hemoglobin 10.8 g/dL (11.5-15.4); Immature Granulocytes % 0.6 % (0-4); Lymphocytes # 1.1 K/mcL (0.6-4.6); Lymphocytes % 31.2 %; Mean Corpuscular HGB Conc 32.8 g/dL (31.6-35.5); Mean Corpuscular Hemoglobin 32.3 pg (28.0-33.3); Mean Corpuscular Volume 98.5 fL (83.0-100.0); Mean Platelet Volume 9.2 fL (9.4-12.4); Monocytes # 0.3 K/mcL (0.0-1.3); Monocytes % 9.7 %; Neutrophils # 1.7 K/mcL (1.6-8.9); Platelet Count 291 K/mcL (140-400); Red Blood Count 3.34 M/mcL (3.82-4.97); Red Cell Distribution Width 13.4 % (11.5-14.5); Segmented Neutrophils % 50.8 %; White Blood Count 3.4 K/mcL (4.3-11.1)
[2019-09-08 06:32] LABS: BUN/Creatinine Ratio 5 (6-26); Blood Urea Nitrogen 4 mg/dL (8-23); Calcium 8.5 mg/dL (8.6-10.3); Carbon Dioxide 27 mEq/L (23-29); Chloride 106 mEq/L (98-107); Glucose 91 mg/dL (70-105); Osmolality,Calculated 290 (280-300); Potassium 3.8 mEq/L (3.5-5.1); Sodium 142 mEq/L (136-145); eGFR For African Americans > 60 (> 60); eGFR For Non-African Americans > 60 (> 60)
[2019-09-08] MEDS: *HR* Heparin 5,000 UNIT/ML VIAL IVP PRN (06:33)
[2019-09-08] MEDS: Budesonide/Formoterol 160/4.5 1 PUFF INH IH SCH ×2 (07:34→20:01)
[2019-09-08] MEDS: 0.9 % Sodium Chloride 1,000 ML IVC SCH (11:16)
[2019-09-08] MEDS: Folic Acid 1 MG TABLET PO SCH (11:16)
[2019-09-08] MEDS: cefTRIAXone 2,000 MG in 0.9 % Sodium Chloride Mini Bag 100 ML IVPB SCH (11:17)
[2019-09-08] MEDS ORDERED: GuaiFENesin/Codeine Oral Soln 5 ML UDC PO PRN (13:15)
[2019-09-08] MEDS ORDERED: Fluticasone Propionate Nasal 50 MCG/SPRAY BOTTLE NS PRN (15:30)
[2019-09-08] MEDS: Heparin 25,000 UNIT/250 ML D5W 25,000 UNIT/250 ML IV.SOLN IVC SCH (19:44)
[2019-09-09] MEDS: 0.9 % Sodium Chloride 1,000 ML IVC SCH (00:16)
[2019-09-09 05:25] LABS: Basophils % 0.9 %; Eosinophils # 0.1 K/mcL (0.0-0.6); Eosinophils % 4.2 %; Hematocrit 30.4 % (35.3-44.9); Hemoglobin 9.7 g/dL (11.5-15.4); Lymphocytes # 0.8 K/mcL (0.6-4.6); Lymphocytes % 23.1 %; Mean Corpuscular HGB Conc 31.9 g/dL (31.6-35.5); Mean Corpuscular Hemoglobin 32.3 pg (28.0-33.3); Mean Corpuscular Volume 101.3 fL (83.0-100.0); Mean Platelet Volume 8.8 fL (9.4-12.4); Monocytes # 0.3 K/mcL (0.0-1.3); Neutrophils # 2.1 K/mcL (1.6-8.9); Platelet Count 263 K/mcL (140-400); Red Cell Distribution Width 13.3 % (11.5-14.5); Segmented Neutrophils % 62.8 %; White Blood Count 3.3 K/mcL (4.3-11.1)
[2019-09-09 05:48] LABS: BUN/Creatinine Ratio 7 (6-26); Blood Urea Nitrogen 4 mg/dL (8-23); Calcium 8.7 mg/dL (8.6-10.3); Carbon Dioxide 25 mEq/L (23-29); Chloride 107 mEq/L (98-107); Glucose 101 mg/dL (70-105); Osmolality,Calculated 283 (280-300); Potassium 3.3 mEq/L (3.5-5.1); Sodium 138 mEq/L (136-145); eGFR For African Americans > 60 (> 60); eGFR For Non-African Americans > 60 (> 60)
[2019-09-09] MEDS: Budesonide/Formoterol 160/4.5 1 PUFF INH IH SCH (07:31)
[2019-09-09] MEDS ORDERED: NON-FORMULARY MEDICATION 1 EACH EACH (Pantoprazole Sodium [Protonix] 40 MG) PO SCH (09:00)
[2019-09-09 09:34] VITALS: BP 133/72
[2019-09-09] MEDS ORDERED: *HR* Rivaroxaban 10 MG TABLET PO SCH (10:00)
[2019-09-09] MEDS: cefTRIAXone 2,000 MG in 0.9 % Sodium Chloride Mini Bag 100 ML IVPB SCH (10:47)
[2019-09-09] MEDS: Folic Acid 1 MG TABLET PO SCH (10:47)
== END 2019-09-09 17:21 | disposition home or self-care (01) ==
LOC: EMEROOARM 21:00 → 3ANU 21:00 → SUATTDRO 09-07 00:48 → 3ANU 09-07 02:00
PROVIDERS: ADMIT Family Medicine; ATTEND Internal Medicine

== ENCOUNTER 2020-01-25 18:36 | Observation (INO) ==
[2020-01-25] MEDS ORDERED: *HR* Heparin 5,000 UNIT/ML VIAL IVP PRN ×2 (19:46)
[2020-01-25] MEDS ORDERED: *HR* Heparin 5,000 UNIT/ML VIAL IVP ONE (19:46)
[2020-01-25] MEDS ORDERED: Heparin 25,000 UNIT/250 ML D5W 25,000 UNIT/250 ML IV.SOLN IVC SCH (20:00)
[2020-01-25 20:03] LABS: BUN/Creatinine Ratio 20 (6-26); Blood Urea Nitrogen 20 mg/dL (8-23); Calcium 8.7 mg/dL (8.6-10.3); Carbon Dioxide 24 mEq/L (23-29); Chloride 106 mEq/L (98-107); Glucose 105 mg/dL (70-105); Osmolality,Calculated 287 (280-300); Potassium 3.4 mEq/L (3.5-5.1); Sodium 137 mEq/L (136-145); eGFR For African Americans > 60 (> 60); eGFR For Non-African Americans 55 (> 60)
[2020-01-25 20:04] LABS: Troponin I 0.03 ng/mL (< 0.04)
[2020-01-25 20:10] LABS: Hemoglobin 9.1 g/dL (11.5-15.4); Mean Corpuscular HGB Conc 30.3 g/dL (31.6-35.5); Mean Corpuscular Hemoglobin 29.7 pg (28.0-33.3); Red Blood Count 3.06 M/mcL (3.82-4.97); Red Cell Distribution Width 23.4 % (11.5-14.5); White Blood Count 8.7 K/mcL (4.3-11.1)
[2020-01-25 20:11] LABS: Basophils # 0.1 K/mcL (0.0-0.2); Basophils % 0.6 %; Eosinophils # 0.2 K/mcL (0.0-0.6); Eosinophils % 1.7 %; Immature Granulocytes % 0.5 % (0-4); Lymphocytes # 0.5 K/mcL (0.6-4.6); Lymphocytes % 5.5 %; Monocytes # 0.6 K/mcL (0.0-1.3); Monocytes % 6.9 %; Neutrophils # 7.4 K/mcL (1.6-8.9); Platelet Count 290 K/mcL (140-400); Segmented Neutrophils % 84.8 %
[2020-01-25 20:18] LABS: INR 1.8; Prothrombin Time 20.4 Seconds (9.4-12.1)
[2020-01-25 20:26] LABS: Anisocytosis 2+ (Not Present); Macrocytosis Present (Not Present); Microcytosis Present (Not Present); Platelet Estimate Normal (Normal); Polychromasia 1+ (Not Present)
[2020-01-25] MEDS ORDERED: Potassium Chloride Elixir 20 MEQ/15 ML UDC PO ONE (20:26)
[2020-01-25 20:27] LABS: Heparin anti-factor XA UFH > 2.00 IU/mL (0.30-0.70)
[2020-01-25] MEDS: Heparin 25,000 UNIT/250 ML D5W 25,000 UNIT/250 ML IV.SOLN IVC SCH (20:54)
[2020-01-25 20:55] LABS: Activated Partial Thrombo Time 29.4 Seconds (26.0-36.0)
[2020-01-25] MEDS ORDERED: Budesonide/Formoterol 160/4.5 1 PUFF INH IH PRN (22:58)
[2020-01-25] MEDS ORDERED: tiZANidine 4 MG TABLET PO PRN (22:58)
[2020-01-25] MEDS ORDERED: Levalbuterol Neb 0.63 MG/3 ML IH PRN (22:58)
[2020-01-25] MEDS ORDERED: Acetaminophen 325 MG TABLET PO PRN (23:01)
[2020-01-25] MEDS ORDERED: Naloxone 0.4 MG/ML INJ IVP PRN (23:01)
[2020-01-25] MEDS ORDERED: *HR* Promethazine 25 MG/ML VIAL IVP PRN (23:01)
[2020-01-25] MEDS ORDERED: 0.9 % Sodium Chloride 1,000 ML IVC SCH (23:15)
[2020-01-26 03:22] LABS: Hematocrit 25.3 % (35.3-44.9); Hemoglobin 7.7 g/dL (11.5-15.4); Mean Corpuscular HGB Conc 30.4 g/dL (31.6-35.5); Mean Corpuscular Hemoglobin 29.8 pg (28.0-33.3); Mean Corpuscular Volume 98.1 fL (83.0-100.0); Mean Platelet Volume 9.4 fL (9.4-12.4); Platelet Count 250 K/mcL (140-400); Red Blood Count 2.58 M/mcL (3.82-4.97)
[2020-01-26 03:34] LABS: INR 1.6; Prothrombin Time 18.1 Seconds (9.4-12.1)
[2020-01-26 03:44] LABS: BUN/Creatinine Ratio 20 (6-26); Blood Urea Nitrogen 18 mg/dL (8-23); Calcium 8.1 mg/dL (8.6-10.3); Carbon Dioxide 20 mEq/L (23-29); Chloride 110 mEq/L (98-107); Glucose 96 mg/dL (70-105); Magnesium 1.4 mg/dL (1.6-2.6); Osmolality,Calculated 288 (280-300); Phosphorous 2.4 mg/dL (2.7-4.5); Sodium 138 mEq/L (136-145); eGFR For African Americans > 60 (> 60); eGFR For Non-African Americans > 60 (> 60)
[2020-01-26] MEDS ORDERED: carvediloL 6.25 MG TABLET PO SCH (08:00)
[2020-01-26] MEDS: Folic Acid 1 MG TABLET PO SCH (08:41)
[2020-01-26] MEDS ORDERED: Megestrol Acetate 400 MG/10 ML UDC PO SCH (09:00)
[2020-01-26 15:59] LABS: Hematocrit 26.9 % (35.3-44.9); Hemoglobin 8.2 g/dL (11.5-15.4)
[2020-01-26] MEDS: *HR* OxyCODONE/APAP 5/325 TABLET PO PRN (21:48)
[2020-01-26] MEDS: Heparin 25,000 UNIT/250 ML D5W 25,000 UNIT/250 ML IV.SOLN IVC SCH (23:04)
[2020-01-27 04:50] LABS: Basophils % 0.7 %; Eosinophils # 0.2 K/mcL (0.0-0.6); Eosinophils % 2.9 %; Hematocrit 25.6 % (35.3-44.9); Hemoglobin 7.9 g/dL (11.5-15.4); Immature Granulocytes % 0.5 % (0-4); Lymphocytes # 0.6 K/mcL (0.6-4.6); Lymphocytes % 11.3 %; Mean Corpuscular HGB Conc 30.9 g/dL (31.6-35.5); Mean Corpuscular Hemoglobin 29.6 pg (28.0-33.3); Mean Corpuscular Volume 95.9 fL (83.0-100.0); Mean Platelet Volume 9.6 fL (9.4-12.4); Monocytes # 0.5 K/mcL (0.0-1.3); Monocytes % 8.4 %; Neutrophils # 4.2 K/mcL (1.6-8.9); Platelet Count 283 K/mcL (140-400); Red Blood Count 2.67 M/mcL (3.82-4.97); Red Cell Distribution Width 22.9 % (11.5-14.5); Segmented Neutrophils % 76.2 %; White Blood Count 5.5 K/mcL (4.3-11.1)
[2020-01-27 05:08] LABS: BUN/Creatinine Ratio 17 (6-26); Blood Urea Nitrogen 13 mg/dL (8-23); Calcium 8.4 mg/dL (8.6-10.3); Carbon Dioxide 22 mEq/L (23-29); Chloride 108 mEq/L (98-107); Glucose 94 mg/dL (70-105); Magnesium 1.8 mg/dL (1.6-2.6); Osmolality,Calculated 284 (280-300); Potassium 3.7 mEq/L (3.5-5.1); Sodium 137 mEq/L (136-145); eGFR For African Americans > 60 (> 60); eGFR For Non-African Americans > 60 (> 60)
[2020-01-27] MEDS: Folic Acid 1 MG TABLET PO SCH (09:27)
[2020-01-27] MEDS: Apixaban 5 MG TABLET PO SCH ×2 (12:06→19:41)
[2020-01-27] MEDS: *HR* OxyCODONE/APAP 5/325 TABLET PO PRN (14:23)
[2020-01-28 05:21] LABS: Hematocrit 26.6 % (35.3-44.9); Hemoglobin 8.3 g/dL (11.5-15.4)
[2020-01-28 05:41] LABS: BUN/Creatinine Ratio 21 (6-26); Blood Urea Nitrogen 17 mg/dL (8-23); Calcium 8.7 mg/dL (8.6-10.3); Carbon Dioxide 24 mEq/L (23-29); Chloride 107 mEq/L (98-107); Glucose 90 mg/dL (70-105); Osmolality,Calculated 287 (280-300); Potassium 3.8 mEq/L (3.5-5.1); Sodium 138 mEq/L (136-145); eGFR For African Americans > 60 (> 60); eGFR For Non-African Americans > 60 (> 60)
[2020-01-28 07:46] VITALS: BP 154/68
[2020-01-28] MEDS: Apixaban 5 MG TABLET PO SCH (08:11)
[2020-01-28] MEDS: Folic Acid 1 MG TABLET PO SCH (08:11)
== END 2020-01-28 11:15 | disposition home health service (06) ==
LOC: EMEROOARM 18:36 → 3ANU 18:36 → SUATTDRO 21:06 → 3ANU 21:49
PROVIDERS: ADMIT Internal Medicine; ATTEND Internal Medicine

== ENCOUNTER 2020-02-07 13:25 | Observation (INO) ==
[2020-02-07 14:29] LABS: Basophils # 0.1 K/mcL (0.0-0.2); Basophils % 0.9 %; Eosinophils # 0.2 K/mcL (0.0-0.6); Eosinophils % 2.7 %; Hematocrit 27.3 % (35.3-44.9); Hemoglobin 8.6 g/dL (11.5-15.4); Immature Granulocytes % 0.5 % (0-4); Lymphocytes # 0.5 K/mcL (0.6-4.6); Lymphocytes % 6.8 %; Mean Corpuscular HGB Conc 31.5 g/dL (31.6-35.5); Mean Corpuscular Hemoglobin 30.6 pg (28.0-33.3); Mean Corpuscular Volume 97.2 fL (83.0-100.0); Mean Platelet Volume 8.9 fL (9.4-12.4); Monocytes # 0.8 K/mcL (0.0-1.3); Monocytes % 10.7 %; Neutrophils # 6.2 K/mcL (1.6-8.9); Platelet Count 294 K/mcL (140-400); Red Blood Count 2.81 M/mcL (3.82-4.97); Red Cell Distribution Width 21.2 % (11.5-14.5); Segmented Neutrophils % 78.4 %; White Blood Count 7.8 K/mcL (4.3-11.1)
[2020-02-07 14:30] LABS: INR 2.2; Prothrombin Time 24.5 Seconds (9.4-12.1)
[2020-02-07 14:58] LABS: BUN/Creatinine Ratio 19 (6-26); Blood Urea Nitrogen 16 mg/dL (8-23); Calcium 8.7 mg/dL (8.6-10.3); Carbon Dioxide 22 mEq/L (23-29); Chloride 104 mEq/L (98-107); Glucose 78 mg/dL (70-105); Osmolality,Calculated 280 (280-300); Potassium 3.7 mEq/L (3.5-5.1); Sodium 135 mEq/L (136-145); eGFR For African Americans > 60 (> 60); eGFR For Non-African Americans > 60 (> 60)
[2020-02-07 14:59] LABS: Activated Partial Thrombo Time 29.6 Seconds (26.0-36.0)
[2020-02-07] MEDS ORDERED: *HR* Heparin 5,000 UNIT/ML VIAL IVP ONE (15:17)
[2020-02-07] MEDS ORDERED: *HR* Heparin 5,000 UNIT/ML VIAL IVP PRN (15:17)
[2020-02-07] MEDS ORDERED: Naloxone 0.4 MG/ML INJ IVP PRN (15:29)
[2020-02-07] MEDS ORDERED: Heparin 25,000 UNIT/250 ML D5W 25,000 UNIT/250 ML IV.SOLN IVC SCH (15:30)
[2020-02-07] MEDS: Heparin 25,000 UNIT/250 ML D5W 25,000 UNIT/250 ML IV.SOLN IVC SCH (15:34)
[2020-02-07] MEDS ORDERED: Ondansetron ODT 4 MG TAB.RAPDIS PO PRN (15:57)
[2020-02-07] MEDS ORDERED: Levalbuterol Neb 0.63 MG/3 ML IH PRN (15:57)
[2020-02-07] MEDS ORDERED: tiZANidine 4 MG TABLET PO PRN (15:57)
[2020-02-07] MEDS ORDERED: Pembrolizumab 100 MG/4 ML MG IV SCH (16:00)
[2020-02-07] MEDS ORDERED: *HR* HYDROmorphone (PF) 1 MG/ML SYRINGE IVP PRN (16:00)
[2020-02-07] MEDS: carvediloL 6.25 MG TABLET PO SCH (18:20)
[2020-02-07] MEDS: Budesonide/Formoterol 160/4.5 1 PUFF INH IH SCH (20:13)
[2020-02-07] MEDS: *HR* OxyCODONE/APAP 5/325 TABLET PO PRN (20:51)
[2020-02-08 06:18] LABS: Basophils % 0.7 %; Eosinophils # 0.2 K/mcL (0.0-0.6); Eosinophils % 3.2 %; Hematocrit 23.6 % (35.3-44.9); Hemoglobin 7.3 g/dL (11.5-15.4); Immature Granulocytes % 0.5 % (0-4); Lymphocytes # 0.6 K/mcL (0.6-4.6); Lymphocytes % 11.1 %; Mean Corpuscular HGB Conc 30.9 g/dL (31.6-35.5); Mean Corpuscular Hemoglobin 29.9 pg (28.0-33.3); Mean Corpuscular Volume 96.7 fL (83.0-100.0); Mean Platelet Volume 9.3 fL (9.4-12.4); Monocytes # 0.5 K/mcL (0.0-1.3); Monocytes % 9.6 %; Neutrophils # 4.2 K/mcL (1.6-8.9); Platelet Count 303 K/mcL (140-400); Red Blood Count 2.44 M/mcL (3.82-4.97); Red Cell Distribution Width 21.1 % (11.5-14.5); Segmented Neutrophils % 74.9 %; White Blood Count 5.6 K/mcL (4.3-11.1)
[2020-02-08 06:39] LABS: BUN/Creatinine Ratio 21 (6-26); Blood Urea Nitrogen 15 mg/dL (8-23); Calcium 8.7 mg/dL (8.6-10.3); Carbon Dioxide 22 mEq/L (23-29); Chloride 105 mEq/L (98-107); Glucose 90 mg/dL (70-105); Osmolality,Calculated 280 (280-300); Potassium 4.1 mEq/L (3.5-5.1); Sodium 135 mEq/L (136-145); eGFR For African Americans > 60 (> 60); eGFR For Non-African Americans > 60 (> 60)
[2020-02-08] MEDS: *HR* Heparin 5,000 UNIT/ML VIAL IVP PRN ×2 (06:40→14:37)
[2020-02-08] MEDS: Budesonide/Formoterol 160/4.5 1 PUFF INH IH SCH ×2 (07:35→20:21)
[2020-02-08] MEDS: carvediloL 6.25 MG TABLET PO SCH ×2 (08:13→17:17)
[2020-02-08] MEDS: Folic Acid 1 MG TABLET PO SCH (08:13)
[2020-02-08 13:28] LABS: Hematocrit 25.3 % (35.3-44.9); Hemoglobin 7.9 g/dL (11.5-15.4)
[2020-02-08] MEDS: *HR* OxyCODONE/APAP 5/325 TABLET PO PRN (17:16)
[2020-02-08] MEDS: Heparin 25,000 UNIT/250 ML D5W 25,000 UNIT/250 ML IV.SOLN IVC SCH (22:31)
[2020-02-09 02:51] LABS: Hematocrit 24.2 % (35.3-44.9); Hemoglobin 7.6 g/dL (11.5-15.4); Mean Corpuscular HGB Conc 31.4 g/dL (31.6-35.5); Mean Corpuscular Volume 95.7 fL (83.0-100.0); Mean Platelet Volume 8.7 fL (9.4-12.4); Platelet Count 333 K/mcL (140-400); Red Blood Count 2.53 M/mcL (3.82-4.97); Red Cell Distribution Width 20.5 % (11.5-14.5); White Blood Count 5.3 K/mcL (4.3-11.1)
[2020-02-09 03:12] LABS: BUN/Creatinine Ratio 23 (6-26); Blood Urea Nitrogen 16 mg/dL (8-23); Calcium 8.5 mg/dL (8.6-10.3); Carbon Dioxide 22 mEq/L (23-29); Chloride 105 mEq/L (98-107); Glucose 91 mg/dL (70-105); Osmolality,Calculated 283 (280-300); Potassium 3.9 mEq/L (3.5-5.1); Sodium 136 mEq/L (136-145); eGFR For African Americans > 60 (> 60); eGFR For Non-African Americans > 60 (> 60)
[2020-02-09 03:13] LABS: % Iron Saturation 9 % (15-50); Iron 18 mcg/dL (50-170); Transferrin 149 mg/dL (203-362)
[2020-02-09] MEDS: *HR* Heparin 5,000 UNIT/ML VIAL IVP PRN ×2 (03:30→18:19)
[2020-02-09 03:31] LABS: Ferritin 98 ng/mL (10-120)
[2020-02-09] MEDS: *HR* OxyCODONE/APAP 5/325 TABLET PO PRN ×3 (05:38→19:26)
[2020-02-09] MEDS: Budesonide/Formoterol 160/4.5 1 PUFF INH IH SCH ×2 (07:51→20:36)
[2020-02-09] MEDS: carvediloL 6.25 MG TABLET PO SCH ×2 (10:03→18:11)
[2020-02-09] MEDS: Folic Acid 1 MG TABLET PO SCH (10:19)
[2020-02-09] MEDS ORDERED: Heparin 1,000 UNITS/500 mL 500 ML ONE (12:28)
[2020-02-09] MEDS ORDERED: Isovue-250 100 ML INFUS..BTL ONE (12:28)
[2020-02-09] MEDS ORDERED: *HR* Midazolam HCl 2 MG/2 ML VIAL ONE (12:58)
[2020-02-09] MEDS ORDERED: *HR* FentaNYL (PF) 100 MCG/2 ML VIAL ONE (12:58)
[2020-02-09] MEDS: Heparin 25,000 UNIT/250 ML D5W 25,000 UNIT/250 ML IV.SOLN IVC SCH (19:08)
[2020-02-09] MEDS: Apixaban 5 MG TABLET PO SCH (21:13)
[2020-02-09] MEDS ORDERED: Cyanocobalamin (B-12) 1,000 MCG/ML VIAL SQ ONE (21:38)
[2020-02-10] MEDS: *HR* OxyCODONE/APAP 5/325 TABLET PO PRN ×2 (01:20→11:26)
[2020-02-10 02:33] LABS: Basophils % 0.7 %; Eosinophils # 0.2 K/mcL (0.0-0.6); Hematocrit 24.9 % (35.3-44.9); Hemoglobin 7.7 g/dL (11.5-15.4); Immature Granulocytes % 0.2 % (0-4); Lymphocytes # 0.5 K/mcL (0.6-4.6); Lymphocytes % 10.9 %; Mean Corpuscular HGB Conc 30.9 g/dL (31.6-35.5); Mean Corpuscular Hemoglobin 29.6 pg (28.0-33.3); Mean Corpuscular Volume 95.8 fL (83.0-100.0); Monocytes # 0.3 K/mcL (0.0-1.3); Monocytes % 7.5 %; Neutrophils # 3.5 K/mcL (1.6-8.9); Platelet Count 348 K/mcL (140-400); Red Cell Distribution Width 20.3 % (11.5-14.5); Segmented Neutrophils % 76.7 %; White Blood Count 4.5 K/mcL (4.3-11.1)
[2020-02-10 02:54] LABS: BUN/Creatinine Ratio 17 (6-26); Blood Urea Nitrogen 13 mg/dL (8-23); Calcium 8.8 mg/dL (8.6-10.3); Carbon Dioxide 23 mEq/L (23-29); Chloride 104 mEq/L (98-107); Glucose 96 mg/dL (70-105); Osmolality,Calculated 278 (280-300); Potassium 4.1 mEq/L (3.5-5.1); Sodium 134 mEq/L (136-145); eGFR For African Americans > 60 (> 60); eGFR For Non-African Americans > 60 (> 60)
[2020-02-10 07:42] VITALS: BP 116/69
[2020-02-10] MEDS: Budesonide/Formoterol 160/4.5 1 PUFF INH IH SCH (07:54)
[2020-02-10] MEDS: Folic Acid 1 MG TABLET PO SCH (08:40)
[2020-02-10] MEDS: Apixaban 5 MG TABLET PO SCH (08:40)
[2020-02-10] MEDS: carvediloL 6.25 MG TABLET PO SCH (08:40)
[2020-02-10] MEDS ORDERED: Cyanocobalamin (B-12) 1,000 MCG TABLET PO SCH (09:00)
== END 2020-02-10 12:07 | disposition home health service (06) | DRG 253 ==
LOC: 3ANU 13:25 → EMEROOARM 13:25 → SUATTDRO 16:35 → 3ANU 17:40
PROVIDERS: ADMIT Internal Medicine; ATTEND Internal Medicine

== ENCOUNTER 2020-02-28 13:44 | Inpatient (IN) ==
[2020-02-28] MEDS ORDERED: 0.9 % Sodium Chloride 1,000 ML IVC ONE ×2 (14:52→18:23)
[2020-02-28] MEDS ORDERED: Isovue-370 500 ML BOTTLE IVP ONE (14:53)
[2020-02-28 15:24] LABS: Basophils # 0.1 K/mcL (0.0-0.2); Basophils % 0.8 %; Eosinophils # 0.2 K/mcL (0.0-0.6); Hematocrit 27.4 % (35.3-44.9); Hemoglobin 8.4 g/dL (11.5-15.4); Immature Granulocytes % 0.8 % (0-4); Lymphocytes # 0.3 K/mcL (0.6-4.6); Lymphocytes % 3.8 %; Mean Corpuscular HGB Conc 30.7 g/dL (31.6-35.5); Mean Corpuscular Hemoglobin 30.1 pg (28.0-33.3); Mean Corpuscular Volume 98.2 fL (83.0-100.0); Monocytes # 0.6 K/mcL (0.0-1.3); Monocytes % 8.4 %; Neutrophils # 6.4 K/mcL (1.6-8.9); Platelet Count 278 K/mcL (140-400); Red Blood Count 2.79 M/mcL (3.82-4.97); Red Cell Distribution Width 18.2 % (11.5-14.5); Segmented Neutrophils % 84.2 %; White Blood Count 7.6 K/mcL (4.3-11.1)
[2020-02-28 15:31] LABS: INR 2.1; Prothrombin Time 23.6 Seconds (9.4-12.1)
[2020-02-28 15:32] LABS: Alanine Aminotransferase 11 Units/L (7-52); Albumin 3.2 g/dL (3.5-5.7); Albumin/Globulin Ratio 0.8 (1.1-2.2); Alkaline Phosphatase 111 Units/L (34-104); Amylase 29 Units/L (29-103); Aspartate Amino Transferase 14 Units/L (13-39); BUN/Creatinine Ratio 28 (6-26); Bilirubin,Indirect 0.3 mg/dL (0.0-1.0); Bilirubin,Total 0.3 mg/dL (0.3-1.0); Blood Urea Nitrogen 43 mg/dL (8-23); Calcium 9.8 mg/dL (8.6-10.3); Carbon Dioxide 20 mEq/L (23-29); Chloride 102 mEq/L (98-107); Glucose 125 mg/dL (70-105); Lipase 9 Units/L (11-82); Osmolality,Calculated 294 (280-300); Sodium 136 mEq/L (136-145); Total Protein 7.2 g/dL (6.4-8.9); Troponin I < 0.03 ng/mL (< 0.04); eGFR For African Americans 40 (> 60); eGFR For Non-African Americans 33 (> 60)
[2020-02-28 15:34] LABS: Activated Partial Thrombo Time 29.6 Seconds (26.0-36.0)
[2020-02-28 16:21] LABS: Bilirubin,Urine Negative (Negative); Blood,Urine Moderate (Negative); Clarity,Urine Ex.Turbid (Clear); Color,Urine Brown (Yellow); Glucose,Urine (UA) Normal (Normal); Ketones,Urine Negative (Negative); Leukocyte Esterase,Urine Large (Negative); Nitrite,Urine Negative (Negative); PH,Urine 7.5 pH Units (5.0-8.0); Protein,Urine >=600 mg/dL (Neg-Trace); Specific Gravity,Urine 1.022 (1.010-1.025); Urobilinogen,Urine Normal (Normal)
[2020-02-28 17:30] LABS: Bilirubin,Urine Negative (Negative); Blood,Urine Moderate (Negative); Clarity,Urine Ex.Turbid (Clear); Color,Urine Dark-Red (Yellow); Glucose,Urine (UA) Normal (Normal); Ketones,Urine Negative (Negative); Leukocyte Esterase,Urine Moderate (Negative); Nitrite,Urine Negative (Negative); Protein,Urine >=300 mg/dL (Neg-Trace); Specific Gravity,Urine 1.026 (1.010-1.025); Urobilinogen,Urine Normal (Normal)
[2020-02-28] MEDS ORDERED: levoFLOXacin 500 MG/100 ML 500 MG/100 ML BAG IVPB ONE (18:26)
[2020-02-28] MEDS ORDERED: Naloxone 0.4 MG/ML INJ IVP PRN (20:56)
[2020-02-28] MEDS ORDERED: *HR* Promethazine 25 MG/ML VIAL IVP PRN (20:56)
[2020-02-28] MEDS ORDERED: Acetaminophen 325 MG TABLET PO PRN (20:56)
[2020-02-28] MEDS: 0.9 % Sodium Chloride 1,000 ML IVC SCH (21:46)
[2020-02-29] MEDS: *HR* OxyCODONE/APAP 5/325 TABLET PO PRN ×2 (00:04→16:15)
[2020-02-29 02:05] LABS: Basophils % 0.5 %; Eosinophils # 0.1 K/mcL (0.0-0.6); Eosinophils % 1.7 %; Hematocrit 21.3 % (35.3-44.9); Hemoglobin 6.5 g/dL (11.5-15.4); INR 1.8; Immature Granulocytes % 0.6 % (0-4); Lymphocytes # 0.2 K/mcL (0.6-4.6); Lymphocytes % 3.8 %; Mean Corpuscular HGB Conc 30.5 g/dL (31.6-35.5); Mean Corpuscular Volume 98.2 fL (83.0-100.0); Mean Platelet Volume 9.1 fL (9.4-12.4); Monocytes # 0.4 K/mcL (0.0-1.3); Monocytes % 6.6 %; Neutrophils # 5.5 K/mcL (1.6-8.9); Platelet Count 231 K/mcL (140-400); Prothrombin Time 20.7 Seconds (9.4-12.1); Red Blood Count 2.17 M/mcL (3.82-4.97); Red Cell Distribution Width 18.2 % (11.5-14.5); Segmented Neutrophils % 86.8 %; White Blood Count 6.3 K/mcL (4.3-11.1)
[2020-02-29 02:21] LABS: BUN/Creatinine Ratio 35 (6-26); Blood Urea Nitrogen 34 mg/dL (8-23); Carbon Dioxide 19 mEq/L (23-29); Chloride 108 mEq/L (98-107); Glucose 121 mg/dL (70-105); Magnesium 1.4 mg/dL (1.6-2.6); Osmolality,Calculated 291 (280-300); Potassium 3.9 mEq/L (3.5-5.1); Sodium 136 mEq/L (136-145); eGFR For African Americans > 60 (> 60); eGFR For Non-African Americans 55 (> 60)
[2020-02-29] MEDS ORDERED: 0.9 % Sodium Chloride 250 ML IVC SCH (04:30)
[2020-02-29] MEDS: carvediloL 6.25 MG TABLET PO SCH ×2 (09:34→17:48)
[2020-02-29] MEDS: cefTRIAXone 1,000 MG in 0.9 % Sodium Chloride Mini Bag 100 ML IVPB SCH (09:35)
[2020-02-29] MEDS: Megestrol Acetate 400 MG/10 ML UDC PO SCH ×2 (09:35→19:22)
[2020-02-29] MEDS: 0.9 % Sodium Chloride 1,000 ML IVC SCH (09:35)
[2020-02-29 13:44] LABS: Hematocrit 29.9 % (35.3-44.9)
[2020-02-29 13:48] LABS: Hemoglobin 8.9 g/dL (11.5-15.4)
[2020-02-29] MEDS: Pantoprazole 40 MG VIAL IVP SCH (17:48)
[2020-02-29 19:10] LABS: Hematocrit 27.3 % (35.3-44.9); Hemoglobin 8.3 g/dL (11.5-15.4)
[2020-02-29] MEDS: Budesonide/Formoterol 160/4.5 1 PUFF INH IH SCH (21:50)
[2020-03-01 01:18] LABS: Hematocrit 27.7 % (35.3-44.9); Hemoglobin 8.4 g/dL (11.5-15.4)
[2020-03-01 01:37] LABS: BUN/Creatinine Ratio 29 (6-26); Blood Urea Nitrogen 27 mg/dL (8-23); Calcium 8.8 mg/dL (8.6-10.3); Carbon Dioxide 17 mEq/L (23-29); Chloride 110 mEq/L (98-107); Glucose 86 mg/dL (70-105); Osmolality,Calculated 290 (280-300); Potassium 4.3 mEq/L (3.5-5.1); Sodium 138 mEq/L (136-145); eGFR For African Americans > 60 (> 60); eGFR For Non-African Americans 60 (> 60)
[2020-03-01 01:39] LABS: Phosphorous 3.7 mg/dL (2.7-4.5)
[2020-03-01] MEDS: *HR* OxyCODONE/APAP 5/325 TABLET PO PRN ×3 (01:49→21:23)
[2020-03-01 03:04] LABS: Hematocrit 27.3 % (35.3-44.9); Hemoglobin 8.4 g/dL (11.5-15.4); Mean Corpuscular HGB Conc 30.8 g/dL (31.6-35.5); Mean Corpuscular Hemoglobin 29.9 pg (28.0-33.3); Mean Corpuscular Volume 97.2 fL (83.0-100.0); Mean Platelet Volume 9.2 fL (9.4-12.4); Platelet Count 208 K/mcL (140-400); Red Blood Count 2.81 M/mcL (3.82-4.97); Red Cell Distribution Width 18.1 % (11.5-14.5); White Blood Count 6.1 K/mcL (4.3-11.1)
[2020-03-01] MEDS: Pantoprazole 40 MG VIAL IVP SCH ×2 (05:32→17:26)
[2020-03-01] MEDS: Budesonide/Formoterol 160/4.5 1 PUFF INH IH SCH ×2 (08:02→19:53)
[2020-03-01] MEDS: Megestrol Acetate 400 MG/10 ML UDC PO SCH ×2 (09:49→21:23)
[2020-03-01] MEDS: carvediloL 6.25 MG TABLET PO SCH ×2 (09:49→17:25)
[2020-03-01] MEDS: cefTRIAXone 1,000 MG in 0.9 % Sodium Chloride Mini Bag 100 ML IVPB SCH (09:49)
[2020-03-01] MEDS: Folic Acid 1 MG TABLET PO SCH (09:49)
[2020-03-01] MEDS: Cyanocobalamin (B-12) 1,000 MCG TABLET PO SCH (09:49)
[2020-03-01] MEDS: polyethylene glycoL 3350 17 GM POWD.PACK PO SCH (12:00)
[2020-03-01] MEDS: Nitrofurantoin (BID) 100 MG CAPSULE PO SCH (17:25)
[2020-03-02 02:04] LABS: Hematocrit 28.8 % (35.3-44.9); Hemoglobin 8.7 g/dL (11.5-15.4); Mean Corpuscular HGB Conc 30.2 g/dL (31.6-35.5); Mean Corpuscular Hemoglobin 30.5 pg (28.0-33.3); Mean Corpuscular Volume 101.1 fL (83.0-100.0); Mean Platelet Volume 9.5 fL (9.4-12.4); Platelet Count 200 K/mcL (140-400); Red Blood Count 2.85 M/mcL (3.82-4.97); Red Cell Distribution Width 17.8 % (11.5-14.5); White Blood Count 6.7 K/mcL (4.3-11.1)
[2020-03-02 02:21] LABS: Magnesium 1.9 mg/dL (1.6-2.6); Phosphorous 3.9 mg/dL (2.7-4.5)
[2020-03-02 02:22] LABS: BUN/Creatinine Ratio 28 (6-26); Blood Urea Nitrogen 28 mg/dL (8-23); Carbon Dioxide 17 mEq/L (23-29); Chloride 106 mEq/L (98-107); Glucose 95 mg/dL (70-105); Osmolality,Calculated 285 (280-300); Potassium 4.3 mEq/L (3.5-5.1); Sodium 135 mEq/L (136-145); eGFR For African Americans > 60 (> 60); eGFR For Non-African Americans 54 (> 60)
[2020-03-02] MEDS: Pantoprazole 40 MG VIAL IVP SCH ×2 (06:32→17:28)
[2020-03-02] MEDS: Budesonide/Formoterol 160/4.5 1 PUFF INH IH SCH ×2 (07:43→22:03)
[2020-03-02] MEDS: cefTRIAXone 1,000 MG in 0.9 % Sodium Chloride Mini Bag 100 ML IVPB SCH (09:28)
[2020-03-02] MEDS: Cyanocobalamin (B-12) 1,000 MCG TABLET PO SCH (09:42)
[2020-03-02] MEDS: Nitrofurantoin (BID) 100 MG CAPSULE PO SCH ×2 (09:42→17:28)
[2020-03-02] MEDS: Folic Acid 1 MG TABLET PO SCH (09:42)
[2020-03-02] MEDS: carvediloL 6.25 MG TABLET PO SCH ×2 (09:42→17:28)
[2020-03-02] MEDS: Megestrol Acetate 400 MG/10 ML UDC PO SCH ×2 (09:42→20:14)
[2020-03-02] MEDS: polyethylene glycoL 3350 17 GM POWD.PACK PO SCH ×2 (09:42→17:33)
[2020-03-02] MEDS: 0.9 % Sodium Chloride 500 ML IVC SCH ×2 (12:43→22:40)
[2020-03-02] MEDS ORDERED: Dexamethasone 4 MG/ML VIAL ONE ×2 (13:25→13:28)
[2020-03-02] MEDS ORDERED: Lidocaine -MPF 2% 2 ML VIAL ONE ×2 (13:25→13:28)
[2020-03-02] MEDS ORDERED: Ondansetron 4 MG/2 ML VIAL ONE (13:25)
[2020-03-02] MEDS ORDERED: *HR* FentaNYL (PF) 100 MCG/2 ML VIAL ONE (13:26)
[2020-03-02] MEDS ORDERED: *HR* Propofol 200 MG/20 ML VIAL IVP ONE (13:29)
[2020-03-02] MEDS: *HR* OxyCODONE/APAP 5/325 TABLET PO PRN ×2 (16:14→20:31)
[2020-03-03 03:39] LABS: Hematocrit 28.5 % (35.3-44.9); Hemoglobin 8.7 g/dL (11.5-15.4); Mean Corpuscular HGB Conc 30.5 g/dL (31.6-35.5); Mean Corpuscular Hemoglobin 29.8 pg (28.0-33.3); Mean Corpuscular Volume 97.6 fL (83.0-100.0); Platelet Count 219 K/mcL (140-400); Red Blood Count 2.92 M/mcL (3.82-4.97); Red Cell Distribution Width 17.2 % (11.5-14.5); White Blood Count 7.9 K/mcL (4.3-11.1)
[2020-03-03 03:55] LABS: BUN/Creatinine Ratio 33 (6-26); Blood Urea Nitrogen 30 mg/dL (8-23); Calcium 8.8 mg/dL (8.6-10.3); Carbon Dioxide 16 mEq/L (23-29); Chloride 109 mEq/L (98-107); Glucose 147 mg/dL (70-105); Osmolality,Calculated 291 (280-300); Potassium 4.5 mEq/L (3.5-5.1); Sodium 136 mEq/L (136-145); eGFR For African Americans > 60 (> 60); eGFR For Non-African Americans 60 (> 60)
[2020-03-03 03:56] LABS: Magnesium 1.8 mg/dL (1.6-2.6); Phosphorous 4.7 mg/dL (2.7-4.5)
[2020-03-03] MEDS: Pantoprazole 40 MG VIAL IVP SCH (06:03)
[2020-03-03] MEDS: 0.9 % Sodium Chloride 500 ML IVC SCH (07:24)
[2020-03-03] MEDS: Budesonide/Formoterol 160/4.5 1 PUFF INH IH SCH (07:53)
[2020-03-03 07:54] VITALS: BP 122/75
[2020-03-03] MEDS: Megestrol Acetate 400 MG/10 ML UDC PO SCH (08:10)
[2020-03-03] MEDS: Cyanocobalamin (B-12) 1,000 MCG TABLET PO SCH (08:10)
[2020-03-03] MEDS: carvediloL 6.25 MG TABLET PO SCH (08:10)
[2020-03-03] MEDS: polyethylene glycoL 3350 17 GM POWD.PACK PO SCH (08:11)
[2020-03-03] MEDS: Folic Acid 1 MG TABLET PO SCH (08:11)
[2020-03-03] MEDS: Nitrofurantoin (BID) 100 MG CAPSULE PO SCH (08:11)
[2020-03-03] MEDS ORDERED: Sulfamethoxazole/Trimeth DS 1 EACH TABLET PO SCH (09:45)
== END 2020-03-03 11:05 | disposition home health service (06) | DRG 698 ==
LOC: 2ANU 13:44 → EMEROOARM 13:44 → SUATTDRO 20:39 → 2ANU 21:21
PROVIDERS: ADMIT Internal Medicine; ATTEND Internal Medicine
PROC: ENDOEBX (2020-03-02 13:00)